=== PATIENT | female | born 1950 | race African-American/Black ===

== ENCOUNTER 2017-08-23 05:54 | Emergency (ER) | payer OTHER ==
[2017-08-23] MEDS ORDERED: cloNIDine HCl 0.1 MG TAB ONE (06:34)
--- NOTE | 2017-08-23 08:07 | EDPHYS ---
Physician Documentation [facility] Name: Amanda Bermudez Age: 67 yrs Sex: Female : 1950 Arrival Date: 08/23/2017 Time: 05:55 Bed 18 Private MD: ED Physician Trenton Snell HPI: 08/23 06:41 This 67 yrs old Black Female presents to ER via Ambulatory with complaints of Cough. snw 06:41 The patient or guardian reports cough, that is intermittent, with no sputum. Onset: The snw symptoms/episode began/occurred gradually, 3 week(s) ago, and became persistent. Severity of symptoms: At their worst the symptoms were moderate. Associated signs and symptoms: The patient has no apparent associated signs or symptoms. The patient has not experienced similar symptoms in the past. It is unknown whether or not the patient has recently seen a physician. pt states she had fluid on her lungs a few months ago. Historical: - Allergies: 06:29 No Known Allergies; wh - Home Meds: 06:29 hydrochlorothiazide 25 mg Oral tab 1 tab once daily [Active]; metoprolol succinate 100 wh mg oral Tb24 1 tab once daily [Active]; amlodipine-benazepril 10-40 mg oral cap 1 cap once daily [Active]; - PMHx: 06:29 Hypertension; wh - Immunization history:: Adult Immunizations unknown. - Social history:: Smoking status: Patient/guardian denies using tobacco. - Ebola Screening: : Patient negative for fever greater than or equal to 101.5 degrees Fahrenheit, and additional compatible Ebola Virus Disease symptoms Patient denies exposure to infectious person. ROS: 06:40 Constitutional: Negative for fever, chills, and weight loss, Eyes: Negative for injury, snw pain, redness, and discharge, ENT: Negative for injury, pain, and discharge, Neck: Negative for injury, pain, and swelling, Cardiovascular: Negative for chest pain, palpitations, and edema, Abdomen/GI: Negative for abdominal pain, nausea, vomiting, diarrhea, and constipation, Back: Negative for injury and pain, : Negative for injury, bleeding, discharge, and swelling, MS/Extremity: Negative for injury and deformity, Skin: Negative for injury, rash, and discoloration, Neuro: Negative for headache, weakness, numbness, tingling, and seizure. 06:40 Respiratory: Positive for cough, with no reported sputum, Negative for shortness of breath, wheezing. Exam: 06:40 Constitutional: This is a well developed, well nourished patient who is awake, alert, snw and in no acute distress. Head/Face: Normocephalic, atraumatic. Eyes: Pupils equal round and reactive to light, extra-ocular motions intact. Lids and lashes normal. Conjunctiva and sclera are non-icteric and not injected. Cornea within normal limits. Periorbital areas with no swelling, redness, or edema. ENT: Nares patent. No nasal discharge, no septal abnormalities noted. Tympanic membranes are normal and external auditory canals are clear. Oropharynx with no redness, swelling, or masses, exudates, or evidence of obstruction, uvula midline. Mucous membranes moist. Neck: Trachea midline, no thyromegaly or masses palpated, and no cervical lymphadenopathy. Supple, full range of motion without nuchal rigidity, or vertebral point tenderness. No Meningismus. Chest/axilla: Normal chest wall appearance and motion. Nontender with no deformity. No lesions are appreciated. Cardiovascular: Regular rate and rhythm with a normal S1 and S2. No gallops, murmurs, or rubs. Normal PMI, no JVD. No pulse deficits. Respiratory: Lungs have equal breath sounds bilaterally, clear to auscultation and percussion. No rales, rhonchi or wheezes noted. No increased work of breathing, no retractions or nasal flaring. Abdomen/GI: Soft, non-tender, with normal bowel sounds. No distension or tympany. No guarding or rebound. No evidence of tenderness throughout. Back: No spinal tenderness. No costovertebral tenderness. Full range of motion. Skin: Warm, dry with normal turgor. Normal color with no rashes, no lesions, and no evidence of cellulitis. MS/ Extremity: Pulses equal, no cyanosis. Neurovascular intact. Full, normal range of motion. Neuro: Awake and alert, GCS 15, oriented to person, place, time, and situation. Cranial nerves II-XII grossly intact. Motor strength 5/5 in all extremities. Sensory grossly intact. Cerebellar exam normal. Normal gait. Vital Signs: 06:11 BP 201 / 101; Pulse 65; Resp 18; Temp 98.2; Pulse Ox 100% on R/A; wh 06:33 BP 196 / 81; wh 07:02 BP 182 / 84; Pulse 59; Resp 18; Pulse Ox 94% on R/A; em 07:45 BP 153 / 78; Pulse 62; Resp 16; Pulse Ox 99% on R/A; Pain 0/10; em 08:34 BP 143 / 62; Pulse 57; Resp 16; Pulse Ox 96% on R/A; em MDM: 06:07 Patient medically screened. snw 08:09 Data reviewed: vital signs, nurses notes. Data interpreted: Pulse oximetry: on room air snw is 94 %. Interpretation: acceptable. Counseling: I had a detailed discussion with the patient and/or guardian regarding: the historical points, exam findings, and any diagnostic results supporting the discharge/admit diagnosis, the presence of at least one elevated blood pressure reading (>120/80) during this emergency department visit, radiology results, f/u with PCP regarding guero inhibitor as potential inciting factor for cough. Special discussion: I have referred the patient to see his PCP for further evaluation of high blood pressure. Based on the history and exam findings, there is no indication for further emergent testing or inpatient evaluation. I discussed with the patient/guardian the need to see the primary care provider for further evaluation of the symptoms. 08/23 06:26 Order name: Chest Pa And Lat (2 Views) XRAY snw Administered Medications: 06:33 Drug: cloNIDine 0.2 mg Route: PO; wh 08:20 Follow up: Response: No adverse reaction; Blood pressure is lowered em Disposition: 08/23/17 08:07 Discharged to Home. Impression: Cough. - Condition is Stable. - Discharge Instructions: Cough, Adult. - Medication Reconciliation Form, Thank You Letter, Antibiotic Education, Prescription Opioid Use form. - Follow up: Private Physician; When: 1 - 2 days; Reason: Recheck today's complaints, Continuance of care, Re-evaluation by your physician. Follow up: Emergency Department; When: As needed; Reason: Worsening of condition. Addendum: 08/24/2017 08:43 Co-signature as Attending Physician, Trenton Snell MD I agree with the assessment and c ballesteros plan of care. Signatures: Dispatcher [employer] Trenton Slaughter MD MD cha Therrien, Shelly, DESKTOP PUBLISHING ASSOCIATE-C DESKTOP PUBLISHING ASSOCIATE-Csnw Osman Quijano, TERRAZZO TILE MAKER TERRAZZO TILE MAKER em Molly Csineros Corrections: (The following items were deleted from the chart) 08/23 08:38 08:07 08/23/2017 08:07 Discharged to Home. Impression: Cough. Condition is Stable. em Forms are Medication Reconciliation Form, Thank You Letter, Antibiotic Education, Prescription Opioid Use. Follow up: Private Physician; When: 1 - 2 days; Reason: Recheck today's complaints, Continuance of care, Re-evaluation by your physician. Follow up: Emergency Department; When: As needed; Reason: Worsening of condition. snw
--- NOTE | 2017-08-23 08:07 | ER ---
Nurse's Notes [facility] Name: Amanda Bermudez Age: 67 yrs Sex: Female : 1950 Arrival Date: 08/23/2017 Time: 05:55 Bed 18 Private MD: Diagnosis: Cough Presentation: 08/23 06:09 Presenting complaint: Patient states: states she has cough and throat congestion since 5 days ago. Denies fever and N\T\V. Transition of care: patient was not received from another setting of care. Onset of symptoms was August 19, 2017. Risk Assessment: Do you want to hurt yourself or someone else? Patient reports no desire to harm self or others. Initial Sepsis Screen: Does the patient meet any 2 criteria? No. Patient's initial sepsis screen is negative. Does the patient have a suspected source of infection? No. Patient's initial sepsis screen is negative. Care prior to arrival: None. 06:09 Method Of Arrival: Ambulatory 06:09 Acuity: DASHA 4 Triage Assessment: 06:25 General: Appears in no apparent distress. Behavior is calm, cooperative, appropriate wh for age. Pain: Denies pain. Historical: - Allergies: 06:29 No Known Allergies; wh - Home Meds: 06:29 hydrochlorothiazide 25 mg Oral tab 1 tab once daily [Active]; metoprolol succinate 100 wh mg oral Tb24 1 tab once daily [Active]; amlodipine-benazepril 10-40 mg oral cap 1 cap once daily [Active]; - PMHx: 06:29 Hypertension; - Immunization history:: Adult Immunizations unknown. - Social history:: Smoking status: Patient/guardian denies using tobacco. - Ebola Screening: : Patient negative for fever greater than or equal to 101.5 degrees Fahrenheit, and additional compatible Ebola Virus Disease symptoms Patient denies exposure to infectious person. Screenin:25 Abuse screen: Denies threats or abuse. Denies injuries from another. Nutritional wh screening: No deficits noted. Tuberculosis screening: No symptoms or risk factors identified. Fall Risk None identified. Assessment: 06:34 General: Appears in no apparent distress. comfortable, Behavior is calm, cooperative, wh appropriate for age. Pain: Denies pain. Neuro: Level of Consciousness is awake, alert, obeys commands, Oriented to person, place, time, situation, Forging Roll Operator are equal bilaterally. Cardiovascular: Heart tones S1 S2 Capillary refill < 3 seconds. Respiratory: Airway is patent Respiratory effort is even, unlabored, Respiratory pattern is regular, symmetrical, Breath sounds are clear bilaterally. GI: Abdomen is round non-distended. : No signs and/or symptoms were reported regarding the genitourinary system. EENT: Throat is pink. Derm: Skin is intact, is healthy with good turgor, Skin is pink, warm \T\ dry. normal. Musculoskeletal: Range of motion: intact in all extremities. 07:18 Reassessment: Patient appears in no apparent distress at this time. Patient and/or em family updated on plan of care and expected duration. Pain level reassessed. Patient is alert, oriented x 3, equal unlabored respirations, skin warm/dry/pink. pending X-ray, will continue to monitor BP. 07:45 Reassessment: Patient appears in no apparent distress at this time. Patient and/or em family updated on plan of care and expected duration. Pain level reassessed. Vital Signs: 06:11 BP 201 / 101; Pulse 65; Resp 18; Temp 98.2; Pulse Ox 100% on R/A; wh 06:33 BP 196 / 81; wh 07:02 BP 182 / 84; Pulse 59; Resp 18; Pulse Ox 94% on R/A; em 07:45 BP 153 / 78; Pulse 62; Resp 16; Pulse Ox 99% on R/A; Pain 0/10; em 08:34 BP 143 / 62; Pulse 57; Resp 16; Pulse Ox 96% on R/A; em ED Course: 05:55 Patient arrived in ED. es 06:05 Bailey Dudley FNP-C is PHCP. snw 06:06 Trenton Snell MD is Attending Physician. snw 06:09 Molly Cisneros is Primary Nurse. wh 06:11 Triage completed. wh 06:25 Arm band placed on left wrist. wh 06:29 Patient has correct armband on for positive identification. Bed in low position. Call light in reach. Side rails up X 1. Pulse ox on. NIBP on. 07:19 No provider procedures requiring assistance completed. em 07:52 X-ray completed. Patient tolerated procedure well. la2 07:53 Chest Pa And Lat (2 Views) XRAY In Process Unspecified. EDMS 08:35 Patient did not have IV access during this emergency room visit. em Administered Medications: 06:33 Drug: cloNIDine 0.2 mg Route: PO; 08:20 Follow up: Response: No adverse reaction; Blood pressure is lowered em Outcome: 08:07 Discharge ordered by MD. saavedra 08:35 Discharged to home ambulatory. em 08:35 Condition: good 08:35 Discharge instructions given to patient. 08:35 Instructed on discharge instructions, follow up and referral plans. Demonstrated understanding of instructions, follow-up care. 08:38 Patient left the ED. em Signatures: Dispatcher [employer] EDMA Bailey Dudley, PERMACULTURE DESIGNER-C PERMACULTURE DESIGNER-Csnw Viviana Nice Edgar, CAR TOP BOLTER CAR TOP BOLTER em Molly Cisneros Pushpa Malik Corrections: (The following items were deleted from the chart) 06:26 06:11 Pulse 65bpm; Resp 18bpm; Pulse Ox 100% RA; Temp 98.2F; [facility]
[2017-08-23 08:42] VITALS: TEMP 98.2
[2017-08-23 08:46] VITALS: BP 143/62; O2SAT 96
--- NOTE | 2017-08-23 11:55 | RAD REPORT ---
EXAM DESCRIPTION: RAD - Chest Pa And Lat (2 Views) - 08/23/2017 7:54 am CLINICAL HISTORY: COUGH Chest pain. COMPARISON: Chest Pa And Lat (2 Views) dated 05/08/2017; Chest Single View dated 05/07/2017; Chest Sin gle View dated 05/06/2017 FINDINGS: The lungs are clear. The heart is mildly enlarged in size. No displaced fractures. IMPRESSION: Mild to moderate cardiomegaly.
== END 2017-08-23 08:38 | disposition home or self-care (01) ==
LOC: ER 05:54
DX: R05 Cough (principal); I10 Essential (primary) hypertension
CPT/HCPCS: 71046; 99284

== ENCOUNTER 2023-01-06 11:11 | Inpatient (IN) | payer BC, OTHER ==
[2023-01-06 11:54] LABS: Absolute Lymphocytes (CBC) 1.5 K/uL (0.7-4.9); Hematocrit 26.9 % (36.0-45.0); Lymphocytes % 7.4 % (15.3-44.8); MCV 82.3 fL (80-100); MPV 7.4 fL (7.6-11.3); Platelets 440 thou/uL (152-406); RBC Red Blood Cell Count 3.27 M/uL (3.86-4.86)
[2023-01-06] MEDS ORDERED: AZITHROMYCIN 500 MG INJ IVPB ONE (11:55)
[2023-01-06] MEDS ORDERED: LEVALBUTEROL 0.63 MG/3 ML NEB ONE (11:55)
[2023-01-06] MEDS ORDERED: NA CHLORIDE 0.9% 250 ML ONE (11:56)
[2023-01-06 12:13] LABS: Potassium 3.5 mEq/L (3.5-5.1)
[2023-01-06 12:16] LABS: Troponin High Sensitivity 104.5 pg/mL (<58.9)
--- NOTE | 2023-01-06 12:26 | RAD REPORT ---
EXAM DESCRIPTION: RAD - Chest Single View - 01/06/2023 12:15 pm CLINICAL HISTORY: COUGH COMPARISON: Chest Pa And Lat (2 Views) dated 08/23/2017; Chest Pa And Lat (2 Views) dated 05/08/2017; C hest Single View dated 05/07/2017; Chest Single View dated 05/06/2017 FINDINGS: Lines: None. Lungs: Consolidative airspace disease present in the right upper lobe and to lesser extent the right lower lobe. Possible retrocardiac airspace disease . Pleural: No significant pleural effusions or pneumothorax. Cardiac: The heart size is within normal limits. Mediastinum: Within normal limits. Bones: No acute fractures. Other: None IMPRESSION: Consolidative airspace disease in the right lung and possibly left lung base probably re presenting pneumonia. Short-term follow-up chest radiograph versus chest CT is recommended to either ensure resolution or further evaluate.
--- NOTE | 2023-01-06 12:42 | ER ---
Nurse's Notes [facility] Name: Amanda Bermudez Age: 72 yrs Sex: Female : 1950 Arrival Date: 01/06/2023 Time: 11:11 Bed 8 Private MD: Diagnosis: Sepsis, unspecified organism;Pneumonia, unspecified organism Presentation: 01/06 11:22 Chief complaint: Patient states: she has had shortness of breath since Thursday12/02/22, ap3 of which the patient reports has gotten worse. patient states she is on lasix and amlodipine, but has not been taking them. Coronavirus screen: Client presents with at least one sign or symptom that may indicate coronavirus-19. Ebola Screen: No symptoms or risks identified at this time. Initial Sepsis Screen: Does the patient meet any 2 criteria? HR > 90 bpm. Does the patient have a suspected source of infection? Yes: Productive cough/pneumonia. Risk Assessment: Do you want to hurt yourself or someone else? Patient reports no desire to harm self or others. Onset of symptoms was January 02, 2023. 11:22 Method Of Arrival: Wheelchair ap3 11:22 Acuity: DASHA 3 ap3 Triage Assessment: 11:25 General: Appears ill, Behavior is calm, cooperative, appropriate for age. Pain: Denies ap3 pain. Neuro: Level of Consciousness is awake, alert, obeys commands, Oriented to person, place, time. Cardiovascular: Patient's skin is warm and dry. Respiratory: Reports shortness of breath Airway is patent Respiratory effort is even, unlabored, Respiratory pattern is regular, symmetrical, Onset: The symptoms/episode began/occurred gradually, the patient has mild shortness of breath. Historical: - Allergies: 11:25 No Known Allergies; ap3 - PMHx: 11:25 Hypertension; ap3 - Immunization history:: Client reports receiving the 2nd dose of the Covid vaccine. - Social history:: Smoking status: Patient denies any tobacco usage or history of. Screenin:27 Abuse screen: Denies threats or abuse. Nutritional screening: No deficits noted. ap3 Tuberculosis screening: No symptoms or risk factors identified. 11:43 [facility] ED Fall Risk Assessment (Adult) History of falling in the last 3 months, mb9 including since admission No falls in past 3 months (0 pts) Confusion or Disorientation No (0 pts) Intoxicated or Sedated No (0 pts) Impaired Gait No (0 pts) Mobility Assist Device Used No (0 pt) Altered Elimination No (0 pt) Score/Fall Risk Level 0 - 2 = Low Risk Oriented to surroundings, Maintained a safe environment, Educated pt \T\ family on fall prevention, incl call for assistance when getting out of bed. Assessment: 12:07 General: Appears in no apparent distress. Behavior is calm, cooperative, appropriate mb9 for age. Pain: Denies pain. Neuro: Alvarado Agitation-Sedation Scale (RASS): 0 - Alert and Calm Level of Consciousness is awake, alert, obeys commands, Oriented to person, place, time, situation, Appropriate for age. Cardiovascular: Heart tones S1 S2 present Patient's skin is warm and dry. Cardiovascular: Rhythm is regular. Respiratory: Airway is patent Respiratory effort is even, unlabored, Respiratory pattern is regular, symmetrical, Breath sounds are clear bilaterally. GI: Abdomen is round non-distended, Bowel sounds present X 4 quads. Abd is soft and non tender X 4 quads. Patient currently denies diarrhea, nausea, vomiting. : No signs and/or symptoms were reported regarding the genitourinary system. EENT: No signs and/or symptoms were reported regarding the EENT system. Derm: Skin is pink, warm \T\ dry. Musculoskeletal: Range of motion: intact in all extremities. 13:14 Reassessment: No changes from previously documented assessment. Patient and/or family mb9 updated on plan of care and expected duration. Pain level reassessed. Patient is alert, oriented x 3, equal unlabored respirations, skin warm/dry/pink. Vital Signs: 11:22 BP 168 / 76; Pulse 93; Resp 18; Temp 97.7; Pulse Ox 88% on R/A; Weight 86.18 kg; ap3 11:26 Pulse Ox 98% on 2 lpm NC; ap3 12:09 BP 116 / 52; Pulse 85; Resp 18; Pulse Ox 96% on 2 lpm NC; mb9 13:14 BP 122 / 79; Pulse 89; Resp 20; Pulse Ox 98% on 2 lpm NC; Pain 0/10; mb9 13:14 Pain Scale: Adult mb9 ED Course: 11:14 Patient arrived in ED. rg4 11:15 Vladislav Landry MD is Attending Physician. ec2 11:25 Triage completed. ap3 11:27 Arm band placed on right wrist. ap3 11:27 Patient has correct armband on for positive identification. Placed in gown. Bed in low ap3 position. Call light in reach. Side rails up X2. Adult w/ patient. gambling monitor on. Pulse ox on. NIBP on. 11:40 Inserted saline lock: 20 gauge in right antecubital area, using aseptic technique. ko1 Blood collected. 11:43 Amanda Gonsalez, RN is Primary Nurse. mb9 11:43 No provider procedures requiring assistance completed. mb9 11:48 Basic Metabolic Panel Sent. ko1 11:48 CBC with Diff Sent. ko1 11:48 NT PRO-BNP Sent. ko1 11:48 Troponin HS Sent. ko1 11:48 Lactate w/ 2H reflex if indic. Sent. ko1 11:48 Blood Culture Adult (2) Sent. ko1 11:48 Influenza Screen (a \T\ B) Sent. ko1 11:48 COVID-19 SARS RT PCR Sent. ko1 12:08 Blood Culture Adult (2) Sent. mb9 12:16 XRAY Chest (1 view) In Process Unspecified. EDMS 12:41 Tylor Cancino MD is Hospitalizing Provider. ec2 14:11 Patient admitted, IV remains in place. mb9 Administered Medications: 11:40 Drug: DuoNeb Nebulize (3:1) (2.5 mg - 0.5 mg) 3 ml Nebulizer once Route: Nebulizer; mb9 12:27 Follow up: Response: No adverse reaction mb9 12:00 Drug: Rocephin IV 1 grams IV at calculated rate once; Given slow IV push per pharmacy mb9 instructions Route: IV; Rate: calculated rate; Site: right antecubital; 12:27 Follow up: Response: No adverse reaction; IV Status: Completed infusion mb9 12:09 Drug: AZITHromycin IVPB 500 mg IVPB once over 1 hrs; (mix in 250 mL NS) Route: IVPB; mb9 Infused Over: 1 hrs; Site: right antecubital; 13:11 Follow up: Response: No adverse reaction; IV Status: Completed infusion mb9 12:44 Drug: Aspirin PO Chewable Tablet 324 mg PO once; 81 mg tablets x 4 Route: PO; mb9 13:11 Follow up: Response: No adverse reaction veronica Medication: 14:11 VIS not applicable for this client. veronica Outcome: 12:41 Decision to Hospitalize by Provider. ec2 14:11 Admitted to Med/surg accompanied by tech, room 210, with chart, Report called to veronica Lemon RN 14:11 Condition: stable 14:11 Instructed on the need for admit, 14:34 Patient left the ED. veronica Signatures: Dispatcher [employer] Sumaya Turcios rg4 Rebecca Yousif RN RN ap3 Tania Sierra, RN RN ko1 Sunshine, Amanda Olson RN RN mb9 Vladislav Landry MD MD ec2
--- NOTE | 2023-01-06 12:42 | EDPHYS ---
Physician Documentation [facility] Name: Amanda Bermudez Age: 72 yrs Sex: Female : 1950 Arrival Date: 01/06/2023 Time: 11:11 Bed 8 Private MD: ED Physician Vladislav Landry HPI: 01/06 11:25 This 72 yrs old Black Female presents to ER via Wheelchair with complaints of Shortness ec2 Of Breath. 11:25 Patient arrives today for evaluation of progressive shortness of breath. Patient ec2 reports that for the past several days she is been having cough and cold symptoms is having a productive sputum, and feels subjectively short of breath. Patient reports no vomiting or diarrhea, denies any chest pain. States that she does not have a history of heart failure however does have Lasix prescribed to her. States that she ran out of this recently. 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 Historical: - Allergies: 11:25 No Known Allergies; ap3 - PMHx: 11:25 Hypertension; ap3 - Immunization history:: Client reports receiving the 2nd dose of the Covid vaccine. - Social history:: Smoking status: Patient denies any tobacco usage or history of. ROS: 11:25 Constitutional: as per hpi ec2 Exam: 11:25 Constitutional: GEN: NAD Head: atraumatic Eyes: EOMI Ears: External ears are ec2 normal. CV: regular rate LUNGS: Scattered wheezes noted, no focal lung deficits ABD: non-distended SKIN: no evidence of rashes MSK: no evidence of trauma NEURO: moves all extremities equally Vital Signs: 11:22 BP 168 / 76; Pulse 93; Resp 18; Temp 97.7; Pulse Ox 88% on R/A; Weight 86.18 kg; ap3 11:26 Pulse Ox 98% on 2 lpm NC; ap3 12:09 BP 116 / 52; Pulse 85; Resp 18; Pulse Ox 96% on 2 lpm NC; mb9 13:14 BP 122 / 79; Pulse 89; Resp 20; Pulse Ox 98% on 2 lpm NC; Pain 0/10; mb9 13:14 Pain Scale: Adult mb9 MDM: 11:23 Patient medically screened. ec2 11:25 Data reviewed: vital signs. ED course: Patient arrives today due to concern for cough ec2 and cold symptoms along with shortness of breath. Examination remarkable for individual with scattered wheezes noted throughout lung examination. Patient initially noted to be hypoxic with saturation at 88% and subsequently improved with 2 L of oxygen to 98%. Will obtain a septic work-up, currently considering processes such as volume overload, pneumonia, viral infection.. 11:35 ED course: EKG independently reviewed and interpreted by me, shows normal sinus rhythm, ec2 rate of 90, no acute ST segment elevations, nonconcerning intervals. Does have nonspecific T wave inversions noted.. 12:38 ED course: Metabolic profile with some renal dysfunction noted with a creatinine of ec2 2.29 and a GFR of 22. Chest x-ray with leukocytosis at 20 anemia with a hemoglobin of 9.2. BNP elevated at over 11,000, troponin elevated at 104. Chest x-ray shows possible pneumonia. Patient already given antibiotics. Flu negative, lactic within normal ranges. . 12:38 ED course: Presentation consistent with sepsis secondary to pneumonia. Discussed case ec2 with hospitalist, will admit for continued management.. 01/06 11:24 Order name: Basic Metabolic Panel; Complete Time: 12:37 ec2 01/06 11:24 Order name: CBC with Diff ec2 01/06 11:24 Order name: NT PRO-BNP; Complete Time: 12:37 ec2 01/06 11:24 Order name: Troponin HS; Complete Time: 12:37 ec2 01/06 11:24 Order name: COVID-19 SARS RT PCR; Complete Time: 13:06 ec2 01/06 11:24 Order name: Influenza Screen (a \T\ B); Complete Time: 12:37 ec2 01/06 11:25 Order name: Blood Culture Adult (2) ec2 01/06 11:25 Order name: Lactate w/ 2H reflex if indic.; Complete Time: 12:37 ec2 01/06 13:07 Order name: Manual Differential EDMS 01/06 11:24 Order name: XRAY Chest (1 view); Complete Time: 12:37 ec2 01/06 11:24 Order name: EKG; Complete Time: 11:25 ec2 01/06 11:24 Order name: Cardiac monitoring; Complete Time: 11:28 ec2 01/06 11:24 Order name: EKG - Nurse/Tech; Complete Time: 11:48 ec2 01/06 11:24 Order name: IV Saline Lock; Complete Time: 11:48 ec2 01/06 11:24 Order name: Labs collected and sent; Complete Time: 11:48 ec2 01/06 11:24 Order name: O2 Per Protocol; Complete Time: 11:28 ec2 01/06 11:24 Order name: O2 Sat Monitoring; Complete Time: 11:28 ec2 01/06 11:25 Order name: Accucheck; Complete Time: 11:48 ec2 01/06 11:25 Order name: IV Saline Lock - Large Bore; Complete Time: 11:48 ec2 01/06 11:25 Order name: Vital Signs; Complete Time: 11:28 ec2 Administered Medications: 11:40 Drug: DuoNeb Nebulize (3:1) (2.5 mg - 0.5 mg) 3 ml Nebulizer once Route: Nebulizer; mb9 12:27 Follow up: Response: No adverse reaction mb9 12:00 Drug: Rocephin IV 1 grams IV at calculated rate once; Given slow IV push per pharmacy mb9 instructions Route: IV; Rate: calculated rate; Site: right antecubital; 12:27 Follow up: Response: No adverse reaction; IV Status: Completed infusion mb9 12:09 Drug: AZITHromycin IVPB 500 mg IVPB once over 1 hrs; (mix in 250 mL NS) Route: IVPB; mb9 Infused Over: 1 hrs; Site: right antecubital; 13:11 Follow up: Response: No adverse reaction; IV Status: Completed infusion mb9 12:44 Drug: Aspirin PO Chewable Tablet 324 mg PO once; 81 mg tablets x 4 Route: PO; mb9 13:11 Follow up: Response: No adverse reaction mb9 Disposition: 12:38 Critical Care:. ec2 Disposition Summary: 01/06/23 12:41 Hospitalization Ordered Notes: Hospitalization Status: Inpatient Admission ec2 Provider: Tylor Cancino [facility] ec2 Condition: Stable ec2 Problem: an acute exacerbation ec2 Symptoms: have improved ec2 Bed/Room Type: Standard ec2 Room Assignment: 210(01/06/23 14:02) ap3 Diagnosis - Sepsis, unspecified organism ec2 - Pneumonia, unspecified organism ec2 Forms: - Medication Reconciliation Form ec2 - SBAR form ec2 - Leadership Thank You Letter ec2 Critical care time excluding procedures: 12:38 Critical care time: Bedside Care: 30 minutes, Consultation: 5 minutes. Total time: 35 ec2 minutes Signatures: Dispatcher [employer] Rebecca Strauss RN RN ap3 Amanda Gonsalez RN RN mb9 Vladislav Landry MD MD ec2 Corrections: (The following items were deleted from the chart) 14:02 12:41 ec2 ap3
[2023-01-06] MEDS ORDERED: ASPIRIN 81 MG CHEWABLE TABLET ONE (12:55)
[2023-01-06 13:06] LABS: Platelet Estimate INCR
[2023-01-06 13:07] LABS: Blood Morphology Comment NOT SEEN (NOT SEEN)
[2023-01-06] MEDS ORDERED: ACETAMINOPHEN 500 MG TAB PO PRN (13:40)
[2023-01-06] MEDS ORDERED: IPRATROPIUM BROM 0.5MG/2.5ML NEB PRN ×2 (13:40→15:00)
[2023-01-06] MEDS ORDERED: NA CHLORIDE 0.9% 500 ML IV ONE (13:40)
[2023-01-06] MEDS ORDERED: ALBUTEROL 2.5 MG/3 ML NEB SOL NEB PRN ×2 (13:40→15:00)
--- NOTE | 2023-01-06 13:59 | P.HP ---
Certification for Inpatient With expected LOS: <2 Midnights Patient will require the following post-hospital care: None Practitioner: I am a practitioner with admitting privileges, knowledge of patient current condition, hospital course, and medical plan of care. Services: Services provided to patient in accordance with Admission requirements found in Title 42 Section 412.3 of the Code of Federal Regulations Patient History Date of Service: 01/06/23 Reason for admission: Sepsis pneumonia, elevated troponin, renal impairment History of Present Illness: Ms. EDDA WEST a 72-year-old female with a past medical history of hypertension, presented to the ER via wheelchair with complaints of shortness of breath. Patient reports that she is short of breath for past several days, productive cough which is thick sputum patient denies chest pain, chest discomfort. Patient denies fever chills or weight loss. Patient denies abdominal pain, nausea or vomiting. Patient states she stopped taking blood pressure medication as she ran out. ED course BP 168/76, pulse 93, respiration 18, temperature 97.7, pulse ox 88% on room air. EKG shows normal sinus rhythm rate of 90, no acute ST segment elevations, not on concerning intervals, nonspecific T wave inversions noted. Labs significant for leukocytosis WBC of 22, anemia with a hemoglobin of 9.2, BMP showing renal dysfunction noted with a creatinine of 2.29 and a GFR of 22, chest x-ray positive for right lung consolidation. Admitting the patient with a diagnosis of sepsis secondary to pneumonia. Allergies No Known Allergies Allergy (Unverified 05/05/17 13:01) Home medications list reviewed: Yes Home Medications: Amlodipine [Norvasc*] 5 mg PO DAILY #30 tab 05/10/17 Furosemide [Lasix*] 40 mg PO DAILY #30 tab 05/10/17 Spironolactone [Aldactone*] 25 mg PO DAILY #30 tab 05/10/17 carvediloL [Coreg*] 12.5 mg PO BID 6AM 6PM #60 tab 05/10/17 - Past Medical/Surgical History Diabetic: No -: HTN -: asthma Psychosocial/ Personal History: Patient lives at home by herself - Family History Sister -: Cancer (Ovarian cancer) - Social History Smoking Status: Never smoker Smoking therapy provided: No Alcohol use: Yes CD- Drugs: No Caffeine use: No Place of Residence: Home Review of Systems 10-point ROS is otherwise unremarkable Physical Examination - Physical Exam General: Alert, Oriented x3 HEENT: Atraumatic, Normocephalic Neck: Supple, 2+ carotid pulse no bruit Respiratory: Clear to auscultation bilaterally, Normal air movement Cardiovascular: No edema, Normal pulses, Normal S1 S2 Capillary refill: <2 Seconds Gastrointestinal: Normal bowel sounds, Non-distended Musculoskeletal: No clubbing, No swelling Integumentary: Other (Small wound on the left lower extremity) - Studies Laboratory Data (last 24 hrs) 01/06/23 01/06/23 11:45 11:45 WBC 20.20 H Hgb 9.2 L Hct 26.9 L Plt Count 440 H Sodium 137 Potassium 3.5 BUN 45 H Creatinine 2.29 H Glucose 153 H Microbiology Data (last 24 hrs): 01/06/23 11:45 Nasopharnyx Influenza Type A Antigen Screen - Final 01/06/23 11:45 Nasopharnyx Influenza Type B Antigen Screen - Final Assessment and Plan - Problems (Diagnosis) (1) Sepsis Current Visit: Yes Status: Acute Plan: Sepsis Patient meets sepsis criteria based on temperature elevated WBCs and chest x- ray. Vital signs blood pressure 168/76, pulse 98, respiration 18, temperature 97.7, pulse ox 88% on room air WBC > 20 point r > 4 the suspected source is lungs. Plan: - Activated Code Sepsis at on 01/06/2023 - Sepsis order set was initiated - Initial Lactate was1.4, trend - Bantibiotics ceftriaxone and Zithromax STARTED - Broad spectrum antibiotics started: ceftriaxone and Zithromax STARTED- -iv SALINE LOCK, Will monitor BP, no IVF at this time as patient's BNP is elevated and with h/o CHF. Qualifiers: Sepsis type: sepsis due to unspecified organism Sepsis acute organ dysfunction status: with acute organ dysfunction Severe sepsis acute organ dysfunction type: unspecified (2) Pneumonia Current Visit: Yes Status: Acute Plan: Acute, denies shortness of breath, fever or chills -O2 2 L via nasal cannula to keep the SPO2 above 92% -Bronchodilators as needed -Leukocytosis WBC 20.2, bands 4, - Sepsis order set was initiated - Initial Lactate was1.4, trend - Bantibiotics ceftriaxone and Zithromax STARTED - Broad spectrum antibiotics started: ceftriaxone and Zithromax STARTED- -iv SALINE LOCK, Will monitor BP, no IVF at this time as patient's BNP is elevated and with h/o CHF Qualifiers: Pneumonia type: due to unspecified organism Laterality: right Lung location: middle lobe of lung Qualified Code(s): J18.9 - Pneumonia, unspecified organism (3) Wound of left lower extremity Current Visit: Yes Status: Chronic Plan: Chronic, wound on the left left lower extremity, nonhealing, developed after blister came up and No signs of infection, wound bed is bright red, no pus no edema noted Routine wound care Qualifiers: Encounter type: initial encounter Qualified Code(s): S81.802A - Unspecified open wound, left lower leg, initial encounter (4) Acute systolic CHF (congestive heart failure), NYHA class 4 Onset Date: 05/06/17 Current Visit: No Status: Acute Plan: Acute on chronic Patient was admitted with increased coughing Not taking her home medication including amlodipine Coreg Lasix and spironolactone Patient presents with symptoms of shortness of breath, cough. At this time, will admit for medical optimization. - Consult Cardiology - recommendations appreciated - Ordered transthoracic echocardiogram -Continue to watch blood pressure - Daily weights - Strict I/O - Cardiac diet, 2 g Na restriction (5) HTN (hypertension) Onset Date: 05/06/17 Current Visit: No Status: Chronic Plan: Chronic, uncontrolled Patient reports that she is not compliant with her medications, patient was on amlodipine 5 mg p.o. daily, not taking medicine for long time not seen PCP for long-term Restart amlodipine Monitor vital signs closely Qualifiers: Hypertension type: primary hypertension Qualified Code(s): I10 - Essential (primary) hypertension (6) CKD (chronic kidney disease) stage 4, GFR 15-29 ml/min Current Visit: Yes Status: Acute Plan: Patient admitted with sepsis pneumonia Labs shows impaired renal function BUN 45 creatinine 2.29 GFR 22 Patient reports that she was not taking her medications for a long time Nephrology consulted We will monitor renal function daily Renal diet (7) NSTEMI (non-ST elevated myocardial infarction) Current Visit: Yes Status: Acute Plan: Acute No chest pain, concern for Acute Coronary Syndrome due to elevated troponin 104 Based on history and physical examination, cannot exclude ischemia as a possible etiology of patient's chest pain. - EKG: No obvious ST segment changes, trend - Serial troponin - Ordered transthoracic echocardiogram - Ordered chest x-ray - Ordered d-dimer - Management plan: - Consult Cardiology -Dr. Mackey - S/P aspirin 324 mg PO x 1 in ED - Start daily baby aspirin - Symptom control with PRN acetaminophen, nitroglycerin, morphine - If CAD is confirmed, plan to start beta-adonay, MIRLANDE-inhibitor/ARB, statin with 24 hours Discharge Plan: Home Plan to discharge in: 48 Hours - Advance Directives Does patient have a Living Will: No Does patient have a Durable POA for Healthcare: No - Code Status/Comfort Care Code Status Assessed: Yes (Full code) Code Status: Full Code Physician Review: Patient Assessed, Agree with Above Assessment and Plan Critical Care: No Time Spent Managing Pts Care (In Minutes): 55 (Minutes)
[2023-01-06] MEDS ORDERED: MORPHINE 2 MG/ML SYR IV PRN (14:52)
[2023-01-06] MEDS ORDERED: NITROGLYCERIN 0.4 MG/TAB SL ONE (14:53)
[2023-01-06] MEDS ORDERED: PNEUMOCOCCAL VACCINE 0.5 ML IMVAC ONE (16:00)
[2023-01-06] MEDS ORDERED: INFLUENZA VACCINE (for 6+ mo) 0.5 ML DOSE IMVAC ONE (16:00)
--- NOTE | 2023-01-06 18:18 | RAD REPORT ---
EXAM DESCRIPTION: US - Renal Ultrasound-Complete - 01/06/2023 3:28 pm CLINICAL HISTORY: MICHAEL COMPARISON: No comparisons TECHNIQUE: Sonographic grayscale and color flow images of the kidneys and bladder were obtained. FINDINGS: Both kidneys are normal in size, shape, and echotexture. The right kidney measures 8.1 cm in length. No hydronephrosis, focal mass, or echogenic calculi. Well -circumscribed exophytic anechoic superior pole 2.6 x 2.3 x 2.2 cm cortical cyst. The left kidney measures 8.6 cm in length. No hydronephrosis, focal mass, or echogenic calculi. The urinary bladder is suboptimally distended limiting evaluation. Incidentally noted calcified uteri ne lesions resulting in contour abnormality suggestive of fibroids. IMPRESSION: Right superior pole 2.6 cm simple appearing renal cyst. Otherwise normal renal sonogram. Incidentally noted uterine fibroids.
--- NOTE | 2023-01-06 19:29 | CON ---
Date of Consultation: 01/06/2023 Reason For Consultation: Elevated BUN and creatinine. Fluid management. History Of Present Illness: This is a pleasant 72-year-old female with significant past medical history of hypertension, poorly controlled, poor compliant with medication, patient was in her regular state of health. Patient lost her medication, came to the hospital complaining from cough with sputum yellowish without any fever or chills and shortness of breath with orthopnea. Patient had admission before with uncontrolled hypertension at that time back in 2018, ejection fraction within normal limit. On this admission, has elevation in troponin and BNP. Patient denied taking any nonsteroidal. Patient found to have elevation in creatinine 2.2. Reviewing the record for the patient, creatinine back in 2018 at 1.2 with GFR of 50, currently creatinine 2.2 with GFR of 22. Allergies: NO KNOWN DRUGS ALLERGY. Home Medications: Including amlodipine, Lasix, spironolactone, carvedilol, but she is not taking any. Past Medical History: Includes hypertension and bronchial asthma. Family History: Positive for cancer. Social History: Denied smoking. Denied drinking. Denied drugs abuse. Review of Systems: Head and Neck: No red eye. GI: Has no nausea. No vomiting. : Has polyuria. Has nocturia. No dysuria. No hematuria. Respiratory: Has shortness of breath. Has cough. Cardiovascular: Has orthopnea. Has leg swelling. [employer] Supervisor: No vaginal discharge. Neuro: Has weakness. Musculoskeletal: Generalized fatigue. Physical Examination: Vital Signs: Blood pressure 143/62, pulse of 57, afebrile. Chest: Crackles, bilateral, more prominent on the right side. Heart: S1, S2. Systolic murmur. Abdomen: Soft, nontender, obese. Could not appreciate any organomegaly. Extremities: +2 edema. Ulcer on the left leg. Neurologic: Alert. No focality. Laboratory Data: Back in 2018, creatinine 1.2, GFR of 50, hemoglobin 13.9. Today's lab data; sodium 137, potassium is 3.5, bicarb 29, BUN 45, creatinine 2.2, GFR 22, calcium of 9. Troponin 104. BNP 11,000. Chest x-ray; cardiomegaly with congestion and multifocal infiltration. Hemoglobin 9.1, WBC 20.2, platelet 440. Urinalysis negative for infection. RBC of 100. Current Medications: The patient on, it includes ceftriaxone, azithromycin, Tylenol. Assessment And Plan: 1. Acute kidney injury secondary to cardiorenal, overvolume, superimposed with toxic ATN secondary to pneumonia. I am going to start the patient on aggressive diuresis and we will send for workup. I am going to send for PTH and ultrasound to evaluate the chronicity of the disease with the presence of anemia to rule out light chain disease. We will send for serum protein electrophoresis and we will follow up. 2. Hypertension. We will utilize the blood pressure for more diuresis. 3. Anemia of chronic kidney disease. To rule out light chain disease, we will send for serum protein electrophoresis. We will send for anemia workup. 4. Pneumonia. Patient was started on ceftriaxone dose appropriate. We will follow up. 5. Hematuria. Continue antibiotic. We will follow up ultrasound. 6. Hypokalemia. I am going to be reluctant for supplement right now. 7. Hyponatremia, dilutional. Will be corrected with the diuresis. 8. Congestive heart failure with exacerbation. We will optimize the fluid status with the diuresis. We will follow up with Cardiology. Thank you, Mrs. Lazcano, for allowing us to participate in the care of your patient. time spend exam the patient face to face , reviewing data lab and radiology , placing order discussing with the family , Nursing staff and hospitalist >75 min JOSÉ MIGUEL Voice ID: [id number] Report ID: [id number] MTDD
[2023-01-07 03:50] LABS: Absolute Lymphocytes (CBC) 0.9 K/uL (0.7-4.9); Hematocrit 23.5 % (36.0-45.0); Lymphocytes % 4.5 % (15.3-44.8); MCV 82.4 fL (80-100); MPV 7.6 fL (7.6-11.3); Platelets 410 thou/uL (152-406); RBC Red Blood Cell Count 2.86 M/uL (3.86-4.86)
[2023-01-07 04:15] LABS: Albumin 1.8 g/dL (3.4-5.0); Magnesium 2.5 mg/dL (1.6-2.4); Potassium 3.8 mEq/L (3.5-5.1); Thyroid Stimulating Hormone 0.897 uIU/mL (0.358-3.740)
[2023-01-07 04:58] LABS: Rheumatoid Factor NEG (NEG)
[2023-01-07] MEDS ORDERED: POTASSIUM CL SA 10 MEQ TAB PO ONE (06:00)
[2023-01-07] MEDS: CEFTRIAXONE 1,000 MG in NA CHLORIDE 0.9% 50 ML IVPB SCH (08:43)
[2023-01-07] MEDS: AZITHROMYCIN IV 250 MG in NA CHLORIDE 0.9% 250 ML IVPB SCH (09:00)
--- NOTE | 2023-01-07 14:49 | PN ---
Date of Progress Note: 01/07/2023 Subjective: Patient was admitted with acute kidney injury secondary to cardiorenal and urgent hypertension. The patient was placed on aggressive diuresis yesterday. Physical Examination: Vital Signs: Blood pressure of 170/66, pulse of 88. Chest: Crackles, bilateral. Heart: S1, S2. Systolic murmur. Abdomen: Soft, nontender. Extremities: +1 edema. Ulcer on the left leg. Neurologic: Alert. No focality. Laboratory Data: Hemoglobin of 8, sodium 139, potassium 3.8, bicarb 29, BUN 45, creatinine 2.1, GFR of 24, calcium is 8.4, uric acid of 12, phosphorus 4, magnesium of 2.5. BNP down to 8900. Albumin 1.8. Corrected calcium is 10. Serum protein electrophoresis still pending. Anemia workup is still pending. Current Medications: Include: 1. Azithromycin. 2. Ceftriaxone. 3. Nitroglycerin. 4. Lasix 40 b.i.d. Assessment And Plan: 1. Acute kidney injury secondary to cardiorenal. I am going to continue the patient on the diuresis. 2. Obstructive uropathy has been ruled out. Patient is still on the overvolume. 3. Chronic kidney disease, small size kidney 8.1/8.6 secondary to hypertension, nephrosclerosis, cardiorenal syndrome with acute kidney injury as above. I am going to continue to monitor. We will keep holding any MIRLANDE inhibitor and ARB for the time being given the acute kidney injury. We will try to establish better volume control. 4. Awaiting for the serum protein electrophoresis and serology workup. 5. Secondary hyperparathyroidism. Calcium, phosphorus, and PTH on the goal. 6. Right renal cyst, simple. No need for further workup. 7. Anemia of chronic kidney disease. Waiting for the rest of the workup. 8. Pneumonia. Continue current antibiotic. time spend exam the patient face to face , reviewing data lab and radiology , placing order discussing with the family , Nursing staff and hospitalist >35 min JOSÉ MIGUEL Voice ID: [id number] Report ID: [id number] [facility] CENTERNeymar
[2023-01-07] MEDS: FUROSEMIDE 40 MG/4 ML VIAL IV SCH (16:52)
--- NOTE | 2023-01-07 17:24 | EKG ---
Test Date: 2023-01-06 Test Time: 11:26:39 Synthetic Chemist: ARUNA MEASUREMENT RESULTS: Intervals: Rate: 90 VA: 168 QRSD: 94 QT: 384 QTc: 469 Calvin: P: 41 VA: 168 QRS: 30 T: 113 INTERPRETIVE STATEMENTS: Sinus rhythm Left ventricular hypertrophy with repolarization abnormality Abnormal ECG No previous ECG available for comparison Electronically Signed On 01-07-23 17:20:31 SENIOR CONSULTANT by Bogdan Mackey
[2023-01-07 17:30] LABS: Specific Gravity 1.017 (1.005-1.030); Urine Bacteria <20 /HPF (<20); Urine Bilirubin NEGATIVE (Negative); Urine Blood 3+ (OVER) (Negative); Urine Clarity Extremely Turbid (Clear); Urine Color Yellow (Yellow); Urine Glucose NEGATIVE (Negative); Urine Mucus Slight /HPF (None Seen); Urine Protein 1+ (Negative); Urine RBC >50 /HPF (None Seen); Urine Urobilinogen Normal (Normal)
[2023-01-07 18:12] VITALS: BMI 37.4
[2023-01-07 21:04] LABS: Urine Protein/Creatinine Ratio 0.37 ratio (<0.15)
[2023-01-08 03:17] LABS: Albumin 1.8 g/dL (3.4-5.0); Magnesium 2.4 mg/dL (1.6-2.4); Phosphorus 3.7 mg/dL (2.5-4.9); Potassium 4.1 mEq/L (3.5-5.1)
--- NOTE | 2023-01-08 07:41 | ECHO ---
HEIGHT: 4 ft 11 in WEIGHT: 188 lb 1.6 oz DATE OF STUDY: 01/07/[address]: Derik Hastings NP 2-DIMENSIONAL: YES M.MODE: YES DOPPLER: YES COLOR FLOW: YES TDS: PORTABLE: YES DEFINITY: BUBBLE STUDY: DIAGNOSIS: SESPIS, ELEVATED TROPONIN, BNP CARDIAC HISTORY: CATHERIZATION: SURGERY: PROSTHETIC VALVE: PACEMAKER: MEASUREMENTS (cm) DIASTOLIC (NORMALS) SYSTOLIC (NORMALS) IVSd 1.2 (0.6-1.2) LA Diam 3.8 (1.9-4.0) LVEF 56% LVIDd 5.1 (3.5-5.7) LVIDs 3.6 (2.0-3.5) %FS 29% LVPWd 1.4 (0.6-1.2) Ao Diam 2.4 (2.0-3.7) 2 DIMENSIONAL ASSESSMENT: RIGHT ATRIUM: NORMAL LEFT ATRIUM: NORMAL RIGHT VENTRICLE: NORMAL LEFT VENTRICLE: LEFT VENTRICULAR HYPERTROPHY TRICUSPID VALVE: MILD TRICUSPID REGURGITATION MITRAL VALVE: MILD MITRAL REGURGITATION PULMONIC VALVE: NORMAL AORTIC VALVE: MILD AORTIC INSUFFICIENCY PERICARDIAL EFFUSION: NONE AORTIC ROOT: NORMAL LEFT VENTRICULAR WALL MOTION: NORMAL DOPPLER/COLOR FLOW: SEE BELOW COMMENTS: 1. NORMAL LEFT VENTRICULAR EJECTION FRACTION 55-60% WITH NORMAL WALL MOTION 2. DIASTOLIC DYSFUNCTION (MODERATE) 3. MODERATE CONCENTRIC LEFT VENTRICULAR HYPERTROPHY 4. MILD MITRAL REGURGITATION, TRICUSPID REGURGITATION, AORTIC INSUFFICIENCY 5. MODERATE PULMONARY HYPERTENSION WITH RIGHT VENTRICULAR SYSTOLIC PRESSURE OF 50-55 mmHg TECHNOLOGIST: RAMON VIVAR
[2023-01-08] MEDS ORDERED: REGADENOSON 0.4 MG/5 ML SYR IV ONE (09:16)
[2023-01-08] MEDS: CEFTRIAXONE 1,000 MG in NA CHLORIDE 0.9% 50 ML IVPB SCH (10:05)
[2023-01-08] MEDS: FUROSEMIDE 40 MG/4 ML VIAL IV SCH (10:05)
[2023-01-08] MEDS: AZITHROMYCIN IV 250 MG in NA CHLORIDE 0.9% 250 ML IVPB SCH (10:05)
--- NOTE | 2023-01-08 11:29 | TREADPHA ---
DX: ELEVATED TROPONIN Date of Study: 01/08/2023 Ht: 4' 11 " Wt: 188 lb 1.6 oz Consulting Physician: TIGIST MEDICATIONS: TYLENOL, AXITHROMYCIN, CEFTRIAXONE, LASIX HISTORY: HISTORY OF HYPERTENSION, NON SMOKER, NO DRUGS, NO ALCOHOL ABUSE PHYSICIAL EXAMINATION: RESTING B.P.: 144/62 RESTING H.R.: 86 RESTING EKG: SINUS RHYTHM WITH OCCASIONAL PREMATURE VENTRICULAR COMPLEXES AND LEFT VENTRICULAR HYPERTROPHY PROTOCOL: PHARMACOLOGIC EXERCISE TIME: 3:30 B.P. AT PEAK STRESS: 144/66 IMPRESSION: LEXISCAN INJECTED. CARDIOLITE INJECTED - SEE NUCLEAR MEDICINE REPORT. NO CHEST PAIN, NO VENTRICULAR TACHYCARDIA, SUPRAVENTRICULAR TACHYCARDIA, OCCASIONAL PREMATURE PREMATURE VENTRICULAR COMPLEXES NOTED. NO ELECTROCARDIOGRAM CHANGES OF ISCHEMIA WITH LEXISCAN.
--- NOTE | 2023-01-08 12:39 | RAD REPORT ---
EXAM DESCRIPTION: NM - Rest Stress Cardiac Imaging - 01/08/2023 9:56 am CLINICAL HISTORY: elevated troponin Chest pain. COMPARISON: No comparisons TECHNIQUE: The patient was administered approximately 10 mCi of Tc 99m Sestamibi prior to resting SP ECT imaging of the heart. The patient was then administered approximately 30.5 mCi of Tc 99m Sestamib i following exercise or pharmacologic stress. Multiplanar SPECT images were reviewed. FINDINGS: Small stress-induced reversible defect at the apical segment of the inferior and septal wa ll, concerning for ischemia. Large fixed defect involving the mid to basal inferior wall and adjacent smaller regions of the lateral wall, favored to be artifactual related to splanchnic uptake, but may in part relate to an area of infarct. The end diastolic volume is 129 ml, the end systolic volume is 66 ml, and the ejection fraction is 49 %. Mild hypokinesia at the apex. IMPRESSION: Small reversible defect at the apex, inferior and septal dobbins, concerning for ischemia. Mid to basal inferior wall and adjacent lateral wall areas of fixed defect, favored to be artifactual but may in part relate to infarct. Left ventricular ejection fraction: 49%, borderline.
[2023-01-08] MEDS ORDERED: ACETYLCYST 20% 800 MG/4 ML VIAL PO ONE (15:04)
[2023-01-08] MEDS ORDERED: D5W 1,000 ML with NA BICARB 8.4% 50 MEQ IV SCH ×2 (16:00)
[2023-01-08] MEDS ORDERED: ALBUMIN HUMAN 25% 100 ML IV ONE (16:00)
[2023-01-08] MEDS: METRONIDAZOLE 500mg IVPB 500 MG/100 ML BAG IV SCH ×2 (16:51→18:00)
--- NOTE | 2023-01-08 17:02 | PN ---
Date of Progress Note: 01/08/2023 Subjective: The patient was admitted to the hospital with acute kidney injury secondary to cardiorenal. The patient was overvolume, had respiratory distress secondary to overvolume/multifocal pneumonia. The patient was started on diuresis, responding very well. Objective: Vital Signs: Blood pressure 137/67, pulse of 90, afebrile. Chest: Crackles, more prominent on the right side. Heart: S1, S2. Regular. Abdomen: Soft, nontender. Extremities: No edema. Neurologic: Alert. No focality. Laboratory Data: Hemoglobin 8, sodium 138, potassium 4.1, bicarb 27, BUN 52, creatinine 2.3, GFR 21, calcium 8.5, phosphorus 3.7, magnesium 2.4, albumin 1.8, corrected calcium is 10.1, PTH 132. Serum protein electrophoresis is still pending. Anemia workup is still pending. PC ratio 0.3, serology pending. Current Medications: The patient on, its includes: 1. Azithromycin. 2. Ceftriaxone. 3. Metronidazole. 4. Lasix 40 b.i.d. IV. 5. KCl. Assessment And Plan: 1. Acute kidney injury on chronic kidney disease, multifactorial, secondary to hypertension, nephrosclerosis/cardiorenal syndrome, currently normal volume. I am going to go ahead and switch Lasix to oral and we will follow up the patient. I am going to keep holding MIRLANDE inhibitor or ARB for the time being and we will follow up. 2. Chronic kidney disease, small sized kidney 8.1/8.6 secondary to hypertension, nephrosclerosis, cardiorenal syndrome with acute kidney injury as above. Follow up serology. 3. Secondary hyperparathyroidism. Calcium and phosphorus with PTH on the goal. 4. Right renal cyst, simple, stable. 5. Anemia of chronic kidney disease, to rule out iron-deficiency anemia/light chain disease. Waiting for serum protein electrophoresis and anemia workup. 6. Multifocal pneumonia. Continue current antibiotic dose appropriate. 7. Congestive heart failure with exacerbation. We will follow up with Cardiology. Plan for stress test today. Echocardiogram only showing diastolic dysfunction, preserved ejection fraction of 56%. Moderate pulmonary hypertension. time spend exam the patient face to face reviewing data lab and radiology placing order , discussing with the patient , discussing with the marine steam fitter helper including hospitalist and nursing staff >35 min BEBE/JACKIE Voice ID: [id number] Report ID: [id number] JOHNATHON
[2023-01-08] MEDS: ENSURE MAX PROTEIN 330 ML LIQUID PO SCH (21:00)
[2023-01-08] MEDS: ACETYLCYST 20% 800 MG/4 ML VIAL PO SCH (22:30)
[2023-01-08] MEDS: JUVEN PACKET PO SCH (22:31)
[2023-01-09] MEDS: METRONIDAZOLE 500mg IVPB 500 MG/100 ML BAG IV SCH ×3 (02:06→16:32)
[2023-01-09 03:45] LABS: Magnesium 2.4 mg/dL (1.6-2.4); Phosphorus 3.8 mg/dL (2.5-4.9)
[2023-01-09] MEDS: CEFTRIAXONE 1,000 MG in NA CHLORIDE 0.9% 50 ML IVPB SCH (08:20)
[2023-01-09] MEDS: ENSURE MAX PROTEIN 330 ML LIQUID PO SCH ×2 (08:21→20:28)
[2023-01-09] MEDS: JUVEN PACKET PO SCH ×2 (08:21→20:29)
[2023-01-09] MEDS: AZITHROMYCIN IV 250 MG in NA CHLORIDE 0.9% 250 ML IVPB SCH (09:37)
[2023-01-09] MEDS: FUROSEMIDE 40 MG TABLET PO SCH (09:43)
[2023-01-09] MEDS: ACETYLCYST 20% 800 MG/4 ML VIAL PO SCH ×2 (09:44→20:28)
--- NOTE | 2023-01-09 13:34 | P.PN ---
Subjective Date of Service: 01/09/23 Chief Complaint: Sepsis pneumonia, elevated troponin, renal impairment Subjective: No new changes Physical Examination - Vital Signs Temperature: 98.8 F Blood Pressure: 156/59 Pulse: 79 Respirations: 18 - Physical Exam General: Other (chronically ill-appearing) HEENT: Atraumatic, Normocephalic Neck: Supple Respiratory: Other (symmetric chest expansion) Cardiovascular: No rubs, No murmurs Gastrointestinal: Soft and benign, No guarding Musculoskeletal: No clubbing Integumentary: No warmth Neurological: Normal tone Urinary: Other (no bladder distention) External genitalia: Deferred Rectal: Deferred Assessment And Plan - Plan 1. Acute kidney injury on chronic kidney disease, multifactorial, secondary to hypertension, nephrosclerosis/cardiorenal syndrome. SCr plateaued. Cont PO lasix. [place] po fluid intake. 2. Chronic kidney disease, small sized kidney 8.1/8.6 secondary to hypertension, nephrosclerosis, cardiorenal syndrome with acute kidney injury as above. Monitor renal panel. 3. Secondary hyperparathyroidism. Monitor serum Ca & Phos. 4. Right renal cyst, simple, stable. 5. Anemia of chronic kidney disease, to rule out iron-deficiency anemia/light chain disease. Waiting for serum protein electrophoresis and anemia workup. 6. Multifocal pneumonia. Cont abx. 7. Congestive heart failure with exacerbation. We will follow up with Cardiology. Echocardiogram only showing diastolic dysfunction, preserved ejection fraction of 56%. Moderate pulmonary hypertension. Per Cardiology. 8. Hypertension. Start Carvedilol + Amlodipine. Physician Review: Patient Assessed, Agree with Above Assessment and Plan
[2023-01-09] MEDS: AMLODIPINE 5 MG TAB PO SCH (14:00)
[2023-01-09] MEDS ORDERED: FUROSEMIDE 20 MG/ 2ML VIAL IV ONE (16:15)
[2023-01-09] MEDS ORDERED: ALBUMIN HUMAN 25% 100 ML IV ONE (16:15)
[2023-01-09] MEDS: carvediloL 6.25 MG TAB PO SCH (16:30)
[2023-01-09 23:51] LABS: Ferritin 471.9 ng/mL (8-388)
[2023-01-10] MEDS: METRONIDAZOLE 500mg IVPB 500 MG/100 ML BAG IV SCH ×3 (01:35→16:38)
[2023-01-10 04:53] LABS: Magnesium 2.5 mg/dL (1.6-2.4); Phosphorus 4.1 mg/dL (2.5-4.9); Potassium 4.2 mEq/L (3.5-5.1)
[2023-01-10] MEDS: CEFTRIAXONE 1,000 MG in NA CHLORIDE 0.9% 50 ML IVPB SCH (08:26)
[2023-01-10] MEDS: FUROSEMIDE 40 MG TABLET PO SCH (08:34)
[2023-01-10] MEDS: AMLODIPINE 5 MG TAB PO SCH (08:35)
[2023-01-10] MEDS: carvediloL 6.25 MG TAB PO SCH ×2 (08:36→17:00)
[2023-01-10] MEDS: ACETYLCYST 20% 800 MG/4 ML VIAL PO SCH (08:37)
[2023-01-10] MEDS: ENSURE MAX PROTEIN 330 ML LIQUID PO SCH ×2 (08:39→21:00)
[2023-01-10] MEDS: JUVEN PACKET PO SCH ×2 (08:39→21:00)
[2023-01-10] MEDS: AZITHROMYCIN IV 250 MG in NA CHLORIDE 0.9% 250 ML IVPB SCH (09:38)
[2023-01-10 11:13] LABS: Albumin, (SPE) 2.2 g/dL (3.8-4.8); Alpha-1-Globulins 0.7 g/dL (0.2-0.3); Alpha-2-Globulins 1.3 g/dL (0.5-0.9); Gamma Globulins 1.9 g/dL (0.8-1.7); INTERPRETATION REPORT
[2023-01-10 12:06] LABS: Vitamin D 1,25-Dihydroxy Total 28 pg/mL (18-72); Vitamin D,1,25-OH2, D2 <8 pg/mL
--- NOTE | 2023-01-10 14:41 | RAD REPORT ---
EXAM DESCRIPTION: Jn Single View01/10/2023 2:02 pm CLINICAL HISTORY: Shortness of breath COMPARISON: January 06, 2023 FINDINGS: Slight worsening in moderate right lung consolidations There may be a mild left basilar opacity Heart is mildly enlarged IMPRESSION: Slight worsening in moderate right lung consolidations probably pneumonia. This should b e followed until it has cleared to help exclude a post obstructive process/underlying mass
--- NOTE | 2023-01-10 15:20 | P.PN ---
Subjective Date of Service: 01/10/23 Chief Complaint: Sepsis pneumonia, elevated troponin, renal impairment Subjective denied nausea, vomiting or diarrhea expiratory wheezes increased , laix adjusted , will give albumin Physical exam General: Awake, NAD HEENT: Atraumatic, Normocephalic Neck: Supple, no elevated JVD Respiratory: expiratory wheezes Cardiovascular: No rubs, No murmurs Gastrointestinal: Soft and benign, Non-distended Musculoskeletal: No clubbing Integumentary: No warmth A/P #. Acute kidney injury on chronic kidney disease, cr increased today US : no hydrpnephosisi UA: UPC 0.3, RBcs Serology W/u Complements wnl, RF negative , SPEP : negative F/U JUANA , ANCA, lasix reduce, will give albumin # Chronic kidney disease, small sized kidney 8.1/8.6 secondary to hypertension nephrosclerosis, # Right renal cyst, simple, stable. # Anemia of chronic kidney disease, SPEP negative monitor H/JH transfuse if Hb <7.0 #. Multifocal pneumonia. Cont abx. # Hypertension. Cont Carvedilol + Amlodipine. Physical Examination - Vital Signs Temperature: 98.3 F Blood Pressure: 120/60 Pulse: 69 Respirations: 16 Assessment And Plan Physician Review: Patient Assessed, Agree with Above Assessment and Plan
[2023-01-10] MEDS: ALBUMIN HUMAN 25% 100 ML IV SCH (16:26)
[2023-01-10 22:32] LABS: Absolute Lymphocytes (CBC) 1.6 K/uL (0.7-4.9); Hematocrit 21.1 % (36.0-45.0); MCV 82.5 fL (80-100); Platelets 333 thou/uL (152-406); RBC Red Blood Cell Count 2.55 M/uL (3.86-4.86)
[2023-01-11] MEDS: ALBUMIN HUMAN 25% 100 ML IV SCH ×3 (01:00→16:52)
[2023-01-11] MEDS: METRONIDAZOLE 500mg IVPB 500 MG/100 ML BAG IV SCH ×3 (01:18→16:53)
[2023-01-11] MEDS: carvediloL 6.25 MG TAB PO SCH ×2 (08:00→16:52)
[2023-01-11 08:20] LABS: Absolute Lymphocytes (CBC) 1.7 K/uL (0.7-4.9); Hematocrit 24.7 % (36.0-45.0); Lymphocytes % 7.6 % (15.3-44.8); MCV 83.3 fL (80-100); MPV 8.1 fL (7.6-11.3); Platelets 413 thou/uL (152-406); RBC Red Blood Cell Count 2.96 M/uL (3.86-4.86)
[2023-01-11] MEDS: CEFTRIAXONE 1,000 MG in NA CHLORIDE 0.9% 50 ML IVPB SCH (08:28)
[2023-01-11] MEDS: JUVEN PACKET PO SCH ×2 (08:29→21:44)
[2023-01-11] MEDS: ENSURE MAX PROTEIN 330 ML LIQUID PO SCH ×2 (08:29→21:00)
[2023-01-11] MEDS: FUROSEMIDE 40 MG TABLET PO SCH (08:30)
[2023-01-11] MEDS: AMLODIPINE 5 MG TAB PO SCH (08:30)
[2023-01-11 08:35] LABS: Albumin 2.2 g/dL (3.4-5.0); Magnesium 2.6 mg/dL (1.6-2.4); Phosphorus 4.8 mg/dL (2.5-4.9); Potassium 4.3 mEq/L (3.5-5.1)
[2023-01-11] MEDS: AZITHROMYCIN IV 250 MG in NA CHLORIDE 0.9% 250 ML IVPB SCH (09:38)
--- NOTE | 2023-01-11 10:55 | P.PN ---
Subjective Date of Service: 01/11/23 Chief Complaint: Sepsis pneumonia, elevated troponin, renal impairment Subjective denied nausea, vomiting or diarrhea expiratory wheezes Cr trending up , will start a trial of IVF if no improvement in renal function by tomorrow then pt will require renal replacement therapy , Tried to Contact sister [employer]ios [phone], no answer, will try again later Physical exam General: Awake, NAD HEENT: Atraumatic, Normocephalic Neck: Supple, no elevated JVD Respiratory: expiratory wheezes Cardiovascular: No rubs, No murmurs Gastrointestinal: Soft and benign, Non-distended Musculoskeletal: No clubbing Integumentary: No warmth A/P #. Acute kidney injury on chronic kidney disease, Cr was stable and start then start increasing with high Bun of 98, pt is not on setroids US : no hydrpnephosisi UA: UPC 0.3, RBcs Serology W/u Complements wnl, RF negative , SPEP : negative F/U JUANA , ANCA, lasix reduce, will give albumin Cr trending up , will start a trial of IVF if no improvement in renal function by tomorrow then pt will require renal replacement therapy , Tried to Contact sister [facility] [phone], no answer, will try again later # Chronic kidney disease, small sized kidney 8.1/8.6 secondary to hypertension nephrosclerosis, # Right renal cyst, simple, stable. # Anemia of chronic kidney disease, SPEP negative monitor H/JH transfuse if Hb <7.0 #. Multifocal pneumonia. Cont abx. # Hypertension. Cont Carvedilol + Amlodipine. Physical Examination - Vital Signs Temperature: 98.5 F Blood Pressure: 117/57 Pulse: 85 Respirations: 16 Pulse Ox (%): 92 Assessment And Plan Physician Review: Patient Assessed, Agree with Above Assessment and Plan
[2023-01-11] MEDS ORDERED: NA CHLORIDE 0.9% 1,000 ML IV SCH (11:00)
[2023-01-12] MEDS: METRONIDAZOLE 500mg IVPB 500 MG/100 ML BAG IV SCH ×3 (01:09→16:17)
--- NOTE | 2023-01-12 05:59 | P.PN ---
Date of Service: 01/07/23 Subjective Patient states she is feeling better. Patient denies any new complaints. Clinical symptoms are improved. Troponins are elevated. Cardiology consultation in place. Patient appears to have a pneumonia in the right lung field. Continue with antibiotic coverage. Physical Examination -Vitals Reviewed -Physical Exam General: Alert, Oriented x3 Respiratory: Clear to auscultation bilaterally, Normal air movement Cardiovascular: No edema, Normal pulses, Normal S1 S2 Gastrointestinal: Normal bowel sounds, Non-distended Musculoskeletal: No clubbing, No swelling Integumentary: Other (Small wound on the left lower extremity) Assessment and Plan - Problems (Diagnosis) (1) Sepsis Current Visit: Yes Status: Acute Plan: Patient remains with a leukocytosis. Unknown etiology. Blood cultures negative. Chest x-ray is with consolidative pneumonia changes on the right lung. Continue with antibiotic therapy. Sepsis type: sepsis due to unspecified organism Sepsis acute organ dysfunction status: with acute organ dysfunction Severe sepsis acute organ dysfunction type: unspecified (2) Pneumonia Current Visit: Yes Status: Acute Plan: Current treatment plan as mentioned above. Continue with antibiotic therapy. Continue with IV fluids. Continue monitoring renal function closely. Repeat chest x-rays. May need to check procalcitonin level. Pneumonia type: due to unspecified organism Laterality: right Lung location: middle lobe of lung Qualified Code(s): J18.9 - Pneumonia, unspecified organism (3) Wound of left lower extremity Current Visit: Yes Status: Chronic Plan: Wound healing consultation. Continue with wound care at this point. Currently on antibiotic for pneumonia so we will reassess. Encounter type: initial encounter Qualified Code(s): S81.802A - Unspecified open wound, left lower leg, initial encounter (4) Acute diastolic CHF (congestive heart failure)/HFpEF Onset Date: 05/06/17 Current Visit: No Status: Acute Plan: Monitor volume status closely. Strict blood pressure control. (5) HTN (hypertension) Onset Date: 05/06/17 Current Visit: No Status: Chronic Plan: Strict blood pressure control (6) CKD (chronic kidney disease) stage 4, GFR 15-29 ml/min Current Visit: Yes Status: Acute Plan: Continue monitoring renal function. Nephrology consultation. Renal ultrasound pending. (7) NSTEMI (non-ST elevated myocardial infarction) Current Visit: Yes Status: Acute Plan: Continue with cardiac meds with antiplatelet therapy and statin therapy. Cardi ology consultation. Cardiology wanting to do outpatient cardiac catheterization. Discharge Plan: Home Plan to discharge in: 48 Hours - Advance Directives Does patient have a Living Will: No Does patient have a Durable POA for Healthcare: No - Code Status/Comfort Care Code Status Assessed: Yes (Full code) Code Status: Full Code Physician Review: Patient Assessed, Agree with Above Assessment and Plan Critical Care: No Time Spent Managing Pts Care (In Minutes): 35 (Minutes)
--- NOTE | 2023-01-12 06:03 | P.PN ---
Date of Service: 01/08/23 Subjective Patient is feeling better and wanting to go home. However she remains slightly hypoxic so we will arrange for home oxygen. Continue monitoring renal function. Continue antibiotic therapy. Cardiology recommending outpatient follow-up for cardiac catheterization Physical Examination -Vitals Reviewed -Physical Exam General: Alert, Oriented x3 Respiratory: Clear to auscultation bilaterally, Normal air movement Cardiovascular: No edema, Normal pulses, Normal S1 S2 Gastrointestinal: Normal bowel sounds, Non-distended Musculoskeletal: No clubbing, No swelling Integumentary: Other (Small wound on the left lower extremity) Assessment and Plan - Problems (Diagnosis) (1) Sepsis Current Visit: Yes Status: Acute Plan: Patient remains with a leukocytosis. Unknown etiology. Blood cultures negative. Chest x-ray is with consolidative pneumonia changes on the right lung. Continue with antibiotic therapy. Sepsis type: sepsis due to unspecified organism Sepsis acute organ dysfunction status: with acute organ dysfunction Severe sepsis acute organ dysfunction type: unspecified (2) Pneumonia Current Visit: Yes Status: Acute Plan: Current treatment plan as mentioned above. Continue with antibiotic therapy. Continue with IV fluids. Continue monitoring renal function closely. Repeat chest x-rays. May need to check procalcitonin level. Pneumonia type: due to unspecified organism Laterality: right Lung location: middle lobe of lung Qualified Code(s): J18.9 - Pneumonia, unspecified organism (3) Wound of left lower extremity Current Visit: Yes Status: Chronic Plan: Wound healing consultation. Continue with wound care at this point. Currently on antibiotic for pneumonia so we will reassess. Encounter type: initial encounter Qualified Code(s): S81.802A - Unspecified open wound, left lower leg, initial encounter (4) Acute diastolic CHF (congestive heart failure)/HFpEF Onset Date: 05/06/17 Current Visit: No Status: Acute Plan: Monitor volume status closely. Strict blood pressure control. (5) HTN (hypertension) Onset Date: 05/06/17 Current Visit: No Status: Chronic Plan: Strict blood pressure control (6) CKD (chronic kidney disease) stage 4, GFR 15-29 ml/min Current Visit: Yes Status: Acute Plan: Continue monitoring renal function. Nephrology consultation. Renal ultrasound pending. (7) NSTEMI (non-ST elevated myocardial infarction) Current Visit: Yes Status: Acute Plan: Continue with cardiac meds with antiplatelet therapy and statin therapy. Cardi ology consultation. Cardiology wanting to do outpatient cardiac catheterization. Discharge Plan: Home Plan to discharge in: 48 Hours - Advance Directives Does patient have a Living Will: No Does patient have a Durable POA for Healthcare: No - Code Status/Comfort Care Code Status Assessed: Yes (Full code) Code Status: Full Code Physician Review: Patient Assessed, Agree with Above Assessment and Plan Critical Care: No Time Spent Managing Pts Care (In Minutes): 35 (Minutes)
--- NOTE | 2023-01-12 06:05 | P.PN ---
Date of Service: 01/09/23 Subjective Patient is doing well with no new complaints. Patient's clinical symptoms are stable. However patient remains hypoxic secondary to pneumonia. Patient remains with leukocytosis. Continue with broad-spectrum antibiotic coverage. Will discuss with nephrology regarding gentle hydration. Physical Examination -Vitals Reviewed -Physical Exam General: Alert, Oriented x3 Respiratory: Clear to auscultation bilaterally, Normal air movement Cardiovascular: No edema, Normal pulses, Normal S1 S2 Gastrointestinal: Normal bowel sounds, Non-distended Musculoskeletal: No clubbing, No swelling Integumentary: Other (Small wound on the left lower extremity) Assessment and Plan - Problems (Diagnosis) (1) Sepsis Current Visit: Yes Status: Acute Plan: Patient remains with a leukocytosis. Unknown etiology. Blood cultures negative. Chest x-ray is with consolidative pneumonia changes on the right lung. Continue with antibiotic therapy. Sepsis type: sepsis due to unspecified organism Sepsis acute organ dysfunction status: with acute organ dysfunction Severe sepsis acute organ dysfunction type: unspecified (2) Pneumonia Current Visit: Yes Status: Acute Plan: Current treatment plan as mentioned above. Continue with antibiotic therapy. Continue with IV fluids. Continue monitoring renal function closely. Repeat chest x-rays. May need to check procalcitonin level. Pneumonia type: due to unspecified organism Laterality: right Lung location: middle lobe of lung Qualified Code(s): J18.9 - Pneumonia, unspecified organism (3) Wound of left lower extremity Current Visit: Yes Status: Chronic Plan: Wound healing consultation. Continue with wound care at this point. Currently on antibiotic for pneumonia so we will reassess. Encounter type: initial encounter Qualified Code(s): S81.802A - Unspecified open wound, left lower leg, initial encounter (4) Acute diastolic CHF (congestive heart failure)/HFpEF Onset Date: 05/06/17 Current Visit: No Status: Acute Plan: Monitor volume status closely. Strict blood pressure control. (5) HTN (hypertension) Onset Date: 05/06/17 Current Visit: No Status: Chronic Plan: Strict blood pressure control (6) CKD (chronic kidney disease) stage 4, GFR 15-29 ml/min Current Visit: Yes Status: Acute Plan: Continue monitoring renal function. Nephrology consultation. Renal ultrasound pending. (7) NSTEMI (non-ST elevated myocardial infarction) Current Visit: Yes Status: Acute Plan: Continue with cardiac meds with antiplatelet therapy and statin therapy. Cardiology consultation. Cardiology wanting to do outpatient cardiac catheterization. Discharge Plan: Home Plan to discharge in: 48 Hours - Advance Directives Does patient have a Living Will: No Does patient have a Durable POA for Healthcare: No - Code Status/Comfort Care Code Status Assessed: Yes (Full code) Code Status: Full Code Physician Review: Patient Assessed, Agree with Above Assessment and Plan Critical Care: No Time Spent Managing Pts Care (In Minutes): 35 (Minutes)
--- NOTE | 2023-01-12 06:06 | P.PN ---
Date of Service: 01/10/23 Subjective Patient continues to improve with no new complaints. However she has more lethargic. Renal function has continued to worsen. Spoke with nephrology and work-up pending. Unsure as to why renal function is worsening. Hold off on Lasix. Physical Examination -Vitals Reviewed -Physical Exam General: Alert, Oriented x3 Respiratory: Clear to auscultation bilaterally, Normal air movement Cardiovascular: No edema, Normal pulses, Normal S1 S2 Gastrointestinal: Normal bowel sounds, Non-distended Musculoskeletal: No clubbing, No swelling Integumentary: Other (Small wound on the left lower extremity) Assessment and Plan - Problems (Diagnosis) (1) Sepsis Current Visit: Yes Status: Acute Plan: Patient remains with a leukocytosis. Unknown etiology. Blood cultures negative. Chest x-ray is with consolidative pneumonia changes on the right lung. Continue with antibiotic therapy. Continue antibiotic therapy and check procalcitonin level Sepsis type: sepsis due to unspecified organism Sepsis acute organ dysfunction status: with acute organ dysfunction Severe sepsis acute organ dysfunction type: unspecified (2) Pneumonia Current Visit: Yes Status: Acute Plan: Current treatment plan as mentioned above. Continue with antibiotic therapy. Continue with IV fluids. Continue monitoring renal function closely. Repeat chest x-rays. May need to check procalcitonin level. Repeat chest x-ray in a.m. Pneumonia type: due to unspecified organism Laterality: right Lung location: middle lobe of lung Qualified Code(s): J18.9 - Pneumonia, unspecified organism (3) Wound of left lower extremity Current Visit: Yes Status: Chronic Plan: Wound healing consultation. Continue with wound care at this point. Currently on antibiotic for pneumonia so we will reassess. Encounter type: initial encounter Qualified Code(s): S81.802A - Unspecified open wound, left lower leg, initial encounter (4) Acute diastolic CHF (congestive heart failure)/HFpEF Onset Date: 05/06/17 Current Visit: No Status: Acute Plan: Monitor volume status closely. Strict blood pressure control. (5) HTN (hypertension) Onset Date: 05/06/17 Current Visit: No Status: Chronic Plan: Strict blood pressure control; continue with antihypertensive (6) CKD (chronic kidney disease) stage 4, GFR 15-29 ml/min Current Visit: Yes Status: Acute Plan: Continue monitoring renal function. Nephrology consultation. Renal ultrasound has been reviewed. Patient with no signs of renal abnormality. (7) NSTEMI (non-ST elevated myocardial infarction) Current Visit: Yes Status: Acute Plan: Continue with cardiac meds with antiplatelet therapy and statin therapy. Cardiology consultation. Cardiology wanting to do outpatient cardiac catheterization. Discharge Plan: Home Plan to discharge in: 48 Hours - Advance Directives Does patient have a Living Will: No Does patient have a Durable POA for Healthcare: No - Code Status/Comfort Care Code Status Assessed: Yes (Full code) Code Status: Full Code Physician Review: Patient Assessed, Agree with Above Assessment and Plan Critical Care: No Time Spent Managing Pts Care (In Minutes): 35 (Minutes)
--- NOTE | 2023-01-12 06:08 | P.PN ---
Date of Service: 01/11/23 Subjective Patient is looking better but renal function is worsening. Spoke with nephrology and we will gently hydrate patient and repeat renal function. We will see if there is any improvement in renal function after hydration. We may have over diuresed the patient at this point. Patient chest x-ray also worsening. Continue broaden antibiotic coverage. Physical Examination -Vitals Reviewed -Physical Exam General: Alert, Oriented x3 Respiratory: Clear to auscultation bilaterally, Normal air movement Cardiovascular: No edema, Normal pulses, Normal S1 S2 Gastrointestinal: Normal bowel sounds, Non-distended Musculoskeletal: No clubbing, No swelling Integumentary: Other (Small wound on the left lower extremity) Assessment and Plan - Problems (Diagnosis) (1) Sepsis Current Visit: Yes Status: Acute Plan: Patient remains with a leukocytosis. Unknown etiology. Blood cultures negative. Chest x-ray is with consolidative pneumonia changes on the right lung. Continue with antibiotic therapy. Continue antibiotic therapy and procalcitonin level elevated. Broaden antibiotic coverage. Sepsis type: sepsis due to unspecified organism Sepsis acute organ dysfunction status: with acute organ dysfunction Severe sepsis acute organ dysfunction type: unspecified (2) Pneumonia Current Visit: Yes Status: Acute Plan: Current treatment plan as mentioned above. Continue with antibiotic therapy. Continue with IV fluids. Continue monitoring renal function closely. Repeat chest x-rays. Procalcitonin level elevated. Repeat chest x-ray with worsening infiltrate and will broaden antibiotic coverage Pneumonia type: due to unspecified organism Laterality: right Lung location: middle lobe of lung Qualified Code(s): J18.9 - Pneumonia, unspecified organism (3) Wound of left lower extremity Current Visit: Yes Status: Chronic Plan: Wound healing consultation. Continue with wound care at this point. Currently on antibiotic for pneumonia so we will reassess. Outpatient follow-up with home health for wound care. Encounter type: initial encounter Qualified Code(s): S81.802A - Unspecified open wound, left lower leg, initial encounter (4) Acute diastolic CHF (congestive heart failure)/HFpEF Onset Date: 05/06/17 Current Visit: No Status: Acute Plan: Monitor volume status closely. Strict blood pressure control. Patient been diuresed effectively. Hold off on diuresing at this point as we have possibly over diuresed patient. (5) HTN (hypertension) Onset Date: 05/06/17 Current Visit: No Status: Chronic Plan: Strict blood pressure control; continue with antihypertensive (6) CKD (chronic kidney disease) stage 4, GFR 15-29 ml/min Current Visit: Yes Status: Acute Plan: Continue monitoring renal function. Nephrology consultation. Renal ultrasound has been reviewed. Patient with no signs of renal abnormality. (7) NSTEMI (non-ST elevated myocardial infarction) Current Visit: Yes Status: Acute Plan: Continue with cardiac meds with antiplatelet therapy and statin therapy. Cardiology consultation. Cardiology wanting to do outpatient cardiac catheterization. Discharge Plan: Home Plan to discharge in: 48 Hours - Advance Directives Does patient have a Living Will: No Does patient have a Durable POA for Healthcare: No - Code Status/Comfort Care Code Status Assessed: Yes (Full code) Code Status: Full Code Physician Review: Patient Assessed, Agree with Above Assessment and Plan Critical Care: No Time Spent Managing Pts Care (In Minutes): 35 (Minutes)
[2023-01-12 06:50] LABS: Hepatitis B Surface Ab - Quant 3.47 mIU/mL (<8.0); Hepatitis B surface AG Interp. Nonreactive (Nonreactive)
[2023-01-12] MEDS: carvediloL 6.25 MG TAB PO SCH ×2 (08:01→16:16)
[2023-01-12] MEDS: AMLODIPINE 5 MG TAB PO SCH (08:02)
[2023-01-12] MEDS: FUROSEMIDE 40 MG TABLET PO SCH (08:02)
[2023-01-12] MEDS: CEFTRIAXONE 1,000 MG in NA CHLORIDE 0.9% 50 ML IVPB SCH (08:03)
[2023-01-12] MEDS: ENSURE MAX PROTEIN 330 ML LIQUID PO SCH ×2 (08:03→21:00)
[2023-01-12] MEDS: JUVEN PACKET PO SCH ×2 (08:03→21:00)
[2023-01-12 08:12] LABS: Absolute Lymphocytes (CBC) 1.9 K/uL (0.7-4.9); Hematocrit 21.6 % (36.0-45.0); Lymphocytes % 7.7 % (15.3-44.8); MCV 82.4 fL (80-100); MPV 7.6 fL (7.6-11.3); Platelets 392 thou/uL (152-406); RBC Red Blood Cell Count 2.62 M/uL (3.86-4.86)
[2023-01-12 08:30] LABS: AST/SGOT 11 U/L (15-37); Albumin 2.6 g/dL (3.4-5.0); Alkaline Phosphatase 48 U/L (45-117); BUN Blood Urea Nitrogen 121 mg/dL (7-18); Bicarbonate 28 mEq/L (21-32); Bilirubin Total 0.4 mg/dL (0.2-1.0); Glomerular Filtration Rate 7 ml/min (=/>90); Glucose Level 129 mg/dL (74-106); Potassium 4.7 mEq/L (3.5-5.1); Protein, Total 7.3 g/dL (6.4-8.2); Sodium Level 141 mEq/L (136-145)
[2023-01-12 08:32] LABS: ALT/SGPT < 10 U/L (13-56)
--- NOTE | 2023-01-12 09:30 | RAD REPORT ---
EXAM DESCRIPTION: CT - Head Brain Wo Cont - 01/12/2023 9:16 am CLINICAL HISTORY: Syncope COMPARISON: None TECHNIQUE: Computed axial tomography of the head was obtained. IV contrast was not requested. All CT scans are performed using dose optimization technique as appropriate and may include automated exposure control or mA/KV adjustment according to patient size. FINDINGS: An intracranial bleed is not seen The ventricles are normal in caliber No extra-axial fluid collection is noted. No significant hypodensity within the brain noted. Bilateral exophthalmos. Empty sella turcica present. Cerebellar tonsillar ectopia Fluid within the sinuses/ mastoids is not seen. IMPRESSION: No acute intracranial abnormality is seen If patient's symptoms persist MRI of the brain would be recommended
[2023-01-12] MEDS: AZITHROMYCIN IV 250 MG in NA CHLORIDE 0.9% 250 ML IVPB SCH (09:40)
[2023-01-12 10:01] LABS: Arterial Blood Carboxyhemoglob 1.6 % (0-1.5); Blood Gas Oxyhemoglobin 88.6 % (94-97); Blood O2 Saturation 91.5 % (92-98.5)
[2023-01-12] MEDS ORDERED: propofoL 200 MG/20 ML VIAL IV ONE (13:34)
[2023-01-12] MEDS ORDERED: LIDOCAINE 2% MPF 5 ML VIAL ONE (13:34)
[2023-01-12] MEDS ORDERED: NS 0.9% VIAL 0 ML ONE (13:34)
[2023-01-12] MEDS ORDERED: NA CHLORIDE 0.9% 500 ML ONE ×2 (13:47→13:49)
[2023-01-12] MEDS ORDERED: LIDOCAINE 1% MPF 30 ML VIAL ONE (13:50)
--- NOTE | 2023-01-12 14:20 | P.CNS ---
Date of Consult: 01/12/23 PC: I was asked to see this 72-year-old female is in regards to the placement of a temporary dialysis catheter for emergent dialysis. HPC: Patient initially presented to the emergency room with severe shortness of breath. She was also showing evidence of mild renal impairment at that time. It has progressed over the last few days. Nephrology is concerned about her ongoing renal impairment, and recommend emergent dialysis. She needs a IV access now. PMHx: Coronary artery disease, renal impairment Social Hx: No known allergies Sys R: No shortness of breath at the moment. Denies any history of clavicular fractures. Never had a pacemaker. O/E: Awake alert vital signs are stable HEENT: Not jaundiced, trachea midline Chest: Chest movement equal bilaterally, no evidence of clavicular fractures Abd: NAD Data: Increasing BUN and creatinine Impression: Patient is demonstrating mild renal impairment. She was going to require emergent dialysis. I will place a subclavian temporary catheter for the patient. Plan: I will place a central dialysis catheter, the risks of procedure have been discussed with the patient and her sister. The possibility of bleeding, infection, need for further surgeries and procedures was explained. She understands and wants us to proceed.
--- NOTE | 2023-01-12 15:29 | P.OP ---
Preoperative diagnosis: Renal failure Postoperative diagnosis: The same Primary procedure: Insertion of left subclavian dialysis catheter Anesthesia: General Estimated blood loss: Less than 20 cc Operative Technique: Patient brought the operating room placed supine on the table. After the induction of adequate anesthesia, the area of the left chest was prepped with a chlorhexidine solution, and was draped in usual aseptic manner. After placing the patient in marked Trendelenburg a area beneath the left clavicle was infiltrated with 1% lidocaine. A finder needle was used to cannulate the left subclavian vein. Having received good flashback on the third pass of the needle we passed the guidewire down through this. The subcutaneous tunnel was now dilated up with the dilators. The catheter was finally passed over the guidewire and its position was confirmed with the C arm. The catheter was now flushed. Good blood flow was achieved. I was unhappy with the amount of catheter was still remaining outside of the patient's chest. Particularly after released her breast and when she was placed back into the normal supine position. Hence a guidewire was passed down through the catheter the subcutaneous tissue was really dilated the catheter was now reinserted up to the hub. We had a much more satisfactory position of our catheter. The catheter was then flushed in the usual manner with normal saline. It was sutured in place. At the end the procedure she was in a stable condition was sent to the recovery room. Needle sponge instrument count were correct. Chest x-ray has been ordered for recovery. Complications: None Transferred to: Recovery Room Condition: Good
--- NOTE | 2023-01-12 15:53 | RAD REPORT ---
EXAM DESCRIPTION: RAD - Chest Single View - 01/12/2023 3:36 pm CLINICAL HISTORY: S/P QUINTION CATH Chest pain. COMPARISON: <Comparisons> FINDINGS: Portable technique limits examination quality. Left-sided venous catheter has been placed with its tip in the SVC. No postprocedure pneumothorax.
[2023-01-12] MEDS ORDERED: MANNITOL 25% 12.5 GM/50 ML VIAL IV PRN (15:58)
--- NOTE | 2023-01-12 16:14 | RAD REPORT ---
EXAM DESCRIPTION: RAD - Fluoroscopy <1 Hour - 01/12/2023 4:08 pm CLINICAL HISTORY: Venous catheter insertion. KAMRAN CATH PLCMNT COMPARISON: <Comparisons> FINDINGS: Fluoroscopic imaging is submitted from placement of a venous catheter. Details of the pro cedure not available. Fluoroscopy time: 0.3 minutes
--- NOTE | 2023-01-12 17:20 | P.PN ---
Subjective Date of Service: 01/12/23 Chief Complaint: Sepsis pneumonia, elevated troponin, renal impairment Subjective: Worsening Patient seen at bedside. Patient appears fatigued. Currently denies any signs and symptoms of distress. Continue supportive care. Review of Systems General: Weakness, Other (Fatigue) Eyes: Unremarkable Respiratory: SOB with Excertion Cardiovascular: Unremarkable Gastrointestinal: Unremarkable Genitourinary: Unremarkable Musculoskeletal: Unremarkable Integumentary: Unremarkable Neurological: Weakness Lymphatics: Unremarkable Physical Examination - Vital Signs Temperature: 97.8 F Blood Pressure: 138/66 Pulse: 85 Respirations: 16 Pulse Ox (%): 93 - Physical Exam General: Alert, In no apparent distress, Oriented x3, Cooperative HEENT: Atraumatic, PERRLA, EOMI Neck: Supple, JVD not distended Respiratory: Normal air movement, Diminished Cardiovascular: Regular rate/rhythm, Normal S1 S2 Capillary refill: <2 Seconds Gastrointestinal: Normal bowel sounds, Soft and benign, No tenderness Musculoskeletal: No clubbing, No tenderness Integumentary: No rashes Neurological: Normal speech, Normal tone, Normal affect, Abnormal strength Lymphatics: No axilla or inguinal lymphadenopathy - Studies Microbiology Data (last 24 hrs): 01/06/23 11:54 Blood - Blood Aerobic Blood Culture - Final No growth in 5 days. 01/06/23 11:54 Blood - Blood Anaerobic Blood Culture - Final No growth in 5 days. 01/06/23 11:45 Blood - Blood Aerobic Blood Culture - Final No growth in 5 days. 01/06/23 11:45 Blood - Blood Anaerobic Blood Culture - Final No growth in 5 days. Assessment And Plan - Plan - Assessment and Plan Interval history. 01/12/2023. Renal functions worsening. Lacquer Machine Feeder is recommending dialysis. Left-sided venous catheter has been placed. Further management per architectural drafter. Worsening leukocytosis. Infectious disease MD consulted. Continue antibiotics. We will further recommendations from infectious disease MD. --Labetalol as needed for SBP greater than 160. -- DVT prophylaxis with heparin subQ Problems (Diagnosis) (1) Sepsis Current Visit: Yes Status: Acute Plan: Patient remains with a leukocytosis. Unknown etiology. Blood cultures negative. Chest x-ray is with consolidative pneumonia changes on the right lung. Continue with antibiotic therapy. Continue antibiotic therapy and procalcitonin level elevated. Broaden antibiotic coverage. Sepsis type: sepsis due to unspecified organism Sepsis acute organ dysfunction status: with acute organ dysfunction Severe sepsis acute organ dysfunction type: unspecified (2) Pneumonia Current Visit: Yes Status: Acute Plan: Current treatment plan as mentioned above. Continue with antibiotic therapy. Continue with IV fluids. Continue monitoring renal function closely. Repeat chest x-rays. Procalcitonin level elevated. Repeat chest x-ray with worsening infiltrate and will broaden antibiotic coverage Pneumonia type: due to unspecified organism Laterality: right Lung location: middle lobe of lung Qualified Code(s): J18.9 - Pneumonia, unspecified organism (3) Wound of left lower extremity Current Visit: Yes Status: Chronic Plan: Wound healing consultation. Continue with wound care at this point. Currently on antibiotic for pneumonia so we will reassess. Outpatient follow-up with home health for wound care. Encounter type: initial encounter Qualified Code(s): S81.802A - Unspecified open wound, left lower leg, initial encounter (4) Acute diastolic CHF (congestive heart failure)/HFpEF Onset Date: 05/06/17 Current Visit: No Status: Acute Plan: Monitor volume status closely. Strict blood pressure control. Patient been diuresed effectively. Hold off on diuresing at this point as we have possibly over diuresed patient. (5) HTN (hypertension) Onset Date: 05/06/17 Current Visit: No Status: Chronic Plan: Strict blood pressure control; continue with antihypertensive (6) CKD (chronic kidney disease) stage 4, GFR 15-29 ml/min Current Visit: Yes Status: Acute Plan: Continue monitoring renal function. Nephrology consultation. Renal ultrasound has been reviewed. Patient with no signs of renal abnormality. (7) NSTEMI (non-ST elevated myocardial infarction) Current Visit: Yes Status: Acute Plan: Continue with cardiac meds with antiplatelet therapy and statin therapy. Cardiology consultation. Cardiology wanting to do outpatient cardiac catheterization. Discharge Plan: Home Discharge Plan: Home Plan to discharge in: Greater than 2 days Physician Review: Patient Assessed, Agree with Above Assessment and Plan Critical Care: No
[2023-01-12] MEDS ORDERED: LABETALOL 20 MG/4ML SYRINGE IV PRN (17:32)
[2023-01-12 23:01] LABS: Arterial Blood Carboxyhemoglob 1.4 % (0-1.5); Blood Gas Oxyhemoglobin 90.5 % (94-97); Blood O2 Saturation 93.6 % (92-98.5)
--- NOTE | 2023-01-12 23:27 | PN ---
Date of Progress Note: 01/12/2023 Chief Complaint: Acute kidney injury, borderline oliguric. Renal function has declined over last 48 hours. The patient received IV fluids for volume control. Despite IV fluids, renal function has de clined and patient is started on hemodialysis today. Review of Systems: Patient denies nausea or vomiting. Physical Examination: Lungs: Clear to auscultation bilaterally. Heart: S1-S2. Abdomen: Soft, benign. Extremities: Slight edema. Impression And Plan: 1.Acute kidney injury on chronic kidney disease. Renal function has declined. Ultrasound did not s how hydronephrosis. The patient had urinalysis done, which showed protein of 0.3 and serum protein e lectrophoresis is pending. Rheumatoid factor is negative. The patient will have a followup test and JUANA will be done as well as ANCA. Lasix was stopped and patient received IV fluids in view of decli sugey renal function. Despite IV fluids, renal function did not improve. 2.Chronic kidney disease. The patient has small sized kidney secondary to hypertension and nephrosc lerosis, likely patient has advanced chronic kidney disease. 3.Right renal cyst, simple and stable. 4.Anemia of chronic kidney disease. Monitor H and H and transfuse if hemoglobin is less than 7. 5.Hypertension. Monitor blood pressure closely. Patient is on carvedilol and amlodipine. 6.Multifocal pneumonia. Continue antibiotics. Adjust antibiotics to renal function. EB/MODL Voice ID: [id number] Report ID: [id number]
[2023-01-13] MEDS: METRONIDAZOLE 500mg IVPB 500 MG/100 ML BAG IV SCH ×2 (01:24→10:00)
--- NOTE | 2023-01-13 08:02 | RAD REPORT ---
EXAM DESCRIPTION: RAD - Chest Single View - 01/13/2023 4:40 am CLINICAL HISTORY: pneumonia Chest pain. COMPARISON: Chest Single View dated 01/12/2023; Chest Single View dated 01/10/2023; Chest Single Vie w dated 01/06/2023; Chest Pa And Lat (2 Views) dated 08/23/2017 FINDINGS: Portable technique limits examination quality. Bilateral pulmonary opacities are again seen, show little overall change to slight improvement since yesterday's study. In particular, right upper lobe and right lung base opacities appear slightly less prominent. The heart is moderately enlarged. Left-sided venous catheter its tip in the SVC.
[2023-01-13 08:23] LABS: Absolute Lymphocytes (CBC) 1.3 K/uL (0.7-4.9); Hematocrit 20.9 % (36.0-45.0); Lymphocytes % 5.3 % (15.3-44.8); MCV 82.5 fL (80-100); MPV 7.4 fL (7.6-11.3); Platelets 421 thou/uL (152-406); RBC Red Blood Cell Count 2.54 M/uL (3.86-4.86)
[2023-01-13 08:32] LABS: Protime INR 1.48
[2023-01-13 08:46] LABS: AST/SGOT 14 U/L (15-37); Albumin 2.3 g/dL (3.4-5.0); Alkaline Phosphatase 49 U/L (45-117); BUN Blood Urea Nitrogen 84 mg/dL (7-18); Bicarbonate 26 mEq/L (21-32); Bilirubin Total 0.4 mg/dL (0.2-1.0); Glomerular Filtration Rate 8 ml/min (=/>90); Glucose Level 116 mg/dL (74-106); Magnesium 2.3 mg/dL (1.6-2.4); NT PRO-BNP 16299 pg/mL (<125); Phosphorus 4.6 mg/dL (2.5-4.9); Potassium 4.3 mEq/L (3.5-5.1); Protein, Total 7.2 g/dL (6.4-8.2); Sodium Level 138 mEq/L (136-145)
--- NOTE | 2023-01-13 08:47 | P.CNS ---
Date of Consult: 01/13/23 Reason for Consult: Persistent leukocytosis Chief Complaint: Sepsis pneumonia, elevated troponin, renal impairment History of Present Illness: Patient is a 72-year-old female with a past medical history of hypertension who presented to the ED with complaints of shortness of breath and productive cough for several days. ED labs significant for leukocytosis WBC 22, hemoglobin 9.2, creatinine 2.29, GFR 22 chest x-ray showing right lung consolidation. Patient was admitted for sepsis secondary to pneumonia. Patient with persistent leukocytosis with WBC in the 20s. Infectious disease was consulted. Allergies No Known Allergies Allergy (Verified 01/06/23 14:49) Home Medications: NK [No Home Meds] 01/06/23 - Past Medical/Surgical History Diabetic: No -: HTN -: asthma -: none Psychosocial/ Personal History: Patient lives at home by herself - Family History Sister Medical History: Cancer - Social History Alcohol use: No CD- Drugs: No Caffeine use: Yes Place of Residence: Home Review of Systems 10-point ROS is otherwise unremarkable General: Weakness Respiratory: SOB with Excertion Physical Examination Temp Pulse Resp BP Pulse Ox 98.0 F 79 18 145/65 H 95 01/13/23 04:00 01/13/23 04:00 01/13/23 04:00 01/13/23 04:00 01/13/23 04:00 General: In no apparent distress, Oriented x2, Other (lethargic) HEENT: Atraumatic, Normocephalic Neck: Supple Respiratory: Diminished, Other (on 4L nasal cannula) Cardiovascular: Regular rate/rhythm, Other (left subclavian dialysis cath), Edema (BLE 1+) Gastrointestinal: Normal bowel sounds, Soft and benign Integumentary: Other (left lower leg wound, dressing is clean dry and intact) Laboratory data -Reviewed Microbiology data -Reviewed Imagings Data: -Reviewed Conclusions/Impression: Problem list Sepsis secondary to community-acquired pneumonia Acute diastolic congestive heart failure Hypertension Chronic kidney disease Anemia of chronic disease NSTEMI Sepsis secondary to community-acquired pneumonia Persistent leukocytosis -Blood cultures 01/06: No growth to date -Urine culture 01/07: No growth to date - negative influenza a and B -Negative COVID -Hepatitis panel negative -Completed 5 days of azithromycin (01/07-01/12) -Currently on ceftriaxone (01/07-) and metronidazole (01/08-) -WBC 23.9 -Afebrile XR Chest 01/13: "Bilateral pulmonary opacities are again seen, show little overall change to slight improvement since yesterday's study. In particular, right upper lobe and right lung base opacities appear slightly less prominent. The heart is moderately enlarged. Left-sided venous catheter its tip in the SVC." Acute on Chronic Kidney Disease - nephrology following - Dialysis catheter placement 01/12 - started on dialysis 01/12. Recommendations - On antibiotic day 7. WBC remains elevated, chest XR with minimal improvement. We will start on meropenem 500mg IV q24h for broader coverage. - Continue to monitor WBC and fever trends - Pressure offloading measures - LLE wound care per wound care team - Wean off supplemental O2 as tolerated - Renally dose medications Case discussed with David Luciano
[2023-01-13] MEDS: ENSURE MAX PROTEIN 330 ML LIQUID PO SCH ×2 (09:00→21:00)
[2023-01-13] MEDS: JUVEN PACKET PO SCH (09:00)
[2023-01-13 09:07] LABS: ALT/SGPT < 10 U/L (13-56)
[2023-01-13] MEDS: AMLODIPINE 5 MG TAB PO SCH (09:09)
[2023-01-13] MEDS: carvediloL 6.25 MG TAB PO SCH ×2 (09:10→18:51)
[2023-01-13] MEDS: FUROSEMIDE 40 MG TABLET PO SCH (09:10)
[2023-01-13] MEDS: CEFTRIAXONE 1,000 MG in NA CHLORIDE 0.9% 50 ML IVPB SCH (09:11)
[2023-01-13 12:22] LABS: Blood Morphology Comment NOTED (NOT SEEN); Hypochromasia 1+; Platelet Estimate INCR; Polychromasia 1+; Target Cells FEW
[2023-01-13] MEDS: MANNITOL 25% 12.5 GM/50 ML VIAL IV PRN (13:05)
[2023-01-13] MEDS ORDERED: ASPIRIN 81 MG CHEWABLE TABLET PO ONE (13:11)
[2023-01-13] MEDS ORDERED: MANNITOL 25% 12.5 GM/50 ML VIAL IV ONE (14:00)
--- NOTE | 2023-01-13 15:36 | P.PN ---
Subjective Date of Service: 01/13/23 Chief Complaint: Sepsis pneumonia, elevated troponin, renal impairment Subjective: No new changes Patient seen at bedside. Patient appears fatigued and lethargic. Patient does not responds appropriately to verbal commands following in and out of sleeping.. Continue supportive care. Review of Systems is unable to be obtained (Patient not responding to verbal commands. Patient lethargic.) Physical Examination - Vital Signs Temperature: 98.8 F Blood Pressure: 142/58 Pulse: 69 Respirations: 16 Pulse Ox (%): 93 - Physical Exam General: Alert, In no apparent distress, Oriented x1, Other (Lethargic.) HEENT: Atraumatic, PERRLA, EOMI Neck: Supple, JVD not distended Respiratory: Normal air movement, Diminished Cardiovascular: No edema, Regular rate/rhythm, Normal S1 S2 Capillary refill: <2 Seconds Gastrointestinal: Normal bowel sounds, Soft and benign, No tenderness Musculoskeletal: No clubbing, No swelling, No tenderness Integumentary: No rashes Neurological: Normal speech, Normal tone, Normal affect Lymphatics: No axilla or inguinal lymphadenopathy Assessment And Plan - Plan Assessment and Plan Interval history. 01/13/23 Patient seen at bedside. Appears very lethargic and very fatigued. Patient unable to hold a consultation. Patient started on dialysis. --Acute renal failure. Patient started on dialysis yesterday. Renal functions noted to be improving. Further management per printer slotter operator. -- Leukocytosis. Infectious disease MD on board. Antibiotics changed by infectious disease MD. Will await further recommendations. --UTI. Continue antibiotics. Urine cultures pending. --DVT prophylaxis with heparin subQ. 01/12/2023. Renal functions worsening. Guest Attendant is recommending dialysis. Left-sided venous catheter has been placed. Further management per printer slotter operator. Worsening leukocytosis. Infectious disease MD consulted. Continue antibiotics. We will further recommendations from infectious disease MD. --Labetalol as needed for SBP greater than 160. -- DVT prophylaxis with heparin subQ Problems (Diagnosis) (1) Sepsis Current Visit: Yes Status: Acute Plan: Patient remains with a leukocytosis. Unknown etiology. Blood cultures negative. Chest x-ray is with consolidative pneumonia changes on the right lung. Continue with antibiotic therapy. Continue antibiotic therapy and procalcitonin level elevated. Broaden antibiotic coverage. Sepsis type: sepsis due to unspecified organism Sepsis acute organ dysfunction status: with acute organ dysfunction Severe sepsis acute organ dysfunction type: unspecified (2) Pneumonia Current Visit: Yes Status: Acute Plan: Current treatment plan as mentioned above. Continue with antibiotic therapy. Continue with IV fluids. Continue monitoring renal function closely. Repeat chest x-rays. Procalcitonin level elevated. Repeat chest x-ray with worsening infiltrate and will broaden antibiotic coverage Pneumonia type: due to unspecified organism Laterality: right Lung location: middle lobe of lung Qualified Code(s): J18.9 - Pneumonia, unspecified organism (3) Wound of left lower extremity Current Visit: Yes Status: Chronic Plan: Wound healing consultation. Continue with wound care at this point. Currently on antibiotic for pneumonia so we will reassess. Outpatient follow-up with home health for wound care. Encounter type: initial encounter Qualified Code(s): S81.802A - Unspecified open wound, left lower leg, initial encounter (4) Acute diastolic CHF (congestive heart failure)/HFpEF Onset Date: 05/06/17 Current Visit: No Status: Acute Plan: Monitor volume status closely. Strict blood pressure control. Patient been diuresed effectively. Hold off on diuresing at this point as we have possibly over diuresed patient. (5) HTN (hypertension) Onset Date: 05/06/17 Current Visit: No Status: Chronic Plan: Strict blood pressure control; continue with antihypertensive (6) CKD (chronic kidney disease) stage 4, GFR 15-29 ml/min Current Visit: Yes Status: Acute Plan: Continue monitoring renal function. Nephrology consultation. Renal ultrasound has been reviewed. Patient with no signs of renal abnormality. (7) NSTEMI (non-ST elevated myocardial infarction) Current Visit: Yes Status: Acute Plan: Continue with cardiac meds with antiplatelet therapy and statin therapy. Cardiology consultation. Cardiology wanting to do outpatient cardiac catheterization. Discharge Plan: Home Discharge Plan: Home Plan to discharge in: Greater than 2 days Physician Review: Patient Assessed, Agree with Above Assessment and Plan Critical Care: No
[2023-01-13] MEDS: Meropenem 500 MG in NA CHLORIDE 0.9% 100 ML IV SCH (18:49)
[2023-01-13 20:37] LABS: Absolute Lymphocytes (CBC) 1.5 K/uL (0.7-4.9); Hematocrit 20.9 % (36.0-45.0); Lymphocytes % 6.5 % (15.3-44.8); MCV 82.6 fL (80-100); MPV 7.5 fL (7.6-11.3); Platelets 401 thou/uL (152-406); RBC Red Blood Cell Count 2.53 M/uL (3.86-4.86)
[2023-01-13] MEDS: ENSURE HIGH PROTEIN 237 ML CAN PO SCH (21:10)
[2023-01-13 21:13] LABS: Blood Morphology Comment NOT SEEN (NOT SEEN); Platelet Estimate ADEQ
[2023-01-13 21:15] LABS: AST/SGOT 14 U/L (15-37); Alkaline Phosphatase 47 U/L (45-117); BUN Blood Urea Nitrogen 91 mg/dL (7-18); Bicarbonate 27 mEq/L (21-32); Bilirubin Total 0.4 mg/dL (0.2-1.0); Glomerular Filtration Rate 7 ml/min (=/>90); Glucose Level 112 mg/dL (74-106); Magnesium 2.4 mg/dL (1.6-2.4); Phosphorus 5.1 mg/dL (2.5-4.9); Potassium 4.6 mEq/L (3.5-5.1); Protein, Total 6.7 g/dL (6.4-8.2); Sodium Level 136 mEq/L (136-145)
[2023-01-13 21:26] LABS: ALT/SGPT < 6 U/L (13-56)
--- NOTE | 2023-01-13 23:54 | PN ---
Date of Progress Note: 01/13/2023 Chief Complaint: Acute on chronic kidney injury, severe hyperazotemia. The patient was initiated on hemodialysis. She underwent non-tunneled dialysis catheter placement. Subjective: The patient is a 72-year-old woman who was admitted for sepsis, pneumonia, elevated troponin, and renal impairment. Renal function has declined during this admission. The patient was initiated on hemodialysis via non- tunneled dialysis catheter. Review of Systems: Denies chest pain, palpitation. Physical Examination: Lungs: Clear to auscultation bilaterally. Heart: S1, S2. Abdomen: Soft. Extremities: Slight edema. Assessment And Plan: Patient was initiated on hemodialysis for acute kidney injury o chronic kidney disease. She has temporary dialysis catheter. Patient may need renal biopsy to evaluate for acute kidney injury, accelerated chronic kidney disease etiology. Patient complains of abdominal pain. The patient may need GI consult and plan is to check hemoglobin level. Patient had left-sided IJ hemodialysis temporary catheter. The patient will continue dialysis. Catheter was malfunctioning today. Today, patient had episodes of hypotension and unresponsiveness. There was no witnessed seizure. The patient received mannitol and blood pressure improved afterwards. Patient is to have further workup to rule out acute coronary syndrome. Sepsis. The patient has elevated leukocytosis. The patient may need further workup with regional sales director for elevated WBC. Chest x-ray showed pneumonia changes and right lung is also involved in the pneumonia process. Continue antibiotics. Continue dialysis to control fluid overload. Lower extremity wound. Wound care per primary team. Continue antibiotics according to culture results. Acute diastolic congestive heart failure. Volume is in better control. Monitor fluid balance. Hypertension. Monitor blood pressure closely. Chronic kidney disease stage 4, acute kidney injury due to acute tubular necrosis in setting of sepsis, pending serology work up to evaluate for possible nephritis. EB/MODL Voice ID: [id number] Report ID: [id number] JOHNATHON
[2023-01-14 04:28] LABS: Absolute Lymphocytes (CBC) 2.4 K/uL (0.7-4.9); Hematocrit 22.5 % (36.0-45.0); Lymphocytes % 11.3 % (15.3-44.8); MCV 83.2 fL (80-100); MPV 7.9 fL (7.6-11.3); Platelets 412 thou/uL (152-406)
[2023-01-14 05:06] LABS: Magnesium 2.2 mg/dL (1.6-2.4); Phosphorus 5.2 mg/dL (2.5-4.9); Potassium 4.6 mEq/L (3.5-5.1)
--- NOTE | 2023-01-14 08:41 | P.PN ---
Date of Service: 01/14/23 Chief Complaint: Sepsis pneumonia, elevated troponin, renal impairment Subjective: Patient seen and examined at bedside. Remains confused. Denies any new or worsening complaints at this time. Physical Examination Temp Pulse Resp BP Pulse Ox 97.9 F 73 16 141/62 H 94 01/14/23 00:00 01/14/23 04:15 01/14/23 04:15 01/14/23 04:15 01/14/23 04:15 General: In no apparent distress, Oriented x1. Lethargic. Confused. HEENT: Atraumatic, Normocephalic Neck: Supple Respiratory: Diminished. On 4L nasal cannula. Cardiovascular: Regular rate/rhythm. Left subclavian dialysis cath. BLE edema 1+ Gastrointestinal: Normal bowel sounds, Soft and benign Integumentary: left lower leg wound, dressing is clean dry and intact. Laboratory data -Reviewed Microbiology data -Reviewed Imagings Data: -Reviewed Medications List: Reviewed Assessment and Plan Problem list Sepsis secondary to community-acquired pneumonia Acute diastolic congestive heart failure Hypertension Chronic kidney disease Anemia of chronic disease NSTEMI Sepsis secondary to community-acquired pneumonia Persistent leukocytosis -Blood cultures 01/06: No growth to date -Urine culture 01/07: No growth to date - negative influenza a and B -Negative COVID -Hepatitis panel negative -Completed 5 days of azithromycin (01/07-01/12) and 7 days of Ceftriaxone. - Currently on Meropenem (started 01/14) -WBC 23.9 -> 21.3 -Afebrile XR Chest 01/13: "Bilateral pulmonary opacities are again seen, show little overall change to slight improvement since yesterday's study. In particular, right upper lobe and right lung base opacities appear slightly less prominent. The heart is moderately enlarged. Left-sided venous catheter its tip in the SVC." Acute on Chronic Kidney Disease - nephrology following - Dialysis catheter placement 01/12 - started on dialysis 01/12. Recommendations - On antibiotic day 8 WBC remains elevated, chest XR with minimal improvement. Continue with Meropenem for now. - Continue to monitor WBC and fever trends - Pressure offloading measures - LLE wound care: rinse with NS, pat dry then apply medihoney with alginate and cover with foam dressing. On MWF and PRN if soiled or dislodged. - Wean off supplemental O2 as tolerated - Renally dose medications Case discussed with David Luciano
[2023-01-14] MEDS: ENSURE HIGH PROTEIN 237 ML CAN PO SCH ×2 (09:00→20:56)
[2023-01-14] MEDS: ENSURE MAX PROTEIN 330 ML LIQUID PO SCH ×2 (09:00→20:57)
[2023-01-14] MEDS: AMLODIPINE 5 MG TAB PO SCH (09:02)
[2023-01-14] MEDS: FUROSEMIDE 40 MG TABLET PO SCH (09:02)
[2023-01-14] MEDS: carvediloL 6.25 MG TAB PO SCH ×2 (09:02→17:36)
--- NOTE | 2023-01-14 16:57 | EKG ---
Test Date: 2023-01-12 Test Time: 09:57:43 Senior Animator: MANOLO MEASUREMENT RESULTS: Intervals: Rate: 70 OK: 180 QRSD: 106 QT: 396 QTc: 427 Irving: P: 23 OK: 180 QRS: 16 T: 75 INTERPRETIVE STATEMENTS: Normal sinus rhythm Incomplete left bundle branch block Left ventricular hypertrophy with repolarization abnormality ST elevation, consider early repolarization, pericarditis, or injury Abnormal ECG Compared to ECG 01/08/2023 02:40:58 Left bundle-branch block now present Early repolarization now present ST (T wave) deviation now present Atrial fibrillation no longer present T-wave abnormality no longer present Possible ischemia no longer present Electronically Signed On 01-14-23 16:52:20 [employer]PERVISOR [employer] by Bogdan Mackey
[2023-01-14] MEDS: Meropenem 500 MG in NA CHLORIDE 0.9% 100 ML IV SCH (17:36)
--- NOTE | 2023-01-14 18:49 | P.PN ---
Subjective Date of Service: 01/14/23 Chief Complaint: Sepsis pneumonia, elevated troponin, renal impairment Subjective: No new changes Physical Examination - Vital Signs Temperature: 97.9 F Blood Pressure: 134/56 Pulse: 63 Respirations: 23 Pulse Ox (%): 96 - Physical Exam General: Other (chronically ill-appearing) HEENT: Atraumatic, Normocephalic Neck: Supple Respiratory: Other (symmetric chest expansion) Cardiovascular: No rubs, No murmurs Gastrointestinal: Soft and benign, No guarding Musculoskeletal: No clubbing Integumentary: No warmth Neurological: Normal tone Urinary: Other (no bladder distention) External genitalia: Deferred Rectal: Deferred Assessment And Plan - Plan 1. Acute kidney injury on chronic kidney disease, multifactorial, secondary to hypertension, nephrosclerosis/cardiorenal syndrome. Initiated on HD. no significant renal recovery. Next HD tomorrow. Renal diet. 2. CKD4 2/2 hypertension nephrosclerosis, cardiorenal syndrome. KIdneys small on renal US. Baseline GFR 21-24 as of December 2022. Monitor renal panel. 3. Secondary hyperparathyroidism. Monitor serum Ca & Phos. 4. Right renal cyst, simple, stable. 5. Anemia of chronic kidney disease, to rule out iron-deficiency anemia/light chain disease. Waiting for serum protein electrophoresis and anemia workup. 6. Multifocal pneumonia. Received abx. 7. Congestive heart failure with exacerbation. We will follow up with Cardiology. Echocardiogram only showing diastolic dysfunction, preserved ejection fraction of 56%. Moderate pulmonary hypertension. Per Cardiology. 8. Hypertension. BP meds adjusted. Physician Review: Patient Assessed, Agree with Above Assessment and Plan
--- NOTE | 2023-01-14 23:19 | P.PN ---
Subjective Date of Service: 01/14/23 Chief Complaint: Sepsis pneumonia, elevated troponin, renal impairment Subjective: No new changes Patient seen at bedside. Patient less fatigued and lethargic. Patient more alert today. continue supportive care. Review of Systems is unable to be obtained (Patient not responding to verbal commands.) Physical Examination - Vital Signs Temperature: 98.7 F Blood Pressure: 124/50 Pulse: 63 Respirations: 17 Pulse Ox (%): 94 - Physical Exam General: Alert, Oriented x1, Cooperative, Confused HEENT: Atraumatic, PERRLA, EOMI Neck: Supple, JVD not distended Respiratory: Normal air movement, Diminished Cardiovascular: No edema, Regular rate/rhythm, Normal S1 S2 Capillary refill: <2 Seconds Gastrointestinal: Normal bowel sounds, No tenderness Musculoskeletal: No clubbing, No swelling, No tenderness Integumentary: No rashes Neurological: Normal speech, Normal tone, Normal affect Lymphatics: No axilla or inguinal lymphadenopathy Assessment And Plan - Plan Interval history. 01/14/23 Patient seen at bedside. Patient more alert than yesterday. Continue wound care to left lower extremity wound. Continue antibiotics. Patient on hemodialysis. Nephrology on board. Will await further recommendations. Continue supportive care. 01/13/23 Patient seen at bedside. Appears very lethargic and very fatigued. Patient u nable to hold a consultation. Patient started on dialysis. --Acute renal failure. Patient started on dialysis yesterday. Renal functions noted to be improving. Further management per [facility]. -- Leukocytosis. Infectious disease MD on board. Antibiotics changed by infectious disease MD. Will await further recommendations. --UTI. Continue antibiotics. Urine cultures pending. --DVT prophylaxis with heparin subQ. 01/12/2023. Renal functions worsening. Javascript Ui Developer is recommending dialysis. Left-sided venous catheter has been placed. Further management per [facility]. Worsen ing leukocytosis. Infectious disease MD consulted. Continue antibiotics. We will further recommendations from infectious disease MD. --Labetalol as needed for SBP greater than 160. -- DVT prophylaxis with heparin subQ Problems (Diagnosis) (1) Sepsis Current Visit: Yes Status: Acute Plan: Patient remains with a leukocytosis. Unknown etiology. Blood cultures negative. Chest x-ray is with consolidative pneumonia changes on the right lung. Continue with antibiotic therapy. Continue antibiotic therapy and procalcitonin level elevated. Broaden antibiotic coverage. Sepsis type: sepsis due to unspecified organism Sepsis acute organ dysfunction status: with acute organ dysfunction Severe sepsis acute organ dysfunction type: unspecified (2) Pneumonia Current Visit: Yes Status: Acute Plan: Current treatment plan as mentioned above. Continue with antibiotic therapy. Continue with IV fluids. Continue monitoring renal function closely. Repeat chest x-rays. Procalcitonin level elevated. Repeat chest x-ray with worsening infiltrate and will broaden antibiotic coverage Pneumonia type: due to unspecified organism Laterality: right Lung location: middle lobe of lung Qualified Code(s): J18.9 - Pneumonia, unspecified organism (3) Wound of left lower extremity Current Visit: Yes Status: Chronic Plan: Wound healing consultation. Continue with wound care at this point. Currently on antibiotic for pneumonia so we will reassess. Outpatient follow-up with home health for wound care. Encounter type: initial encounter Qualified Code(s): S81.802A - Unspecified open wound, left lower leg, initial encounter (4) Acute diastolic CHF (congestive heart failure)/HFpEF Onset Date: 05/06/17 Current Visit: No Status: Acute Plan: Monitor volume status closely. Strict blood pressure control. Patient been diuresed effectively. Hold off on diuresing at this point as we have possibly over diuresed patient. (5) HTN (hypertension) Onset Date: 05/06/17 Current Visit: No Status: Chronic Plan: Strict blood pressure control; continue with antihypertensive (6) CKD (chronic kidney disease) stage 4, GFR 15-29 ml/min Current Visit: Yes Status: Acute Plan: Continue monitoring renal function. Nephrology consultation. Renal ultrasound has been reviewed. Patient with no signs of renal abnormality. (7) NSTEMI (non-ST elevated myocardial infarction) Current Visit: Yes Status: Acute Plan: Continue with cardiac meds with antiplatelet therapy and statin therapy. Cardiology consultation. Cardiology wanting to do outpatient cardiac catheterization. Discharge Plan: Home Discharge Plan: Home Physician Review: Patient Assessed, Agree with Above Assessment and Plan Critical Care: No
--- NOTE | 2023-01-15 07:46 | P.PN ---
Date of Service: 01/15/23 Chief Complaint: Sepsis pneumonia, elevated troponin, renal impairment Subjective: Patient resting comfortably in bed. No acute events reported overnight. Denies any new or worsening complaints. Remains lethargic/confused. Physical Examination Temp Pulse Resp BP Pulse Ox 98.5 F 83 18 147/59 H 93 01/15/23 04:00 01/15/23 04:00 01/15/23 04:00 01/15/23 04:00 01/15/23 04:00 General: In no apparent distress, Oriented x1. Lethargic. Confused. HEENT: Atraumatic, Normocephalic Neck: Supple Respiratory: Diminished. On 4L nasal cannula. Cardiovascular: Regular rate/rhythm. Left subclavian dialysis cath. BLE edema 1+ Gastrointestinal: Normal bowel sounds, Soft and benign Integumentary: left lower leg wound, dressing is clean dry and intact. Laboratory data -Reviewed Microbiology data -Reviewed Imagings Data: -Reviewed Medications List: Reviewed Assessment and Plan Problem list Sepsis secondary to community-acquired pneumonia Acute diastolic congestive heart failure Hypertension Chronic kidney disease Anemia of chronic disease NSTEMI Sepsis secondary to community-acquired pneumonia Persistent leukocytosis -Blood cultures 01/06: No growth to date -Urine culture 01/07: No growth to date - negative influenza a and B -Negative COVID -Hepatitis panel negative -Completed 5 days of azithromycin (01/07-01/12) and 7 days of Ceftriaxone. - Currently on Meropenem (started 01/14) -WBC 23.9 -> 21.3 -> -Afebrile XR Chest 01/13: "Bilateral pulmonary opacities are again seen, show little overall change to slight improvement since yesterday's study. In particular, right upper lobe and right lung base opacities appear slightly less prominent. The heart is moderately enlarged. Left-sided venous catheter its tip in the SVC." Acute on Chronic Kidney Disease - nephrology following - Dialysis catheter placement 01/12 - started on dialysis 01/12. Recommendations - On antibiotic day 9 WBC remains elevated, chest XR with minimal improvement. Continue with Meropenem for now. - Continue to monitor WBC and fever trends - Pressure offloading measures - LLE wound care: rinse with NS, pat dry then apply medihoney with alginate and cover with foam dressing. On MWF and PRN if soiled or dislodged. - Wean off supplemental O2 as tolerated - Renally dose medications Case discussed with David Luciano
[2023-01-15] MEDS: carvediloL 6.25 MG TAB PO SCH ×2 (08:00→18:26)
[2023-01-15] MEDS: ENSURE MAX PROTEIN 330 ML LIQUID PO SCH ×2 (08:24→19:59)
[2023-01-15] MEDS: AMLODIPINE 5 MG TAB PO SCH (08:24)
[2023-01-15] MEDS: FUROSEMIDE 40 MG TABLET PO SCH (08:24)
[2023-01-15] MEDS: ENSURE HIGH PROTEIN 237 ML CAN PO SCH ×2 (08:25→19:59)
[2023-01-15 12:03] LABS: Absolute Lymphocytes (CBC) 1.7 K/uL (0.7-4.9); Hematocrit 23.1 % (36.0-45.0); MCV 82.8 fL (80-100); MPV 7.5 fL (7.6-11.3); Platelets 446 thou/uL (152-406); RBC Red Blood Cell Count 2.78 M/uL (3.86-4.86)
[2023-01-15 12:37] LABS: White Blood Cell Scan OK (OK)
[2023-01-15 12:38] LABS: Blood Morphology Comment NOT SEEN (NOT SEEN); Platelet Estimate ADEQ
--- NOTE | 2023-01-15 15:25 | P.PN ---
Subjective Date of Service: 01/15/23 Chief Complaint: Sepsis pneumonia, elevated troponin, renal impairment Subjective: No new changes Patient continues to be lethargic and unable to respond to verbal commands. No signs and symptoms of distress noted. Continue supportive care. Review of Systems is unable to be obtained (Patient unable to answer questions) Physical Examination - Vital Signs Temperature: 97.4 F Blood Pressure: 162/67 Pulse: 67 Respirations: 24 Pulse Ox (%): 94 - Physical Exam General: Alert, In no apparent distress, Oriented x1, Cooperative HEENT: Atraumatic, PERRLA, EOMI Neck: Supple, JVD not distended Respiratory: Clear to auscultation bilaterally, Normal air movement Cardiovascular: No edema, Regular rate/rhythm, Normal S1 S2 Capillary refill: <2 Seconds Gastrointestinal: Normal bowel sounds, Non-distended, No tenderness Musculoskeletal: No clubbing, No contractures, No tenderness Integumentary: No rashes, Other (LLE wound) Neurological: Normal tone, Normal affect Lymphatics: No axilla or inguinal lymphadenopathy Assessment And Plan - Plan Interval history. 01/15/23 Patient seen at bedside. Continues to be lethargic. No improvement in renal function. Dialysis scheduled by fruit distributor. Infectious disease MD on board. Continue antibiotics per infectious disease MD recommendation. Wound care to LLE extremity wound. Continue supportive care. 01/14/23 Patient seen at bedside. Patient more alert than yesterday. Continue wound care to left lower extremity wound. Continue antibiotics. Patient on hemodialysis. Nephrology on board. Will await further recommendations. Continue supportive care. 01/13/23 Patient seen at bedside. Appears very lethargic and very fatigued. Patient unable to hold a consultation. Patient started on dialysis. --Acute renal failure. Patient started on dialysis yesterday. Renal functions noted to be improving. Further management per fruit distributor. -- Leukocytosis. Infectious disease MD on board. Antibiotics changed by infectious disease MD. Will await further recommendations. --UTI. Continue antibiotics. Urine cultures pending. --DVT prophylaxis with heparin subQ. 01/12/2023. Renal functions worsening. Animal Handler is recommending dialysis. Left-sided venous catheter has been placed. Further management per fruit distributor. Worsening leukocytosis. Infectious disease MD consulted. Continue antibiotics. We will further recommendations from infectious disease MD. --Labetalol as needed for SBP greater than 160. -- DVT prophylaxis with heparin subQ Problems (Diagnosis) (1) Sepsis Current Visit: Yes Status: Acute Plan: Patient remains with a leukocytosis. Unknown etiology. Blood cultures negative. Chest x-ray is with consolidative pneumonia changes on the right lung. Continue with antibiotic therapy. Continue antibiotic therapy and procalcitonin level elevated. Broaden antibiotic coverage. Sepsis type: sepsis due to unspecified organism Sepsis acute organ dysfunction status: with acute organ dysfunction Severe sepsis acute organ dysfunction type: unspecified (2) Pneumonia Current Visit: Yes Status: Acute Plan: Current treatment plan as mentioned above. Continue with antibiotic therapy. Continue with IV fluids. Continue monitoring renal function closely. Repeat chest x-rays. Procalcitonin level elevated. Repeat chest x-ray with worsening infiltrate and will broaden antibiotic coverage Pneumonia type: due to unspecified organism Laterality: right Lung location: middle lobe of lung Qualified Code(s): J18.9 - Pneumonia, unspecifi ed organism (3) Wound of left lower extremity Current Visit: Yes Status: Chronic Plan: Wound healing consultation. Continue with wound care at this point. Currently on antibiotic for pneumonia so we will reassess. Outpatient follow-up with [facility] for wound care. Encounter type: initial encounter Qualified Code(s): S81.802A - Unspecified open wound, left lower leg, initial encounter (4) Acute diastolic CHF (congestive heart failure)/HFpEF Onset Date: 05/06/17 Current Visit: No Status: Acute Plan: Monitor volume status closely. Strict blood pressure control. Patient been diuresed effectively. Hold off on diuresing at this point as we have possibly over diuresed patient. (5) HTN (hypertension) Onset Date: 05/06/17 Current Visit: No Status: Chronic Plan: Strict blood pressure control; continue with antihypertensive (6) CKD (chronic kidney disease) stage 4, GFR 15-29 ml/min Current Visit: Yes Status: Acute Plan: Continue monitoring renal function. Nephrology consultation. Renal ultrasound has been reviewed. Patient with no signs of renal abnormality. (7) NSTEMI (non-ST elevated myocardial infarction) Current Visit: Yes Status: Acute Plan: Continue with cardiac meds with antiplatelet therapy and statin therapy. Cardiology consultation. Cardiology wanting to do outpatient cardiac catheterization. Discharge Plan: Home Discharge Plan: Home Plan to discharge in: Greater than 2 days Physician Review: Patient Assessed, Agree with Above Assessment and Plan Critical Care: No
[2023-01-15] MEDS: MANNITOL 25% 12.5 GM/50 ML VIAL IV PRN (15:45)
--- NOTE | 2023-01-15 16:49 | P.PN ---
Subjective Date of Service: 01/15/23 Chief Complaint: Sepsis pneumonia, elevated troponin, renal impairment Subjective: Other (Received HD today) Physical Examination - Vital Signs Temperature: 97.4 F Blood Pressure: 162/67 Pulse: 67 Respirations: 24 Pulse Ox (%): 94 - Physical Exam General: Other (chronically ill-appearing) HEENT: Atraumatic, Normocephalic Neck: Supple Respiratory: Other (symmetric chest expansion) Cardiovascular: No rubs, No murmurs Gastrointestinal: Soft and benign, No guarding Musculoskeletal: No clubbing Integumentary: No warmth Neurological: Normal tone Urinary: Other (no bladder distention) External genitalia: Deferred Rectal: Deferred Assessment And Plan - Plan 1. Acute kidney injury on chronic kidney disease, multifactorial, secondary to hypertension, nephrosclerosis/cardiorenal syndrome. Initiated on HD. No significant renal recovery. HD received today. +catheter dysfxn. Renal diet. 2. Dialysis catheter malfxn. Consult surgery for permacath placement, & remove chase cath. 3. CKD4 2/2 hypertension nephrosclerosis, cardiorenal syndrome. Kidneys small on renal US. Baseline GFR 21-24 as of December 2022. Monitor renal panel. 4. Secondary hyperparathyroidism. Monitor serum Ca & Phos. 5. Right renal cyst, simple, stable. 6. Anemia of chronic kidney disease, to rule out iron-deficiency anemia/light c [place] disease. Waiting for serum protein electrophoresis and anemia workup. 7. Multifocal pneumonia. Received abx. 8. Congestive heart failure with exacerbation. We will follow up with Cardiology. Echocardiogram only showing diastolic dysfunction, preserved ejection fraction of 56%. Moderate pulmonary hypertension. Per Cardiology. 9. Hypertension. BP meds adjusted. Physician Review: Patient Assessed, Agree with Above Assessment and Plan
[2023-01-15] MEDS: Meropenem 500 MG in NA CHLORIDE 0.9% 100 ML IV SCH (18:24)
[2023-01-16 03:05] LABS: Arterial Blood Carboxyhemoglob 1.8 % (0-1.5); Blood Gas Oxyhemoglobin 93.3 % (94-97); Blood O2 Saturation 96.5 % (92-98.5)
--- NOTE | 2023-01-16 07:57 | P.PN ---
Date of Service: 01/16/23 Chief Complaint: Sepsis pneumonia, elevated troponin, renal impairment Subjective: Patient remains lethargic/confused. No acute events reported overnight. Patient denies any complaints at this time. Physical Examination Temp Pulse Resp BP Pulse Ox 97.4 F 67 24 H 162/67 H 94 01/16/23 07:51 01/16/23 07:51 01/16/23 07:51 01/16/23 07:51 01/16/23 07:51 General: In no apparent distress, Oriented x1. Lethargic. Confused. HEENT: Atraumatic, Normocephalic Neck: Supple Respiratory: Diminished. On 4L nasal cannula. Cardiovascular: Regular rate/rhythm. Left subclavian dialysis cath. BLE edema 1+ Gastrointestinal: Normal bowel sounds, Soft and benign Integumentary: left lower leg wound, dressing is clean dry and intact. Laboratory data -Reviewed Microbiology data -Reviewed Imagings Data: -Reviewed Medications List: Reviewed Assessment and Plan Problem list Sepsis secondary to community-acquired pneumonia Acute diastolic congestive heart failure Hypertension Chronic kidney disease Anemia of chronic disease NSTEMI Sepsis secondary to community-acquired pneumonia Persistent leukocytosis -Blood cultures 01/06: No growth to date -Urine culture 01/07: No growth to date - negative influenza a and B -Negative COVID -Hepatitis panel negative -Completed 5 days of azithromycin (01/07-01/12) and 7 days of Ceftriaxone. - Currently on Meropenem (started 01/13) -WBC 23.9 -> 21.3 -> 24.7 -Afebrile XR Chest 01/13: "Bilateral pulmonary opacities are again seen, show little overall change to slight improvement since yesterday's study. In particular, right upper lobe and right lung base opacities appear slightly less prominent. The heart is moderately enlarged. Left-sided venous catheter its tip in the SVC." Acute on Chronic Kidney Disease - nephrology following - Dialysis catheter placement 01/12 - started on dialysis 01/12. Recommendations - Continue meropenem for 5 days (01/13 to 01/17) - Monitor CBC and BMP - Pressure offloading measures. Turn patient q2h, wedge pillow, low air-loss mattress - LLE wound care: rinse with NS, pat dry then apply medihoney with alginate and cover with foam dressing. On MWF and PRN if soiled or dislodged. - Wean off supplemental O2 as tolerated - Renally dose medications See nephrology and attending note for further recommendations. Case discussed with David Luciano
[2023-01-16 08:41] LABS: Absolute Lymphocytes (CBC) 1.4 K/uL (0.7-4.9); Hematocrit 21.9 % (36.0-45.0); Lymphocytes % 5.8 % (15.3-44.8); MCV 83.9 fL (80-100); MPV 7.6 fL (7.6-11.3); Platelets 417 thou/uL (152-406); RBC Red Blood Cell Count 2.61 M/uL (3.86-4.86)
[2023-01-16] MEDS: FUROSEMIDE 40 MG TABLET PO SCH (08:46)
[2023-01-16] MEDS: carvediloL 6.25 MG TAB PO SCH ×2 (08:47→17:33)
[2023-01-16] MEDS: ENSURE HIGH PROTEIN 237 ML CAN PO SCH ×2 (08:47→20:10)
[2023-01-16] MEDS: ENSURE MAX PROTEIN 330 ML LIQUID PO SCH ×2 (08:47→20:10)
[2023-01-16] MEDS: AMLODIPINE 5 MG TAB PO SCH (08:49)
[2023-01-16 08:52] LABS: Potassium 4.7 mEq/L (3.5-5.1)
[2023-01-16 09:54] LABS: Platelet Estimate INCR
[2023-01-16 09:55] LABS: Blood Morphology Comment NOT SEEN (NOT SEEN)
[2023-01-16 09:56] LABS: Toxic Granulation 1+
--- NOTE | 2023-01-16 10:24 | CON ---
This is a note because I am not sure exactly what the consult was for. I am trying to figure it out, but I want to make sure that we stated that we saw the patient. I am still trying to investigate th e purpose of this consult since I was called last night to put a hemodialysis catheter on this patien t. Today, the patient was put n.p.o. When I came this morning, patient do have a hemodialysis deena ter placed about [address] Mitchell. I remember this case. At that moment discussed with Dr. Mitchell about the hemodialysis catheter and we offered also our help, but he says he want to do this 1 and he got this. I am surprised right now, they are calling me 2 days later. I am trying to get from the chart, from the nurse, from the staff, from the primary doctor the reason for the call last night. Nobody seems to be the 1 who put that hemodialysis catheter placement. I am trying to get al so from a primary doctor hospitalist, but he is not the one who put the order either. I am trying to go to the renal note, but I do not see anything there about changing or removing the catheter. So I do not want to make a move especially at this time when the OR is closed at this moment and I have t o make sure I get my resources properly. So I am not going to call the OR team at this moment until I clarify all this. At the same time, I want to make sure they understanding that Dr. Mitchell is the one in charge of this patient and he personally told me, he is going to take care of this patient. So I would like not to do anything unless we get his advice. GUI/JACKIE Voice ID: [id number] Report ID: [id number]
--- NOTE | 2023-01-16 14:43 | P.PN ---
Subjective Date of Service: 01/16/23 Chief Complaint: Sepsis pneumonia, elevated troponin, renal impairment Subjective: No new changes Physical Examination - Vital Signs Temperature: 96.9 F Blood Pressure: 117/51 Pulse: 60 Respirations: 18 Pulse Ox (%): 95 - Physical Exam General: Other (chronically ill-appearing) HEENT: Atraumatic, Normocephalic Neck: Supple Respiratory: Other (symmetric chest expansion) Cardiovascular: No rubs, No murmurs Gastrointestinal: Soft and benign, No guarding Musculoskeletal: No clubbing Integumentary: No warmth Neurological: Normal tone Urinary: Other (no bladder distention) External genitalia: Deferred Rectal: Deferred Assessment And Plan - Plan 1. Acute kidney injury on chronic kidney disease, multifactorial, secondary to hypertension, nephrosclerosis/cardiorenal syndrome. Initiated on HD. No significant renal recovery. HD received yesterday. Next HD Sat, TTS sked. +catheter dysfxn. Renal diet. 2. Dialysis catheter malfxn. Consulted surgery for permacath placement, & remove chase cath. 3. CKD4 2/2 hypertension nephrosclerosis, cardiorenal syndrome. Kidneys small on renal US. Baseline GFR 21-24 as of December 2022. Monitor renal panel. 4. Secondary hyperparathyroidism. Monitor serum Ca & Phos. 5. Right renal cyst, simple, stable. 6. Anemia of chronic kidney disease, to rule out iron-deficiency anemia/light chain disease. Waiting for serum protein electrophoresis and anemia workup. 7. Multifocal pneumonia. Received abx. 8. Congestive heart failure with exacerbation. We will follow up with Cardiology. Echocardiogram only showing diastolic dysfunction, preserved ejection fraction of 56%. Moderate pulmonary hypertension. Per Cardiology. 9. Hypertension. BP meds adjusted. Physician Review: Patient Assessed, Agree with Above Assessment and Plan
--- NOTE | 2023-01-16 15:23 | P.PN ---
Subjective Date of Service: 01/16/23 Chief Complaint: Sepsis pneumonia, elevated troponin, renal impairment Subjective: No new changes Patient still lethargic and unable to respond to verbal commands. No signs and symptoms of distress noted. Continue supportive care. Review of Systems is unable to be obtained (Patient does not respond to commands) Physical Examination - Vital Signs Temperature: 96.9 F Blood Pressure: 117/51 Pulse: 60 Respirations: 18 Pulse Ox (%): 95 - Physical Exam General: Alert, In no apparent distress, Oriented x1, Confused HEENT: Atraumatic, PERRLA, EOMI Neck: Supple, JVD not distended Respiratory: Clear to auscultation bilaterally, Normal air movement Cardiovascular: No edema, Regular rate/rhythm, Normal S1 S2 Capillary refill: <2 Seconds Gastrointestinal: Normal bowel sounds, No tenderness Musculoskeletal: No clubbing, No tenderness Integumentary: No rashes Neurological: Normal speech, Normal tone, Normal affect Lymphatics: No axilla or inguinal lymphadenopathy Assessment And Plan - Plan Interval history. 01/16/23 Patient seen at bedside. Patient continues to be lethargic. Slight Improvement in renal functions noted. Continue wound care to left lower extremity wound. Nephrology and infectious disease MD on board. Continue supportive care. 01/15/23 Patient seen at bedside. Continues to be lethargic. No improvement in renal function. Dialysis scheduled by patient's librarian. Infectious disease MD on board. Continue antibiotics per infectious disease MD recommendation. Wound care to LLE extremity wound. Continue supportive care. 01/14/23 Patient seen at bedside. Patient more alert than yesterday. Continue wound care to left lower extremity wound. Continue antibiotics. Patient on hemodialysis. Nephrology on board. Will await further recommendations. Continue supportive care. 01/13/23 Patient seen at bedside. Appears very lethargic and very fatigued. Patient unable to hold a consultation. Patient started on dialysis. --Acute renal failure. Patient started on dialysis yesterday. Renal functions noted to be improving. Further management per patient's librarian. -- Leukocytosis. Infectious disease MD on board. Antibiotics changed by infectious disease MD. Will await further recommendations. --UTI. Continue antibiotics. Urine cultures pending. --DVT prophylaxis with heparin subQ. 01/12/2023. Renal functions worsening. Magazine Supervisor is recommending dialysis. Left-sided venous catheter has been placed. Further management per patient's librarian. Worsening leukocytosis. Infectious disease MD consulted. Continue antibiotics. We will further recommendations from infectious disease MD. --Labetalol as needed for SBP greater than 160. -- DVT prophylaxis with heparin subQ Problems (Diagnosis) (1) Sepsis Current Visit: Yes Status: Acute Plan: Patient remains with a leukocytosis. Unknown etiology. Blood cultures negative. Chest x-ray is with consolidative pneumonia changes on the right lung. Continue with antibiotic therapy. Continue antibiotic therapy and proc alcitonin level elevated. Broaden antibiotic coverage. Sepsis type: sepsis due to unspecified organism Sepsis acute organ dysfunction status: with acute organ dysfunction Severe sepsis acute organ dysfunction type: unspecified (2) Pneumonia Current Visit: Yes Status: Acute Plan: Current treatment plan as mentioned above. Continue with antibiotic therapy. Continue with IV fluids. Continue monitoring renal function closely. Repeat chest x-rays. Procalcitonin level elevated. Repeat chest x-ray with worsening infiltrate and will broaden antibiotic coverage Pneumonia type: due to unspecified organism Laterality: right Lung location: middle lobe of lung Qualified Code(s): J18.9 - Pneumonia, unspecified organism (3) Wound of left lower extremity Current Visit: Yes Status: Chronic Plan: Wound healing consultation. Continue with wound care at this point. Currently on antibiotic for pneumonia so we will reassess. Outpatient follow-up with home health for wound care. Encounter type: initial encounter Qualified Code(s): S81.802A - Unspecified open wound, left lower leg, initial encounter (4) Acute diastolic CHF (congestive heart failure)/HFpEF Onset Date: 05/06/17 Current Visit: No Status: Acute Plan: Monitor volume status closely. Strict blood pressure control. Patient been diuresed effectively. Hold off on diuresing at this point as we have possibly over diuresed patient. (5) HTN (hypertension) Onset Date: 05/06/17 Current Visit: No Status: Chronic Plan: Strict blood pressure control; continue with antihypertensive (6) CKD (chronic kidney disease) stage 4, GFR 15-29 ml/min Current Visit: Yes Status: Acute Plan: Continue monitoring renal function. Nephrology consultation. Renal ultrasound has been reviewed. Patient with no signs of renal abnormality. (7) NSTEMI (non-ST elevated myocardial infarction) Current Visit: Yes Status: Acute Plan: Continue with cardiac meds with antiplatelet therapy and statin therapy. Cardiology consultation. Cardiology wanting to do outpatient cardiac catheterization. Discharge Plan: Home Physician Review: Patient Assessed, Agree with Above Assessment and Plan
[2023-01-16] MEDS: Meropenem 500 MG in NA CHLORIDE 0.9% 100 ML IV SCH (17:34)
[2023-01-17 04:30] LABS: Potassium 4.8 mEq/L (3.5-5.1)
[2023-01-17 04:44] LABS: Absolute Lymphocytes (CBC) 2.5 K/uL (0.7-4.9); Lymphocytes % 9.9 % (15.3-44.8); MPV 7.5 fL (7.6-11.3); Platelets 435 thou/uL (152-406); RBC Red Blood Cell Count 2.26 M/uL (3.86-4.86)
[2023-01-17 05:24] LABS: Anisocytosis SLIGHT; Blood Morphology Comment NOTED (NOT SEEN); Platelet Estimate INCR
[2023-01-17 05:25] LABS: Polychromasia SLIGHT
[2023-01-17] MEDS: carvediloL 6.25 MG TAB PO SCH ×2 (08:00→20:20)
[2023-01-17] MEDS: ENSURE HIGH PROTEIN 237 ML CAN PO SCH ×2 (09:00→20:02)
[2023-01-17] MEDS: FUROSEMIDE 40 MG TABLET PO SCH (09:00)
[2023-01-17] MEDS: AMLODIPINE 5 MG TAB PO SCH (09:00)
[2023-01-17] MEDS: ENSURE MAX PROTEIN 330 ML LIQUID PO SCH ×2 (09:00→20:02)
--- NOTE | 2023-01-17 14:14 | P.PN ---
Subjective Date of Service: 01/17/23 Chief Complaint: Sepsis pneumonia, elevated troponin, renal impairment Subjective: Worsening Patient continues to be lethargic. No signs and symptoms of distress noted. Continue supportive care. Review of Systems is unable to be obtained (Patient not responding appropriately to verbal commands.) Physical Examination - Vital Signs Temperature: 97.2 F Blood Pressure: 155/54 Pulse: 54 Respirations: 18 Pulse Ox (%): 99 - Physical Exam General: Alert, In no apparent distress, Oriented x1, Confused HEENT: Atraumatic, PERRLA, EOMI Neck: Supple, JVD not distended Respiratory: Normal air movement, Diminished Cardiovascular: No edema, Regular rate/rhythm, Normal S1 S2 Capillary refill: <2 Seconds Gastrointestinal: Normal bowel sounds, No tenderness Musculoskeletal: No clubbing, No tenderness Integumentary: No rashes, Other (LLE wound) Neurological: Normal speech, Normal tone, Normal affect Lymphatics: No axilla or inguinal lymphadenopathy Assessment And Plan - Plan Interval history. 01/17/23 Patient continues to be lethargic. Patient was able to sit up with 2 person assist. Renal functions worsening compared to levels yesterday. Patient scheduled for dialysis today. Further management per aerial gunner. Continue wound care to left lower extremity wound. Continue supportive care. 01/16/23 Patient seen at bedside. Patient continues to be lethargic. Slight Improvement in renal functions noted. Continue wound care to left lower extremity wound. Nephrology and infectious disease MD on board. Continue supportive care. 01/15/23 Patient seen at bedside. Continues to be lethargic. No improvement in renal function. Dialysis scheduled by aerial gunner. Infectious disease on board. Continue antibiotics per infectious disease MD recommendation. Wound care to LLE extremity wound. Continue supportive care. 01/14/23 Patient seen at bedside. Patient more alert than yesterday. Continue wound ca re to left lower extremity wound. Continue antibiotics. Patient on hemodialysis. Nephrology on board. Will await further recommendations. Continue supportive care. 01/13/23 Patient seen at bedside. Appears very lethargic and very fatigued. Patient unable to hold a consultation. Patient started on dialysis. --Acute renal failure. Patient started on dialysis yesterday. Renal functions noted to be improving. Further management per aerial gunner. -- Leukocytosis. Infectious disease MD on board. Antibiotics changed by infectious disease MD. Will await further recommendations. --UTI. Continue antibiotics. Urine cultures pending. --DVT prophylaxis with heparin subQ. 01/12/2023. Renal functions worsening. Packing And Shipping Clerk is recommending dialysis. Left-sided venous catheter has been placed. Further management per aerial gunner. Worsening leukocytosis. Infectious disease MD consulted. Continue antibiotics. We will further recommendations from infectious disease MD. --Labetalol as needed for SBP greater than 160. -- DVT prophylaxis with heparin subQ Problems (Diagnosis) (1) Sepsis Current Visit: Yes Status: Acute Plan: Patient remains with a leukocytosis. Unknown etiology. Blood cultures negative. Chest x-ray is with consolidative pneumonia changes on the right lung. Continue with antibiotic therapy. Continue antibiotic therapy and procalcitonin level elevated. Broaden antibiotic coverage. Sepsis type: sepsis due to unspecified organism Sepsis acute organ dysfunction status: with acute organ dysfunction Severe sepsis acute organ dysfunction type: unspecified (2) Pneumonia Current Visit: Yes Status: Acute Plan: Current treatment plan as mentioned above. Continue with antibiotic therapy. Continue with IV fluids. Continue monitoring renal function closely. Repeat chest x-rays. Procalcitonin level elevated. Repeat chest x-ray with worsening infiltrate and will broaden antibiotic coverage Pneumonia type: due to unspecified organism Laterality: right Lung location: middle lobe of lung Qualified Code(s): J18.9 - Pneumonia, unspecified organism (3) Wound of left lower extremity Current Visit: Yes Status: Chronic Plan: Wound healing consultation. Continue with wound care at this point. Currently on antibiotic for pneumonia so we will reassess. Outpatient follow-up with home health for wound care. Encounter type: initial encounter Qualified Code(s): S81.802A - Unspecified open wound, left lower leg, initial encounter (4) Acute diastolic CHF (congestive heart failure)/HFpEF Onset Date: 05/06/17 Current Visit: No Status: Acute Plan: Monitor volume status closely. Strict blood pressure control. Patient been diuresed effectively. Hold off on diuresing at this point as we have possibly over diuresed patient. (5) HTN (hypertension) Onset Date: 05/06/17 Current Visit: No Status: Chronic Plan: Strict blood pressure control; continue with antihypertensive (6) CKD (chronic kidney disease) stage 4, GFR 15-29 ml/min Current Visit: Yes Status: Acute Plan: Continue monitoring renal function. Nephrology consultation. Renal ultrasound has been reviewed. Patient with no signs of renal abnormality. (7) NSTEMI (non-ST elevated myocardial infarction) Current Visit: Yes Status: Acute Plan: Continue with cardiac meds with antiplatelet therapy and statin therapy. Cardiology consultation. Cardiology wanting to do outpatient cardiac catheterization. Discharge Plan: Home Discharge Plan: Home Plan to discharge in: Greater than 2 days - Code Status/Comfort Care Code Status Assessed: Yes Physician Review: Patient Assessed, Agree with Above Assessment and Plan Critical Care: No
--- NOTE | 2023-01-17 15:39 | P.PN ---
Subjective Date of Service: 01/17/23 Chief Complaint: Sepsis pneumonia, elevated troponin, renal impairment Subjective: Other (received HD today.) Physical Examination - Vital Signs Temperature: 97.2 F Blood Pressure: 155/54 Pulse: 54 Respirations: 18 Pulse Ox (%): 99 - Physical Exam General: Other (chronically ill-appearing) HEENT: Atraumatic, Normocephalic Neck: Supple Respiratory: Other (Symmetric chest expansion) Cardiovascular: No rubs, No murmurs Gastrointestinal: Soft and benign, No guarding Musculoskeletal: No clubbing Integumentary: No warmth Neurological: Normal tone Urinary: Other (No bladder distention) External genitalia: Deferred Rectal: Deferred Assessment And Plan - Plan 1. Acute kidney injury on chronic kidney disease, multifactorial, secondary to hypertension, nephrosclerosis/cardiorenal syndrome. Initiated on HD. No significant renal recovery. HD received today. Cont HD TTS sked. +catheter dysfxn. Renal diet. 2. Dialysis catheter malfxn. Consulted surgery for permacath placement, & remove chase cath. 3. CKD4 2/2 hypertension nephrosclerosis, cardiorenal syndrome. Kidneys small on renal US. Baseline GFR 21-24 as of December 2022. Monitor renal panel. 4. Secondary hyperparathyroidism. Monitor serum Ca & Phos. 5. Right renal cyst, simple, stable. 6. Anemia of chronic kidney disease. pRBC received on 01/17. 7. Multifocal pneumonia. Received abx. 8. Congestive heart failure with exacerbation. We will follow up with Cardiology. Echocardiogram only showing diastolic dysfunction, preserved ejection fraction of 56%. Moderate pulmonary hypertension. Per Cardiology. 9. Hypertension. BP meds adjusted. Physician Review: Patient Assessed, Agree with Above Assessment and Plan
[2023-01-17] MEDS ORDERED: NA CHLORIDE 0.9% 250 ML ONE (15:58)
[2023-01-17] MEDS: Meropenem 500 MG in NA CHLORIDE 0.9% 100 ML IV SCH (20:19)
[2023-01-18 02:39] LABS: Absolute Lymphocytes (CBC) 0.9 K/uL (0.7-4.9); Hematocrit 27.5 % (36.0-45.0); Lymphocytes % 3.7 % (15.3-44.8); MCV 84.1 fL (80-100); MPV 7.2 fL (7.6-11.3); Platelets 441 thou/uL (152-406); RBC Red Blood Cell Count 3.28 M/uL (3.86-4.86)
[2023-01-18 03:07] LABS: Potassium 4.3 mEq/L (3.5-5.1)
[2023-01-18] MEDS: ENSURE HIGH PROTEIN 237 ML CAN PO SCH ×2 (09:00→20:04)
[2023-01-18] MEDS: ENSURE MAX PROTEIN 330 ML LIQUID PO SCH (09:00)
[2023-01-18] MEDS: carvediloL 6.25 MG TAB PO SCH ×2 (09:32→17:00)
[2023-01-18] MEDS: AMLODIPINE 5 MG TAB PO SCH (09:33)
[2023-01-18] MEDS: EPOETIN ALFA-EPBX 4,000 UNIT/ML VIAL SQ SCH (09:33)
[2023-01-18] MEDS: FUROSEMIDE 40 MG TABLET PO SCH (09:33)
--- NOTE | 2023-01-18 09:53 | P.PN ---
Subjective Date of Service: 01/18/23 Chief Complaint: Sepsis pneumonia, elevated troponin, renal impairment Physical Examination - Vital Signs Temperature: 97.2 F Blood Pressure: 155/54 Pulse: 54 Respirations: 18 Pulse Ox (%): 99 Assessment And Plan Physician Review: Patient Assessed, Agree with Above Assessment and Plan
--- NOTE | 2023-01-18 12:06 | P.PN ---
Subjective Date of Service: 01/18/23 Chief Complaint: Sepsis pneumonia, elevated troponin, renal impairment Subjective: No new changes, Improving Physical Examination - Vital Signs Temperature: 97.2 F Blood Pressure: 155/54 Pulse: 54 Respirations: 18 Pulse Ox (%): 99 - Physical Exam General: Alert HEENT: Atraumatic Neck: Supple Respiratory: Normal air movement Cardiovascular: Regular rate/rhythm, Normal S1 S2 Gastrointestinal: Soft and benign Musculoskeletal: No swelling Neurological: Normal speech Assessment And Plan - Plan - Plan Interval history. 01/18/23 Patient is much improved today. More alert and communicative. Able to participate in activities of daily living to a great degree. Had dialysis done yesterday. Had PermCath placed. Follow clinical symptomatology. Will continue plans for outpatient dialysis chair procurement and we will continue wound care pending further review. 01/17/23 Patient continues to be lethargic. Patient was able to sit up with 2 person assist. Renal functions worsening compared to levels yesterday. Patient scheduled for dialysis today. Further management per appointment clerk. Continue wound care to left lower extremity wound. Continue supportive care. 01/16/23 Patient seen at bedside. Patient continues to be lethargic. Slight Improvement in renal functions noted. Continue wound care to left lower extremity wound. Nephrology and infectious disease MD on board. Continue supportive care. 01/15/23 Patient seen at bedside. Continues to be lethargic. No improvement in renal function. Dialysis scheduled by appointment clerk. Infectious disease MD on board. Continue antibiotics per infectious disease MD recommendation. Wound care to LLE extremity wound. Continue supportive care. 01/14/23 Patient seen at bedside. Patient more alert than yesterday. Continue wound care to left lower extremity wound. Continue antibiotics. Patient on hemodialysis. Nephrology on board. Will await further recommendations. Continue supportive care. 01/13/23 Patient seen at bedside. Appears very lethargic and very fatigued. Patient unable to hold a consultation. Patient started on dialysis. --Acute renal failure. Patient started on dialysis yesterday. Renal functions noted to be improving. Further management per appointment clerk. -- Leukocytosis. Infectious disease MD on board. Antibiotics changed by infectious disease MD. Will await further recommendations. --UTI. Continue antibiotics. Urine cultures pending. --DVT prophylaxis with heparin subQ. 01/12/2023. Renal functions worsening. Coping Machine Operator is recommending dialysis. Left-sided venous catheter has been placed. Further management per appointment clerk. Worsening leukocytosis. Infectious disease MD consulted. Continue antibiotics. We will further recommendations from infectious disease MD. --Labetalol as needed for SBP greater than 160. -- DVT prophylaxis with heparin subQ Problems (Diagnosis) (1) Sepsis Current Visit: Yes Status: Acute Plan: Patient remains with a leukocytosis. Unknown etiology. Blood cultures negative. Chest x-ray is with consolidative pneumonia changes on the right lung. Continue with antibiotic therapy. Continue antibiotic therapy and procalcitonin level elevated. Broaden antibiotic coverage. Sepsis type: sepsis due to unspecified organism Sepsis acute organ dysfunction status: with acute organ dysfunction Severe sepsis acute organ dysfunction type: unspecified (2) Pneumonia Current Visit: Yes Status: Acute Plan: Current treatment plan as mentioned above. Continue with antibiotic therapy. Continue with IV fluids. Continue monitoring renal function closely. Repeat chest x-rays. Procalcitonin level elevated. Repeat chest x-ray with worsening infiltrate and will broaden antibiotic coverage Pneumonia type: due to unspecified organism Laterality: right Lung location: middle lobe of lung Qualified Code(s): J18.9 - Pneumonia, unspecified organism (3) Wound of left lower extremity Current Visit: Yes Status: Chronic Plan: Wound healing consultation. Continue with wound care at this point. Currently on antibiotic for pneumonia so we will reassess. Outpatient follow-up with [facility] for wound care. Encounter type: initial encounter Qualified Code(s): S81.802A - Unspecified open wound, left lower leg, initial encounter (4) Acute diastolic CHF (congestive heart failure)/HFpEF Onset Date: 05/06/17 Current Visit: No Status: Acute Plan: Monitor volume status closely. Strict blood pressure control. Patient been diuresed effectively. Hold off on diuresing at this point as we have possibly over diuresed patient. (5) HTN (hypertension) Onset Date: 05/06/17 Current Visit: No Status: Chronic Plan: Strict blood pressure control; continue with antihypertensive (6) CKD (chronic kidney disease) stage 4, GFR 15-29 ml/min Current Visit: Yes Status: Acute Plan: Continue monitoring renal function. Nephrology consultation. Renal ultrasound has been reviewed. Patient with no signs of renal abnormality. (7) NSTEMI (non-ST elevated myocardial infarction) Current Visit: Yes Status: Acute Plan: Continue with cardiac meds with antiplatelet therapy and statin therapy. Cardiology consultation. Cardiology wanting to do outpatient cardiac catheterization. Discharge Plan: Home Discharge Plan: Home Plan to discharge in: Greater than 2 days - Code Status/Comfort Care Code Status Assessed: Yes Physician Review: Patient Assessed, Agree with Above Assessment and Plan Critical Care: No Physician Review: Patient Assessed, Agree with Above Assessment and Plan
--- NOTE | 2023-01-18 15:37 | P.PN ---
Subjective Date of Service: 01/18/23 Chief Complaint: Sepsis pneumonia, elevated troponin, renal impairment Subjective: Other (received HD yesterday.) Physical Examination - Vital Signs Temperature: 97.2 F Blood Pressure: 155/54 Pulse: 54 Respirations: 18 Pulse Ox (%): 99 - Physical Exam General: Other (chronically ill-appearing) HEENT: Atraumatic, Normocephalic Neck: Supple Respiratory: Other (symmetric chest expansion) Cardiovascular: No rubs, No murmurs Gastrointestinal: Soft and benign, No guarding Musculoskeletal: No clubbing Integumentary: No erythema Neurological: Normal tone Urinary: Other (no bladder distention) External genitalia: Deferred Rectal: Deferred Assessment And Plan - Plan 1. Acute kidney injury on chronic kidney disease, multifactorial, secondary to hypertension, nephrosclerosis/cardiorenal syndrome. Initiated on HD. No significant renal recovery. HD received yesterday. Cont HD TTS sked. +catheter dysfxn. Renal diet. 2. Dialysis catheter malfxn. Consulted surgery for permacath placement, & remove chase cath. 3. CKD4 2/2 hypertension nephrosclerosis, cardiorenal syndrome. Kidneys small on renal US. Baseline GFR 21-24 as of December 2022. Monitor renal panel. 4. Secondary hyperparathyroidism. Monitor serum Ca & Phos. 5. Right renal cyst, simple, stable. 6. Anemia of chronic kidney disease. pRBC received on 01/17. Retacrit SQ qTTS. 7. Multifocal pneumonia. Received abx. 8. Congestive heart failure with exacerbation. We will follow up with Cardiology. Echocardiogram only showing diastolic dysfunction, preserved ejection fraction of 56%. Moderate pulmonary hypertension. Per Cardiology. 9. Hypertension. BP meds adjusted. Physician Review: Patient Assessed, Agree with Above Assessment and Plan
[2023-01-18] MEDS: Meropenem 500 MG in NA CHLORIDE 0.9% 100 ML IV SCH (17:09)
--- NOTE | 2023-01-19 05:59 | P.PN ---
Date of Service: 01/19/23 Subjective Physical Examination -Vitals Reviewed -Physical Exam General: Alert, Oriented x3 Respiratory: Clear to auscultation bilaterally, Normal air movement Cardiovascular: No edema, Normal pulses, Normal S1 S2 Gastrointestinal: Normal bowel sounds, Non-distended Musculoskeletal: No clubbing, No swelling Integumentary: Other (Small wound on the left lower extremity) Assessment and Plan - Problems (Diagnosis) (1) Sepsis Current Visit: Yes Status: Acute Plan: Patient remains with a leukocytosis. Unknown etiology. Blood cultures negative. Chest x-ray is with consolidative pneumonia changes on the right lung. Continue with antibiotic therapy. Continue antibiotic therapy and procalcitonin level elevated. Sepsis type: sepsis due to unspecified organism Sepsis acute organ dysfunction status: with acute organ dysfunction Severe sepsis acute organ dysfunction type: unspecified (2) Pneumonia Current Visit: Yes Status: Acute Plan: Current treatment plan as mentioned above. Continue with antibiotic therapy. Continue monitoring renal function closely. Repeat chest x-rays. Procalcitonin level elevated. Repeat chest x-ray with worsening infiltrate and will broaden antibiotic coverage Pneumonia type: due to unspecified organism Laterality: right Lung location: middle lobe of lung Qualified Code(s): J18.9 - Pneumonia, unspecified organism (3) Wound of left lower extremity Current Visit: Yes Status: Chronic Plan: Wound healing consultation. Continue with wound care at this point. Currently on antibiotic for pneumonia so we will reassess. Outpatient follow-up with home health for wound care. Encounter type: initial encounter Qualified Code(s): S81.802A - Unspecified open wound, left lower leg, initial encounter (4) Acute diastolic CHF (congestive heart failure)/HFpEF Onset Date: 05/06/17 Current Visit: No Status: Acute Plan: Monitor volume status closely. Strict blood pressure control. Patient been diuresed effectively. Continue Lasix daily (5) HTN (hypertension) Onset Date: 05/06/17 Current Visit: No Status: Chronic Plan: Strict blood pressure control; continue with antihypertensive (6) MICHAEL on CKD (chronic kidney disease) stage 4, GFR 15-29 ml/min Current Visit: Yes Status: Acute Plan: Continue monitoring renal function. Nephrology consultation. Renal ultrasound has been reviewed. Patient with no signs of renal abnormality. s/p permacath placement & removal of chase cath. continue plans for outpatient dialysis chair procurement (7) NSTEMI (non-ST elevated myocardial infarction) Current Visit: Yes Status: Acute Plan: Continue with cardiac meds with antiplatelet therapy and statin therapy. Cardiology consultation. Cardiology wanting to do outpatient cardiac catheterization. Discharge Plan: Home Plan to discharge in: 48 Hours - Advance Directives Does patient have a Living Will: No Does patient have a Durable POA for Healthcare: No - Code Status/Comfort Care Code Status Assessed: Yes (Full code) Code Status: Full Code Physician Review: Patient Assessed, Agree with Above Assessment and Plan Critical Care: No Time Spent Managing Pts Care (In Minutes): 35 (Minutes)
[2023-01-19] MEDS: EPOETIN ALFA-EPBX 4,000 UNIT/ML VIAL SQ SCH (09:00)
[2023-01-19] MEDS: AMLODIPINE 5 MG TAB PO SCH (09:00)
[2023-01-19] MEDS: FUROSEMIDE 40 MG TABLET PO SCH (09:05)
[2023-01-19] MEDS: carvediloL 6.25 MG TAB PO SCH ×2 (09:06→17:00)
[2023-01-19] MEDS: ENSURE HIGH PROTEIN 237 ML CAN PO SCH ×2 (09:06→21:00)
--- NOTE | 2023-01-19 13:47 | P.PN ---
Date of Service: 01/19/23 Chief Complaint: Sepsis pneumonia, elevated troponin, renal impairment Subjective: Patient more awake today. Remains confused. No acute events reported overnight. Patient denies any new or worsening complaints at this time. Physical Examination Temp Pulse Resp BP Pulse Ox 97.8 F 67 16 107/54 L 95 01/19/23 12:00 01/19/23 12:00 01/19/23 12:00 01/19/23 12:00 01/19/23 12:00 General: In no apparent distress, Oriented x1. Lethargic. Confused. HEENT: Atraumatic, Normocephalic. Sclera with redness. Neck: Supple. Respiratory: Diminished. Unlabored respirations on 2L nasal cannula. Cardiovascular: Regular rate/rhythm. Left subclavian dialysis cath. Trace BLE edema. Gastrointestinal: Normal bowel sounds, Soft and benign Integumentary: left lower leg wound, dressing is clean dry and intact. Laboratory data -Reviewed Microbiology data -Reviewed Imagings Data: -Reviewed Medications List: Reviewed Assessment and Plan Problem list Sepsis secondary to community-acquired pneumonia Acute diastolic congestive heart failure Hypertension Chronic kidney disease Anemia of chronic disease NSTEMI Sepsis secondary to community-acquired pneumonia Persistent leukocytosis -Blood cultures 01/06: No growth to date -Urine culture 01/07: No growth to date - negative influenza a and B -Negative COVID -Hepatitis panel negative -Completed 5 days of azithromycin (01/07-01/12) and 7 days of Ceftriaxone. - Currently on Meropenem (started 01/13) -WBC 23.9 -> 21.3 -> 24.7 -Afebrile XR Chest 01/13: "Bilateral pulmonary opacities are again seen, show little overall change to slight improvement since yesterday's study. In particular, right upper lobe and right lung base opacities appear slightly less prominent. The heart is moderately enlarged. Left-sided venous catheter its tip in the SVC." Acute on Chronic Kidney Disease - nephrology following - Dialysis catheter placement 01/12 - started on dialysis 01/12. Recommendations Discontinue Meropenem. Continue to monitor. - Pressure offloading measures. Turn patient q2h, wedge pillow, low air-loss mattress - LLE wound care: rinse with NS, pat dry then apply medihoney with alginate and cover with foam dressing. On MWF and PRN if soiled or dislodged. - Wean off supplemental O2 as tolerated - Renally dose medications See nephrology and attending note for further recommendations. Case discussed with David Luciano
[2023-01-19 18:05] LABS: Hematocrit 26.8 % (36.0-45.0)
--- NOTE | 2023-01-20 00:37 | PN ---
Date of Progress Note: 01/19/2023 Chief Complaint: Sepsis, pneumonia, elevated troponin, renal impairment. Patient remains dialysis d ependent. Patient received dialysis on Thursday. Review of Systems: The patient denies complaints. Physical Examination: Lungs: Few rhonchi. Heart: S1, S2. Abdomen: Soft. Extremities: Slight edema. Impression And Plan: 1.Acute on chronic kidney injury. Patient remains dialysis dependent. The patient developed acute kidney injury, multifactorial, due to cardiorenal syndrome, acute tubular necrosis. The patient has underlying chronic kidney disease secondary to nephrosclerosis and hypertensive kidney disease. The patient received dialysis and catheter was malfunctioning. Patient was consulted for PermaCath place ment and removal of Stefan catheter. 2.Chronic kidney disease 4 secondary to hypertension and nephrosclerosis, cardiorenal syndrome. Ult rasound showed small kidneys corresponding with advanced chronic kidney disease. Back in January 12 GFR was ranging from 21 to 24. Currently, patient remains dialysis dependent and serum creatinine level is up to 6. 3.Secondary hyperparathyroidism. Monitor calcium and phosphorus. 4.Right renal cyst, simple, stable. 5.Anemia due to chronic kidney disease. Patient received packed red blood cells on January 18. Co ntinue EDD. 6.Multifocal pneumonia, on antibiotics. 7.Congestive heart failure with exacerbation. Cardiology is following. Echocardiogram showed diast olic dysfunction and preserved ejection fraction of 56%, moderate pulmonary hypertension. Further recommendation from Bg harrell. MARILU/JACKIE Voice ID: [id number] Report ID: [id number]
[2023-01-20] MEDS: AMLODIPINE 5 MG TAB PO SCH (08:49)
[2023-01-20] MEDS: carvediloL 6.25 MG TAB PO SCH ×2 (08:49→17:00)
[2023-01-20] MEDS: FUROSEMIDE 40 MG TABLET PO SCH (08:49)
[2023-01-20] MEDS: ENSURE HIGH PROTEIN 237 ML CAN PO SCH ×2 (08:50→20:55)
--- NOTE | 2023-01-20 14:27 | P.PN ---
Date of Service: 01/20/23 Chief Complaint: Sepsis pneumonia, elevated troponin, renal impairment Subjective: Patient seen and examined at bedside. No acute events reported overnight. In no apparent distress. Denies any new or worsening complaints. Remains confused. Physical Examination Temp Pulse Resp BP Pulse Ox 97.8 F 67 16 107/54 L 95 01/19/23 12:00 01/19/23 12:00 01/19/23 12:00 01/19/23 12:00 01/19/23 12:00 General: In no apparent distress, Oriented x1-2. Remains lethargic/confused. HEENT: Atraumatic, Normocephalic. bilateral sclera with redness. Respiratory: Diminished. Unlabored respirations on 2L nasal cannula. Cardiovascular: Regular rate/rhythm. Left subclavian dialysis cath. BLE edema. Gastrointestinal: Normal bowel sounds, Soft and benign Integumentary: left lower leg wound dressing is clean dry and intact. Laboratory data -Reviewed Microbiology data -Reviewed Imagings Data: -Reviewed Medications List: Reviewed Assessment and Plan Problem list Sepsis secondary to community-acquired pneumonia Acute diastolic congestive heart failure Hypertension Chronic kidney disease Anemia of chronic disease NSTEMI Sepsis secondary to community-acquired pneumonia Persistent leukocytosis -Blood cultures 01/06: No growth to date -Urine culture 01/07: No growth to date - negative influenza a and B -Negative COVID -Hepatitis panel negative -Completed 5 days of azithromycin (01/07-01/12) and 7 days of Ceftriaxone. - Completed 7 days on Meropenem (started 01/13-01/19) -WBC 24.7 -> 25.6 -> 23.8 -Afebrile XR Chest 01/13: "Bilateral pulmonary opacities are again seen, show little overall change to slight improvement since yesterday's study. In particular, right upper lobe and right lung base opacities appear slightly less prominent. The heart is moderately enlarged. Left-sided venous catheter its tip in the SVC." Acute on Chronic Kidney Disease - nephrology following - Dialysis catheter placement 01/12 - started on dialysis 01/12. Recommendations WBC remains elevated in 20s despite completing 7 days rocephin + 5 days azithromycin, then 7 days meropenem. Antibiotics discontinued 01/19. Continue to monitor for worsening s/s of infection. - Pressure offloading measures. Turn patient q2h, wedge pillow, low air-loss mattress - LLE wound care: rinse with NS, pat dry then apply medihoney with alginate and cover with foam dressing. On MWF and PRN if soiled or dislodged. - Renally dose medications See nephrology and attending note for further recommendations. Case discussed with David Luciano
[2023-01-20] MEDS: MANNITOL 25% 12.5 GM/50 ML VIAL IV PRN (14:45)
--- NOTE | 2023-01-20 18:04 | PN ---
Date of Progress Note: 01/20/2023 Subjective: The patient was admitted to the hospital with cardiorenal syndrome. Patient required to be initiated on dialysis. Patient doing well. Objective: Vital Signs: When I saw the patient, blood pressure 124/66, pulse of 80, afebrile. Chest: Clear to auscultation. Heart: S1, S2. Regular. Abdomen: Soft, nontender. Extremity: No edema. Neurologic: Alert. No focality. Laboratory Data: Hemoglobin 8.8, sodium 137, potassium 4.3, bicarb 25, BUN 54, creatinine 4.6, GFR o f 10, calcium 7.7. Current Medications: The patient on, it includes amlodipine 5 mg, carvedilol 6.25, Ensure, Lasix 40 daily. Assessment And Plan: 1.Acute kidney injury secondary to cardiorenal, dialysis dependent. I am going to continue the pato ent on dialysis per schedule. Patient is scheduled for dialysis today. We will continue to monitor. 2.Hypertension, controlled, optimal. Continue to utilize the blood pressure for more ultrafiltratio n to establish better volume control. 3.Anemia of chronic kidney disease. Continue EDD. 4.Congestive heart failure with exacerbation. Continue Lasix. Continue ultrafiltration on the dialysis. 5.Deconditioning. Continue PT, OT. BEBE/JACKIE Voice ID: [id number] Report ID: [id number]
[2023-01-20] MEDS: TETRAHYDROZOLINE HCL 150 DROPS/15 ML BTL OPTH SCH ×2 (18:06→20:54)
[2023-01-20] MEDS: MOXIFLOXACIN HCL 0.5% 3ML OPTH OPTH SCH (20:55)
[2023-01-21 07:18] LABS: Absolute Lymphocytes (CBC) 1.5 K/uL (0.7-4.9); Hematocrit 26.2 % (36.0-45.0); Lymphocytes % 8.6 % (15.3-44.8); MCV 85.6 fL (80-100); MPV 7.2 fL (7.6-11.3); Platelets 402 thou/uL (152-406); RBC Red Blood Cell Count 3.07 M/uL (3.86-4.86)
[2023-01-21] MEDS: HEPARIN 5000 UNIT/ML 1 ML VIAL ONE ×4 (07:53→10:10)
[2023-01-21] MEDS ORDERED: NS 0.9% VIAL 10 ML ONE (07:53)
[2023-01-21] MEDS ORDERED: NA CHLORIDE 0.9% 100 ML ONE (07:54)
[2023-01-21] MEDS: BUPIVACAINE 0.5% PF 10 ML VIAL ONE ×2 (07:55→10:20)
[2023-01-21 07:56] LABS: AST/SGOT 14 U/L (15-37); Alkaline Phosphatase 43 U/L (45-117); BUN Blood Urea Nitrogen 57 mg/dL (7-18); Bicarbonate 27 mEq/L (21-32); Bilirubin Total 0.5 mg/dL (0.2-1.0); Glomerular Filtration Rate 8 ml/min (=/>90); Glucose Level 93 mg/dL (74-106); Potassium 4.3 mEq/L (3.5-5.1); Protein, Total 7.4 g/dL (6.4-8.2); Sodium Level 138 mEq/L (136-145)
[2023-01-21] MEDS ORDERED: NA CHLORIDE 0.9% 500 ML ONE (07:58)
[2023-01-21] MEDS: carvediloL 6.25 MG TAB PO SCH ×2 (08:00→16:22)
[2023-01-21 08:07] LABS: ALT/SGPT < 10 U/L (13-56)
[2023-01-21] MEDS: TETRAHYDROZOLINE HCL 150 DROPS/15 ML BTL OPTH SCH ×3 (09:00→20:41)
[2023-01-21] MEDS: MOXIFLOXACIN HCL 0.5% 3ML OPTH OPTH SCH ×2 (09:00→20:40)
[2023-01-21] MEDS: AMLODIPINE 5 MG TAB PO SCH (09:00)
[2023-01-21] MEDS: FUROSEMIDE 40 MG TABLET PO SCH (09:00)
[2023-01-21] MEDS: ENSURE HIGH PROTEIN 237 ML CAN PO SCH ×2 (09:00→20:41)
[2023-01-21] MEDS ORDERED: LIDOCAINE 2% MPF 5 ML VIAL ONE (09:19)
[2023-01-21] MEDS ORDERED: propofoL 200 MG/20 ML VIAL IV ONE (09:19)
[2023-01-21] MEDS ORDERED: FENTANYL CITR 100 MCG/2 ML ONE (09:19)
[2023-01-21] MEDS ORDERED: ONDANSETRON 4 MG/2 ML VIAL ONE (09:19)
[2023-01-21] MEDS ORDERED: CEFAZOLIN SODIUM 1 GM/VIAL ONE (09:25)
[2023-01-21] MEDS ORDERED: Phenylephrine HCl 10 MG/ML 1 ML VIAL ONE (09:45)
--- NOTE | 2023-01-21 10:16 | P.BOP ---
Preoperative diagnosis: ESRD Postoperative diagnosis: same Primary procedure: 1. Placement of Cuffed Hemodyalisis catheter right IJ vein Secondary procedure: 2. Interpretation of fluoroscopy Other procedure(s): 3. Right neck ultrasound 4. Removal of old left HD catheter Estimated blood loss: Less than 20 cc Specimen: old HD cath intact Findings: as above Anesthesia: General Complications: None Drain(s): Other Transferred to: Recovery Room Condition: Good
--- NOTE | 2023-01-21 10:45 | RAD REPORT ---
[facility]40 am CLINICAL HISTORY: Device placement/central venous catheter placement IMPRESSION: Central venous catheter has been placed into the superior vena cava. No pneumothorax
--- NOTE | 2023-01-21 10:49 | RAD REPORT ---
EXAM DESCRIPTION: RAD - Fluoroscopy <1 Hour - 01/21/2023 10:40 am CLINICAL HISTORY: Device placement central venous catheter placement FINDINGS: A central venous catheter was placed into the superior vena cava. Nine fluoroscopic spot i mages are submitted. Fluoroscopy time 0.4 minutes The examination was performed by Dr. Reyes
--- NOTE | 2023-01-21 11:55 | OP ---
Date of Procedure: 01/21/2023 Surgeon: Caden Reyes MD Preoperative Diagnosis: End-stage renal disease. Postoperative Diagnosis: End-stage renal disease. Procedures: 1.Placement of cuffed hemodialysis catheter in the right internal jugular vein. 2.Interpretation of fluoroscopy. 3.Right neck ultrasound. 4.Removal of old hemodialysis catheter from the left side. Specimen: Old hemodialysis catheter intact. Findings: As above. Anesthesia: General plus local. Complications: None. Catheter: HemoSplit hemodialysis catheter. Indication: This is a case of a 73-year-old patient who had an emergent hemodialysis catheter placed by the local surgeon several days ago. Now, they want more of a cuff catheter type. So they asked me to put this hemodialysis catheter with the permission of their surgeon. The patient was fully exp lained, and the family, benefits, alternatives and risks of placement of a hemodialysis catheter in t he right side with benefits, alternatives, and risks including, but not limited to, infection, bleedi ng, damage to adjacent structures, anesthesia complication, pneumothorax, hemothorax, pericardial bush ponade, PE, DVTs, NH, and even . She also understands this may not relieve any symptoms. She m ight need more than one surgical intervention. They also understands this is a temporary catheter an d if the hemodialysis continued, they would just consult to the Renal doctor to be sent to a place wh ere they will do peripheral access. They understood. Consent was signed. Description Of Procedure: Patient was brought to the operating room, placed in supine position. Ane sthesia was done without complication. Chest and neck area were prepped and draped in usual sterile fashion. Patient was placed in Trendelenburg position after a time-out. An ultrasound was done in t he right neck, making sure the right internal jugular vein is compressible and viable. After local a nesthetic using the ultrasound for localization of the vein, we placed an 18-gauge needle in the [facility] t internal jugular vein at the first attempt. Guidewire was passed through and guided into superior vena cava using fluoroscopy. After that, we tunneled the catheter from the right upper chest into th e working space on the right neck region. This was tunneled under direct visualization. After that, we put serial dilators through the guidewire under direct visualization with fluoroscopy until we ballesteros ve the introducer catheter. After that, we removed the guidewire. We placed the HemoSplit through t hat catheter and then the catheter was peeled off. That was done using fluoroscopy and it looked lik e in good position. Excellent backflow and inflow. At that moment, I proceeded then to brought the patient back to normal position from Trendelenburg, closed the subcutaneous tissue with 3-0 chromic a nd the catheter was secured in place with 3-0 nylon and flushed with heparinized solution. The patie nt tolerated the procedure well. At that moment, we proceeded under aseptic condition removed the st itches from the left hemodialysis catheter and then pulled that catheter and applied pressure for 15 minutes. The patient tolerated each procedure well. The patient on her way to Recovery in stable co ndition. Chest x-ray will be ordered stat. GUI/MODL Voice ID: [id number] Report ID: [id number]
--- NOTE | 2023-01-21 13:16 | PN ---
Date of Progress Note: 01/21/2023 Subjective: The patient was admitted to the hospital with acute kidney injury secondary to cardioren al, over volume. The patient was diuresed. The patient required to be initiated on dialysis, contin ued to be dialysis dependent. Objective: Vital Signs: Blood pressure 136/42, pulse of 63, afebrile. Chest: Crackles bilateral. Heart: S1, S2. Systolic murmur. Abdomen: Soft, nontender. Extremities: Trace edema. Neuro: The patient is seen in the recovery after PermCath placement, sleepy, moving 4 extremities. No focality. Laboratory Data: WBC 17.5, hemoglobin 8.8, sodium 138, potassium 4.3, bicarb 27, BUN 57, creatinine 5.4, GFR of 8, calcium of 8. Current Medications: 1.Lasix. 2.Amlodipine 5 mg. 3.Carvedilol 6.25 b.i.d. Assessment And Plan: 1.Acute kidney injury secondary to cardiorenal, dialysis dependent. We will continue on the dialysi s Thursday, , Thursday. 2.Hypertension. We will continue current treatment. Utilize blood pressure for more ultrafiltratio n. 3.Anemia of chronic kidney disease. Continue EDD. 4.Congestive heart failure with exacerbation. Continue to optimize the fluid status with dialysis. 5.Deconditioning. Continue PT/OT. BEBE/JACKIE Voice ID: [id number] Report ID: [id number]
--- NOTE | 2023-01-21 21:00 | P.PN ---
Date of Service: 01/21/23 Chief Complaint: Sepsis pneumonia, elevated troponin, renal impairment Subjective: No new or worsening complaints. No acute events reported overnight. In no apparent distress. Physical Examination Temp Pulse Resp BP Pulse Ox 97.9 F 65 17 108/49 L 96 01/21/23 16:00 01/21/23 16:22 01/21/23 16:00 01/21/23 16:22 01/21/23 16:00 General: In no apparent distress, Oriented x1. Confused. HEENT: Atraumatic, Normocephalic. Scleritis/Uveitis Respiratory: Diminished. Unlabored respirations on 2L nasal cannula. Cardiovascular: Regular rate/rhythm. Left subclavian dialysis cath. BLE edema. Gastrointestinal: Normal bowel sounds, Soft and benign Integumentary: left lower leg wound dressing is clean dry and intact. Laboratory data -Reviewed Microbiology data -Reviewed Imagings Data: -Reviewed Medications List: Reviewed Assessment and Plan Problem list Sepsis secondary to community-acquired pneumonia Acute diastolic congestive heart failure Hypertension Chronic kidney disease Anemia of chronic disease NSTEMI Sepsis secondary to community-acquired pneumonia Persistent leukocytosis -Blood cultures 01/06: No growth to date -Urine culture 01/07: No growth to date - negative influenza a and B -Negative COVID -Hepatitis panel negative -Completed 5 days of azithromycin (01/07-01/12) and 7 days of Ceftriaxone. - Completed 7 days on Meropenem (started 01/13-01/19) -WBC 23.8 -> 17.5 -Afebrile - XR Chest 01/13: "Bilateral pulmonary opacities are again seen, show little overall change to slight improvement since yesterday's study. In particular, right upper lobe and right lung base opacities appear slightly less prominent. The heart is moderately enlarged. Left-sided venous catheter its tip in the SVC." Scleritis/Uveitis - Idiopathic/autoimmune vs infectious - Started on Moxifloxacin eye drops 01/20 Recommendations - scleritis/uveitis: started on moxifloxacin eye drops 01/20. Continue to monitor. - Off IV/Oral antibiotics since 01/19 - Pressure offloading measures. Turn patient q2h, wedge pillow, low air-loss mattress - LLE wound care: rinse with NS, pat dry then apply medihoney with alginate and cover with foam dressing. On MWF and PRN if soiled or dislodged. - Renally dose medications Case discussed with David Luciano
--- NOTE | 2023-01-22 07:59 | P.PN ---
Date of Service: 01/22/23 Chief Complaint: Sepsis pneumonia, elevated troponin, renal impairment Subjective: Patient seen and examined at bedside. Remains confused, oriented only to self. Denies any pain. No nausea, vomiting, diarrhea or abdominal pain. No cough or shortness of breath. Physical Examination Temp Pulse Resp BP Pulse Ox 97.9 F 70 18 124/66 92 01/22/23 00:00 01/22/23 00:00 01/22/23 00:00 01/22/23 00:00 01/22/23 00:00 General: In no apparent distress, Oriented x1. Confused. HEENT: Atraumatic, Normocephalic. Scleritis/Uveitis Respiratory: Diminished. Unlabored respirations on 2L nasal cannula. Cardiovascular: Regular rate/rhythm. Left subclavian dialysis cath. BLE edema. Gastrointestinal: Normal bowel sounds, Soft and benign Integumentary: left lower leg wound dressing is clean dry and intact. Laboratory data -Reviewed Microbiology data -Reviewed Imagings Data: -Reviewed Medications List: Reviewed Assessment and Plan Problem list Sepsis secondary to community-acquired pneumonia Acute diastolic congestive heart failure Hypertension Chronic kidney disease Anemia of chronic disease NSTEMI Sepsis secondary to community-acquired pneumonia Persistent leukocytosis -Blood cultures 01/06: No growth to date - negative influenza a and B -Negative COVID -Hepatitis panel negative -Completed 5 days of azithromycin (01/07-01/12) and 7 days of Ceftriaxone. - Completed 7 days on Meropenem (started 01/13-01/19) -WBC 23.8 -> 17.5 -Afebrile - XR Chest 01/13: "Bilateral pulmonary opacities are again seen, show little overall change to slight improvement since yesterday's study. In particular, right upper lobe and right lung base opacities appear slightly less prominent. The heart is moderately enlarged. Left-sided venous catheter its tip in the SVC." Scleritis/Uveitis - Idiopathic/autoimmune vs infectious - Started on Moxifloxacin eye drops 01/20 01/21: dialysis catheter replacement Recommendations - scleritis/uveitis: started on moxifloxacin eye drops 01/20. Continue to monitor. - Off IV/Oral antibiotics since 01/19 - Pressure offloading measures. Turn patient q2h, wedge pillow, low air-loss mattress - LLE wound care: rinse with NS, pat dry then apply medihoney with alginate and cover with foam dressing. On MWF and PRN if soiled or dislodged. - Renally dose medications Case discussed with David Luciano
[2023-01-22] MEDS: FUROSEMIDE 40 MG TABLET PO SCH (09:11)
[2023-01-22] MEDS: carvediloL 6.25 MG TAB PO SCH ×2 (09:12→17:03)
[2023-01-22] MEDS: ENSURE HIGH PROTEIN 237 ML CAN PO SCH ×2 (09:13→20:03)
[2023-01-22] MEDS: TETRAHYDROZOLINE HCL 150 DROPS/15 ML BTL OPTH SCH ×3 (09:13→20:04)
[2023-01-22] MEDS: MOXIFLOXACIN HCL 0.5% 3ML OPTH OPTH SCH ×2 (09:13→20:03)
[2023-01-22] MEDS: AMLODIPINE 5 MG TAB PO SCH (09:15)
[2023-01-22] MEDS: MANNITOL 25% 12.5 GM/50 ML VIAL IV PRN (11:35)
--- NOTE | 2023-01-22 15:16 | EKG ---
Test Date: 2023-01-21 Test Time: 10:48:05 Sofa Cover Inspector: KARSTEN MEASUREMENT RESULTS: Intervals: Rate: 59 GA: QRSD: 102 QT: 424 QTc: 419 [place]: P: GA: QRS: -20 T: 154 INTERPRETIVE STATEMENTS: Atrial fibrillation with slow ventricular response Voltage criteria for left ventricular hypertrophy ST & T wave abnormality, consider inferolateral ischemia or digitalis effect Abnormal ECG Compared to ECG 01/16/2023 00:11:51 Left ventricular hypertrophy now present Atrial flutter no longer present ST (T wave) deviation still present Possible ischemia still present Electronically Signed On 01-22-23 15:12:15 MASH FILTER OPERATOR by Bogdan Mackey
--- NOTE | 2023-01-22 15:36 | EKG ---
Test Date: 2023-01-16 Test Time: 00:11:51 Airplane Rental Clerk: JONATHON MEASUREMENT RESULTS: Intervals: Rate: 77 WI: QRSD: 102 QT: 386 QTc: 436 [place]: P: 48 WI: QRS: 28 T: 116 INTERPRETIVE STATEMENTS: Atrial flutter with variable AV block ST & T wave abnormality, consider lateral ischemia Abnormal ECG Compared to ECG 01/13/2023 14:12:57 ST (T wave) deviation now present Atrial fibrillation no longer present Ventricular premature complex(es) no longer present Left ventricular hypertrophy no longer present T-wave abnormality no longer present Possible ischemia still present Electronically Signed On 01-22-23 15:19:36 OFFICE MACHINE TECHNICIAN by Bogdan Mackey
--- NOTE | 2023-01-22 16:43 | PN ---
Date of Progress Note: 01/22/2023 Subjective: Patient was admitted with congestive heart failure with exacerbation. Patient had acute kidney injury secondary to cardiorenal, required to start on dialysis. Patient is currently dialysis dependent. Physical Examination: Vital Signs: When I saw the patient, was seen on dialysis. Blood pressure 110/66, pulse of 70, afebrile. Chest: Faint rales bilateral. Heart: S1, S2. Systolic murmur. Abdomen: Soft, nontender. Extremities: Trace edema. Neurologic: Alert. No focality. Pleasantly confused. Laboratory Data: Hemoglobin 8.8. Sodium 138, potassium 4.3, bicarb 27, BUN 57, creatinine 5.4, calcium 8. Current Medications: The patient is on include: 1. Heparin. 2. Amlodipine 5 mg. 3. Carvedilol 6.25. 4. Lasix 40 daily. 5. Trazodone. Assessment And Plan: 1. Acute kidney injury secondary to cardiorenal, currently normal volume. I am going to continue to monitor. The patient to continue dialysis 3 times a week. 2. Secondary hyperparathyroid, stable. 3. Hypertension, currently occasional, low blood pressure, especially on dialysis. I will go ahead and change her dialysis regimen. We will start sodium module 143/136 to avoid low blood pressure during the dialysis and to establish better ultrafiltration and we will monitor response for the patient. 4. Anemia of chronic disease. Continue EDD. time spend exam the patient face to face reviewing data lab and radiology placing order , discussing with the patient , discussing with the team manager including hospitalist and nursing staff >35 min Dialysis Note: Patient is seen on dialysis. Patient has low blood pressure, blood pressure is 110/60. Patient tends to have low blood pressure during the dialysis with rapid response call. For that reason, blood flowed down to 200. Chest is clear to auscultation. Heart: S1, S2 regular. Abdomen: Soft, nontender. Extremities: No edema. Neuro: Alert. No focality. Laboratory Data: As above. Assessment And Plan: Acute kidney injury, dialysis dependent with low blood pressure during the dialysis. I am going to start sodium module, step 143 to 136 with staff and we will follow up. We will challenge the patient to establish better volume control and we will follow up. JOSÉ MIGUEL Voice ID: [id number] Report ID: [id number]
[2023-01-23 07:00] LABS: Hematocrit 24.3 % (36.0-45.0); MCV 85.6 fL (80-100); MPV 7.4 fL (7.6-11.3); Platelets 329 thou/uL (152-406); RBC Red Blood Cell Count 2.84 M/uL (3.86-4.86)
[2023-01-23 07:04] LABS: Protime INR 1.17
--- NOTE | 2023-01-23 07:51 | P.PN ---
Date of Service: 01/23/23 Chief Complaint: Sepsis pneumonia, elevated troponin, renal impairment Subjective: Patient seen and examined at bedside. In no apparent distress. Oriented to self, confused. No new or worsening complaints at this time. Pending SNF/NH arrangements. Physical Examination Temp Pulse Resp BP Pulse Ox 98.3 F 75 18 110/59 L 93 01/23/23 04:00 01/23/23 04:00 01/23/23 04:00 01/23/23 04:00 01/23/23 04:00 General: In no apparent distress, Oriented x1. Confused. HEENT: Atraumatic, Normocephalic. Scleritis/Uveitis Respiratory: Diminished. Unlabored respirations on 2L nasal cannula. Cardiovascular: Regular rate/rhythm. Left subclavian dialysis cath. BLE edema. Gastrointestinal: Normal bowel sounds, Soft and benign Integumentary: left lower leg wound dressing is clean dry and intact. Laboratory data -Reviewed Microbiology data -Reviewed Imagings Data: -Reviewed Medications List: Reviewed Assessment and Plan Problem list Sepsis secondary to community-acquired pneumonia Acute diastolic congestive heart failure Hypertension Chronic kidney disease Anemia of chronic disease NSTEMI Sepsis secondary to community-acquired pneumonia Persistent leukocytosis -Blood cultures 01/06: No growth to date - negative influenza a and B -Negative COVID -Hepatitis panel negative -Completed 5 days of azithromycin (01/07-01/12) and 7 days of Ceftriaxone. - Completed 7 days on Meropenem (started 01/13-01/19) -Leukocytosis slightly improving (WBC 23.8 -> 17.5 -> 16.8) -Afebrile - XR Chest 01/13: "Bilateral pulmonary opacities are again seen, show little overall change to slight improvement since yesterday's study. In particular, right upper lobe and right lung base opacities appear slightly less prominent. The heart is moderately enlarged. Left-sided venous catheter its tip in the SVC." Scleritis/Uveitis - Idiopathic/autoimmune vs infectious - Started on Moxifloxacin eye drops 01/20 01/21: dialysis catheter replacement Recommendations - scleritis/uveitis: started on moxifloxacin eye drops 01/20. Continue to monitor. - Off IV/Oral antibiotics since 01/19 - Pressure offloading measures. Turn patient q2h, wedge pillow, low air-loss mattress - LLE wound care: rinse with NS, pat dry then apply medihoney with alginate and cover with foam dressing. On MWF and PRN if soiled or dislodged. - Renally dose medications Case discussed with David Luciano
[2023-01-23 08:13] LABS: AST/SGOT 12 U/L (15-37); Albumin 1.9 g/dL (3.4-5.0); Alkaline Phosphatase 46 U/L (45-117); BUN Blood Urea Nitrogen 48 mg/dL (7-18); Bicarbonate 29 mEq/L (21-32); Bilirubin Total 0.4 mg/dL (0.2-1.0); Glomerular Filtration Rate 8 ml/min (=/>90); Glucose Level 111 mg/dL (74-106); Magnesium 2.5 mg/dL (1.6-2.4); NT PRO-BNP 40069 pg/mL (<125); Potassium 4.4 mEq/L (3.5-5.1); Protein, Total 7.1 g/dL (6.4-8.2); Sodium Level 136 mEq/L (136-145)
[2023-01-23 08:14] LABS: ALT/SGPT < 6 U/L (13-56)
[2023-01-23] MEDS: AMLODIPINE 5 MG TAB PO SCH (08:15)
[2023-01-23] MEDS: carvediloL 6.25 MG TAB PO SCH ×2 (08:15→18:23)
[2023-01-23] MEDS: FUROSEMIDE 40 MG TABLET PO SCH (08:15)
[2023-01-23] MEDS: ENSURE HIGH PROTEIN 237 ML CAN PO SCH ×2 (08:16→20:22)
[2023-01-23] MEDS: MOXIFLOXACIN HCL 0.5% 3ML OPTH OPTH SCH ×2 (08:16→20:21)
[2023-01-23] MEDS: TETRAHYDROZOLINE HCL 150 DROPS/15 ML BTL OPTH SCH ×2 (08:16→13:15)
[2023-01-23] MEDS ORDERED: FUROSEMIDE 40 MG/4 ML VIAL IV ONE (12:48)
[2023-01-23] MEDS ORDERED: ALBUMIN HUMAN 25% 100 ML IV ONE (13:00)
--- NOTE | 2023-01-23 17:18 | P.PN ---
Subjective Date of Service: 01/23/23 Chief Complaint: Sepsis pneumonia, elevated troponin, renal impairment Subjective: Other (she received HD yesterday.) Physical Examination - Vital Signs Temperature: 98.5 F Blood Pressure: 113/64 Pulse: 59 Respirations: 20 Pulse Ox (%): 93 - Physical Exam General: Other (chronically ill-appearing) HEENT: Atraumatic, Normocephalic Neck: Supple Respiratory: Other (symmetric chest expansion) Cardiovascular: No rubs, No murmurs Gastrointestinal: Soft and benign, No guarding Musculoskeletal: No clubbing Integumentary: No warmth Neurological: Normal tone Urinary: Other (No bladder distention) External genitalia: Deferred Rectal: Deferred Assessment And Plan - Plan 1. Acute kidney injury on chronic kidney disease, multifactorial, secondary to hypertension, nephrosclerosis/cardiorenal syndrome. Initiated on HD. No significant renal recovery. HD received yesterday. Next HD tomorrow, qHD TTS sked. Renal diet. 2. CKD4 2/2 hypertension nephrosclerosis, cardiorenal syndrome. Kidneys small on renal US. Baseline GFR 21-24 as of December 2022. Monitor renal panel. 3. Secondary hyperparathyroidism. Monitor serum Ca & Phos. 4. Right renal cyst, simple, stable. 5. Anemia of chronic kidney disease. pRBC received on 01/17. Retacrit SQ qTTS. 6. Multifocal pneumonia. Received abx. 7. Congestive heart failure with exacerbation. We will follow up with Cardiology. Echocardiogram only showing diastolic dysfunction, preserved ejection fraction of 56%. Moderate pulmonary hypertension. Per Cardiology. 8. Hypertension. Cont current med regimen. Physician Review: Patient Assessed, Agree with Above Assessment and Plan
--- NOTE | 2023-01-24 07:30 | P.PN ---
Subjective Date of Service: 01/24/23 Chief Complaint: Sepsis pneumonia, elevated troponin, renal impairment pending DC to snf, no reported pain, shortness of breath, -Physical Exam General: Alert, Oriented x3 Respiratory: Clear to auscultation bilaterally, Normal air movement Cardiovascular: BLE edema, Normal pulses, Normal S1 S2 Gastrointestinal: Normal bowel sounds, Non-distended Musculoskeletal: No clubbing, No swelling Integumentary: Other (Small wound on the left lower extremity) Review of Systems per HPI Physical Examination - Vital Signs Temperature: 97.8 F Blood Pressure: 119/59 Pulse: 78 Respirations: 18 Pulse Ox (%): 94 Assessment And Plan - Plan Sepsis Current Visit: Yes Status: Acute improved Plan: Patient remains with a leukocytosis. Unknown etiology. Blood cultures negative. Chest x-ray is with consolidative pneumonia changes on the right lung. Continue with antibiotic therapy. Continue antibiotic therapy and procalcitonin level elevated. Sepsis type: sepsis due to unspecified organism Sepsis acute organ dysfunction status: with acute organ dysfunction Severe sepsis acute organ dysfunction type: unspecified Pneumonia Current Visit: Yes Status: Acute improved Plan: Current treatment plan as mentioned above. Continue with antibiotic therapy. Continue monitoring renal function closely. Repeat chest x-rays. Procalcitonin level elevated. Repeat chest x-ray with worsening infiltrate and will broaden antibiotic coverage Pneumonia type: due to unspecified organism Laterality: right Lung location: middle lobe of lung Qualified Code(s): J18.9 - Pneumonia, unspecified organism Wound of left lower extremity Current Visit: Yes Status: Chronic Plan: Wound healing consultation. Continue with wound care at this point. Currently on antibiotic for pneumonia so we will reassess. Outpatient follow-up with home health for wound care. Encounter type: initial encounter Qualified Code(s): S81.802A - Unspecified open wound, left lower leg, initial encounter Acute diastolic CHF (congestive heart failure)/HFpEF Onset Date: 05/06/17 Current Visit: No Status: Acute Plan: Monitor volume status closely. Strict blood pressure control. Patient been diuresed effectively. Continue Lasix daily HTN (hypertension) Onset Date: 05/06/17 Current Visit: No Status: Chronic Plan: Strict blood pressure control; continue with antihypertensive End-stage renal disease on hemodialysis MICHAEL on CKD (chronic kidney disease) stage 4, GFR 15-29 ml/min Current Visit: Yes Status: Acute Plan: Continue monitoring renal function. Nephrology consultation. Renal ultrasound has been reviewed. Patient with no signs of renal abnormality. s/p permacath placement & removal of chase cath. continue plans for outpatient dialysis chair procurement 01/21 Dr. Reyes placement of a cuffed hemodialysis catheter right IJ, removal of old left hemodialysis catheter NSTEMI (non-ST elevated myocardial infarction) Current Visit: Yes Status: Acute Plan: Continue with cardiac meds with antiplatelet therapy and statin therapy. Cardiology consultation. Cardiology wanting to do outpatient cardiac catheterization. DC plan Transfer to [facility] facility pending placement versus send patient home with family Discharge Plan: Home - Code Status/Comfort Care Code Status: Full Code Physician Review: Patient Assessed, Agree with Above Assessment and Plan Critical Care: No Time Spent Managing PTS Care (In Minutes): 35
[2023-01-24] MEDS: carvediloL 6.25 MG TAB PO SCH (08:39)
[2023-01-24] MEDS: MOXIFLOXACIN HCL 0.5% 3ML OPTH OPTH SCH ×2 (08:39→21:00)
[2023-01-24] MEDS: ENSURE HIGH PROTEIN 237 ML CAN PO SCH ×2 (08:39→21:00)
[2023-01-24] MEDS: FUROSEMIDE 40 MG TABLET PO SCH (08:39)
[2023-01-24] MEDS: AMLODIPINE 5 MG TAB PO SCH (08:40)
[2023-01-24] MEDS: HYDROCORTISONE SUC 100 MG INJ IV SCH ×2 (08:40→08:41)
--- NOTE | 2023-01-24 14:13 | P.PN ---
Subjective Date of Service: 01/24/23 Chief Complaint: Sepsis pneumonia, elevated troponin, renal impairment Subjective denied nausea, vomiting or diarrhea Cont HD TTsat will dc Amlodipine will start on Epogen Physical exam General: Awake, NAD HEENT: Atraumatic, Normocephalic Neck: Supple, no elevated JVD Respiratory: expiratory wheezes Cardiovascular: No rubs, No murmurs Gastrointestinal: Soft and benign, Non-distended Musculoskeletal:trace edema No clubbing Integumentary: No warmth A/P #. Acute kidney injury on chronic kidney disease, Likely due to ATN and cardiorenal Syncrome Serology w/u negative no improvement in renal function Cont HD TTsa renal dose meds # Chronic kidney disease, small sized kidney 8.1/8.6 secondary to hypertension nephrosclerosis, # Right renal cyst, simple, stable. # Anemia of chronic kidney disease, SPEP negative monitor H/JH transfuse if Hb <7.0 will start on Epogen #. Multifocal pneumonia. Cont abx. # Hypertension. Cont Carvedilol will dc Amlodipine. Physical Examination - Vital Signs Temperature: 97.8 F Blood Pressure: 119/59 Pulse: 78 Respirations: 18 Pulse Ox (%): 94 Assessment And Plan Physician Review: Patient Assessed, Agree with Above Assessment and Plan
[2023-01-24] MEDS: EPOETIN ALFA 10,000 UNIT/ML VIAL IV SCH (18:10)
[2023-01-25] MEDS: HYDROCORTISONE SUC 100 MG INJ IV SCH ×3 (00:29→21:00)
[2023-01-25] MEDS: carvediloL 6.25 MG TAB PO SCH ×3 (00:35→16:21)
--- NOTE | 2023-01-25 07:33 | P.PN ---
Subjective Date of Service: 01/25/23 Chief Complaint: Sepsis pneumonia, elevated troponin, renal impairment Subjective: Improving Up in chair this a.m., pending DC to snf, no reported pain, shortness of breath, General: In no apparent distress, Oriented x1. Confused. HEENT: Atraumatic, Normocephalic. Scleritis/Uveitis Respiratory: Diminished. Unlabored respirations on 2L nasal cannula. Cardiovascular: Regular rate/rhythm. Left subclavian dialysis cath. Gastrointestinal: Normal bowel sounds, Soft and benign Integumentary: left lower leg wound dressing is clean dry and intact. Review of Systems per hpi Physical Examination - Vital Signs Temperature: 97.5 F Blood Pressure: 120/72 Pulse: 82 Respirations: 17 Pulse Ox (%): 95 Assessment And Plan - Plan Sepsis Current Visit: Yes Status: Acute improved Plan: leukocytosis trending down Patient remains with a leukocytosis. Unknown etiology. Blood cultures negative. Chest x-ray is with consolidative pneumonia changes on the right lung. Continue with antibiotic therapy. Continue antibiotic therapy and procalcitonin level elevated. Sepsis type: sepsis due to unspecified organism Sepsis acute organ dysfunction status: with acute organ dysfunction Severe sepsis acute organ dysfunction type: unspecified Pneumonia Current Visit: Yes Status: Acute improved Plan: Current treatment plan as mentioned above. Continue with antibiotic therapy. Continue monitoring renal function closely. Repeat chest x-rays. Procalcitonin level elevated. Repeat chest x-ray with worsening infiltrate and will broaden antibiotic coverage Pneumonia type: due to unspecified organism Laterality: right Lung location: middle lobe of lung Qualified Code(s): J18.9 - Pneumonia, unspecified organism Wound of left lower extremity Current Visit: Yes Status: Chronic Plan: Wound healing consultation. Continue with wound care at this point. Currently on antibiotic for pneumonia so we will reassess. Outpatient follow-up with home health for wound care. Encounter type: initial encounter Qualified Code(s): S81.802A - Unspecified open wound, left lower leg, initial encounter Acute diastolic CHF (congestive heart failure)/HFpEF Onset Date: 05/06/17 Current Visit: No Status: Acute Plan: Monitor volume status closely. Strict blood pressure control. Patient been diuresed effectively. Continue Lasix daily HTN (hypertension) Onset Date: 05/06/17 Current Visit: No Status: Chronic Plan: Strict blood pressure control; continue with antihypertensive End-stage renal disease on hemodialysis MICHAEL on CKD (chronic kidney disease) stage 4, GFR 15-29 ml/min Current Visit: Yes Status: Acute Plan: HD TTsat neph will dc Amlodipine, will start on Epogen Continue monitoring renal function. Nephrology consultation. Renal ultrasound has been reviewed. Patient with no signs of renal abnormality. s/p permacath placement & removal of chase cath. continue plans for outpatient dialysis chair procurement 01/21 Dr. Reyes placement of a cuffed hemodialysis catheter right IJ, removal of old left hemodialysis catheter NSTEMI (non-ST elevated myocardial infarction) Current Visit: Yes Status: Acute Plan: Continue with cardiac meds with antiplatelet therapy and statin therapy. Cardiology consultation. Cardiology wanting to do outpatient cardiac catheterization. DC plan Transfer to snf facility pending placement versus send p atient home with family Discharge Plan: Snf Physician Review: Patient Assessed, Agree with Above Assessment and Plan Critical Care: No Time Spent Managing PTS Care (In Minutes): 35
[2023-01-25] MEDS: FUROSEMIDE 40 MG TABLET PO SCH (08:55)
[2023-01-25] MEDS: ENSURE HIGH PROTEIN 237 ML CAN PO SCH ×2 (08:56→21:00)
[2023-01-25] MEDS: MOXIFLOXACIN HCL 0.5% 3ML OPTH OPTH SCH ×2 (08:57→21:00)
[2023-01-25] MEDS ORDERED: EPOETIN ALFA 10,000 UNIT/ML VIAL SQ SCH (10:00)
[2023-01-25] MEDS ORDERED: ONDANSETRON 4 MG/2 ML VIAL IV ONE (12:51)
--- NOTE | 2023-01-25 13:22 | P.PN ---
Subjective Date of Service: 01/25/23 Chief Complaint: Sepsis pneumonia, elevated troponin, renal impairment Subjective denied nausea, vomiting or diarrhea had HD yesterday pending placement Physical exam General: Awake, NAD HEENT: Atraumatic, Normocephalic Neck: Supple, no elevated JVD Respiratory: expiratory wheezes Cardiovascular: No rubs, No murmurs Gastrointestinal: Soft and benign, Non-distended Musculoskeletal:trace edema No clubbing Integumentary: No warmth A/P #. Acute kidney injury on chronic kidney disease, Likely due to ATN and cardiorenal Syncrome Serology w/u negative no improvement in renal function Cont HD TTsa renal dose meds # Chronic kidney disease, small sized kidney 8.1/8.6 secondary to hypertension nephrosclerosis, # Right renal cyst, simple, stable. # Anemia of chronic kidney disease, SPEP negative monitor H/JH transfuse if Hb <7.0 Cont Epogen #. Multifocal pneumonia. Cont abx. # Hypertension. Cont Carvedilol off Amlodipine. Physical Examination - Vital Signs Temperature: 98.2 F Blood Pressure: 122/52 Pulse: 83 Respirations: 16 Pulse Ox (%): 97 Assessment And Plan Physician Review: Patient Assessed, Agree with Above Assessment and Plan
[2023-01-25 20:51] LABS: Absolute Lymphocytes (CBC) 1.8 K/uL (0.7-4.9); Hematocrit 23.3 % (36.0-45.0); Lymphocytes % 14.1 % (15.3-44.8); MCV 86.4 fL (80-100); MPV 7.4 fL (7.6-11.3); Platelets 309 thou/uL (152-406); RBC Red Blood Cell Count 2.69 M/uL (3.86-4.86)
[2023-01-25 21:14] LABS: Magnesium 2.6 mg/dL (1.6-2.4); Potassium 4.7 mEq/L (3.5-5.1)
[2023-01-26] MEDS: ENSURE HIGH PROTEIN 237 ML CAN PO SCH ×2 (07:56→21:04)
[2023-01-26] MEDS: FUROSEMIDE 40 MG TABLET PO SCH (07:56)
[2023-01-26] MEDS: carvediloL 6.25 MG TAB PO SCH ×2 (07:56→17:23)
[2023-01-26] MEDS: HYDROCORTISONE SUC 100 MG INJ IV SCH ×2 (07:57→21:03)
[2023-01-26] MEDS: MOXIFLOXACIN HCL 0.5% 3ML OPTH OPTH SCH ×2 (08:00→21:00)
--- NOTE | 2023-01-26 08:56 | P.PN ---
Subjective Date of Service: 01/26/23 Chief Complaint: Sepsis pneumonia, elevated troponin, renal impairment Subjective: No new changes, Improving, Doing well Patient is alert and oriented x3 Sitting up in the bed Denies any pain or discomfort Still stable Permacath on the right chest wall is dry and intact <Derik Hastings - Last Filed: 01/26/23 08:51> Date of Service: 01/26/23 <Sylvia Velazquez Christopher - Last Filed: 01/26/23 17:56> Review of Systems 10-point ROS is otherwise unremarkable <Derik Hastings - Last Filed: 01/26/23 08:51> Physical Examination - Vital Signs Temperature: 97.6 F Blood Pressure: 107/75 Pulse: 72 Respirations: 16 Pulse Ox (%): 97 - Physical Exam General: Alert, Oriented x3 HEENT: Atraumatic, Normocephalic Neck: Supple, 2+ carotid pulse no bruit Cardiovascular: No edema, Normal pulses, Normal S1 S2 Capillary refill: <2 Seconds Gastrointestinal: Normal bowel sounds Musculoskeletal: No clubbing, No swelling Integumentary: No rashes, No breakdown Neurological: Normal speech, Normal tone, Normal affect Urinary: Dialysis catheter <Derik Hastings - Last Filed: 01/26/23 08:51> Assessment And Plan - Current Problems (Diagnosis) (1) Sepsis Current Visit: Yes Status: Acute Qualifiers: Sepsis type: sepsis due to unspecified organism Sepsis acute organ dysfunction status: with acute organ dysfunction Severe sepsis acute organ dysfunction type: unspecified (2) Pneumonia Current Visit: Yes Status: Acute Plan: Acute, denies shortness of breath, fever or chills -O2 2 L via nasal cannula to keep the SPO2 above 92% -Bronchodilators as needed -Leukocytosis WBC 20.2, bands 4, - Sepsis order set was initiated - Initial Lactate was1.4, trend - Bantibiotics ceftriaxone and Zithromax STARTED - Broad spectrum antibiotics started: ceftriaxone and Zithromax STARTED- -iv SALINE LOCK, Will monitor BP, no IVF at this time as patient's BNP is elevated and with h/o CHF Qualifiers: Pneumonia type: due to unspecified organism Laterality: right Lung location: middle lobe of lung Qualified Code(s): J18.9 - Pneumonia, unspecified organism (3) Wound of left lower extremity Current Visit: Yes Status: Chronic Plan: Chronic, wound on the left left lower extremity, nonhealing, developed after blister came up and No signs of infection, wound bed is bright red, no pus no edema noted Routine wound care Qualifiers: Encounter type: initial encounter Qualified Code(s): S81.802A - Unspecified open wound, left lower leg, initial encounter (4) Acute systolic CHF (congestive heart failure), NYHA class 4 Onset Date: 05/06/17 Current Visit: No Status: Acute Plan: Acute on chronic Patient was admitted with increased coughing Not taking her home medication including amlodipine Coreg Lasix and spironolactone Patient presents with symptoms of shortness of breath, cough. At this time, will admit for medical optimization. - Consult Cardiology - recommendations appreciated - Ordered transthoracic echocardiogram -Continue to watch blood pressure - Daily weights - Strict I/O - Cardiac diet, 2 g Na restriction (5) HTN (hypertension) Onset Date: 05/06/17 Current Visit: No Status: Chronic Plan: Chronic, uncontrolled Patient reports that she is not compliant with her medications, patient was on amlodipine 5 mg p.o. daily, not taking medicine for long time not seen PCP for long-term Restart amlodipine Monitor vital signs closely Qualifiers: Hypertension type: primary hypertension Qualified Code(s): I10 - Essential (primary) hypertension (6) CKD (chronic kidney disease) stage 4, GFR 15-29 ml/min Current Visit: Yes Status: Acute Plan: Patient admitted with sepsis pneumonia Labs shows impaired renal function BUN 45 creatinine 2.29 GFR 22 Patient reports that she was not taking her medications for a long time Nephrology consulted We will monitor renal function daily Renal diet (7) NSTEMI (non-ST elevated myocardial infarction) Current Visit: Yes Status: Acute Plan: Acute No chest pain, concern for Acute Coronary Syndrome due to elevated troponin 104 Based on history and physical examination, cannot exclude ischemia as a possible etiology of patient's chest pain. - EKG: No obvious ST segment changes, trend - Serial troponin - Ordered transthoracic echocardiogram - Ordered chest x-ray - Ordered d-dimer - Management plan: - Consult Cardiology -Dr. Mackey - S/P aspirin 324 mg PO x 1 in ED - Start daily baby aspirin - Symptom control with PRN acetaminophen, nitroglycerin, morphine - If CAD is confirmed, plan to start beta-adonay, MIRLANDE-inhibitor/ARB, statin with 24 hours - Plan Assessment And Plan - Plan Sepsis Current Visit: Yes Status: Acute improved Plan: leukocytosis trending down Patient remains with a leukocytosis. Unknown etiology. Blood cultures negative. Chest x-ray is with consolidative pneumonia changes on the right lung. Continue with antibiotic therapy. Continue antibiotic therapy and procalcitonin level elevated. WBCs 12.5 today, no fever, no signs of infection Vitals stable, continue the current management no IVF at this time [place] [id number] and with h/o CHF. Pneumonia Plan: Current treatment plan as mentioned above. Continue with antibiotic therapy. Continue monitoring renal function closely. Repeat chest x-rays. Procalcitonin level elevated. Repeat chest x-ray with worsening infiltrate and will broaden antibiotic coverage Wound of left lower extremity Plan: Wound healing consultation. Continue with wound care at this point. Currently on antibiotic for pneumonia so we will reassess. Outpatient follow-up with home health for wound care. Acute diastolic CHF (congestive heart failure)/HFpEF Monitor volume status closely. Strict blood pressure control. Patient been diuresed effectively. Continue Lasix daily HTN (hypertension) Plan: Strict blood pressure control; continue with antihypertensive End-stage renal disease on hemodialysis MICHAEL on CKD (chronic kidney disease) stage 4, GFR17 ml/min Plan: HD TTS neph will dc Amlodipine, will start on Epogen Continue monitoring renal function. Nephrology consultation. Renal ultrasound has been reviewed. Patient with no signs of renal abnormality. s/p permacath placement & removal of chase cath. continue plans for outpatient dialysis chair procurement 01/21 Dr. Reyes placement of a cuffed hemodialysis catheter right IJ, removal of old left hemodialysis catheter NSTEMI (non-ST elevated myocardial infarction) Plan: Continue with cardiac meds with antiplatelet therapy and statin therapy. Cardiology consultation. Cardiology wanting to do outpatient cardiac catheterization. DC plan Transfer to [facility] facility pending placement versus send patient home with family Discharge Plan: Home Plan to discharge in: 24 Hours - Code Status/Comfort Care Code Status Assessed: Yes (Full code) Code Status: Full Code Physician Review: Patient Assessed, Agree with Above Assessment and Plan Critical Care: No Time Spent Managing PTS Care (In Minutes): 35 (Minutes) <Derik Hastings - Last Filed: 01/26/23 08:51> Physician Review Additional Text: 01/26/23 17:55 Pt seen and examined. I agree with the note by the GUEST ROOM ATTENDANT. Pt is waiting for SNF placement. Continue to work with PT. <Sylvia Velazquez - Last Filed: 01/26/23 17:56>
--- NOTE | 2023-01-26 09:02 | P.PN ---
Date of Service: 01/26/23 Chief Complaint: Sepsis pneumonia, elevated troponin, renal impairment Subjective: Improving. Patient sitting in chair at side of bed, working with physical therapy. She denies any new or worsening complaints. Patient is more alert and conversational today. Physical Examination Temp Pulse Resp BP Pulse Ox 97.6 F 72 16 107/75 97 01/26/23 08:59 01/26/23 08:59 01/26/23 08:59 01/26/23 08:59 01/26/23 08:59 General: In no apparent distress, Oriented x2-3. HEENT: Atraumatic, Normocephalic. Scleritis/Uveitis Respiratory: Diminished. Unlabored respirations on 2L nasal cannula. Cardiovascular: Regular rate/rhythm. Right chest dialysis catheter Gastrointestinal: Normal bowel sounds, Soft and benign Integumentary: left lower leg wound dressing is clean dry and intact. Laboratory data -Reviewed Microbiology data -Reviewed Imagings Data: -Reviewed Medications List: Reviewed Assessment and Plan Problem list Sepsis secondary to community-acquired pneumonia Acute diastolic congestive heart failure Hypertension Chronic kidney disease Anemia of chronic disease NSTEMI Sepsis secondary to community-acquired pneumonia Persistent leukocytosis -Blood cultures 01/06: No growth to date - negative influenza a and B -Negative COVID -Hepatitis panel negative -Completed 5 days of azithromycin (01/07-01/12) and 7 days of Ceftriaxone. - Completed 7 days on Meropenem (started 01/13-01/19) -Leukocytosis slightly improving (WBC 23.8 -> 17.5 -> 16.8) -Afebrile - XR Chest 01/13: "Bilateral pulmonary opacities are again seen, show little overall change to slight improvement since yesterday's study. In particular, right upper lobe and right lung base opacities appear slightly less prominent. The heart is moderately enlarged. Left-sided venous catheter its tip in the SVC." Scleritis/Uveitis - Idiopathic/autoimmune vs infectious - Started on Moxifloxacin eye drops 01/20 01/21: dialysis catheter replacement Recommendations - scleritis/uveitis: started on moxifloxacin eye drops 01/20. Continue to monitor. - Off IV/Oral antibiotics since 01/19. Doing well. - Pressure offloading measures. Turn patient q2h, wedge pillow, low air-loss mattress - LLE wound care: rinse with NS, pat dry then apply medihoney with alginate and cover with foam dressing. On MWF and PRN if soiled or dislodged. - Renally dose medications Case discussed with David Luciano
--- NOTE | 2023-01-27 04:08 | PN ---
Date of Progress Note: 01/26/2023 Subjective: Acute on chronic kidney disease. Renal function has not improved. Patient developed oliguric acute kidney injury. Patient is dialysis dependent. Sepsis was treated with antibiotic and the patient had pneumonia. She was found to have elevated troponin level. Review of Systems: The patient denies chest pain, palpitation, headache, vision changes. Physical Examination: LUNGS: Few rhonchi. HEART: S1, S2. ABDOMEN: Soft, benign, nontender. EXTREMITIES: No edema. Impression And Plan: 1. Acute kidney injury on chronic kidney disease, multifactorial secondary to ATN with underlying cardiorenal syndrome. Patient has chronic kidney disease due to nephrosclerosis. The patient developed acute on chronic kidney injury with oliguria. There is no significant renal function recovery. Patient will continue dialysis on Thursday, , and Thursday. 2. Chronic kidney disease 4 advanced to stage 5. Kidney ultrasound showed small sized kidneys, which reflect advancement of chronic kidney disease and likely end-stage renal disease at this point. 3. Secondary hyperparathyroidism. Monitor calcium and phosphorus level. 4. Right renal cyst, simple cyst, stable. 5. Anemia due to chronic kidney disease, status post packed red blood cells on January 17. Continue EDD. 6. Multifocal pneumonia. Continue antibiotics. 7. Congestive heart failure with exacerbation. The patient is followed by Cardiology. Echocardiogram showed diastolic dysfunction, preserved ejection fraction and moderate pulmonary hypertension. Further recommendation for pulmonary hypertension per Cardiology. Continue dialysis with ultrafiltration to prevent fluid overload. MARILU/JACKIE Voice ID: [id number] Report ID: [id number] JOHNATHON
--- NOTE | 2023-01-27 08:24 | P.PN ---
Date of Service: 01/27/23 Chief Complaint: Sepsis pneumonia, elevated troponin, renal impairment Subjective: Patient sitting in chair at side of bed, eating breakfast. She denies any new or worsening complaints. No acute events reported overnight. Physical Examination Temp Pulse Resp BP Pulse Ox 97.2 F 58 18 136/63 95 01/27/23 04:00 01/27/23 04:00 01/27/23 04:00 01/27/23 04:00 01/27/23 04:00 General: In no apparent distress, Oriented x2-3. Intermittent confusion HEENT: Atraumatic, Normocephalic. Scleritis/Uveitis Respiratory: Diminished. Unlabored respirations on 2L nasal cannula. Cardiovascular: Regular rate/rhythm. Right chest dialysis catheter Gastrointestinal: Normal bowel sounds, Soft and benign Integumentary: left lower leg wound dressing is clean dry and intact. Laboratory data -Reviewed Microbiology data -Reviewed Imagings Data: -Reviewed Medications List: Reviewed Assessment and Plan Problem list Sepsis secondary to community-acquired pneumonia Acute diastolic congestive heart failure Hypertension Chronic kidney disease Anemia of chronic disease NSTEMI Sepsis secondary to community-acquired pneumonia Persistent leukocytosis -Blood cultures 01/06: No growth to date - negative influenza a and B -Negative COVID -Hepatitis panel negative -Completed 5 days of azithromycin (01/07-01/12) and 7 days of Ceftriaxone. - Completed 7 days on Meropenem (started 01/13-01/19) -Leukocytosis slightly improving (WBC 23.8 -> 17.5 -> 16.8) -Afebrile - XR Chest 01/13: "Bilateral pulmonary opacities are again seen, show little overall change to slight improvement since yesterday's study. In particular, right upper lobe and right lung base opacities appear slightly less prominent. The heart is moderately enlarged. Left-sided venous catheter its tip in the SVC." Scleritis/Uveitis - Idiopathic/autoimmune vs infectious - Started on Moxifloxacin eye drops 01/20 01/21: dialysis catheter replacement Recommendations - scleritis/uveitis: On day 77 of moxifloxacin eye drops - Off IV/Oral antibiotics since 01/19. Doing well. - Pressure offloading measures. Turn patient q2h, wedge pillow, low air-loss mattress - LLE wound care: rinse with NS, pat dry then apply medihoney with alginate and cover with foam dressing. On MWF and PRN if soiled or dislodged. - Renally dose medications Pending discharge to SNF vs home with home health. CM/SS following. Case discussed with David Luciano
[2023-01-27] MEDS: FUROSEMIDE 40 MG TABLET PO SCH (09:00)
[2023-01-27] MEDS: ENSURE HIGH PROTEIN 237 ML CAN PO SCH ×2 (09:00→20:52)
[2023-01-27] MEDS: MOXIFLOXACIN HCL 0.5% 3ML OPTH OPTH SCH ×2 (09:00→20:51)
--- NOTE | 2023-01-27 09:10 | P.PN ---
Subjective Date of Service: 01/27/23 Chief Complaint: Sepsis pneumonia, elevated troponin, renal impairment Subjective: No new changes, Improving, Doing well Patient is alert and oriented x3 Sitting up in the bed Denies any pain or discomfort Still stable Permacath on the right chest wall is dry and intact <Derik Hastings - Last Filed: 01/27/23 17:48> Date of Service: 01/27/23 <Sylvia Velazquez Christopher - Last Filed: 01/27/23 18:00> Review of Systems 10-point ROS is otherwise unremarkable <Derik Hastings - Last Filed: 01/27/23 17:48> Physical Examination - Vital Signs Temperature: 97.2 F Blood Pressure: 136/63 Pulse: 58 Respirations: 18 Pulse Ox (%): 95 - Physical Exam General: Alert, Oriented x3 HEENT: Atraumatic, Normocephalic Neck: Supple, 2+ carotid pulse no bruit Respiratory: Clear to auscultation bilaterally, Normal air movement Cardiovascular: No edema, Normal pulses, Normal S1 S2, Other (Right subclavian tunneled hemodialysis catheter dry and intact) Capillary refill: <2 Seconds Gastrointestinal: Normal bowel sounds, Non-distended Musculoskeletal: No clubbing, No swelling, No contractures Integumentary: No rashes, No breakdown Neurological: Normal speech, Normal tone, Normal affect <Derik Hastings - Last Filed: 01/27/23 17:48> Assessment And Plan - Current Problems (Diagnosis) (1) Sepsis Current Visit: Yes Status: Acute Qualifiers: Sepsis type: sepsis due to unspecified organism Sepsis acute organ dysfunction status: with acute organ dysfunction Severe sepsis acute organ dysfunction type: unspecified (2) Pneumonia Current Visit: Yes Status: Acute Qualifiers: Pneumonia type: due to unspecified organism Laterality: right Lung location: middle lobe of lung Qualified Code(s): J18.9 - Pneumonia, unspecified organism (3) Wound of left lower extremity Current Visit: Yes Status: Chronic Plan: Chronic, wound on the left left lower extremity, nonhealing, developed after blister came up and No signs of infection, wound bed is bright red, no pus no edema noted Routine wound care Qualifiers: Encounter type: initial encounter Qualified Code(s): S81.802A - Unspecified open wound, left lower leg, initial encounter (4) Acute systolic CHF (congestive heart failure), NYHA class 4 Onset Date: 05/06/17 Current Visit: No Status: Acute (5) HTN (hypertension) Onset Date: 05/06/17 Current Visit: No Status: Chronic Qualifiers: Hypertension type: primary hypertension Qualified Code(s): I10 - Essential (primary) hypertension (6) CKD (chronic kidney disease) stage 4, GFR 15-29 ml/min Current Visit: Yes Status: Acute (7) NSTEMI (non-ST elevated myocardial infarction) Current Visit: Yes Status: Acute Plan: Acute No chest pain, concern for Acute Coronary Syndrome due to elevated troponin 104 Based on history and physical examination, cannot exclude ischemia as a possible etiology of patient's chest pain. - EKG: No obvious ST segment changes, trend - Serial troponin - Ordered transthoracic echocardiogram - Ordered chest x-ray - Ordered d-dimer - Management plan: - Consult Cardiology -Dr. Mackey - S/P aspirin 324 mg PO x 1 in ED - Start daily baby aspirin - Symptom control with PRN acetaminophen, nitroglycerin, morphine - If CAD is confirmed, plan to start beta-adonay, MIRLANDE-inhibitor/ARB, statin with 24 hours - Plan Assessment And Plan - Plan Sepsis Current Visit: Yes Status: Acute improved Plan: leukocytosis trending down -Improving clinically, Patient remains with a leukocytosis. Unknown etiology. Blood cultures negative. Chest x-ray is with consolidative pneumonia changes on the right lung. Continue with antibiotic therapy. Continue antibiotic therapy and procalcitonin level elevated. WBCs 12.5 today, no fever, no signs of infection Vitals stable, continue the current management no IVF at this time [place] [id number] and with h/o CHF. -Ordered CBC Pneumonia Plan: Current treatment plan as mentioned above. Continue with antibiotic therapy. Continue monitoring renal function closely. Repeat chest x-rays. Procalcitonin level elevated. Repeat chest x-ray with worsening infiltrate and will broaden antibiotic coverage Wound of left lower extremity Plan: Wound healing consultation. Continue with wound care at this point. Currently on antibiotic for pneumonia so we will reassess. Outpatient follow-up with home health for wound care. Acute diastolic CHF (congestive heart failure)/HFpEF -Improving, Monitor volume status closely. Strict blood pressure control. Patient been diuresed effectively. Continue Lasix daily HTN (hypertension) Plan: Strict blood pressure control; continue with antihypertensive End-stage renal disease on hemodialysis IMCHAEL on CKD (chronic kidney disease) stage 4, GFR17 ml/min Plan: HD TTS neph - dc Amlodipine, will start on Epogen Continue monitoring renal function. Nephrology consultation. Renal ultrasound has been reviewed, with no signs of renal abnormality. s/p permacath placement & removal of chase cath. continue plans for outpatient dialysis chair procurement 01/21 Dr. Reyes placement of a cuffed hemodialysis catheter right IJ, removal of old left hemodialysis catheter NSTEMI (non-ST elevated myocardial infarction) Plan: Continue with cardiac meds with antiplatelet therapy and statin therapy. Cardiology consultation. Cardiology wanting to do outpatient cardiac catheterization. DC plan [facility] versus send patient home with family Discharge Plan: Home Plan to discharge in: 24 Hours - Code Status/Comfort Care Code Status Assessed: Yes Code Status: Full Code Physician Review: Patient Assessed, Agree with Above Assessment and Plan Critical Care: No Time Spent Managing PTS Care (In Minutes): 35 (minutes) <Derik Hastings - Last Filed: 01/27/23 17:48> Physician Review Additional Text: 01/27/23 18:00 Pt seen and examined. i agree withe note by the [facility]. Pt is a waiting for daily chair set up on outpt. <Sylvia Velazquez - Last Filed: 01/27/23 18:00>
[2023-01-27] MEDS: HYDROCORTISONE SUC 100 MG INJ IV SCH ×2 (09:20→20:51)
[2023-01-27] MEDS: carvediloL 6.25 MG TAB PO SCH ×2 (09:21→16:29)
[2023-01-27] MEDS: ALBUMIN HUMAN 25% 100 ML IV ONE ×2 (12:05→12:30)
--- NOTE | 2023-01-27 13:17 | PN ---
Date of Progress Note: 01/22/2023 Subjective: The patient was admitted to the hospital with altered mental status, overvolume. The patient has been dialyzed, tolerating the dialysis. The patient feeling better. The patient waiting for placement. Objective: Vital Signs: Blood pressure 121/60, pulse of 72, afebrile. Chest: Faint rales, bilateral. Heart: S1, S2. Systolic murmur. Abdomen: Soft, nontender. Extremities: Trace edema. Neurologic: Alert. No focality. Laboratory Data: The patient's hemoglobin 9.4, sodium 138, potassium 4.1, bicarb 26, BUN 63, creatinine 8, calcium 7.9. Albumin 2.4. Assessment And Plan: 1. End-stage renal disease, overvolume. I am going to continue the patient on dialysis Thursday, Thursday, Thursday. We will arrange for dialysis tomorrow. 2. Secondary hyperparathyroid, stable. 3. Anemia of chronic kidney disease. Continue EDD. 4. Overvolume, status post daily dialysis. Currently, patient back to baseline. We will resume dialysis 3 times a week. 5. Deconditioning. Continue PT, OT. Waiting for placement. 6. Altered mental status secondary to metabolic. We will follow up with the Primary. Waiting for placement. time spend exam the patient face to face reviewing data lab and radiology placing order , discussing with the patient , discussing with the assembler steam and gas turbine including hospitalist and nursing staff >35 min JOSÉ MIGUEL Voice ID: [id number] Report ID: [id number] JOHNATHON
[2023-01-27] MEDS: EPOETIN ALFA 10,000 UNIT/ML VIAL IV SCH (14:15)
[2023-01-28 06:42] LABS: Magnesium 2.4 mg/dL (1.6-2.4); Potassium 4.8 mEq/L (3.5-5.1)
[2023-01-28] MEDS: HYDROCORTISONE SUC 100 MG INJ IV SCH ×2 (08:55→21:06)
[2023-01-28] MEDS: MOXIFLOXACIN HCL 0.5% 3ML OPTH OPTH SCH (08:56)
[2023-01-28] MEDS: ENSURE HIGH PROTEIN 237 ML CAN PO SCH ×2 (08:56→21:06)
[2023-01-28] MEDS: FUROSEMIDE 40 MG TABLET PO SCH (08:57)
[2023-01-28] MEDS: carvediloL 6.25 MG TAB PO SCH (08:58)
--- NOTE | 2023-01-28 09:00 | P.PN ---
Date of Service: 01/28/23 Chief Complaint: Sepsis pneumonia, elevated troponin, renal impairment Subjective: Improving. No acute events overnight. In no apparent distress. Denies cough, shortness of breath, wheezing or chest pain. No nausea, vomiting, diarrhea or abdominal pain. Physical Examination Temp Pulse Resp BP Pulse Ox 97.7 F 94 H 16 154/80 H 99 01/28/23 04:00 01/28/23 05:32 01/28/23 05:32 01/28/23 05:32 01/28/23 05:32 General: In no apparent distress, Oriented x2-3. Intermittent confusion HEENT: Atraumatic, Normocephalic. Neck supple. Respiratory: Diminished. Unlabored respirations on 2L nasal cannula. Cardiovascular: Regular rate/rhythm. Right chest dialysis catheter Gastrointestinal: Normal bowel sounds, Soft and benign Integumentary: Pressure ulcer buttocks stage II. Left lower leg wound dressing is clean dry and intact. Laboratory data -Reviewed Microbiology data -Reviewed Imagings Data: -Reviewed Medications List: Reviewed Assessment and Plan Problem list Sepsis secondary to community-acquired pneumonia Acute diastolic congestive heart failure Hypertension Chronic kidney disease Anemia of chronic disease NSTEMI Sepsis secondary to community-acquired pneumonia Persistent leukocytosis -Blood cultures 01/06: No growth to date - negative influenza a and B -Negative COVID -Hepatitis panel negative -Completed 5 days of azithromycin (01/07-01/12) and 7 days of Ceftriaxone. - Completed 7 days on Meropenem (started 01/13-01/19) -Leukocytosis slightly improving (WBC 23.8 -> 17.5 -> 16.8) -Afebrile - XR Chest 01/13: "Bilateral pulmonary opacities are again seen, show little overall change to slight improvement since yesterday's study. In particular, right upper lobe and right lung base opacities appear slightly less prominent. The heart is moderately enlarged. Left-sided venous catheter its tip in the SVC." Scleritis/Uveitis - Idiopathic/autoimmune vs infectious - Completed 7 days Moxifloxacin eye drops 01/20-01/27 Recommendations - scleritis/uveitis: completed 7 days of moxifloxacin eye drops. - Off IV/Oral antibiotics since 01/19. Doing well. - Buttocks pressure ulcer stage II: Apply zinc barrier cream BID. - Pressure offloading measure; Turn patient q2h, wedge pillow, low air-loss mattress - LLE wound care: rinse with NS, pat dry then apply medihoney with alginate and cover with foam dressing. On MWF and PRN if soiled or dislodged. - Renally dose medications Pending discharge to SNF vs home with home health. CM/SS following. Case discussed with Archie Luciano.
--- NOTE | 2023-01-28 12:41 | PN ---
Date of Progress Note: 01/28/2023 Subjective: The patient was admitted to the hospital with over volume and anasarca. The patient required dialysis. Acute kidney injury secondary to cardiorenal. The patient is doing well. Physical Examination: Vital Signs: Blood pressure 151/74, pulse of 75. Chest: Clear to auscultation. Heart: S1, S2. Systolic murmur. Abdomen: Soft, nontender. Extremities: +1 edema. Neurologic: Alert, oriented x3. No focality. Laboratory Data: Hemoglobin 7.6. Sodium 132, potassium 4.8, bicarb 28, BUN 58, creatinine 4.9, calcium 8.5, magnesium 2.4. Current Medications: The patient on include carvedilol 6.25, labetalol, Epogen, Tylenol, Lasix 40, mannitol, hydrocortisone. Assessment And Plan: 1. Acute kidney injury secondary to cardiorenal. Continue to be dialysis dependent. I am going to continue dialysis TTS. The patient was scheduled for dialysis tomorrow. The patient is experiencing low blood pressure on the dialysis. I am going to go ahead and decrease her carvedilol to 3.125 and we will continue to challenge the patient. I am going to drop her temperature to 35.5 to avoid low blood pressure. We will hold blood pressure medication on the day of dialysis. 2. Hyperkalemia, will be corrected with dialysis. 3. Hypertension. As above, decrease carvedilol. Hold it on the dialysis days. 4. Anemia of chronic kidney disease. Continue EDD. 5. Congestive heart failure with exacerbation, still over volume. We will continue to challenge the patient. 6. Deconditioning. Continue PT, OT. time spend exam the patient face to face reviweing data lab and radiology , placing order , disccussing the case with the cleaning team member including hopsitalist and nursing staff >35 min BEBE/JACKIE Voice ID: [id number] Report ID: [id number] JOHNATHON
[2023-01-28] MEDS: carvediloL 3.125 MG TAB PO SCH (16:39)
[2023-01-29] MEDS ORDERED: MEDIHONEY 44 ML TOPICAL TUBE TOP SCH (04:00)
--- NOTE | 2023-01-29 08:59 | P.PN ---
Date of Service: 01/29/23 Chief Complaint: Sepsis pneumonia, elevated troponin, renal impairment Subjective: In no apparent distress. Denies any new or worsening complaints at this time. Physical Examination Temp Pulse Resp BP Pulse Ox 97.0 F 58 17 160/62 H 98 01/29/23 04:00 01/29/23 04:00 01/29/23 04:00 01/29/23 04:00 01/29/23 04:00 General: In no apparent distress, Oriented x2-3. Intermittent confusion HEENT: Atraumatic, Normocephalic. Neck supple. Respiratory: Diminished. Unlabored respirations on 2L nasal cannula. Cardiovascular: Regular rate/rhythm. Right chest dialysis catheter Gastrointestinal: Normal bowel sounds, Soft and benign Integumentary: Pressure ulcer buttocks stage II. Left lower leg wound dressing is clean dry and intact. Laboratory data -Reviewed Microbiology data -Reviewed Imagings Data: -Reviewed Medications List: Reviewed Assessment and Plan Problem list Sepsis secondary to community-acquired pneumonia Acute diastolic congestive heart failure Hypertension Chronic kidney disease now ESRD on hemodialysis Anemia of chronic disease NSTEMI Sepsis secondary to community-acquired pneumonia -Blood cultures 01/06: No growth to date - negative influenza a and B -Negative COVID -Hepatitis panel negative -Completed 5 days of azithromycin (01/07-01/12) and 7 days of Ceftriaxone. - Completed 7 days on Meropenem (started 01/13-01/19) -Leukocytosis improving (16.8 -> 12.5) -Afebrile - XR Chest 01/13: "Bilateral pulmonary opacities are again seen, show little o verall change to slight improvement since yesterday's study. In particular, right upper lobe and right lung base opacities appear slightly less prominent. The heart is moderately enlarged. Left-sided venous catheter its tip in the SVC." Scleritis/Uveitis - Idiopathic/autoimmune vs infectious - Completed 7 days Moxifloxacin eye drops 01/20-01/27 Recommendations - scleritis/uveitis: completed 7 days of moxifloxacin eye drops. - Buttocks pressure ulcer stage II: Rinse with mild soap+water or NS, pat dry. Apply zinc barrier cream BID. - Pressure offloading measure; Turn patient q2h, wedge pillow, low air-loss mattress - buttocks wound growing gram negative rods. Follow up with final results. - LLE wound care: rinse with NS, pat dry then apply medihoney with alginate and cover with foam dressing. On MWF and PRN if soiled or dislodged. - Renally dose medications Pending discharge to SNF vs home with home health. CM/SS following. Case discussed with David Luciano
[2023-01-29] MEDS: FUROSEMIDE 40 MG TABLET PO SCH (09:42)
[2023-01-29] MEDS: ENSURE HIGH PROTEIN 237 ML CAN PO SCH ×2 (09:42→22:07)
[2023-01-29] MEDS: HYDROCORTISONE SUC 100 MG INJ IV SCH ×2 (09:43→22:04)
[2023-01-29] MEDS: carvediloL 3.125 MG TAB PO SCH ×3 (09:43→17:21)
[2023-01-29 11:31] LABS: Absolute Lymphocytes (CBC) 3.6 K/uL (0.7-4.9); Hematocrit 27.8 % (36.0-45.0); Lymphocytes % 22.3 % (15.3-44.8); MCV 87.4 fL (80-100); MPV 7.1 fL (7.6-11.3); Platelets 305 thou/uL (152-406); RBC Red Blood Cell Count 3.19 M/uL (3.86-4.86)
--- NOTE | 2023-01-29 13:07 | P.PN ---
Date of Service: 01/28/23 Subjective Date of Service: 01/28/23 Chief Complaint: Sepsis pneumonia, elevated troponin, renal impairment Subjective: No new changes, Improving, Doing well Patient is alert and oriented x3 Sitting up in the bed Denies any pain or discomfort Still stable Permacath on the right chest wall is dry and intact Review of Systems 10-point ROS is otherwise unremarkable Physical Examination - Vital Signs Temperature: 97.2 F Blood Pressure: 136/63 Pulse: 58 Respirations: 18 Pulse Ox (%): 95 - Physical Exam General: Alert, Oriented x3 HEENT: Atraumatic, Normocephalic Neck: Supple, 2+ carotid pulse no bruit Respiratory: Clear to auscultation bilaterally, Normal air movement Cardiovascular: No edema, Normal pulses, Normal S1 S2, Other (Right subclavian tunneled hemodialysis catheter dry and intact) Capillary refill: <2 Seconds Gastrointestinal: Normal bowel sounds, Non-distended Musculoskeletal: No clubbing, No swelling, No contractures Integumentary: No rashes, No breakdown Neurological: Normal speech, Normal tone, Normal affect Assessment And Plan - Current Problems (Diagnosis) (1) Sepsis Current Visit: Yes Status: Acute Qualifiers: Sepsis type: sepsis due to unspecified organism Sepsis acute organ dysfunction status: with acute organ dysfunction Severe sepsis acute organ dysfunction type: unspecified (2) Pneumonia Current Visit: Yes Status: Acute Qualifiers: Pneumonia type: due to unspecified organism Laterality: right Lung location: middle lobe of lung Qualified Code(s): J18.9 - Pneumonia, unspecified organism (3) Wound of left lower extremity Current Visit: Yes Status: Chronic Plan: Chronic, wound on the left left lower extremity, nonhealing, developed after blister came up and No signs of infection, wound bed is bright red, no pus no edema noted Routine wound care Qualifiers: Encounter type: initial encounter Qualified Code(s): S81.802A - Unspecified open wound, left lower leg, initial encounter (4) Acute systolic CHF (congestive heart failure), NYHA class 4 Onset Date: 05/06/17 Current Visit: No Status: Acute (5) HTN (hypertension) Onset Date: 05/06/17 Current Visit: No Status: Chronic Qualifiers: Hypertension type: primary hypertension Qualified Code(s): I10 - Essential (primary) hypertension (6) CKD (chronic kidney disease) stage 4, GFR 15-29 ml/min Current Visit: Yes Status: Acute (7) NSTEMI (non-ST elevated myocardial infarction) Current Visit: Yes Status: Acute Plan: Acute No chest pain, concern for Acute Coronary Syndrome due to elevated troponin 104 Based on history and physical examination, cannot exclude ischemia as a possible etiology of patient's chest pain. - EKG: No obvious ST segment changes, trend - Serial troponin - Ordered transthoracic echocardiogram - Ordered chest x-ray - Ordered d-dimer - Management plan: - Consult Cardiology -Dr. Mackey - S/P aspirin 324 mg PO x 1 in ED - Start daily baby aspirin - Symptom control with PRN acetaminophen, nitroglycerin, morphine - If CAD is confirmed, plan to start beta-adonay, MIRLANDE-inhibitor/ARB, statin with 24 hours - Plan Sepsis Current Visit: Yes Status: Acute improved Plan: leukocytosis trending down -Improving clinically, Patient remains with a leukocytosis. Unknown etiology. Blood cultures negative. Chest x-ray is with consolidative pneumonia changes on the right lung. Continue with antibiotic therapy. Continue antibiotic therapy and procalcitonin level elevated. WBCs 12.5 today, no fever, no signs of infection Vitals stable, continue the current management no IVF at this time as [place] 22757 and with h/o CHF. -Ordered CBC Pneumonia Plan: Current treatment plan as mentioned above. Continue with antibiotic therapy. Continue monitoring renal function closely. Repeat chest x-rays. Procalcitonin level elevated. Repeat chest x-ray with worsening infiltrate and will broaden antibiotic coverage Wound of left lower extremity Plan: Wound healing consultation. Continue with wound care at this point. Currently on antibiotic for pneumonia so we will reassess. Outpatient follow-up with home health for wound care. Acute diastolic CHF (congestive heart failure)/HFpEF -Improving, Monitor volume status closely. Strict blood pressure control. Patient been diuresed effectively. Continue Lasix daily HTN (hypertension) Plan: Strict blood pressure control; continue with antihypertensive End-stage renal disease on hemodialysis MICHAEL on CKD (chronic kidney disease) stage 4, GFR17 ml/min Plan: HD TTS neph - dc Amlodipine, will start on Epogen Continue monitoring renal function. Nephrology consultation. Renal ultrasound has been reviewed, with no signs of renal abnormality. s/p permacath placement & removal of chase cath. continue plans for outpatient dialysis chair procurement 01/21 Dr. Reyes placement of a cuffed hemodialysis catheter right IJ, removal of old left hemodialysis catheter NSTEMI (non-ST elevated myocardial infarction) Plan: Continue with cardiac meds with antiplatelet therapy and statin therapy. Cardiology consultation. Cardiology wanting to do outpatient cardiac catheterization. DC plan Transfer to shelter facility pending placement versus send patient home with family <Derik Hastings - Last Filed: 01/29/23 13:05> Pt seen and examined. I agree with the note by the NUT SHELLER MACHINE OPERATOR. Pt could not do dialysis due to malfunction of the dialysis catheter. Consulted Gen surgery for replaced of dialysis catheter. <Sylvia Velazquez - Last Filed: 01/29/23 17:37>
[2023-01-29] MEDS ORDERED: LABETALOL 20 MG/4ML SYRINGE IV PRN (13:18)
--- NOTE | 2023-01-29 13:43 | PN ---
Date of Progress Note: 01/29/2023 Subjective: The patient was admitted with CHF exacerbation, acute kidney injury secondary to cardiorenal. The patient was dialyzed, requiring dialysis. The patient being dialysis dependent. Physical Examination: Vital Signs: Blood pressure 152/83, pulse of 73, afebrile. Chest: Faint rales on the base. Heart: S1, S2. Systolic murmur. Abdomen: Soft, nontender. Extremities: +1 edema. Neurologic: Alert, oriented x3. No focality. Laboratory Data: Sodium 132, potassium 4.8, bicarb 28, BUN 58, creatinine 4.9, calcium 8.5. Current Medications: The patient is on include: 1. Epogen. 2. Carvedilol 3.125. 3. Ensure. 4. Hydrocortisone. Assessment And Plan: 1. Acute kidney injury secondary to cardiorenal, dialysis dependent. The patient is scheduled for dialysis today. We will follow up. 2. Hypertension. Currently, blood pressure on the upper side. We will utilize blood pressure for more ultrafiltration. We adjusted carvedilol yesterday lowering to 3.15 to avoid low blood pressure on the dialysis. 3. Over volume. We will challenge the patient. 4. Hyponatremia, will be corrected with dialysis. 5. Congestive heart failure with exacerbation. We will continue to challenge the patient on the dialysis. 6. Deconditioning. Continue PT/OT. time spend exam the patient face to face reviweing data lab and radiology , placing order , disccussing the case with the inspector outside steam distribution including hopsitalist and nursing staff >35 min BEBE/JACKIE Voice ID: [id number] Report ID: [id number] JOHNATHON
[2023-01-29] MEDS: EPOETIN ALFA 10,000 UNIT/ML VIAL IV SCH (14:10)
[2023-01-29] MEDS: MANNITOL 25% 12.5 GM/50 ML VIAL IV PRN (15:23)
[2023-01-29] MEDS ORDERED: carvediloL 3.125 MG TAB PO SCH (17:00)
--- NOTE | 2023-01-30 08:42 | P.PN ---
Date of Service: 01/30/23 Chief Complaint: Sepsis pneumonia, elevated troponin, renal impairment Subjective: In bed watching TV. In no apparent distress. Denies any new or worsening complaints. Physical Examination Temp Pulse Resp BP Pulse Ox 97.7 F 53 17 154/73 H 95 01/30/23 04:00 01/30/23 04:00 01/30/23 04:00 01/30/23 04:00 01/30/23 04:00 General: In no apparent distress, Oriented x2-3. Intermittent confusion HEENT: Atraumatic, Normocephalic. Neck supple. Respiratory: Diminished. Unlabored respirations on 2L nasal cannula. Cardiovascular: Regular rate/rhythm. Right chest dialysis catheter Gastrointestinal: Normal bowel sounds, Soft and benign Integumentary: Pressure ulcer buttocks stage II. Left lower leg wound dressing is clean dry and intact. Laboratory data -Reviewed Microbiology data -Reviewed Imagings Data: - XR Chest 01/13: "Bilateral pulmonary opacities are again seen, show little overall change to slight improvement since yesterday's study. In particular, right upper lobe and right lung base opacities appear slightly less prominent. The heart is moderately enlarged. Left-sided venous catheter its tip in the SVC." Medications List: Reviewed Assessment and Plan Problem list Sepsis secondary to community-acquired pneumonia Acute diastolic congestive heart failure Hypertension Chronic kidney disease now ESRD on hemodialysis Anemia of chronic disease NSTEMI Sepsis secondary to community-acquired pneumonia -Blood cultures 01/06: No growth to date - negative influenza a and B -Negative COVID -Hepatitis panel negative -Completed 5 days of azithromycin (01/07-01/12) and 7 days of Ceftriaxone. 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 - Buttocks pressure ulcer stage II: Rinse with mild soap+water or NS, pat dry. Apply zinc barrier cream BID. - Pressure offloading measure; Turn patient q2h, wedge pillow, low air-loss mattress - LLE wound care: rinse with NS, pat dry then apply medihoney with alginate and cover with foam dressing. On MWF and PRN if soiled or dislodged. - Renally dose medications Pending discharge to SNF vs home with home health. CM/SS following. Case discussed with Archie Luciano.
[2023-01-30] MEDS: FUROSEMIDE 40 MG TABLET PO SCH (08:49)
[2023-01-30] MEDS: HYDROCORTISONE SUC 100 MG INJ IV SCH ×2 (08:50→22:18)
[2023-01-30] MEDS: ENSURE HIGH PROTEIN 237 ML CAN PO SCH ×2 (08:50→21:00)
[2023-01-30] MEDS: carvediloL 3.125 MG TAB PO SCH ×2 (08:50→17:00)
[2023-01-30 09:00] LABS: Magnesium 2.3 mg/dL (1.6-2.4); Phosphorus 4.4 mg/dL (2.5-4.9); Potassium 5.5 mEq/L (3.5-5.1)
--- NOTE | 2023-01-30 09:48 | P.PN ---
Subjective Date of Service: 01/30/23 Chief Complaint: Sepsis pneumonia, elevated troponin, renal impairment Subjective: Improving, Doing well Patient is alert and oriented x3 Sitting up in the bed on O2 2 L via nasal cannula Denies any pain or discomfort a Vital stable Permacath on the right chest wall is dry and intact-did not work for dialysis yesterday Patient is for possible changing of PermaCath today by Dr. Reyes <HastingsDerik marie - Last Filed: 01/30/23 09:43> Date of Service: 01/31/23 <Sylvia Velazquez - Last Filed: 01/31/23 11:33> Review of Systems 10-point ROS is otherwise unremarkable <Derik Hastings - Last Filed: 01/30/23 09:43> Physical Examination - Vital Signs Temperature: 97.6 F Blood Pressure: 186/86 Pulse: 68 Respirations: 16 Pulse Ox (%): 99 - Physical Exam General: Alert, In no apparent distress HEENT: Atraumatic, Normocephalic Neck: Supple Respiratory: Clear to auscultation bilaterally, Normal air movement Capillary refill: <2 Seconds Gastrointestinal: Normal bowel sounds, Soft and benign Musculoskeletal: No clubbing, No swelling Integumentary: Pressure ulcer (Stage II sacral pressure ulcer healing, small wound on the left calf) Neurological: Normal gait, Normal speech <Satish Hastingsbia - Last Filed: 01/30/23 09:43> Assessment And Plan - Current Problems (Diagnosis) (1) Sepsis Current Visit: Yes Status: Acute Plan: Sepsis * Pending down WBCs 12.5 today, no fever, no signs of infection * Vitals stable, continue the current management * , no IVF at this time as [place] 52697 and with h/o CHF. Qualifiers: Sepsis type: sepsis due to unspecified organism Sepsis acute organ dysfunction status: with acute organ dysfunction Severe sepsis acute organ dysfunction type: unspecified (2) Pneumonia Current Visit: Yes Status: Acute Plan: Acute, denies shortness of breath, fever or chills -O2 2 L via nasal cannula to keep the SPO2 above 92% -Bronchodilators as needed -Leukocytosis WBC 20.2, bands 4, - Sepsis order set was initiated - Initial Lactate was1.4, trend - Bantibiotics ceftriaxone and Zithromax STARTED - Broad spectrum antibiotics started: ceftriaxone and Zithromax STARTED- -iv SALINE LOCK, Will monitor BP, no IVF at this time as patient's BNP is elev ated and with h/o CHF Qualifiers: Pneumonia type: due to unspecified organism Laterality: right Lung location: middle lobe of lung Qualified Code(s): J18.9 - Pneumonia, unspecified organism (3) Wound of left lower extremity Current Visit: Yes Status: Chronic Plan: Chronic, wound on the left left lower extremity, nonhealing, developed after blister came up and No signs of infection, wound bed is bright red, no pus no edema noted Routine wound care Qualifiers: Encounter type: initial encounter Qualified Code(s): S81.802A - Unspecified open wound, left lower leg, initial encounter (4) Acute systolic CHF (congestive heart failure), NYHA class 4 Onset Date: 05/06/17 Current Visit: No Status: Acute Plan: Acute on chronic Patient was admitted with increased coughing Not taking her home medication including amlodipine Coreg Lasix and spironolactone Patient presents with symptoms of shortness of breath, cough. At this time, will admit for medical optimization. - Consult Cardiology - recommendations appreciated - Ordered transthoracic echocardiogram -Continue to watch blood pressure - Daily weights - Strict I/O - Cardiac diet, 2 g Na restriction (5) HTN (hypertension) Onset Date: 05/06/17 Current Visit: No Status: Chronic Plan: Chronic, uncontrolled Patient reports that she is not compliant with her medications, patient was on amlodipine 5 mg p.o. daily, not taking medicine for long time not seen PCP for long-term Restart amlodipine Monitor vital signs closely Qualifiers: Hypertension type: primary hypertension Qualified Code(s): I10 - Essential (primary) hypertension (6) CKD (chronic kidney disease) stage 4, GFR 15-29 ml/min Current Visit: Yes Status: Acute Plan: Patient admitted with sepsis pneumonia Labs shows impaired renal function BUN 45 creatinine 2.29 GFR 22 Patient reports that she was not taking her medications for a long time Nephrology consulted We will monitor renal function daily Renal diet (7) NSTEMI (non-ST elevated myocardial infarction) Current Visit: Yes Status: Acute Plan: Acute No chest pain, concern for Acute Coronary Syndrome due to elevated troponin 104 Based on history and physical examination, cannot exclude ischemia as a possible etiology of patient's chest pain. - EKG: No obvious ST segment changes, trend - Serial troponin - Ordered transthoracic echocardiogram - Ordered chest x-ray - Ordered d-dimer - Management plan: - Consult Cardiology -Dr. Mackey - S/P aspirin 324 mg PO x 1 in ED - Start daily baby aspirin - Symptom control with PRN acetaminophen, nitroglycerin, morphine - If CAD is confirmed, plan to start beta-adonay, MIRLANDE-inhibitor/ARB, statin with 24 hours (8) Hemodialysis catheter malfunction Current Visit: Yes Status: Acute Plan: Patient was not able to get dialysis yesterday due to catheter malfunction Dr. Reyes informed, patient is for possible change of catheter today (9) Pressure ulcer of sacral region, stage 2 Current Visit: Yes Status: Chronic Plan: Chronic improving On wound care Continue to turn the patient every 2 hours wound care as per performance specialist that recommended Out of bed for meals On nutritional supplements Will continue to monitor - Plan Assessment And Plan - Plan Sepsis Current Visit: Yes Status: Acute improved Plan: leukocytosis trending down -Improving clinically, Patient remains with a leukocytosis. Unknown etiology. Blood cultures negative. Chest x-ray is with consolidative pneumonia changes on the right lung. Continue with antibiotic therapy. Continue antibiotic therapy and procalcitonin level elevated. WBCs 12.5 today, no fever, no signs of infection Vitals stable, continue the current management no IVF at this time as [place] 77855 and with h/o CHF. -Ordered CBC Pneumonia Plan: Current treatment plan as mentioned above. Continue with antibiotic therapy. Continue monitoring renal function closely. Repeat chest x-rays. Procalcitonin level elevated. Repeat chest x-ray with worsening infiltrate and will broaden antibiotic coverage Wound of left lower extremity Plan: Wound healing consultation. Continue with wound care at this point. Currently on antibiotic for pneumonia so we will reassess. Outpatient follow-up with home health for wound care. Acute diastolic CHF (congestive heart failure)/HFpEF -Improving, Monitor volume status closely. Strict blood pressure control. Patient been diuresed effectively. Continue Lasix daily HTN (hypertension) Plan: Strict blood pressure control; continue with antihypertensive End-stage renal disease on hemodialysis MICHAEL on CKD (chronic kidney disease) stage 4, GFR17 ml/min Plan: HD TTS neph - dc Amlodipine, will start on Epogen Continue monitoring renal function. Nephrology consultation. Renal ultrasound has been reviewed, with no signs of renal abnormality. s/p permacath placement & removal of chase cath. continue plans for outpatient dialysis chair procurement 01/21 Dr. Reyes placement of a cuffed hemodialysis catheter right IJ, removal of old left hemodialysis catheter NSTEMI (non-ST elevated myocardial infarction) Plan: Continue with cardiac meds with antiplatelet therapy and statin therapy. Cardiology consultation. Cardiology wanting to do outpatient cardiac catheterization. DC plan Transfer to senior living facility pending placement versus send patient home with family Discharge Plan: Home Plan to discharge in: 48 Hours - Code Status/Comfort Care Code Status Assessed: Yes (Full code) Code Status: Full Code Physician Review: Patient Assessed, Agree with Above Assessment and Plan Critical Care: No Time Spent Managing PTS Care (In Minutes): 35 (minutes) <Derik Hastings - Last Filed: 01/30/23 09:43> Physician Review Additional Text: 01/31/23 11:32 Pt seen and examined. I agree with the not collin the PARCEL POST WEIGHER. Gen surgery replaced hemodialysis catheter. Will do HD before discharge. <Sylvia Velazquez - Last Filed: 01/31/23 11:33>
[2023-01-30 11:36] LABS: Absolute Lymphocytes (CBC) 0.7 K/uL (0.7-4.9); MCV 86.5 fL (80-100); MPV 7.1 fL (7.6-11.3); Platelets 303 thou/uL (152-406); RBC Red Blood Cell Count 2.89 M/uL (3.86-4.86)
[2023-01-30 11:57] LABS: Magnesium 2.3 mg/dL (1.6-2.4); Potassium 5.4 mEq/L (3.5-5.1)
[2023-01-30 12:23] LABS: White Blood Cell Scan OK (OK)
[2023-01-30 12:24] LABS: Blood Morphology Comment NOT SEEN (NOT SEEN); Platelet Estimate ADEQ
[2023-01-30] MEDS ORDERED: Ringers Lactate 0 ML IV ONE (14:05)
[2023-01-30] MEDS ORDERED: NA CHLORIDE 0.9% 500 ML ONE (14:10)
[2023-01-30] MEDS ORDERED: NS 0.9% VIAL 10 ML ONE (15:00)
[2023-01-30] MEDS ORDERED: BUPIVACAINE 0.5% PF 10 ML VIAL ONE (15:01)
[2023-01-30] MEDS ORDERED: NA CHLORIDE 0.9% 100 ML ONE (15:01)
[2023-01-30] MEDS ORDERED: propofoL 200 MG/20 ML VIAL IV ONE (15:08)
[2023-01-30] MEDS ORDERED: LIDOCAINE 2% MPF 5 ML VIAL ONE (15:09)
[2023-01-30] MEDS ORDERED: ONDANSETRON 4 MG/2 ML VIAL ONE (15:10)
[2023-01-30] MEDS: CEFAZOLIN SODIUM 1 GM/VIAL ONE ×2 (15:21→15:59)
[2023-01-30] MEDS: HEPARIN 5000 UNIT/ML 1 ML VIAL ONE ×2 (16:00→16:01)
--- NOTE | 2023-01-30 16:22 | P.PN ---
Subjective Date of Service: 01/30/23 Chief Complaint: Sepsis pneumonia, elevated troponin, renal impairment Subjective: No new changes Physical Examination - Vital Signs Temperature: 97.9 F Blood Pressure: 156/80 Pulse: 75 Respirations: 16 Pulse Ox (%): 98 - Physical Exam General: Other (chronically ill-appearing) HEENT: Atraumatic, Normocephalic Neck: Supple Respiratory: Other (symmetric chest expansion) Cardiovascular: No rubs, No murmurs Gastrointestinal: Soft and benign, No guarding Musculoskeletal: No clubbing Integumentary: No warmth Neurological: Normal tone Urinary: Other (no bladder distention) External genitalia: Deferred Rectal: Deferred Assessment And Plan - Plan 1. Acute kidney injury on chronic kidney disease, multifactorial, secondary to hypertension, nephrosclerosis/cardiorenal syndrome. Initiated on HD. No significant renal recovery. HD today. HD again tomorrow, q TTS sked. Renal diet. 2. CKD4 2/2 hypertension nephrosclerosis, cardiorenal syndrome. Kidneys small on renal US. Baseline GFR 21-24 as of December 2022. Monitor renal panel. 3. Secondary hyperparathyroidism. Monitor serum Ca & Phos. 4. Right renal cyst, simple, stable. 5. Anemia of chronic kidney disease. pRBC received on 01/17. Retacrit SQ qTTS. 6. Multifocal pneumonia. Received abx. 7. Congestive heart failure with exacerbation. We will follow up with Cardiology. Echocardiogram only showing diastolic dysfunction, preserved ejection fraction of 56%. Moderate pulmonary hypertension. Per Cardiology. 8. Hypertension. Cont current med regimen. 9. HyperK. Correction via HD. 10. HypoNa. Correction via HD. Physician Review: Patient Assessed, Agree with Above Assessment and Plan
--- NOTE | 2023-01-30 16:22 | P.BOP ---
Preoperative diagnosis: ESRD Postoperative diagnosis: same Primary procedure: 1. Placement of new Cuffed Hemodyalisis catheter right IJ vein Secondary procedure: 2. Removal of old left HD catheter Other procedure(s): 3. Interpretation of fluoroscopy, 4. Right neck ultrasound Estimated blood loss: Less than 20 cc Specimen: HD cath intact Findings: as above Anesthesia: MAC Complications: None Drain(s): Other Transferred to: Recovery Room Condition: Good
--- NOTE | 2023-01-30 16:44 | RAD REPORT ---
EXAM DESCRIPTION: RAD - Fluoroscopy <1 Hour - 01/30/2023 4:35 pm CLINICAL HISTORY: Venous catheter insertion. HD CATH PLACEMENT COMPARISON: Fluoroscopy <1 Hour dated 01/21/2023 FINDINGS: Fluoroscopic imaging is submitted from placement of a venous catheter. Details of the pro cedure not available. Fluoroscopy time: 0.8 minutes
--- NOTE | 2023-01-30 16:50 | RAD REPORT ---
EXAM DESCRIPTION: RAD - Chest Single View - 01/30/2023 4:44 pm CLINICAL HISTORY: s/p HD cath placement Chest pain. COMPARISON: <Comparisons> FINDINGS: Portable technique limits examination quality. Right-sided venous catheter is in place with tip SVC. No pneumothorax.
--- NOTE | 2023-01-30 19:11 | CON ---
Date of Consultation: 01/30/2023 Reason For Service: Malfunction hemodialysis catheter. History Of Present Illness: This is the case of a 73-year-old patient, on hemodialysis. She has had dialysis being given for the last few weeks, but the gear cutting machine operator of the dialysis machine noticed that t he catheter, the outer side, the transparent part, where the clamp is every day is malfunctioning to the point that it is collapsing when the machine gets in. They have been diligent in trying to make sure when they clamp this every day at different area, but still the catheter is nonfunctional and th ey want me to remove it. There are no questions about any fevers or any bleeding in that area. The rest of the catheter was looking good. I notified the administration of this hospital to make sure t hat the vendors are notified about this tissue and see if this is a unique problem in this batch or i s something else that we have to address in the future. In the meantime, the patient was playing. S he need a new dialysis catheter. The benefits, alternatives, and risks of placement of hemodialysis catheter fully explained, which include, but not limited to infection, bleeding, damage to adjacent s tructures, anesthesia complication, hemothorax, pneumothorax, cardiac tamponade, ME, and even . They also understand this may not relieve symptoms. She may need more than one surgical interventio n. She understood and signed a consent. The patient was booked in OR. GUI/MODL Voice ID: [id number] Report ID: [id number]
[2023-01-30] MEDS: EPOETIN ALFA 10,000 UNIT/ML VIAL IV SCH (20:30)
--- NOTE | 2023-01-30 23:34 | OP ---
Date of Procedure: 01/30/2023 Surgeon: Caden Reyes MD Preoperative Diagnosis: End-stage renal disease, malfunction hemodialysis catheter. Postoperative Diagnosis: End-stage renal disease, malfunction hemodialysis catheter. Procedure: 1.Placement of a new cuffed hemodialysis catheter in the right internal jugular vein. 2.Removal of a nonfunctional hemodialysis catheter. 3.Interpretation of fluoroscopy. 4.Right neck ultrasound. Estimated Blood Loss: Less than 20 cc. Specimen: Intact hemodialysis catheter. Finding: As above. Anesthesia: MAC plus local. Complications: None. Implant: HemoSplit hemodialysis catheter. Indication: This is the case of a 73-year-old patient with history of renal failure. They called us since the catheter has been working fine, but yesterday it did not work. They saw some kink on the outside of the hemodialysis catheter where the clamps are, not allowing the machine to properly funct ion. They are trying to use different approach, trying to save the catheter. They could not. She i s in need of hemodialysis, so they asked me to see if I can remove the nonfunctional and put a new he modialysis catheter. The benefits, alternatives, and risks of placement of a hemodialysis catheter w ere fully explained to the patient which include, but not limited to, infection, bleeding, damage to adjacent structures, anesthesia complication, ND, pneumothorax, hemothorax, PE, pericardial tamponade , pericarditis, and even . They also understood this may not relieve any symptoms. She might n eed more than one surgical intervention. She understood, signed a consent. Description Of Procedure: The patient was brought to the operating room, placed in supine position. Anesthesia was done without complication. The right chest and neck were prepped and draped in steri le fashion. Previous Port-A-Cath was released from the sutures. At that moment, she had a right nec k ultrasound. We noticed still the subclavian and jugular vein still viable. The jugular vein was s till compressible. So, at this moment, I made an incision in the right neck region, found the previo us catheter. While holding the catheter in place, we proceeded to cut the catheter and the distal on e was held by my hand. The proximal one was removed. Guidewire was passed through. Distal catheter was removed. Fluoroscopy confirmed a position of a wire in the proper place. We tunneled a new cat heter through a new incision and a new tunnel on the right chest region all the way to the neck. We proceeded to place an introducer catheter over the guidewire under fluoroscopy guidance, removed the wire and placed the new hemodialysis catheter through the introducer sheath and then introducer sheat h was peeled off. We confirmed placement with the help of fluoroscopy. Sponge count and instrument counts were correct. There was excellent backflow and inflow. The line was flushed with heparinized solution, secured in place with 3-0 nylon. Sponge count and instrument counts were correct. The li ne was flushed with heparinized solution. Patient sent to Recovery in stable condition. The area wa s secured in place with 3-0 nylon and covered with sterile dressings. The previous hemodialysis cath eter was sent for identification. GUI/JACKIE Voice ID: [id number] Report ID: [id number]
[2023-01-31 07:14] LABS: Absolute Lymphocytes (CBC) 0.5 K/uL (0.7-4.9); Hematocrit 25.6 % (36.0-45.0); Lymphocytes % 3.4 % (15.3-44.8); MCV 87.4 fL (80-100); MPV 6.9 fL (7.6-11.3); Platelets 312 thou/uL (152-406); RBC Red Blood Cell Count 2.93 M/uL (3.86-4.86)
[2023-01-31] MEDS: carvediloL 3.125 MG TAB PO SCH (08:00)
[2023-01-31 08:32] VITALS: O2SAT 97
[2023-01-31] MEDS: FUROSEMIDE 40 MG TABLET PO SCH (09:00)
[2023-01-31] MEDS: ENSURE HIGH PROTEIN 237 ML CAN PO SCH (09:19)
[2023-01-31] MEDS: HYDROCORTISONE SUC 100 MG INJ IV SCH (09:19)
[2023-01-31 10:43] LABS: Potassium 4.8 mEq/L (3.5-5.1)
--- NOTE | 2023-01-31 12:01 | PN ---
Date of Progress Note: 01/31/2023 Subjective: The patient was admitted with cardiorenal syndrome. The patient had acute kidney injury secondary to cardiorenal, requiring initiating dialysis. Patient is dialysis dependent. Physical Examination: Vital Signs: Blood pressure 141/86, pulse of 80, afebrile. Chest: Clear to auscultation. Heart: S1, S2 regular. Abdomen: Soft, nontender. Extremities: Plus edema. Neurologic: Alert. No focality. Vascular: New right IJ PermCath placed. Laboratory Data: Hemoglobin 8.2. Sodium 127, potassium 5.4, bicarb 27, BUN 109, creatinine of 7.4, calcium 8.4, magnesium 2.3. Current Medications: The patient on include, Epogen, heparin, carvedilol 3.25, Lasix 40 daily, hydrocortisone. Assessment And Plan: 1. Acute kidney injury secondary to cardiorenal, dialysis dependent, malfunction of PermCath exchanged yesterday. We will plan to dialyze her today if PermCath works well. Patient will be cleared from the Renal standpoint for discharge planning. We will watch recovery as outpatient. 2. Hypertension, controlled, optimal, continue current treatment. 3. Disproportion BUN, creatinine, secondary to cortisol renal failure. Will be corrected with the dialysis. 4. Congestive heart failure with exacerbation. We will continue to challenge the patient. 5. Anemia of chronic kidney disease. Continue EDD. 6. Hyperkalemia, will be corrected with dialysis. 7. Hyponatremia, will be corrected with dialysis. time spend exam the patient face to face reviweing data lab and radiology , placing order , disccussing the case with the steam clothes press operator including hopsitalist and nursing staff >35 min JOSÉ MIGUEL Voice ID: [id number] Report ID: [id number] JOHNATHON
[2023-01-31] MEDS: EPOETIN ALFA 10,000 UNIT/ML VIAL IV SCH (12:45)
--- NOTE | 2023-01-31 15:35 | P.DS ---
Admission Date: 01/06/23 Discharge Date: 01/31/23 Reason for Admission: Sepsis pneumonia, elevated troponin, renal impairment - Problems (1) Sepsis Status: Acute Qualifiers: Sepsis type: sepsis due to unspecified organism Sepsis acute organ dysfunction status: with acute organ dysfunction Severe sepsis acute organ dysfunction type: unspecified (2) Pneumonia Status: Acute Qualifiers: Pneumonia type: due to unspecified organism Laterality: right Lung location: middle lobe of lung Qualified Code(s): J18.9 - Pneumonia, unspecified organism (3) Wound of left lower extremity Status: Chronic Qualifiers: Encounter type: initial encounter Qualified Code(s): S81.802A - Unspecified open wound, left lower leg, initial encounter (4) Acute systolic CHF (congestive heart failure), NYHA class 4 Onset Date: 05/06/17 Status: Acute (5) HTN (hypertension) Onset Date: 05/06/17 Status: Chronic Qualifiers: Hypertension type: primary hypertension Qualified Code(s): I10 - Essential (primary) hypertension (6) CKD (chronic kidney disease) stage 4, GFR 15-29 ml/min Status: Acute (7) NSTEMI (non-ST elevated myocardial infarction) Status: Acute (8) Hemodialysis catheter malfunction Status: Acute (9) Pressure ulcer of sacral region, stage 2 Status: Chronic Brief History of Present Illness: Ms. EDDA WEST a 72-year-old female with a past medical history of hypertension, presented to the ER via wheelchair with complaints of shortness of breath. Patient reports that she is short of breath for past several days, productive cough which is thick sputum patient denies chest pain, chest discomfort. Patient denies fever chills or weight loss. Patient denies abdominal pain, nausea or vomiting. Patient states she stopped taking blood pressure medication as she ran out. ED course BP 168/76, pulse 93, respiration 18, temperature 97.7, pulse ox 88% on room air. EKG shows normal sinus rhythm rate of 90, no acute ST segment elevations, not on concerning intervals, nonspecific T wave inversions noted. Labs significant for leukocytosis WBC of 22, anemia with a hemoglobin of 9.2, BMP showing renal dysfunction noted with a creatinine of 2.29 and a GFR of 22, chest x-ray positive for right lung consolidation. Admitting the patient with a diagnosis of sepsis secondary to pneumonia. Hospital Course: Ms. EDDA WEST a 72-year-old female with a past medical history of hypertension who was admitted to the [facility] on 01/06/23 for Sepsis pneumonia, elevated troponin, renal impairment. Patient was treated with antibiotic, IV hydration and renal dosing of all medications. Patient's kidney did not recover and had start on hemodialysis due acute kidney injury on chronic kidney disease, now on HD, Cont HD TTS , renal dose meds . , malfunction of PermCath, it was exchanged 01/30/2023. And had dialysis today and PermCath works well. Buttocks pressure ulcer stage II: Rinse with mild soap+water or NS, pat dry. Apply zinc barrier cream BID. - Pressure offloading measure; Turn patient q2h, wedge pillow, low air-loss mattress. LLE wound care: rinse with NS, pat dry then apply medihoney with alginate and cover with foam dressing. On MWF and PRN if soiled or dislodged. On 01/31/2023, patient was seen on morning rounds and deemed medically stable for discharge. Patient was discharged with instructions to schedule follow-up appointments with PCP, b2b sales executive The patient was given the opportunity to ask questions and reported no further questions. Furthermore, all questions were answered to the best of my ability. 1. Please call and schedule a follow-up appointment with your PCP in 3-5 days 2. Please call and schedule a follow-up appointment with b2b sales executive Dr. Roberts in 2 weeks - Please follow-up with your PCP for medication refills/adjustments <Derik Hastings - Last Filed: 01/31/23 15:32> Admission Date: 01/06/23 Discharge Date: 02/01/23 Hospital Course: Pt seen and examined. I agree with the note by the MEDICAL SPECIALIST. <Sylvia Velazquez - Last Filed: 02/01/23 16:27> Disposition: TRANSFER TO SNF - MEDICAL Discharge Condition: GOOD Vital Signs/Physical Exam: Temp Pulse Resp BP Pulse Ox 97.3 F 66 18 127/62 97 01/31/23 12:00 01/31/23 12:00 01/31/23 12:00 01/31/23 12:00 01/31/23 12:00 General: Alert, Oriented x3 HEENT: Atraumatic, Normocephalic Neck: Supple, 2+ carotid pulse no bruit Respiratory: Clear to auscultation bilaterally, Normal air movement Cardiovascular: No edema, Normal pulses Capillary refill: <2 Seconds Gastrointestinal: Normal bowel sounds, Soft and benign Musculoskeletal: No clubbing, No swelling Integumentary: Other (Buttocks pressure ulcer stage II,LLE wound ) Neurological: Normal speech, Normal tone, Normal affect Laboratory Data at Discharge: WBC 13.80 thou/uL (4.3-10.9) H 01/31/23 06:50 Hgb 8.5 g/dL (12.0-15.0) L 01/31/23 06:50 Hct 25.6 % (36.0-45.0) L 01/31/23 06:50 Plt Count 312 thou/uL (152-406) 01/31/23 06:50 PT 12.9 SECONDS (9.5-12.5) H 01/23/23 06:31 INR 1.17 01/23/23 06:31 APTT 24.3 SECONDS (24.3-36.9) 01/23/23 06:31 Sodium 133 mEq/L (136-145) L D 01/31/23 10:03 Potassium 4.8 mEq/L (3.5-5.1) 01/31/23 10:03 BUN 65 mg/dL (7-18) H 01/31/23 10:03 Creatinine 5.43 mg/dL (0.55-1.02) H 01/31/23 10:03 Glucose 150 mg/dL (74-106) H 01/31/23 10:03 Uric Acid 12.0 mg/dL (2.6-6.0) H 01/07/23 03:14 Phosphorus 4.4 mg/dL (2.5-4.9) 01/30/23 08:38 Magnesium 2.3 mg/dL (1.6-2.4) 01/30/23 11:19 Total Bilirubin 0.4 mg/dL (0.2-1.0) 01/23/23 06:27 AST 12 U/L (15-37) L 01/23/23 06:27 ALT < 6 U/L (13-56) L 01/23/23 06:27 Alkaline Phosphatase 46 U/L (45-117) 01/23/23 06:27 <Derik Hastings - Last Filed: 01/31/23 15:32> Vital Signs/Physical Exam: Temp Pulse Resp BP Pulse Ox 97.4 F 63 18 122/66 97 01/31/23 16:00 01/31/23 16:00 01/31/23 16:00 01/31/23 16:00 01/31/23 16:00 Laboratory Data at Discharge: WBC 13.80 thou/uL (4.3-10.9) H 01/31/23 06:50 Hgb 8.5 g/dL (12.0-15.0) L 01/31/23 06:50 Hct 25.6 % (36.0-45.0) L 01/31/23 06:50 Plt Count 312 thou/uL (152-406) 01/31/23 06:50 PT 12.9 SECONDS (9.5-12.5) H 01/23/23 06:31 INR 1.17 01/23/23 06:31 APTT 24.3 SECONDS (24.3-36.9) 01/23/23 06:31 Sodium 133 mEq/L (136-145) L D 01/31/23 10:03 Potassium 4.8 mEq/L (3.5-5.1) 01/31/23 10:03 BUN 65 mg/dL (7-18) H 01/31/23 10:03 Creatinine 5.43 mg/dL (0.55-1.02) H 01/31/23 10:03 Glucose 150 mg/dL (74-106) H 01/31/23 10:03 Uric Acid 12.0 mg/dL (2.6-6.0) H 01/07/23 03:14 Phosphorus 4.4 mg/dL (2.5-4.9) 01/30/23 08:38 Magnesium 2.3 mg/dL (1.6-2.4) 01/30/23 11:19 Total Bilirubin 0.4 mg/dL (0.2-1.0) 01/23/23 06:27 AST 12 U/L (15-37) L 01/23/23 06:27 ALT < 6 U/L (13-56) L 01/23/23 06:27 Alkaline Phosphatase 46 U/L (45-117) 01/23/23 06:27 <Sylvia Velazquez - Last Filed: 02/01/23 16:27> Diet: Renal Activity: Ad anthony Time spent managing pt's care (in minutes): 55 (minutes) <Derik Hastings - Last Filed: 01/31/23 15:32> <Sylvia Velazquez - Last Filed: 02/01/23 16:27> Home Medications: Ensure High Protein 237 ml PO BID can 01/31/23 Epoetin [Procrit*] 6,000 unit IV EVERY HD vial 01/31/23 Furosemide [Lasix*] 40 mg PO DAILY tab 01/31/23 Medihoney [Medihoney Woundcare Gel*] 1 appl TOP SEECOM #0 tube 01/31/23 carvediloL [Coreg*] 3.125 mg PO BIDWM tab 01/31/23 Physician Discharge Instructions: Ms. Almonte a 72-year-old female with a past medical history of hypertension who was admitted to the [facility] on 01/06/23 for Sepsis pneumonia, elevated troponin, renal impairment. Patient was treated with antibiotic, IV hydration and renal dosing of all medications. Patient's kidney did not recover and had start on hemodialysis due acute kidney injury on chronic kidney disease, now on HD, Cont HD TTS , renal dose meds . , malfunction of PermCath, it was exchanged 01/30/2023. And had dialysis today and PermCath works well. Buttocks pressure ulcer stage II: Rinse with mild soap+water or NS, pat dry. Apply zinc barrier cream BID. - Pressure offloading measure; Turn patient q2h, wedge pillow, low air-loss mattress. LLE wound care: rinse with NS, pat dry then apply medihoney with alginate and cover with foam dressing. On MWF and PRN if soiled or dislodged. On 01/31/2023, patient was seen on morning rounds and deemed medically stable for discharge. Patient was discharged with instructions to schedule follow-up appointments with PCP, b2b sales executive The patient was given the opportunity to ask questions and reported no further questions. Furthermore, all questions were answered to the best of my ability. 1. Please call and schedule a follow-up appointment with your PCP in 3-5 days 2. Please call and schedule a follow-up appointment with b2b sales executive Dr. Roberts in 2 weeks - Please follow-up with your PCP for medication refills/adjustments [address] [address] P:[phone]/F:[phone] Followup: Rosa Roberts MD [ACTIVE - CAN ADMIT] - (2 weeks) NONE,NONE [Primary Care Provider] - (follow up with your primary care DR in 3-5 days. )
[2023-01-31 17:34] VITALS: BP 122/66; TEMP 97.4
== END 2023-01-31 19:02 | DRG 871 ==
LOC: ER 11:11 → ERHOLD 13:27 → 2ND 14:15
PROVIDERS: ADMIT Hospitalist; ATTEND Hospitalist
PROC: 02HV33Z Insertion of Infusion Device into Superior Vena Cava, Percutaneous Approach (ICD-10-PCS; 2023-01-12)
PROC: 5A1D70Z Performance of Urinary Filtration, Intermittent, Less than 6 Hours Per Day (ICD-10-PCS; principal; 2023-01-12 13:00)
PROC: 02PY33Z Removal of Infusion Device from Great Vessel, Percutaneous Approach (ICD-10-PCS; 2023-01-21)
PROC: 02HV33Z Insertion of Infusion Device into Superior Vena Cava, Percutaneous Approach (ICD-10-PCS; 2023-01-21)
PROC: B5181ZA Fluoroscopy of Superior Vena Cava using Low Osmolar Contrast, Guidance (ICD-10-PCS; 2023-01-21)
PROC: 02PY33Z Removal of Infusion Device from Great Vessel, Percutaneous Approach (ICD-10-PCS; 2023-01-30)
PROC: 02HV33Z Insertion of Infusion Device into Superior Vena Cava, Percutaneous Approach (ICD-10-PCS; 2023-01-30)
PROC: B5181ZA Fluoroscopy of Superior Vena Cava using Low Osmolar Contrast, Guidance (ICD-10-PCS; 2023-01-30)
DX: A41.9 Sepsis, unspecified organism (principal); G93.41 Metabolic encephalopathy; J18.9 Pneumonia, unspecified organism; I21.4 Non-ST elevation (NSTEMI) myocardial infarction; N17.0 Acute kidney failure with tubular necrosis; N18.6 End stage renal disease; I50.23 Acute on chronic systolic (congestive) heart failure; I13.2 Hypertensive heart and chronic kidney disease with heart failure and with stage 5 chronic kidney disease, or end stage renal disease; N39.0 Urinary tract infection, site not specified; E87.1 Hypo-osmolality and hyponatremia; H20.9 Unspecified iridocyclitis; T82.41XA Breakdown (mechanical) of vascular dialysis catheter, initial encounter; D63.1 Anemia in chronic kidney disease; E87.6 Hypokalemia; E21.3 Hyperparathyroidism, unspecified; I27.20 Pulmonary hypertension, unspecified; E87.5 Hyperkalemia; L89.152 Pressure ulcer of sacral region, stage 2; N28.1 Cyst of kidney, acquired; H15.009 Unspecified scleritis, unspecified eye; J45.909 Unspecified asthma, uncomplicated; S81.802A Unspecified open wound, left lower leg, initial encounter; R31.9 Hematuria, unspecified; R65.20 Severe sepsis without septic shock; Z99.2 Dependence on renal dialysis; Z60.2 Problems related to living alone; Z79.02 Long term (current) use of antithrombotics/antiplatelets; Z11.52 Encounter for screening for COVID-19; Z79.899 Other long term (current) drug therapy; Z91.148 Patient's other noncompliance with medication regimen for other reason; Y84.8 Other medical procedures as the cause of abnormal reaction of the patient, or of later complication, without mention of misadventure at the time of the procedure
CPT/HCPCS: 36415; 36600; 70450; 71045; 76000; 76770; 78452; 80048; 80053; 80069; 81001; 82550; 82570; 82607; 82652; 82728; 82805; 82947; 83520; 83540; 83605; 83735; 83880; 83970; 84100; 84145; 84156; 84165; 84443; 84466; 84484; 84550; 85014; 85018; 85025; 85044; 85379; 85610; 85730; 86021; 86038; 86160; 86225; 86430; 86704; 86706; 86803; 86850; 86900; 86901; 86920; 87040; 87070; 87077; 87086; 87088; 87186; 87205; 87340; 87635; 87804; 88300; 90935; 93005; 93017; 93306; 94640; 94760; 96365; 97110; 97116; 97161; 97530; 99285; A4216; A9500; C1752; J0690; J0696; J1644; J1720; J1940; J2001; J2150; J2371; J2405; J2704; J2785; J3010; J7030; J7040; J7050; J7120; J7614; P9016; P9047; Q4081; Q5106

== ENCOUNTER → 2023-03-10 | Emergency (ER) | payer BC ==
--- NOTE | 2023-03-10 18:21 | RAD REPORT ---
[facility]47 [facility] CLINICAL HISTORY: vomiting COMPARISON: Chest Single View dated 01/30/2023; Chest Single View dated 01/21/2023; Chest Single View dated 01/13/2023; Chest Single View dated 01/12/2023 TECHNIQUE: Portable AP view of the chest. FINDINGS: Near complete improvement of patchy right upper lung opacities. Retrocardiac opacification with possible small effusion, stable. Stable positioning of right IJ dialysis catheter. No pneumoth orax or right-sided effusion. The cardiomediastinal contours are unremarkable. IMPRESSION: Improving patchy right upper lung opacities. Other stable findings as above.
[2023-03-10 18:24] LABS: MPV 6.9 fL (7.6-11.3)
--- NOTE | 2023-03-10 18:30 | RAD REPORT ---
EXAM DESCRIPTION: CT - Head Brain Wo Cont - 03/10/2023 6:00 pm CLINICAL HISTORY: headache, vomiting COMPARISON: Head Brain Wo Cont dated 01/12/2023 TECHNIQUE: Noncontrast head CT images were obtained without IV contrast. Multiplanar reformats were generated and reviewed. All CT scans are performed using dose optimization technique as appropriate and may include automated exposure control or mA/KV adjustment according to patient size. FINDINGS: No intracranial hemorrhage, mass, or edema. Partially empty sella again noted. Midline str uctures are otherwise unremarkable. Normal ventricular caliber for age. Youngblood-white matter differentiation is preserved, without evidence of acute infarct. No abnormal extra- axial fluid collections. Mastoid air cells are well aerated. Near complete opacification of the right maxillary sinus. No acute bony findings. IMPRESSION: No evidence of an acute intracranial process. Partially empty sella again noted. Although the finding is nonspecific, it may correlate to presence of intracranial hypertension in the appropriate clinical setting.
[2023-03-10 18:37] LABS: AST/SGOT 10 U/L (15-37); Albumin 2.9 g/dL (3.4-5.0); Alkaline Phosphatase 63 U/L (45-117); BUN Blood Urea Nitrogen 5 mg/dL (7-18); Bicarbonate 28 mEq/L (21-32); Bilirubin Direct 0.1 mg/dL (0-0.2); Bilirubin Indirect, Calculated 0.3 mg/dL (0.2-0.8); Bilirubin Total 0.4 mg/dL (0.2-1.0); Glomerular Filtration Rate 17 ml/min (=/>90); Glucose Level 97 mg/dL (74-106); Lipase 57 U/L (13-75); Potassium 3.2 mEq/L (3.5-5.1); Protein, Total 7.7 g/dL (6.4-8.2); Sodium Level 137 mEq/L (136-145)
[2023-03-10 18:55] LABS: Lymphocytes % 23.6 % (15.3-44.8)
[2023-03-10 18:57] LABS: ALT/SGPT < 10 U/L (13-56)
[2023-03-10 18:59] LABS: Absolute Lymphocytes (CBC) 1.8 K/uL (0.7-4.9); Hematocrit 30.1 % (36.0-45.0); MCV 85.8 fL (80-100); Platelets 278 thou/uL (152-406)
--- NOTE | 2023-03-10 19:36 | EDPHYS ---
Physician Documentation [facility] Name: Amanda Bermudez Age: 73 yrs Sex: Female : 1950 Arrival Date: 03/10/2023 Time: 17:04 Bed 4 Private MD: ED Physician José Miguel De Leon HPI: 03/10 17:53 This 73 yrs old Black Female presents to ER via EMS with complaints of Nausea/Vomiting. rt 17:53 Patient presents to the ED with headache, nausea and vomiting following dialysis rt session today. Patient states that she started feel better after the vomiting session and has no symptoms currently. Symptoms are moderate in severity, no other aggravating or elevating factors.. Historical: - Allergies: 17:20 No Known Allergies; iw - PMHx: 17:20 Hypertension; dialysis; iw - Immunization history:: Adult Immunizations up to date. - Family history:: not pertinent. - Social history:: Smoking status: Patient denies any tobacco usage or history of. ROS: 17:53 Constitutional: Negative for fever, chills, and weight loss, Cardiovascular: Negative rt for chest pain, palpitations, and edema, Respiratory: Negative for shortness of breath, cough, wheezing, and pleuritic chest pain, MS/Extremity: Negative for injury and deformity, Skin: Negative for injury, rash, and discoloration, Psych: Negative for depression, anxiety, suicide ideation, homicidal ideation, and hallucinations, 17:53 Abdomen/GI: Positive for nausea and vomiting, Negative for abdominal pain, 17:53 Neuro: Positive for headache, Negative for altered mental status, Exam: 17:53 Constitutional: This is a well developed, well nourished patient who is awake, alert, rt and in no acute distress. Head/Face: Normocephalic, atraumatic. Chest/axilla: Normal chest wall appearance and motion. Nontender with no deformity. No lesions are appreciated. Cardiovascular: Regular rate and rhythm with a normal S1 and S2. No gallops, murmurs, or rubs. Normal PMI, no JVD. No pulse deficits. Respiratory: Lungs have equal breath sounds bilaterally, clear to auscultation and percussion. No rales, rhonchi or wheezes noted. No increased work of breathing, no retractions or nasal flaring. Abdomen/GI: Soft, non-tender, with normal bowel sounds. No distension or tympany. No guarding or rebound. No evidence of tenderness throughout. Skin: Warm, dry with normal turgor. Normal color with no rashes, no lesions, and no evidence of cellulitis. MS/ Extremity: Pulses equal, no cyanosis. Neurovascular intact. Full, normal range of motion. Neuro: Awake and alert, GCS 15, oriented to person, place, time, and situation. Cranial nerves II-XII grossly intact. Motor strength 5/5 in all extremities. Sensory grossly intact. Cerebellar exam normal. Normal gait. Psych: Awake, alert, with orientation to person, place and time. Behavior, mood, and affect are within normal limits. 17:53 Chest/axilla: Dialysis port to right upper chest. 17:53 ECG was reviewed by the Attending Physician. Vital Signs: 17:19 BP 155 / 84; Pulse 59; Resp 16; Pulse Ox 96% on R/A; iw 18:13 BP 158 / 111; Pulse 60; Resp 16; Pulse Ox 98% ; ko1 19:00 BP 133 / 79; Pulse 67; Resp 16; Pulse Ox 98% on R/A; km8 19:30 BP 142 / 75; Pulse 68; Resp 12; Pulse Ox 97% on R/A; me1 MDM: 17:08 Patient medically screened. rt 19:35 Differential diagnosis: Intracranial hemorrhage, vertigo, nausea, vomiting, ESRD. Data rt reviewed: vital signs, nurses notes. Consideration of Admission/Observation Escalation of care including admission/observation considered. Patient with elevated troponin, lower than baseline, patient does have ESRD, suspect impaired clearance. She has no symptoms suggestive of acute coronary syndrome and is asymptomatic in the ED. Patient was informed of this, instructed to follow-up as an outpatient. Patient with red eyes, reported history of glaucoma that had improved. She has no eye pain, blurred vision currently. Offered to check patient's pressures, she states that she was to follow-up with an eye doctor tomorrow instead. Strict return precautions were discussed.. Independent interpretation of the following test(s) in the Emergency Department CT Scan: My interpretation is No intracranial hemorrhage, to potation of CT scan images. Test considered but Not performed: CT: No abdominal pain, tenderness, CT scan of the abdomen pelvis is not indicated. Care significantly affected by the following chronic conditions: Chronic Kidney Disease. Counseling: I had a detailed discussion with the patient and/or guardian regarding the historical points, exam findings, and any diagnostic results supporting the discharge/admit diagnosis, lab results, radiology results, the need for outpatient follow up, to return to the emergency department if symptoms worsen or persist or if there are any questions or concerns that arise at home. 03/10 17:18 Order name: Basic Metabolic Panel; Complete Time: 19:07 rt 03/10 17:18 Order name: CBC with Diff; Complete Time: 19:07 rt 03/10 17:18 Order name: LFT's; Complete Time: 19:07 rt 03/10 17:18 Order name: Magnesium; Complete Time: 19:07 rt 03/10 17:18 Order name: Troponin HS; Complete Time: 19:07 rt 03/10 17:18 Order name: Lipase; Complete Time: 19:07 rt 03/10 17:18 Order name: XRAY Chest (1 view); Complete Time: 18:35 rt 03/10 17:18 Order name: CT Head Brain wo Cont; Complete Time: 18:35 rt 03/10 17:18 Order name: EKG; Complete Time: 17:18 rt 03/10 17:18 Order name: Cardiac monitoring; Complete Time: 17:27 rt 03/10 17:18 Order name: EKG - Nurse/Tech; Complete Time: 17:36 rt 03/10 17:18 Order name: IV Saline Lock; Complete Time: 19:39 rt 03/10 17:18 Order name: Labs collected and sent; Complete Time: 18:11 rt 03/10 17:18 Order name: O2 Per Protocol; Complete Time: 17:27 rt 03/10 17:18 Order name: O2 Sat Monitoring; Complete Time: 17:27 rt EC:53 Rate is 71 beats/min. Rhythm is irregularly irregular, A fib with Occasional PVCs. QRS rt [place] is Normal. QRS interval is normal. QT interval is normal. No Q waves. Administered Medications: No medications were administered Disposition Summary: 03/10/23 19:35 Discharge Ordered Notes: Location: Home rt Problem: new rt Symptoms: are resolved rt Condition: Stable rt Diagnosis - Nausea with vomiting, unspecified rt - End stage renal disease rt Followup: rt - With: Private Physician - When: 2 - 3 days - Reason: Discharge Instructions: - Discharge Summary Sheet rt - Nausea and Vomiting, Adult rt - Dialysis rt Forms: - Medication Reconciliation Form rt - Thank You Letter rt - Antibiotic Education rt - Prescription Opioid Use rt - Patient Portal Instructions rt - Leadership Thank You Letter rt Signatures: Dispatcher [employer] Shanika Vidal, RN Tania Luz RN RN ko1 José Miguel De Leon MD MD rt
--- NOTE | 2023-03-10 19:36 | ER ---
Nurse's Notes [facility] Name: Amanda Bermudez Age: 73 yrs Sex: Female : 1950 Arrival Date: 03/10/2023 Time: 17:04 Bed 4 Private MD: Diagnosis: Nausea with vomiting, unspecified;End stage renal disease Presentation: 03/10 17:18 Chief complaint: EMS states: was on her way home from dialysis and she stopped iw responding to her family, she got nauseous and vomited once, she states she did not eat anything before going to dialysis, pt started dialysis about 3 weeks ago. Coronavirus screen: At this time, the client does not indicate any symptoms associated with coronavirus-19. Ebola Screen: Patient negative for fever greater than or equal to 101.5 degrees Fahrenheit, and additional compatible Ebola Virus Disease symptoms Patient denies exposure to infectious person. Patient denies travel to an Ebola-affected area in the 21 days before illness onset. No symptoms or risks identified at this time. Initial Sepsis Screen: Does the patient meet any 2 criteria? No. Patient's initial sepsis screen is negative. Does the patient have a suspected source of infection? No. Patient's initial sepsis screen is negative. Risk Assessment: Do you want to hurt yourself or someone else? Patient reports no desire to harm self or others. Onset of symptoms was March 10, 2023. 17:18 Method Of Arrival: EMS: [facility] iw 17:18 Acuity: DASHA 3 iw Historical: - Allergies: 17:20 No Known Allergies; iw - PMHx: 17:20 Hypertension; dialysis; iw - Immunization history:: Adult Immunizations up to date. - Family history:: not pertinent. - Social history:: Smoking status: Patient denies any tobacco usage or history of. Screenin:13 [facility] ED Fall Risk Assessment (Adult) History of falling in the last 3 months, ko1 including since admission No falls in past 3 months (0 pts) Confusion or Disorientation No (0 pts) Intoxicated or Sedated No (0 pts) Impaired Gait No (0 pts) Mobility Assist Device Used No (0 pt) Altered Elimination No (0 pt) Score/Fall Risk Level 0 - 2 = Low Risk Oriented to surroundings, Maintained a safe environment, Educated pt \T\ family on fall prevention, incl call for assistance when getting out of bed, Assessed \T\ reinforced patient's understanding of fall precautions, Provided non-skid footwear, Hourly rounding (assess needs \T\ fall precautionary measures) done, Used ambulatory aids as needed (educated on \T\ assisted with), Used gait belt as appropriate. Abuse screen: Denies threats or abuse. Denies injuries from another. Nutritional screening: No deficits noted. Tuberculosis screening: No symptoms or risk factors identified. Assessment: 18:15 Pain: Complains of pain in abdomen. GI: Abdomen is round non-distended, Reports nausea, ko1 vomiting. 19:12 Reassessment: Patient appears in no apparent distress at this time. No changes from km8 previously documented assessment. Patient and/or family updated on plan of care and expected duration. Pain level reassessed. Patient is alert, oriented x 3, equal unlabored respirations, skin warm/dry/pink. General: Appears in no apparent distress. comfortable, Behavior is calm, cooperative, appropriate for age. Neuro: Level of Consciousness is awake, alert, obeys commands, Oriented to person, place, time, situation. Cardiovascular: Capillary refill. Respiratory: Airway is patent Respiratory effort is even, unlabored, Respiratory pattern is regular, symmetrical. 20:00 Reassessment: Patient appears in no apparent distress at this time. Patient and/or jb4 family updated on plan of care and expected duration. Pain level reassessed. Patient is alert, oriented x 3, equal unlabored respirations, skin warm/dry/pink. Vital Signs: 17:19 BP 155 / 84; Pulse 59; Resp 16; Pulse Ox 96% on R/A; iw 18:13 BP 158 / 111; Pulse 60; Resp 16; Pulse Ox 98% ; ko1 19:00 BP 133 / 79; Pulse 67; Resp 16; Pulse Ox 98% on R/A; km8 19:30 BP 142 / 75; Pulse 68; Resp 12; Pulse Ox 97% on R/A; me1 ED Course: 17:07 Patient arrived in ED. iw 17:08 José Miguel De Leon MD is Attending Physician. rt 17:11 Tania Sierra, ERYN is Primary Nurse. ko1 17:19 Triage completed. iw 17:21 Arm band placed on. iw 17:49 XRAY Chest (1 view) In Process Unspecified. EDMS 18:00 Missed attempt(s): 22 gauge in right antecubital area. Bleeding controlled, band aid ko1 applied, catheter tip intact. 18:02 CT Head Brain wo Cont In Process Unspecified. EDMS 18:11 Lipase Sent. bc6 18:11 Basic Metabolic Panel Sent. bc6 18:11 CBC with Diff Sent. bc6 18:11 LFT's Sent. bc6 18:11 Magnesium Sent. bc6 18:11 Troponin HS Sent. bc6 18:11 Missed attempt(s): 24 gauge in left antecubital area. bc6 18:13 Patient has correct armband on for positive identification. Placed in gown. Bed in low ko1 position. Call light in reach. Side rails up X2. Client placed on continuous cardiac and pulse oximetry monitoring. NIBP monitoring applied. deckhand on. Door closed. Noise minimized. Lights dimmed. Warm blanket given. 20:00 No provider procedures requiring assistance completed. Patient did not have IV access jb4 during this emergency room visit. Administered Medications: No medications were administered Outcome: 19:35 Discharge ordered by . rt 20:00 Discharged to home via wheelchair, with family, j luis 20:00 Condition: stable 20:00 Discharge instructions given to patient, Instructed on discharge instructions, follow up and referral plans. Demonstrated understanding of instructions, follow-up care, 20:01 Patient left the ED. jb4 Signatures: Dispatcher [employer] Shanika Vidal, RN Henry Bruce RN RN jb4 Tania Sierra, RN RN ko1 José Miguel De Leon MD MD rt Elana Merritt 6 Selma Goetz, ERYN RN me1 Kadi Lenz, ERYN RN km8
[2023-03-10 21:04] VITALS: BP 142/75; O2SAT 97
== END ==
LOC: ER 17:04
DX: R11.2 Nausea with vomiting, unspecified (principal); I12.0 Hypertensive chronic kidney disease with stage 5 chronic kidney disease or end stage renal disease; N18.6 End stage renal disease; Z99.2 Dependence on renal dialysis
CPT/HCPCS: 36415; 70450; 71045; 80048; 80076; 83690; 83735; 84484; 85025; 93005; 99284

== ENCOUNTER → 2023-03-18 | Emergency (ER) | payer BC ==
[~2023-03-18] MED LIST: FAMOTIDINE 20 MG/2 ML VIAL IV ONE; ONDANSETRON 4 MG/2 ML VIAL ONE
--- NOTE | 2023-03-18 15:17 | RAD REPORT ---
EXAM DESCRIPTION: CT - Abdomen Pelvis Wo Contrast - 03/18/2023 3:04 pm CLINICAL HISTORY: Abdominal pain. recently started dialysis;Nausea / vomiting COMPARISON: No comparisons TECHNIQUE: CT imaging of the abdomen and pelvis was performed without contrast. Solid organ, bowel a nd vascular assessment is limited due to lack of IV and oral contrast. All CT scans are performed using dose optimization technique as appropriate and may include automated exposure control or mA/KV adjustment according to patient size. FINDINGS: The lower lung marin are clear.Small left pleural effusion. The liver, spleen, pancreas, adrenal glands and kidneys are within normal limits for a limited non-co ntrast examination.23 mm benign cyst right kidney. No bowel obstruction, free air, free fluid or abscess. Mild diverticulosis of the sigmoid colon. The appendix is normal. The osseous structures are within normal limits.Significant fibroid uterus. IMPRESSION: No acute intra-abdominal or pelvic findings. Leiomyomatous uterus. A limited non-contrast examination was performed as detailed.
[2023-03-18 16:07] LABS: Hematocrit 31.2 % (36.0-45.0); MCV 85.4 fL (80-100); Platelets 324 thou/uL (152-406); RBC Red Blood Cell Count 3.66 M/uL (3.86-4.86)
[2023-03-18 16:17] LABS: Potassium 3.7 mEq/L (3.5-5.1)
[2023-03-18 16:39] LABS: Blood Morphology Comment NOT SEEN (NOT SEEN)
[2023-03-18 16:40] LABS: Platelet Estimate ADEQ
--- NOTE | 2023-03-18 17:02 | EDPHYS ---
Physician Documentation [facility] Name: Amanda Bermudez Age: 73 yrs Sex: Female : 1950 Arrival Date: 03/18/2023 Time: 14:34 Bed 13 Private MD: ED Physician Maynor Lucas HPI: 03/18 15:10 This 73 yrs old Black Female presents to ER via EMS with complaints of Nausea, rn Decreased Appetite. 15:10 The patient presents to the emergency department with nausea, that is mild. Onset: The rn symptoms/episode began/occurred at an unknown time. The symptoms are aggravated by nothing. The symptoms are alleviated by food . Associated signs and symptoms: Pertinent negatives: abdominal pain, fever, GI bleeding. Severity of symptoms: At their worst the symptoms were mild in the emergency department the symptoms are unchanged. The patient has experienced similar episodes in the past. The patient has been recently seen by a physician:. Patient and family report started dialysis 4 weeks ago, Thursday. For several weeks has not felt well, generalized weakness and malaise, decreased appetite and when she does not eat she gets nauseated. No vomiting. No blood in stool. No fever or chills. No chest pain or shortness of breath. No abdominal pain. Patient not drinking much water either, not even getting close to her limit of water intake given to her.. Historical: - Allergies: 14:44 No Known Allergies; ap3 - PMHx: 14:44 Dialysis; Hypertension; ap3 - Immunization history:: Client reports receiving the 2nd dose of the Covid vaccine, Flu vaccine is not up to date. - Family history:: not pertinent. - Social history:: Smoking status: Patient denies any tobacco usage or history of. - Hospitalizations: : No recent hospitalization is reported. ROS: 15:10 Constitutional: Negative for fever, chills, and weight loss, Cardiovascular: Negative rn for chest pain, palpitations, and edema, Respiratory: Negative for shortness of breath, cough, wheezing, and pleuritic chest pain, Abdomen/GI: Positive for nausea, negative for abdominal pain Back: Negative for injury and pain, MS/Extremity: Negative for injury and deformity, Skin: Negative for injury, rash, and discoloration, Neuro: Positive for generalized weakness and malaise Exam: 15:10 Constitutional: This is a well developed, well nourished patient who is awake, alert, rn and in no acute distress. Head/Face: Normocephalic, atraumatic. ENT: Dry mucous membranes Cardiovascular: Regular rate and rhythm. No pulse deficits. Respiratory: Speaking full sentences, unlabored. No increased work of breathing, no retractions or nasal flaring. Abdomen/GI: Soft, nontender, nondistended MS/ Extremity: Pulses equal, no cyanosis. Neuro: Awake and alert, GCS 15 Vital Signs: 14:41 Pulse 88; Resp 18; Temp 97.7; Weight 70.31 kg; Height 5 ft. 1 in. ; ap3 14:44 BP 156 / 93; Pulse Ox 100% ; ap3 16:24 BP 160 / 78; Pulse 82; Resp 18; Pulse Ox 100% on R/A; mb9 14:41 Body Mass Index 29.29 (70.31 kg, 154.94 cm) ap3 MDM: 14:42 Patient medically screened. rn 16:58 Differential diagnosis: viral gastroenteritis, gastroenteritis, post dialysis syndrome, rn dehydration, electrolyte disorder. Data reviewed: vital signs, nurses notes, lab test result(s), radiologic studies, CT scan, and as a result, I will discharge patient. Counseling: I had a detailed discussion with the patient and/or guardian regarding the historical points, exam findings, and any diagnostic results supporting the discharge/admit diagnosis, lab results, the need for outpatient follow up, to return to the emergency department if symptoms worsen or persist or if there are any questions or concerns that arise at home. Response to treatment: the patient's symptoms have mildly improved after treatment, and as a result, I will discharge patient. Special discussion: I discussed with the patient/guardian in detail that at this point there is no indication for admission to the hospital. It is understood, however, that if the symptoms persist or worsen the patient needs to return immediately for re-evaluation. Based on the history and exam findings, there is no indication for further emergent testing or inpatient evaluation. I discussed with the patient/guardian the need to see the primary care provider for further evaluation of the symptoms. ED course: No acute findings on imaging or labs. Appears to be doing well with dialysis labs. Stable vital signs. Likely her body becoming accustomed to dialysis, dehydration, poor caloric intake. Will DC home with return precautions and PCP follow-up. ECG showed atrial fibrillation most likely, family cannot recall if she carries this diagnosis but states recently started on Eliquis so I am presuming she is known to have irregular heart beat. Rate controlled and no complications at this time so we will go home with Eliquis as already prescribed and return precautions.. 03/18 14:52 Order name: CBC with Diff; Complete Time: 17:03 rn 03/18 14:52 Order name: Basic Metabolic Panel; Complete Time: 16:21 rn 03/18 16:12 Order name: Manual Differential; Complete Time: 17:03 EDMS 03/18 14:52 Order name: CT Abd/Pelvis - Without Contrast; Complete Time: 15:18 rn 03/18 14:52 Order name: EKG; Complete Time: 14:53 rn 03/18 14:52 Order name: IV Start; Complete Time: 16:01 rn 03/18 14:52 Order name: EKG - Nurse/Tech; Complete Time: 16:14 rn Administered Medications: 16:08 Drug: Ondansetron IVP 4 mg IVP once; over 2 minutes Route: IVP; Site: left antecubital; mb9 16:13 Drug: Famotidine IVP 20 mg IVP once; dilute with 10 mL 0.9% NaCl; give over 2 minutes mb9 Route: IVP; Site: left antecubital; Disposition Summary: 03/18/23 17:02 Discharge Ordered Notes: Location: Home rn Problem: new rn Symptoms: have improved rn Condition: Stable rn Diagnosis - End stage renal disease rn - Nausea rn - Dehydration rn Followup: rn - With: Private Physician - When: As needed - Reason: Recheck today's complaints, Re-evaluation by your physician Discharge Instructions: - Discharge Summary Sheet rn - Dehydration, Adult rn - Nausea, Adult rn - manager internet - End-Stage Kidney Disease rn Forms: - Medication Reconciliation Form rn - Thank You Letter rn - Antibiotic rn orthopaedics - Prescription Opioid Use rn - Patient Portal Instructions rn - Leadership Thank You Letter rn Signatures: Dispatcher [employer] Maynor Ojeda MD MD rn Prokisch, Amanda, RN RN [email or web address] Amanda Gonsalez RN RN mb9
--- NOTE | 2023-03-18 17:02 | ER ---
Nurse's Notes [facility] Name: Amanda Bermudez Age: 73 yrs Sex: Female : 1950 Arrival Date: 03/18/2023 Time: 14:34 Bed 13 Private MD: Diagnosis: End stage renal disease;Nausea;Dehydration Presentation: 03/18 14:41 Chief complaint: Patient's son or daughter states: the patient is a new dialysis ap3 patient(T,TH,S), has only been on dialysis for approx 4 weeks. the patient had dialysis yesterday, and has been getting weak and nauseated after dialysis. family also reports the patient hasn't had any appetite. Patient states patient will get "so weak she is verbally nonresponsive, but is awake and breathing". Coronavirus screen: At this time, the client does not indicate any symptoms associated with coronavirus-19. Ebola Screen: No symptoms or risks identified at this time. Initial Sepsis Screen: Does the patient meet any 2 criteria?. Initial Sepsis Screen: Does the patient have a suspected source of infection? No. Patient's initial sepsis screen is negative. Risk Assessment: Do you want to hurt yourself or someone else? Patient reports no desire to harm self or others. Onset of symptoms is unknown. 14:41 Method Of Arrival: [facility] ap3 14:45 Acuity: DASHA 3 ap3 Triage Assessment: 14:45 General: Appears in no apparent distress. Behavior is calm, cooperative, appropriate ap3 for age. Pain: Denies pain. Neuro: Level of Consciousness is awake, alert, obeys commands, Oriented to person, place, time, situation, Appropriate for age Reports dizziness, weakness. Cardiovascular: Patient's skin is warm and dry. Dialysis shunt: in the anterior aspect of right upper chest. Respiratory: Airway is patent Respiratory effort is even, unlabored, Respiratory pattern is regular, symmetrical. Historical: - Allergies: 14:44 No Known Allergies; ap3 - PMHx: 14:44 Dialysis; Hypertension; ap3 - Immunization history:: Client reports receiving the 2nd dose of the Covid vaccine, Flu vaccine is not up to date. - Family history:: not pertinent. - Social history:: Smoking status: Patient denies any tobacco usage or history of. - Hospitalizations: : No recent hospitalization is reported. Screenin:46 Abuse screen: Denies threats or abuse. Nutritional screening: No deficits noted. ap3 Tuberculosis screening: No symptoms or risk factors identified. 16:25 [facility] ED Fall Risk Assessment (Adult) History of falling in the last 3 months, mb9 including since admission No falls in past 3 months (0 pts) Confusion or Disorientation No (0 pts) Intoxicated or Sedated No (0 pts) Impaired Gait No (0 pts) Mobility Assist Device Used No (0 pt) Altered Elimination No (0 pt) Score/Fall Risk Level 0 - 2 = Low Risk Oriented to surroundings, Maintained a safe environment, Educated pt \\T\\ family on fall prevention, incl call for assistance when getting out of bed. Assessment: 16:22 General: Appears in no apparent distress. Behavior is calm, cooperative. Pain: Denies mb9 pain. Neuro: Level of Consciousness is awake, alert, obeys commands, Oriented to person, place, time, situation, Appropriate for age. Cardiovascular: Denies chest pain, shortness of breath, Patient's skin is warm and dry. Respiratory: Airway is patent Respiratory effort is even, unlabored, Respiratory pattern is regular, symmetrical, Breath sounds are clear bilaterally. GI: Abdomen is round non-distended, Bowel sounds present X 4 quads. Reports nausea. : No signs and/or symptoms were reported regarding the genitourinary system. EENT: No signs and/or symptoms were reported regarding the EENT system. Derm: Skin is pink, warm \\T\\ dry. Musculoskeletal: Range of motion: intact in all extremities. 17:10 Reassessment: No changes from previously documented assessment. Patient and/or family mb9 updated on plan of care and expected duration. Pain level reassessed. Patient is alert, oriented x 3, equal unlabored respirations, skin warm/dry/pink. Vital Signs: 14:41 Pulse 88; Resp 18; Temp 97.7; Weight 70.31 kg; Height 5 ft. 1 in. ; ap3 14:44 BP 156 / 93; Pulse Ox 100% ; ap3 16:24 BP 160 / 78; Pulse 82; Resp 18; Pulse Ox 100% on R/A; mb9 14:41 Body Mass Index 29.29 (70.31 kg, 154.94 cm) ap3 ED Course: 14:41 Patient arrived in ED. ap3 14:42 Maynor Lucas MD is Attending Physician. rn 14:45 Triage completed. ap3 14:46 Arm band placed on right wrist. ap3 15:06 CT Abd/Pelvis - Without Contrast In Process Unspecified. EDMS 15:45 Inserted saline lock: 22 gauge in left antecubital area, using aseptic technique. Blood as6 collected. 15:51 Patient placed in an exam room, on a stretcher. ll1 16:01 CBC with Diff Sent. as6 16:01 Basic Metabolic Panel Sent. as6 16:12 Amanda Gonsalez, RN is Primary Nurse. mb9 16:24 Placed in gown. Bed in low position. Call light in reach. Side rails up X 1. Client mb9 placed on continuous cardiac and pulse oximetry monitoring. NIBP monitoring applied. nurse monitoring on. 16:25 No provider procedures requiring assistance completed. EKG done, by ED staff, reviewed mb9 by Maynor Lucas MD. 17:10 IV discontinued, intact, bleeding controlled, No redness/swelling at site. Pressure mb9 dressing applied. Administered Medications: 16:08 Drug: Ondansetron IVP 4 mg IVP once; over 2 minutes Route: IVP; Site: left antecubital; mb9 16:13 Drug: Famotidine IVP 20 mg IVP once; dilute with 10 mL 0.9% NaCl; give over 2 minutes mb9 Route: IVP; Site: left antecubital; Medication: 16:25 VIS not applicable for this client. mb9 Outcome: 17:02 Discharge ordered by MD. rn 17:10 Discharged to home via wheelchair, with family, mb9 17:10 Condition: stable 17:10 Discharge instructions given to patient, Instructed on discharge instructions, follow up and referral plans. Demonstrated understanding of instructions, follow-up care, 17:10 Patient left the ED. mb9 Signatures: Dispatcher [employer] EDMS Maynor Lucas MD MD rn Prokisch, Amanda RN ERYN ap3 Opal Wallis RN RN ll1 Champ Butt RN RN as6 Amanda Gonsalez, RN RN mb9 Corrections: (The following items were deleted from the chart) 14:48 14:41 Chief complaint: Patient's son or daughter states: the patient is a new dialysis ap3 patient, has only been on dialysis for approx 4 weeks. the patient had dialysis today, and has been getting weak and nauseated after dialysis. family also reports the patient hasn't had any appetite. Patient states patient will get "so weak she is verbally nonresponsive, but is awake and breathing". ap3
[2023-03-18 20:22] VITALS: BP 160/78; TEMP 97.7; O2SAT 100
--- NOTE | 2023-03-19 16:28 | EKG ---
Test Date: 2023-03-18 Test Time: 16:27:15 Senior Product Consultant: ALP MEASUREMENT RESULTS: Intervals: Rate: 86 AR: QRSD: 92 QT: 404 QTc: 483 [place]: P: AR: QRS: 60 T: 223 INTERPRETIVE STATEMENTS: Atrial flutter with variable AV block ST & T wave abnormality, consider inferolateral ischemia Prolonged QT Abnormal ECG Compared to ECG 03/18/2023 16:26:07 No significant changes Electronically Signed On 03-19-23 16:25:47 PANTOGRAPH II ENGRAVER by Bogdan Mackey
--- NOTE | 2023-03-19 16:28 | EKG ---
Test Date: 2023-03-18 Test Time: 16:26:07 Metrologist: ALP MEASUREMENT RESULTS: Intervals: Rate: 79 [place]: QRSD: 92 QT: 418 QTc: 479 [place]: P: MI: QRS: 68 T: 233 INTERPRETIVE STATEMENTS: Atrial flutter with variable AV block ST & T wave abnormality, consider inferolateral ischemia Prolonged QT Abnormal ECG Compared to ECG 03/10/2023 17:38:29 Prolonged QT interval now present Atrial fibrillation no longer present Ventricular premature complex(es) no longer present ST (T wave) deviation still present Possible ischemia still present Electronically Signed On 03-19-23 16:25:49 HARNESS BUILDER by Bogdan Mackey
--- NOTE | 2023-03-19 16:28 | EKG ---
Test Date: 2023-03-18 Test Time: 16:17:55 Websphere Commerce Architect: MB MEASUREMENT RESULTS: Intervals: Rate: 74 [place]: QRSD: 90 QT: 392 QTc: 435 [place]: P: [place]: QRS: 63 T: 225 INTERPRETIVE STATEMENTS: Atrial fibrillation ST & T wave abnormality, consider inferolateral ischemia or digitalis effect Abnormal ECG Compared to ECG 03/10/2023 17:38:29 Ventricular premature complex(es) no longer present ST (T wave) deviation still present Possible ischemia still present Electronically Signed On 03-19-23 16:25:52 WALLPAPER HANGER HELPER by Bogdan Mackey
== END ==
LOC: ER 14:34
DX: R11.0 Nausea (principal); E86.0 Dehydration; N18.6 End stage renal disease; Z99.2 Dependence on renal dialysis; I10 Essential (primary) hypertension
CPT/HCPCS: 93005 ×3; 85025; 80048; 36415; 74176; J2405

== ENCOUNTER 2023-06-27 14:17 | Emergency (ER) | payer BC ==
--- NOTE | 2023-06-27 15:51 | RAD REPORT ---
EXAM DESCRIPTION: CT - Head Brain Wo Cont - 06/27/2023 3:38 pm CLINICAL HISTORY: HEADACHE COMPARISON: Head Brain Wo Cont dated 03/10/2023; Head Brain Wo Cont dated 01/12/2023 TECHNIQUE: All CT scans are performed using dose optimization technique as appropriate and may inclu de automated exposure control or mA/KV adjustment according to patient size. FINDINGS: No intracranial hemorrhage, hydrocephalus or extra-axial fluid collection.No areas of brai n edema or evidence of midline shift. Mild to moderate chronic small vessel ischemic changes. The paranasal sinuses and mastoids are clear. The calvarium is intact. IMPRESSION: No acute intracranial abnormality.
--- NOTE | 2023-06-27 16:05 | ER ---
Nurse's Notes [facility] Name: Amanda Bermudez Age: 73 yrs Sex: Female : 1950 Arrival Date: 06/27/2023 Time: 14:17 Bed 20 Private MD: Diagnosis: Headache Presentation: 06/26 14:47 Chief complaint: Right eye redness, blurred vision, and right sided headache since this morning. Coronavirus screen: At this time, the client does not indicate any symptoms associated with coronavirus-19. Ebola Screen: No symptoms or risks identified at this time. Initial Sepsis Screen: Does the patient meet any 2 criteria? No. Patient's initial sepsis screen is negative. Does the patient have a suspected source of infection? No. Patient's initial sepsis screen is negative. Risk Assessment: Do you want to hurt yourself or someone else? Patient reports no desire to harm self or others. Onset of symptoms was June 27, 2023. 14:47 Method Of Arrival: Ambulatory 14:47 Acuity: DASHA 3 hb Triage Assessment: 14:49 Headache History: Denies prior headaches. General: Appears in no apparent distress. hb Behavior is calm, cooperative. Pain: Pain currently is 5 out of 10 on a pain scale. Pain began 3 hours ago. Also complains of no other associated symptoms. EENT: Reports blurred vision. Neuro: Level of Consciousness is awake, alert, obeys commands, Oriented to person, place, time, situation. Cardiovascular: Patient's skin is warm and dry. Respiratory: Respiratory effort is even, unlabored, Respiratory pattern is regular, symmetrical. Historical: - Allergies: 14:49 No Known Allergies; hb - Home Meds: 14:49 amlodipine-benazepril 10-40 mg Oral cap 1 cap once daily [Active]; hydrochlorothiazide hb 25 mg Oral tab 1 tab once daily [Active]; metoprolol succinate 100 mg Oral Tb24 1 tab once daily [Active]; - PMHx: 14:49 Dialysis; Hypertension; hb - Immunization history:: Adult Immunizations up to date. - Infectious Disease History:: Denies. - Social history:: Smoking status: Patient denies any tobacco usage or history of. - Family history:: not pertinent. - Hospitalizations: : No recent hospitalization is reported. Screenin:[facility] Fall Risk Assessment (Adult) History of falling in the last 3 months, ld1 including since admission No falls in past 3 months (0 pts). Abuse screen: Denies threats or abuse. Denies injuries from another. Nutritional screening: No deficits noted. Tuberculosis screening: No symptoms or risk factors identified. Assessment: 14:53 General: Appears in no apparent distress. comfortable, Behavior is calm, cooperative, ld1 appropriate for age. Pain: Complains of pain in right eye Pain does not radiate. Pain currently is 6 out of 10 on a pain scale. Quality of pain is described as burning, Pain began suddenly, Is continuous. Neuro: Level of Consciousness is awake, alert, obeys commands, Oriented to person, place, time, situation, Appropriate for age. Cardiovascular: Capillary refill < 3 seconds Patient's skin is warm and dry. Respiratory: Airway is patent Respiratory effort is even, unlabored. GI: Abdomen is round non-distended. : No signs and/or symptoms were reported regarding the genitourinary system. EENT: Reports pain in right eye. Derm: No signs and/or symptoms reported regarding the dermatologic system. Musculoskeletal: No signs and/or symptoms reported regarding the musculoskeletal system. Vital Signs: 14:47 BP 150 / 75; Pulse 64; Resp 16; Temp 97.9(O); Pulse Ox 100% on R/A; Weight 68 kg; hb Height 4 ft. 11 in. ; Pain 5/10; 14:53 BP 138 / 63; Pulse 54; Resp 18; Pulse Ox 99% on R/A; ld1 14:47 Body Mass Index 30.28 (68.00 kg, 149.86 cm) hb 14:47 Pain Scale: Adult hb Raheem Coma Score: 16:00 Eye Response: spontaneous(4). Motor Response: obeys commands(6). Verbal Response: rn oriented(5). Total: 15. ED Course: 14:19 Patient arrived in ED. rg4 14:20 Maynor Lucas MD is Attending Physician. rn 14:44 Zahra Silva, ERYN is Primary Nurse. ld1 14:48 Triage completed. hb 14:50 Arm band placed on. hb 14:53 Patient has correct armband on for positive identification. Placed in gown. Bed in low ld1 position. Call light in reach. Side rails up X2. Pulse ox on. NIBP on. Door closed. Noise minimized. Warm blanket given. 14:53 No provider procedures requiring assistance completed. ld1 15:39 CT Head Brain wo Cont In Process Unspecified. EDMS 16:24 Patient did not have IV access during this emergency room visit. ld1 Administered Medications: No medications were administered Medication: 14:53 VIS not applicable for this client. ld1 Outcome: 16:05 Discharge ordered by . rn 16:24 Discharged to home ambulatory, with family, ld1 16:24 Condition: stable 16:24 Discharge instructions given to patient, Instructed on discharge instructions, follow up and referral plans. Demonstrated understanding of instructions, follow-up care, 16:24 Patient left the ED. ld1 Signatures: Dispatcher [employer] EDFL Maynor Lucas MD MD rn Baxter, Heather, RN Sumaya Negro rg4 Zahra Silva RN RN ld1
--- NOTE | 2023-06-27 16:05 | EDPHYS ---
Physician Documentation [facility] Name: Amanda Bermudez Age: 73 yrs Sex: Female : 1950 Arrival Date: 06/27/2023 Time: 14:17 Bed 20 Private MD: ED Physician Maynor Lucas HPI: 06/26 16:00 This 73 yrs old Black Female presents to ER via Ambulatory with complaints of Headache. rn 16:00 The patient complains of pain to the forehead and right eye. The patient describes the rn headache as aching. Onset: The symptoms/episode began/occurred 6 month(s) ago. Associated signs and symptoms: Pertinent negatives: fever, neck stiffness, vision changes, vision loss. Severity of symptoms: At its worst the pain was moderate, in the emergency department the pain is unchanged. The symptoms are alleviated by nothing. the symptoms are aggravated by nothing. The patient has experienced similar episodes in the past. Patient reports headache and right eye pain and redness for approximately 6 months. No trauma. Began shortly after starting dialysis. No vision changes. No fever. No drainage. No injury. Seen by ophthalmology recently and 2 days ago started on ketorolac drops as well as timolol drops for possible glaucoma. No acute changes, patient states feels slightly better after eyedrops.. Historical: - Allergies: 14:49 No Known Allergies; hb - Home Meds: 14:49 amlodipine-benazepril 10-40 mg Oral cap 1 cap once daily [Active]; hydrochlorothiazide hb 25 mg Oral tab 1 tab once daily [Active]; metoprolol succinate 100 mg Oral Tb24 1 tab once daily [Active]; - PMHx: 14:49 Dialysis; Hypertension; hb - Immunization history:: Adult Immunizations up to date. - Infectious Disease History:: Denies. - Social history:: Smoking status: Patient denies any tobacco usage or history of. - Family history:: not pertinent. - Hospitalizations: : No recent hospitalization is reported. ROS: 16:00 Constitutional: Negative for fever, chills, and weight loss, Eyes: Positive for pain to rn right eye with mild redness Cardiovascular: Negative for chest pain, palpitations, and edema, Respiratory: Negative for shortness of breath, cough, wheezing, and pleuritic chest pain, Abdomen/GI: Negative for abdominal pain, nausea, vomiting, diarrhea, and constipation, MS/Extremity: Negative for injury and deformity, Skin: Negative for injury, rash, and discoloration, Neuro: Positive for headache, negative for focal weakness or numbness Exam: 16:00 Constitutional: This is a well developed, well nourished patient who is awake, alert, rn and in no acute distress. Eyes: Bilateral conjunctival injection. No hyphema or hypopyon. Extraocular movements intact. Pupils equal and reactive. Neck: Trachea midline, no masses palpated, and no cervical lymphadenopathy. Supple, full range of motion without nuchal rigidity, or vertebral point tenderness. No Meningismus. Neuro: Awake and alert, GCS 15, oriented to person, place, time, and situation. Cranial nerves II-XII grossly intact. Motor strength 5/5 in all extremities. Sensory grossly intact. Cerebellar exam normal. Normal gait. Vital Signs: 14:47 BP 150 / 75; Pulse 64; Resp 16; Temp 97.9(O); Pulse Ox 100% on R/A; Weight 68 kg; hb Height 4 ft. 11 in. ; Pain 5/10; 14:53 BP 138 / 63; Pulse 54; Resp 18; Pulse Ox 99% on R/A; ld1 14:47 Body Mass Index 30.28 (68.00 kg, 149.86 cm) hb 14:47 Pain Scale: Adult hb Anahola Coma Score: 16:00 Eye Response: spontaneous(4). Motor Response: obeys commands(6). Verbal Response: rn oriented(5). Total: 15. MDM: 14:20 Patient medically screened. rn 16:00 Differential diagnosis: glaucoma, hypertensive headache, migraine, neoplasm, sinusitis, rn tension headache, vasomotor headache. Data reviewed: vital signs, nurses notes, radiologic studies, CT scan, and as a result, I will discharge patient. Counseling: I had a detailed discussion with the patient and/or guardian regarding the historical points, exam findings, and any diagnostic results supporting the discharge/admit diagnosis, radiology results, the need for outpatient follow up, to return to the emergency department if symptoms worsen or persist or if there are any questions or concerns that arise at home. Special discussion: I discussed with the patient/guardian in detail that at this point there is no indication for admission to the hospital. It is understood, however, that if the symptoms persist or worsen the patient needs to return immediately for re-evaluation. Based on the history and exam findings, there is no indication for further emergent testing or inpatient evaluation. I discussed with the patient/guardian the need to see the opthamologist for further evaluation of the symptoms, I discussed with the patient/guardian the need to see the primary care provider for further evaluation of the symptoms. ED course: CT head without acute findings. Does not reveal intracranial reason for her headache or eye pain. Already seen by feeder driver and started treatment for glaucoma. No acute changes over the last 6 months. Does not seem like acute angle-closure glaucoma at this time. No vision changes. Will discharge home with ophthalmology follow-up. 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
[2023-06-27 16:39] VITALS: BP 138/63; TEMP 97.9; O2SAT 99
== END 2023-06-27 16:24 | disposition home or self-care (01) ==
LOC: ER 14:17
DX: R51.9 Headache, unspecified (principal); I10 Essential (primary) hypertension; Z99.2 Dependence on renal dialysis
CPT/HCPCS: 70450; 99283

== ENCOUNTER 2023-08-11 14:46 | Emergency (ER) | payer BC ==
--- NOTE | 2023-08-11 15:18 | RAD REPORT ---
EXAM DESCRIPTION: CT - Head Brain Wo Cont - 08/11/2023 3:00 pm CLINICAL HISTORY: syncope, head injury Headache, drowsiness COMPARISON: Head Brain Wo Cont dated 06/27/2023; Head Brain Wo Cont dated 03/10/2023 TECHNIQUE: All CT scans are performed using dose optimization technique as appropriate and may inclu de automated exposure control or mA/KV adjustment according to patient size. FINDINGS: No intracranial hemorrhage, hydrocephalus or extra-axial fluid collection.No areas of brai n edema or evidence of midline shift. Partially visualized chronic right maxillary sinusitis with high density material present. The parana duke sinuses and mastoids otherwise clear. The calvarium is intact. IMPRESSION: No acute intracranial abnormality. Chronic right maxillary sinusitis as detailed.
--- NOTE | 2023-08-11 15:19 | RAD REPORT ---
EXAM DESCRIPTION: RAD - Chest Single View - 08/11/2023 3:09 pm CLINICAL HISTORY: syncope Chest pain. COMPARISON: Chest Single View dated 03/10/2023; Chest Single View dated 01/30/2023; Chest Single View dated 01/21/2023; Chest Single View dated 01/13/2023 FINDINGS: Portable technique limits examination quality. The lungs are grossly clear. The heart is mildly prominent in size. No displaced fractures.Right-side d venous catheter tip in the SVC. IMPRESSION: No acute intrathoracic process suspected.
[2023-08-11 18:35] LABS: AST/SGOT < 10 U/L (15-37); Albumin 2.8 g/dL (3.4-5.0); Albumin/Globulin Ratio 0.6 (1.1-1.8); Alkaline Phosphatase 53 U/L (45-117); Anion Gap 11.1 mEq/L (5.0-15.0); BUN Blood Urea Nitrogen 9 mg/dL (7-18); Bicarbonate 27 mEq/L (21-32); Bilirubin Total 0.4 mg/dL (0.2-1.0); Globulin 4.7 g/dL (2.3-3.5); Glomerular Filtration Rate 12 ml/min (=/>90); Glucose Level 82 mg/dL (74-106); Magnesium 2.1 mg/dL (1.6-2.4); Potassium 4.1 mEq/L (3.5-5.1); Protein, Total 7.5 g/dL (6.4-8.2); Sodium Level 133 mEq/L (136-145)
[2023-08-11 18:36] LABS: ALT/SGPT < 14 U/L (13-56); Bilirubin Direct < 0.2 mg/dL (0-0.2); Bilirubin Indirect, Calculated 0.2 mg/dL (0.2-0.8)
[2023-08-11 18:37] LABS: Absolute Basophils 0.1 K/uL (0-0.5); Absolute Eosinophils 0.2 K/uL (0-0.5); Absolute Lymphocytes (CBC) 1.7 K/uL (0.7-4.9); Absolute Monocytes 0.7 K/uL (0.1-1.3); Absolute Neutrophil 2.7 K/uL (1.8-8.0); Basophils % 1.2 % (0-1.3); Eosinophils % 3.3 % (0-4.4); Hematocrit 31.3 % (36.0-45.0); Hemoglobin 10.9 g/dL (12.0-15.0); Lymphocytes % 32.6 % (15.3-44.8); MCH 32.2 pg (27.0-35.0); MCHC 34.9 g/dL (32.0-36.0); MCV 92.1 fL (80-100); Monocytes % 12.5 % (3.3-12.3); Neutrophils % 50.4 % (41.7-73.7); Nucleated Red Blood Cells % 0.7 % (0-0); Platelets 317 thou/uL (152-406); Red Cell Distribution Width 15.9 % (12.1-15.2)
--- NOTE | 2023-08-11 19:09 | EDPHYS ---
Physician Documentation [facility] Name: Amanda Bermudez Age: 73 yrs Sex: Female : 1950 Arrival Date: 08/11/2023 Time: 14:46 Bed 3 Private MD: ED Physician Vladislav Landry HPI: 08/10 14:55 This 73 yrs old Black Female presents to ER via Unassigned with complaints of syncope. rn 14:55 The patient has experienced syncope. Onset: The symptoms/episode began/occurred just rn prior to arrival. Duration: This was a single episode. Associated injury: The patient did not suffer any apparent associated injury. Current symptoms: Currently, the patient is not experiencing any symptoms. The patient has experienced similar episodes in the past. Patient reports finished dialysis and on the way home passed out. Single episode of syncope. Reports had headache on the right side right before it happened. Currently denies any headache. Feels back to normal. Reports head injury and fall 2 weeks ago and hit the right side of her face where she is having pain now.. Historical: - Allergies: 15:14 No Known Allergies; ph - Home Meds: 15:14 amlodipine-benazepril 10-40 mg Oral cap 1 cap once daily [Active]; hydrochlorothiazide ph 25 mg Oral tab 1 tab once daily [Active]; metoprolol succinate 100 mg Oral Tb24 1 tab once daily [Active]; - PMHx: 15:14 Dialysis; Hypertension; ph - Immunization history:: Adult Immunizations unknown. - Infectious Disease History:: Denies. - Family history:: not pertinent. - Social history:: Smoking status: Patient denies any tobacco usage or history of. - Hospitalizations: : No recent hospitalization is reported. ROS: 14:55 Constitutional: Negative for fever, chills, and weight loss, Eyes: Negative for injury, rn pain, redness, and discharge, Neck: Negative for injury, pain, and swelling, Cardiovascular: Negative for chest pain, palpitations, and edema, Respiratory: Negative for shortness of breath, cough, wheezing, and pleuritic chest pain, Abdomen/GI: Negative for abdominal pain, nausea, vomiting, diarrhea, and constipation, Back: Negative for injury and pain, MS/Extremity: Negative for injury and deformity, Skin: Negative for injury, rash, and discoloration, Neuro: Positive for headache and syncope Exam: 14:55 Constitutional: This is a well developed, well nourished patient who is awake, alert, rn and in no acute distress. Head/Face: Swelling and ecchymosis to the right periorbital region. Eyes: Pupils equal round and reactive to light, extra-ocular motions intact. Neck: No midline cervical tenderness Cardiovascular: Regular rate and rhythm. No pulse deficits. Respiratory: No increased work of breathing, no retractions or nasal flaring. Abdomen/GI: Soft, non-tender MS/ Extremity: Pulses equal, no cyanosis. Neuro: Awake and alert, GCS 15, oriented to person, place, time, and situation. Cranial nerves II-XII grossly intact. Motor strength 5/5 in all extremities. Sensory grossly intact. 16:25 ECG was reviewed by the Attending Physician. rn Vital Signs: 14:53 BP 146 / 73; Pulse 62; Resp 18; Temp 97.4; Pulse Ox 98% on R/A; Weight 79.38 kg; Height ph 4 ft. 11 in. ; Pain 0/10; 16:00 BP 129 / 79; Pulse 62; Resp 15; Pulse Ox 99% on R/A; hb 17:00 BP 136 / 76; Pulse 61; Resp 17; Pulse Ox 99% ; hb 18:00 BP 132 / 80; Pulse 63; Resp 16; Pulse Ox 100% on R/A; hb 19:00 BP 149 / 77; Pulse 67; Resp 16; Pulse Ox 99% ; lc8 14:53 Body Mass Index 35.35 (79.38 kg, 149.86 cm) ph 14:53 Pain Scale: Adult ph MDM: 14:47 Patient medically screened. rn 18:02 Data reviewed: vital signs. ED course: Patient signed out clear. Admission, improved ec2 patient arrives today with concern for syncope after dialysis along with a headache, symptoms have since resolved. Plan is to follow-up lab work and reassess the patient.. 18:46 ED course: Metabolic profile reassuring, no significant electrolyte disturbances, LFTs ec2 are unremarkable, CT scan of the head shows no acute intracranial normality, chest x-ray shows no evidence of volume overload. . 19:08 ED course: On reassessment patient is well-appearing, in no acute distress, reports no ec2 recurrence of symptoms. Will discharge home. Return precautions given.. 08/10 14:48 Order name: Basic Metabolic Panel; Complete Time: 18:46 rn 08/10 14:48 Order name: CBC with Diff; Complete Time: 19:05 rn 08/10 14:48 Order name: Hepatic Function; Complete Time: 18:46 rn 08/10 14:48 Order name: Magnesium; Complete Time: 18:46 rn 08/10 14:48 Order name: CT Head Brain wo Cont; Complete Time: 16:14 rn 08/10 14:48 Order name: Chest Single View XRAY; Complete Time: 16:14 rn 08/10 14:48 Order name: Cardiac monitoring; Complete Time: 15:16 rn 08/10 14:48 Order name: EKG - Nurse/Tech; Complete Time: 15:15 rn 08/10 14:48 Order name: Labs collected and sent; Complete Time: 18:08 rn 08/10 14:48 Order name: O2 Per Protocol; Complete Time: 15:16 rn 08/10 14:48 Order name: O2 Sat Monitoring; Complete Time: 15:16 rn EC:25 Rate is 64 beats/min. Rhythm is regular. QRS Schaller is Normal. VA interval is normal. QRS rn interval is normal. QT interval is normal. No Q waves. T waves are Normal. No ST changes noted. Clinical impression: NSR w/ Non-specific ST/T Changes. Interpreted by me. Reviewed by me. Administered Medications: No medications were administered Disposition Summary: 08/11/23 19:08 Discharge Ordered Notes: Location: Home ec2 Condition: Stable ec2 Diagnosis - Headache ec2 - Dependence on renal dialysis ec2 - Syncope Near ec2 Followup: ec2 - With: Private Physician - When: - Reason: Re-evaluation by your physician Discharge Instructions: - Discharge Summary Sheet ec2 - General Headache Without Cause ec2 Forms: - Medication Reconciliation Form ec2 - Antibiotic Education ec2 - Prescription Opioid Use ec2 - Patient Portal Instructions ec2 - Leadership Thank You Letter ec2 Signatures: Dispatcher [employer] Maynor Ojeda MD MD rn Hall, Patricia, RN RN ph Corral, Edwin, MD MD ec2
--- NOTE | 2023-08-11 19:09 | ER ---
Nurse's Notes [facility] Name: Amanda Bermudez Age: 73 yrs Sex: Female : 1950 Arrival Date: 08/11/2023 Time: 14:46 Bed 3 Private MD: Diagnosis: Headache;Dependence on renal dialysis;Syncope Near Presentation: 08/10 14:53 Chief complaint: EMS states: Pt had dialysis this morning, was running errands with ph family,was feeling well when leaving the grocery store, had 1 episode of vomiting and a syncopal episode, when EMS arrived pt was A\T\O x 4 w/ stable VS, BGL WNL. Coronavirus screen: Vaccine status: Patient reports receiving the 2nd dose of the covid vaccine. Ebola Screen: No symptoms or risks identified at this time. Initial Sepsis Screen: Does the patient meet any 2 criteria? No. Patient's initial sepsis screen is negative. Does the patient have a suspected source of infection? No. Patient's initial sepsis screen is negative. Risk Assessment: Do you want to hurt yourself or someone else? Patient reports no desire to harm self or others. Onset of symptoms was August 11, 2023. 14:53 Method Of Arrival: EMS: [facility] 14:53 Acuity: DASHA 3 ph Triage Assessment: 15:15 General: Appears in no apparent distress. Behavior is calm, cooperative. Pain: Denies ph pain. Neuro: Level of Consciousness is awake, alert, obeys commands, Oriented to person, place, time, situation, Reports a syncopal episode. Cardiovascular: Capillary refill < 3 seconds in bilateral fingers Patient's skin is warm and dry. Cardiovascular: Dialysis shunt: in the left arm. Cardiovascular: Dialysis shunt: in the anterior aspect of right upper chest. Derm: Skin is pink, warm \T\ dry. Historical: - Allergies: 15:14 No Known Allergies; ph - Home Meds: 15:14 amlodipine-benazepril 10-40 mg Oral cap 1 cap once daily [Active]; hydrochlorothiazide ph 25 mg Oral tab 1 tab once daily [Active]; metoprolol succinate 100 mg Oral Tb24 1 tab once daily [Active]; - PMHx: 15:14 Dialysis; Hypertension; ph - Immunization history:: Adult Immunizations unknown. - Infectious Disease History:: Denies. - Family history:: not pertinent. - Social history:: Smoking status: Patient denies any tobacco usage or history of. - Hospitalizations: : No recent hospitalization is reported. Screenin:16 [facility] ED Fall Risk Assessment (Adult) History of falling in the last 3 months, ph including since admission No falls in past 3 months (0 pts) Confusion or Disorientation No (0 pts) Intoxicated or Sedated No (0 pts) Impaired Gait No (0 pts) Mobility Assist Device Used No (0 pt) Altered Elimination No (0 pt) Score/Fall Risk Level 0 - 2 = Low Risk Oriented to surroundings, Maintained a safe environment, Hourly rounding (assess needs \T\ fall precautionary measures) done. Abuse screen: Denies threats or abuse. Denies injuries from another. Nutritional screening: No deficits noted. Tuberculosis screening: No symptoms or risk factors identified. Assessment: 15:30 General: Appears in no apparent distress. Behavior is calm, cooperative. Pain: Denies hb pain. Neuro: Level of Consciousness is awake, alert, obeys commands, Oriented to person, place, time, situation. Cardiovascular: Patient's skin is warm and dry. Respiratory: Respiratory effort is even, unlabored, Respiratory pattern is regular, symmetrical. GI: No signs and/or symptoms were reported involving the gastrointestinal system. : No signs and/or symptoms were reported regarding the genitourinary system. EENT: No signs and/or symptoms were reported regarding the EENT system. Derm: Skin is pink, warm \T\ dry. Musculoskeletal: No signs and/or symptoms reported regarding the musculoskeletal system. 16:30 Reassessment: Patient appears in no apparent distress at this time. Patient and/or hb family updated on plan of care and expected duration. Pain level reassessed. Patient is alert, oriented x 3, equal unlabored respirations, skin warm/dry/pink. 17:15 Reassessment: Unble to establich PIV access. Dr Lucas aware. hb 17:30 Reassessment: Patient appears in no apparent distress at this time. Patient and/or hb family updated on plan of care and expected duration. Pain level reassessed. Patient is alert, oriented x 3, equal unlabored respirations, skin warm/dry/pink. 17:36 Reassessment: Inside lab contacted for blood draw. hb 17:51 Reassessment: Inside lab at bedside for blood draw. hb 18:48 Reassessment: Patient appears in no apparent distress at this time. Patient and/or hb family updated on plan of care and expected duration. Pain level reassessed. Patient is alert, oriented x 3, equal unlabored respirations, skin warm/dry/pink. Vital Signs: 14:53 BP 146 / 73; Pulse 62; Resp 18; Temp 97.4; Pulse Ox 98% on R/A; Weight 79.38 kg; Height ph 4 ft. 11 in. ; Pain 0/10; 16:00 BP 129 / 79; Pulse 62; Resp 15; Pulse Ox 99% on R/A; hb 17:00 BP 136 / 76; Pulse 61; Resp 17; Pulse Ox 99% ; hb 18:00 BP 132 / 80; Pulse 63; Resp 16; Pulse Ox 100% on R/A; hb 19:00 BP 149 / 77; Pulse 67; Resp 16; Pulse Ox 99% ; lc8 14:53 Body Mass Index 35.35 (79.38 kg, 149.86 cm) ph 14:53 Pain Scale: Adult ph ED Course: 14:47 Patient arrived in ED. rn 14:47 Maynor Lucas MD is Attending Physician. rn 14:53 Yanira Dorsey, ERYN is Primary Nurse. ph 15:01 CT Head Brain wo Cont In Process Unspecified. EDMS 15:11 Chest Single View XRAY In Process Unspecified. EDMS 15:14 Triage completed. ph 15:15 Arm band placed on Patient placed in an exam room, on a stretcher, on monitor tech, ph on pulse oximetry. 15:16 Patient has correct armband on for positive identification. Placed in gown. Bed in low ph position. Call light in reach. Side rails up X2. Client placed on continuous cardiac and pulse oximetry monitoring. NIBP monitoring applied. equipment monitor phototypesetting on. Door closed. Noise minimized. Warm blanket given. Pillow given. 15:16 EKG done, by ED staff, reviewed by Maynor Lucas MD. em1 15:54 Client placed on continuous cardiac and pulse oximetry monitoring. NIBP monitoring hb applied. equipment monitor phototypesetting on. Pulse ox on. NIBP on. 16:30 Missed attempt(s): 22 gauge in left forearm. Bleeding controlled, band aid applied, hb catheter tip intact. 17:35 Provided Education on: use of call light. 18:00 Attending Physician role handed off by Maynor Lucas MD ec2 18:00 Vladislav Landry MD is Attending Physician. ec2 19:22 No provider procedures requiring assistance completed. Patient did not have IV access lc8 during this emergency room visit. Administered Medications: No medications were administered Medication: 17:35 VIS not applicable for this client. Outcome: 19:08 Discharge ordered by . ec2 19:22 Discharged to home via wheelchair, with family, lc8 19:22 Condition: stable 19:22 Discharge instructions given to patient, family, Instructed on discharge instructions, follow up and referral plans. 19:24 Patient left the ED. lc8 Signatures: Dispatcher [employer] EDMS Maynor Lucas MD MD rn Merrick Reyes Yanira Arauz, RN RN Roslyn Bronson, ERYN RN Vladislav Landry MD MD 2 Ayden Pagan RN RN 8
[2023-08-11 19:49] VITALS: TEMP 97.4; O2SAT 99
[2023-08-11 20:09] VITALS: BP 149/77
== END 2023-08-11 19:24 | disposition home or self-care (01) ==
LOC: ER 14:46
DX: R51.9 Headache, unspecified (principal); R55 Syncope and collapse; Z99.2 Dependence on renal dialysis
CPT/HCPCS: 70450; 71045; 80048; 80076; 83735; 85025; 93005

== ENCOUNTER 2023-08-22 15:36 | Emergency (ER) | payer BC ==
--- NOTE | 2023-08-22 17:02 | ER ---
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 Usually has vomiting after hb HD, feels better now. Coronavirus screen: At this time, the client does not indicate any symptoms associated with coronavirus-19. Ebola Screen: No symptoms or risks identified at this time. Initial Sepsis Screen: Does the patient meet any 2 criteria? No. Patient's initial sepsis screen is negative. Does the patient have a suspected source of infection? No. Patient's initial sepsis screen is negative. Risk Assessment: Do you want to hurt yourself or someone else? Patient reports no desire to harm self or others. Onset of symptoms was August 22, 2023. 15:46 Method Of Arrival: EMS: [facility] hb 15:46 Acuity: DASHA 3 hb Historical: - Allergies: 15:47 No Known Allergies; hb - Home Meds: 15:47 amlodipine-benazepril 10-40 mg Oral cap 1 cap once daily [Active]; hydrochlorothiazide hb 25 mg Oral tab 1 tab once daily [Active]; metoprolol succinate 100 mg Oral Tb24 1 tab once daily [Active]; - PMHx: 15:47 Dialysis; Hypertension; hb - Immunization history:: Adult Immunizations up to date. - Infectious Disease History:: Denies. - Social history:: Smoking status: Patient denies any tobacco usage or history of. - Family history:: not pertinent. - Hospitalizations: : No recent hospitalization is reported. Screenin:00 [facility] ED Fall Risk Assessment (Adult) History of falling in the last 3 months, hb including since admission No falls in past 3 months (0 pts) Confusion or Disorientation No (0 pts) Intoxicated or Sedated No (0 pts) Impaired Gait No (0 pts) Mobility Assist Device Used No (0 pt) Altered Elimination No (0 pt) Score/Fall Risk Level 0 - 2 = Low Risk Oriented to surroundings, Maintained a safe environment, Educated pt \T\ family on fall prevention, incl call for assistance when getting out of bed. Abuse screen: Denies threats or abuse. Denies injuries from another. Nutritional screening: No deficits noted. Tuberculosis screening: No symptoms or risk factors identified. Assessment: 15:46 General: Appears in no apparent distress. Behavior is calm, cooperative. Pain: Denies hb pain. Neuro: Level of Consciousness is awake, alert, obeys commands, Oriented to person, place, time, situation. Cardiovascular: Patient's skin is warm and dry. Respiratory: Respiratory effort is even, unlabored, Respiratory pattern is regular, symmetrical. GI: Reports nausea, vomiting, resolved TRACK WELDER. 16:45 Reassessment: Patient appears in no apparent distress at this time. Patient and/or hb family updated on plan of care and expected duration. Pain level reassessed. Patient is alert, oriented x 3, equal unlabored respirations, skin warm/dry/pink. Vital Signs: 15:46 BP 152 / 65; Pulse 69; Resp 16; Temp 98.3(TE); Pulse Ox 100% on R/A; Weight 79.38 kg; hb Height 4 ft. 11 in. ; Pain 0/10; 16:45 BP 146 / 86; Pulse 68; Resp 16; Pulse Ox 99% on R/A; Pain 0/10; hb 15:46 Body Mass Index 35.35 (79.38 kg, 149.86 cm) hb 15:46 Pain Scale: Adult hb 16:45 Pain Scale: Adult hb ED Course: 15:46 Patient arrived in ED. hb 15:46 Maynor Lucas MD is Attending Physician. rn 15:47 Triage completed. hb 15:48 Arm band placed on. hb 16:00 Patient has correct armband on for positive identification. hb 17:15 Provided Education on: followup. hb 17:15 No provider procedures requiring assistance completed. Patient did not have IV access hb during this emergency room visit. Administered Medications: No medications were administered Medication: 16:45 VIS not applicable for this client. hb Outcome: 17:01 Discharge ordered by . rn 17:30 Discharged to home via wheelchair, with family, to lobby, waiting for transportation hb 17:30 Condition: stable 17:30 Discharge instructions given to patient, family, Instructed on discharge instructions, follow up and referral plans. medication usage, Demonstrated understanding of instructions, follow-up care, medications, 17:31 Patient left the ED. hb Signatures: Maynor Lucas MD MD rn Roslyn Godfrey RN RN hb Corrections: (The following items were deleted from the chart) 15:48 15:46 BP 152 / 65; Pulse 69bpm; Resp 16bpm; Pulse Ox 100% RA; Temp 98.3F Temporal; Pain hb 0/10, Adult; hb
--- NOTE | 2023-08-22 17:02 | EDPHYS ---
Physician Documentation [facility] Name: Amanda Bermudez Age: 73 yrs Sex: Female : 1950 Arrival Date: 08/22/2023 Time: 15:36 Bed 14 Private MD: ED Physician Maynor Lucas HPI: 08/21 17:13 This 73 yrs old Black Female presents to ER via EMS with complaints of Vomiting. rn 17:13 The patient presents to the emergency department with nausea, vomiting. Onset: The rn symptoms/episode began/occurred just prior to arrival. Possible causes: Dialysis. The symptoms are aggravated by nothing. The symptoms are alleviated by nothing. Severity of symptoms: At their worst the symptoms were mild in the emergency department the symptoms have resolved. The patient has experienced a previous episode. Patient reports after dialysis thinks she ate too early and threw up 1 time. After throwing up felt fine. Currently asymptomatic. Has happened before when tries to eat shortly after dialysis. Prior to dialysis session she felt fine without any complaints. No recent illness or fever. No abdominal pain. Currently feels at baseline.. Historical: - Allergies: 15:47 No Known Allergies; hb - Home Meds: 15:47 amlodipine-benazepril 10-40 mg Oral cap 1 cap once daily [Active]; hydrochlorothiazide hb 25 mg Oral tab 1 tab once daily [Active]; metoprolol succinate 100 mg Oral Tb24 1 tab once daily [Active]; - PMHx: 15:47 Dialysis; Hypertension; hb - Immunization history:: Adult Immunizations up to date. - Infectious Disease History:: Denies. - Social history:: Smoking status: Patient denies any tobacco usage or history of. - Family history:: not pertinent. - Hospitalizations: : No recent hospitalization is reported. ROS: 17:13 Constitutional: Negative for fever, chills, and weight loss, Cardiovascular: Negative rn for chest pain, palpitations, and edema, Respiratory: Negative for shortness of breath, cough, wheezing, and pleuritic chest pain, Abdomen/GI: Negative for abdominal pain, diarrhea, and constipation, MS/Extremity: Negative for injury and deformity, Skin: Negative for injury, rash, and discoloration, Neuro: Negative for headache, weakness, numbness, tingling, and seizure, Exam: 17:13 Constitutional: This is a well developed, well nourished patient who is awake, alert, rn and in no acute distress. Cardiovascular: Regular rate and rhythm. No pulse deficits. Respiratory: No increased work of breathing, no retractions or nasal flaring. Abdomen/GI: Soft, non-tender Neuro: Awake and alert, GCS 15, oriented to person, place, time, and situation. Cranial nerves II-XII grossly intact. Motor strength 5/5 in all extremities. Sensory grossly intact. Vital Signs: 15:46 BP 152 / 65; Pulse 69; Resp 16; Temp 98.3(TE); Pulse Ox 100% on R/A; Weight 79.38 kg; hb Height 4 ft. 11 in. ; Pain 0/10; 16:45 BP 146 / 86; Pulse 68; Resp 16; Pulse Ox 99% on R/A; Pain 0/10; hb 15:46 Body Mass Index 35.35 (79.38 kg, 149.86 cm) hb 15:46 Pain Scale: Adult hb 16:45 Pain Scale: Adult hb MDM: 15:46 Patient medically screened. rn 17:13 Differential diagnosis: Postdialysis reaction. Data reviewed: vital signs, nurses rn notes, and as a result, I will discharge patient. Counseling: I had a detailed discussion with the patient and/or guardian regarding the historical points, exam findings, and any diagnostic results supporting the discharge/admit diagnosis, the need for outpatient follow up, to return to the emergency department if symptoms worsen or persist or if there are any questions or concerns that arise at home. Response to treatment: the patient's symptoms have resolved after treatment, the patient's condition has returned to base line, the patient is now symptom free. ED course: Patient back to baseline. No further symptoms here. States feels fine. After joint discussion with patient and family member we opted for observation. Here and discharged without workup if symptoms resolved, which they did. Given strict return precautions and patient will return if anything worsens or symptoms return outside of dialysis.. Administered Medications: No medications were administered Disposition Summary: 08/22/23 17:01 Discharge Ordered Notes: Location: Home rn Problem: new rn Symptoms: are resolved rn Condition: Stable rn Diagnosis - End stage renal disease rn - Nausea with vomiting, unspecified rn Followup: rn - With: Private Physician - When: As needed - Reason: Recheck today's complaints, Re-evaluation by your physician Discharge Instructions: - Discharge Summary Sheet rn - Nausea and Vomiting, Adult rn - pattern attendant Forms: - Medication Reconciliation Form rn - Antibiotic claim attorney - Prescription Opioid Use rn - Patient Portal Instructions rn - Leadership Thank You Letter rn Signatures: Maynor Lucas MD MD rn Roslyn Godfrey RN RN
[2023-08-22 18:29] VITALS: BP 152/65; TEMP 98.3; O2SAT 100
== END 2023-08-22 17:31 | disposition home or self-care (01) ==
LOC: ER 15:36
DX: R11.2 Nausea with vomiting, unspecified (principal); I12.0 Hypertensive chronic kidney disease with stage 5 chronic kidney disease or end stage renal disease; N18.6 End stage renal disease; Z99.2 Dependence on renal dialysis
CPT/HCPCS: 99283

== ENCOUNTER 2023-12-29 14:31 | Emergency (ER) | payer OTHER ==
[2023-12-29 15:42] LABS: Absolute Basophils 0.1 K/uL (0-0.5); Absolute Eosinophils 0.3 K/uL (0-0.5); Absolute Lymphocytes (CBC) 1.6 K/uL (0.7-4.9); Absolute Monocytes 0.5 K/uL (0.1-1.3); Absolute Neutrophil 3.1 K/uL (1.8-8.0); Basophils % 1.5 % (0-1.3); Hematocrit 30.8 % (36.0-45.0); Hemoglobin 10.7 g/dL (12.0-15.0); Lymphocytes % 28.7 % (15.3-44.8); MCH 33.8 pg (27.0-35.0); MCHC 34.7 g/dL (32.0-36.0); MCV 97.2 fL (80-100); Monocytes % 8.7 % (3.3-12.3); Neutrophils % 55.1 % (41.7-73.7); Nucleated Red Blood Cells % 0.1 % (0-0); Platelets 325 thou/uL (152-406); RBC Red Blood Cell Count 3.16 M/uL (3.86-4.86); Red Cell Distribution Width 16.4 % (12.1-15.2)
--- NOTE | 2023-12-29 15:55 | RAD REPORT ---
EXAMINATION: ONE VIEW CHEST XR CLINICAL INDICATION: PALPITATIONS TECHNIQUE: Frontal chest projection is submitted. Examination is limited by patient positioning and t echnique. COMPARISON: 08/11/2023 FINDINGS: Mild interstitial pulmonary edema. The heart is moderately enlarged in size. No displaced fractures i dentified. Right venous catheters tip in SVC. IMPRESSION: Mild CHF versus volume overload.
[2023-12-29 15:57] LABS: Albumin 3.5 g/dL (3.4-5.0); Albumin/Globulin Ratio 0.7 (1.1-1.8); Alkaline Phosphatase 64 U/L (45-117); Anion Gap 9.5 mEq/L (5.0-15.0); BUN Blood Urea Nitrogen 12 mg/dL (7-18); Bicarbonate 27 mEq/L (21-32); Bilirubin Total 0.4 mg/dL (0.2-1.0); Globulin 5.3 g/dL (2.3-3.5); Glomerular Filtration Rate 11 ml/min (=/>90); Glucose Level 87 mg/dL (74-106); Protein, Total 8.8 g/dL (6.4-8.2); Sodium Level 133 mEq/L (136-145)
[2023-12-29 16:13] LABS: ALT/SGPT < 14 U/L (13-56); AST/SGOT 17 U/L (15-37); Potassium 4.5 mEq/L (3.5-5.1)
--- NOTE | 2023-12-29 16:47 | EDPHYS ---
Physician Documentation [facility] Name: Amanda Bermudez Age: 73 yrs Sex: Female : 1950 Arrival Date: 12/29/2023 Time: 14:31 Bed 25 Private MD: ED Physician Jeff Garcia HPI: 12/28 14:48 This 73 yrs old Black Female presents to ER via Ambulatory with complaints of High kb Blood Pressure, wants heart checked. 14:48 Pt is a 73 year old female who presents to have her heart checked. States she got cold kb during dialysis today (adamant that is was not chills) which is abnormal for her and her blood pressure has been high. States her BP is sometimes high during and after dialysis but today she thought she should come get checked out. denies chest pain, other pain, shortness of breath. Historical: - Allergies: 14:44 No Known Allergies; tm6 - PMHx: 14:44 Dialysis; T; Hypertension; tm6 - PSHx: 14:44 Dialysis fistula- left arm; tm6 - Infectious Disease History:: Denies. - Social history:: Smoking status: Patient denies any tobacco usage or history of. Patient/guardian denies using alcohol. ROS: 14:51 Constitutional: As per HPI kb Exam: 14:51 Constitutional: This is a well developed, well nourished patient who is awake, alert, kb and in no acute distress. Head/Face: Normocephalic, atraumatic. ENT: Moist Mucous membranes Respiratory: Respirations even and unlabored. No increased work of breathing. Talking in full sentences Skin: Warm, dry with normal turgor. Normal color. MS/ Extremity: Pulses equal, no cyanosis. Neurovascular intact. Full, normal range of motion. Neuro: Awake and alert, GCS 15, oriented to person, place, time, and situation. 14:51 Cardiovascular: Rate: normal, Heart sounds: murmur, 16:23 ECG was reviewed by the Attending Physician. kb Vital Signs: 14:41 BP 196 / 96; Pulse 81; Resp 19; Temp 98.2(O); Pulse Ox 100% on R/A; MAP 126 mmHg; Pain tm6 0/10; 16:19 BP 174 / 75; Pulse 64; Resp 16; Pulse Ox 98% on R/A; jb4 17:08 BP 165 / 80; Pulse 64; Resp 16; Pulse Ox 98% on R/A; jb4 14:41 Pain Scale: Adult tm6 MDM: 14:37 Medical Screening Exam initiated kb 16:46 Differential diagnosis: hypertensive crisis, Malignant HTN, primary hypertension, kb arrhythmia. Data reviewed: vital signs, nurses notes. Counseling: I had a detailed discussion with the patient and/or guardian regarding the historical points, exam findings, and any diagnostic results supporting the discharge/admit diagnosis, lab results, radiology results, the need for outpatient follow up, a family practitioner, to return to the emergency department if symptoms worsen or persist or if there are any questions or concerns that arise at home. 12/28 14:47 Order name: CBC with Diff; Complete Time: 15:47 kb 12/28 14:47 Order name: CMP; Complete Time: 16:17 kb 12/28 14:47 Order name: XRAY Chest (1 view); Complete Time: 15:56 kb 12/28 14:47 Order name: EKG - Nurse/Tech; Complete Time: 16:18 kb 12/28 14:47 Order name: IV Saline Lock; Complete Time: 15:28 kb 12/28 14:47 Order name: Labs collected and sent; Complete Time: 15:28 kb 12/28 16:17 Order name: Vital Signs; Complete Time: 16:18 kb 12/28 16:18 Order name: Misc. Order: please obtain EKG; Complete Time: 16:18 kb EC:23 Rate is 64 beats/min. Rhythm is regular. QRS [place] is Normal. DC interval is normal at kb 196 msec. QRS interval is normal at 100 msec. QT interval is normal at 451 msec. Administered Medications: No medications were administered Disposition Summary: 12/29/23 16:46 Discharge Ordered Notes: Location: Home kb Condition: Stable kb Diagnosis - Essential (primary) hypertension kb Followup: kb - With: Emergency Department - When: As needed - Reason: Worsening of condition Followup: kb - With: Private Physician - When: 2 - 3 days - Reason: Recheck today's complaints, Continuance of care, Re-evaluation by your physician Discharge Instructions: - Discharge Summary Sheet kb - Hypertension, Adult, [id number] kb Forms: - Medication Reconciliation Form kb - Antibiotic Education kb - Prescription Opioid Use kb - Patient Portal Instructions kb - Leadership Thank You Letter kb Signatures: Dispatcher [employer] EDMS Linda Diaz, FOOD AIDE-C DANISH-Dipak Sagastume RN RN tm6 Corrections: (The following items were deleted from the chart) 14:47 14:47 CBC+H.LAB.BRZ ordered. EDMS EDMS 14:47 14:47 COMPREHENSIVE METABOLIC PANEL+C.LAB.BRZ ordered. EDMS EDMS 14:47 14:47 Chest Single View+RAD.RAD.BRZ ordered. EDMS EDMS
--- NOTE | 2023-12-29 16:47 | ER ---
Nurse's Notes [facility] Name: Amanda Bermudez Age: 73 yrs Sex: Female : 1950 Arrival Date: 12/29/2023 Time: 14:31 Bed 25 Private MD: Diagnosis: Essential (primary) hypertension Presentation: 12/28 14:42 Chief complaint: Patient states: I had dialysis this morning and I felt cold afterward, tm6 and I usually don't feel that way. I also think my blood pressure is high and I want my heart checked. No pain, no n/v/d. Coronavirus screen: Client denies travel out of the [place] in the last 14 days. Ebola Screen: Patient negative for fever greater than or equal to 101.5 degrees Fahrenheit, and additional compatible Ebola Virus Disease symptoms Patient denies exposure to infectious person. Patient denies travel to an Ebola-affected area in the 21 days before illness onset. No symptoms or risks identified at this time. Initial Sepsis Screen: Does the patient meet any 2 criteria? No. Patient's initial sepsis screen is negative. Does the patient have a suspected source of infection? No. Patient's initial sepsis screen is negative. Risk Assessment: Do you want to hurt yourself or someone else? Patient reports no desire to harm self or others. Onset of symptoms was December 29, 2023. 14:42 Method Of Arrival: Ambulatory tm6 14:42 Acuity: DASHA 3 tm6 Triage Assessment: 14:42 General: Appears in no apparent distress. Behavior is calm, cooperative. Pain: Denies tm6 pain. EENT: No signs and/or symptoms were reported regarding the EENT system. Neuro: Level of Consciousness is awake, alert, obeys commands, Oriented to person, place, time, situation. Cardiovascular: Patient's skin is warm and dry. Respiratory: Airway is patent Respiratory effort is even, unlabored, Respiratory pattern is regular, symmetrical. GI: Abdomen is flat, non-distended. GI: No signs and/or symptoms were reported involving the gastrointestinal system. : No signs and/or symptoms were reported regarding the genitourinary system. Derm: No signs and/or symptoms reported regarding the dermatologic system. Musculoskeletal: No signs and/or symptoms reported regarding the musculoskeletal system. Historical: - Allergies: 14:44 No Known Allergies; tm6 - PMHx: 14:44 Dialysis; T; Hypertension; tm6 - PSHx: 14:44 Dialysis fistula- left arm; tm6 - Infectious Disease History:: Denies. - Social history:: Smoking status: Patient denies any tobacco usage or history of. Patient/guardian denies using alcohol. Screenin:08 [facility] ED Fall Risk Assessment (Adult) History of falling in the last 3 months, jb4 including since admission No falls in past 3 months (0 pts) Confusion or Disorientation No (0 pts) Intoxicated or Sedated No (0 pts) Impaired Gait No (0 pts) Mobility Assist Device Used No (0 pt) Altered Elimination No (0 pt) Score/Fall Risk Level 0 - 2 = Low Risk Oriented to surroundings, Maintained a safe environment. Abuse screen: Denies threats or abuse. Nutritional screening: No deficits noted. Tuberculosis screening: No symptoms or risk factors identified. Assessment: 15:00 General: Appears in no apparent distress. comfortable, Behavior is calm, cooperative, jb4 appropriate for age. Pain: Denies pain. Neuro: Level of Consciousness is awake, alert, obeys commands, Oriented to person, place, time, situation. Cardiovascular: Patient's skin is warm and dry. Respiratory: Airway is patent Respiratory effort is even, unlabored, Respiratory pattern is regular, symmetrical. Derm: Skin is intact, Skin is dry, Skin is normal, Skin temperature is warm. 16:00 Reassessment: Patient appears in no apparent distress at this time. Patient and/or jb4 family updated on plan of care and expected duration. Pain level reassessed. Patient is alert, oriented x 3, equal unlabored respirations, skin warm/dry/pink. 17:08 Reassessment: Patient appears in no apparent distress at this time. Patient and/or jb4 family updated on plan of care and expected duration. Pain level reassessed. Patient is alert, oriented x 3, equal unlabored respirations, skin warm/dry/pink. Vital Signs: 14:41 BP 196 / 96; Pulse 81; Resp 19; Temp 98.2(O); Pulse Ox 100% on R/A; MAP 126 mmHg; Pain tm6 0/10; 16:19 BP 174 / 75; Pulse 64; Resp 16; Pulse Ox 98% on R/A; jb4 17:08 BP 165 / 80; Pulse 64; Resp 16; Pulse Ox 98% on R/A; jb4 14:41 Pain Scale: Adult tm6 ED Course: 14:34 Patient arrived in ED. im 14:37 Linda Diaz [facility]-C [facility] kb 14:37 Jeff Garcia MD is Attending Physician. kb 14:42 Arm band placed on right wrist. tm6 14:43 Triage completed. tm6 15:27 Inserted saline lock: 22 gauge in right antecubital area, using aseptic technique. jb4 Blood collected. 15:28 Henry Davis, RN is Primary Nurse. jb4 15:28 CBC with Diff Sent. jb4 15:28 CMP Sent. jb4 15:43 XRAY Chest (1 view) In Process Unspecified. EDMS 17:08 Patient has correct armband on for positive identification. Bed in low position. Call jb4 light in reach. Side rails up X 1. Provided Education on: discharge instructions.. 17:08 No provider procedures requiring assistance completed. IV discontinued, intact, jb4 bleeding controlled, No redness/swelling at site. Pressure dressing applied. Administered Medications: No medications were administered Medication: 17:08 VIS not applicable for this client. jb4 Outcome: 16:46 Discharge ordered by MD. kb 17:11 Discharged to home ambulatory, with family, jb4 17:11 Condition: stable 17:11 Discharge instructions given to patient, Instructed on discharge instructions, follow up and referral plans. Demonstrated understanding of instructions, follow-up care, 17:11 Patient left the ED. jb4 Signatures: Dispatcher [employer] EDGA Linda Diaz FNP-C FNP-Ck Henry Davis, RN RN jb4 Marei Padilla Dipak Vick RN RN tm6 Corrections: (The following items were deleted from the chart) 17:11 15:27 Discharged to home ambulatory, with family, jb4 jb4 17:11 15:27 Condition: stable jb4 jb4 17:11 15:27 Discharge instructions given to patient, Instructed on discharge instructions, jb4 follow up and referral plans. Demonstrated understanding of instructions, follow-up care, jb4
[2023-12-29 17:28] VITALS: TEMP 98.2
[2023-12-29 17:34] VITALS: O2SAT 98
[2023-12-29 17:35] VITALS: BP 165/80
== END 2023-12-29 17:11 | disposition home or self-care (01) ==
LOC: ER 14:31
DX: I10 Essential (primary) hypertension (principal); Z99.2 Dependence on renal dialysis
CPT/HCPCS: 36415; 71045; 80053; 85025

== ENCOUNTER 2024-03-02 12:55 | Inpatient (IN) | payer BC, OTHER ==
[2024-03-02] MEDS ORDERED: LEVALBUTEROL 1.25 MG/3 ML NEB ONE (13:23)
[2024-03-02] MEDS ORDERED: IPRATROPIUM BROM 0.5MG/2.5ML ONE (13:23)
--- NOTE | 2024-03-02 13:50 | RAD REPORT ---
EXAMINATION: ONE VIEW CHEST XR CLINICAL INDICATION: COUGH TECHNIQUE: Frontal chest projection is submitted. Examination is limited by patient positioning and t echnique. COMPARISON: 12/29/2023 FINDINGS: Extensive bilateral pulmonary opacities may represent pneumonia or pulmonary edema. The heart is mode rately enlarged. Right-sided venous catheter tip in the SVC.
[2024-03-02 14:09] LABS: ALT/SGPT < 14 U/L (13-56); AST/SGOT 14 U/L (15-37); Albumin 2.8 g/dL (3.4-5.0); Albumin/Globulin Ratio 0.6 (1.1-1.8); Alkaline Phosphatase 52 U/L (45-117); Anion Gap 12.5 mEq/L (5.0-15.0); BUN Blood Urea Nitrogen 22 mg/dL (7-18); Bicarbonate 24 mEq/L (21-32); Bilirubin Direct 0.6 mg/dL (0-0.2); Bilirubin Indirect, Calculated 0.7 mg/dL (0.2-0.8); Bilirubin Total 1.3 mg/dL (0.2-1.0); Globulin 4.6 g/dL (2.3-3.5); Glomerular Filtration Rate 8 ml/min (=/>90); Glucose Level 104 mg/dL (74-106); Magnesium 2.2 mg/dL (1.6-2.4); Potassium 3.5 mEq/L (3.5-5.1); Protein, Total 7.4 g/dL (6.4-8.2); Sodium Level 135 mEq/L (136-145)
[2024-03-02 14:16] LABS: PT Prothrombin Time 13.5 SECONDS (9.4-12.5); Protime INR 1.21; SARS-CoV-2 Antigen CONTROL BLUE LINE VIS/BG OK; SARS-CoV-2 Antigen Rapid Res Negative (Negative)
--- NOTE | 2024-03-02 15:19 | ER ---
Nurse's Notes [facility] Name: Amanda Bermudez Age: 74 yrs Sex: Female : 1950 Arrival Date: 03/02/2024 Time: 12:55 Bed 7 Private MD: Diagnosis: Hypoxia;Weakness Presentation: 03/02 13:16 Coronavirus screen: Client denies travel out of the [place] in the last 14 days. Ebola tm6 Screen: Patient negative for fever greater than or equal to 101.5 degrees Fahrenheit, and additional compatible Ebola Virus Disease symptoms Patient denies exposure to infectious person. Patient denies travel to an Ebola-affected area in the 21 days before illness onset. No symptoms or risks identified at this time. Initial Sepsis Screen: Does the patient meet any 2 criteria? No. Patient's initial sepsis screen is negative. Does the patient have a suspected source of infection? No. Patient's initial sepsis screen is negative. Risk Assessment: Do you want to hurt yourself or someone else? Patient reports no desire to harm self or others. Onset of symptoms was February 29, 2024. 13:16 Method Of Arrival: Wheelchair tm6 13:16 Acuity: DASHA 3 tm6 13:17 Chief complaint: Patient's son or daughter states: x2 weeks of feeling weak, no energy, tm6 poor appetite, cough. Been taking a new medication, we suspect the medicine is making her tired. Triage Assessment: 13:17 General: Appears in no apparent distress. Behavior is calm, cooperative. Pain: Denies tm6 pain. EENT: No signs and/or symptoms were reported regarding the EENT system. Neuro: Level of Consciousness is awake, alert, obeys commands, Oriented to person, place, Reports general weakness x2 weeks. Cardiovascular: Patient's skin is warm and dry. Respiratory: Airway is patent Respiratory effort is even, unlabored, Respiratory pattern is regular, symmetrical. Respiratory: Reports cough that is. GI: Abdomen is flat, non-distended. : No signs and/or symptoms were reported regarding the genitourinary system. Derm: No signs and/or symptoms reported regarding the dermatologic system. Musculoskeletal: Reports general weakness x2 weeks. Historical: - Allergies: 13:16 No Known Allergies; tm6 - PMHx: 13:16 Dialysis; T; Hypertension; tm6 - PSHx: 13:16 Dialysis fistula- left arm; tm6 - Immunization history:: Flu vaccine is not up to date. - Infectious Disease History:: Denies. - Social history:: Smoking status: Patient denies any tobacco usage or history of. Screenin:01 [facility] ED Fall Risk Assessment (Adult) History of falling in the last 3 months, rs5 including since admission No falls in past 3 months (0 pts) Confusion or Disorientation No (0 pts) Intoxicated or Sedated No (0 pts) Impaired Gait Yes (1 pt) Mobility Assist Device Used Yes (1 pt) Altered Elimination No (0 pt) Score/Fall Risk Level 0 - 2 = Low Risk Oriented to surroundings, Maintained a safe environment. Abuse screen: Denies threats or abuse. Nutritional screening: No deficits noted. Tuberculosis screening: No symptoms or risk factors identified. Assessment: 13:05 General: Appears in no apparent distress. uncomfortable, Behavior is calm, cooperative. rs5 Pain: Denies pain. Neuro: Level of Consciousness is awake, alert, obeys commands, Oriented to person, place, time, situation, Reports generalized weakness. 13:05 Cardiovascular: Patient's skin is warm and dry. Respiratory: Airway is patent rs5 Respiratory effort is even, unlabored, Respiratory pattern is regular, symmetrical. GI: Abdomen is round non-distended, Abd is soft and non tender X 4 quads. : No signs and/or symptoms were reported regarding the genitourinary system. EENT: No signs and/or symptoms were reported regarding the EENT system. Derm: Skin is intact, Skin is pink, warm \T\ dry. Musculoskeletal: Range of motion: intact in all extremities. 14:15 Reassessment: Patient and/or family updated on plan of care and expected duration. Pain rs5 level reassessed. Patient is alert, oriented x 3, equal unlabored respirations, skin warm/dry/pink. 16:17 Reassessment: PREVIOUS PIV FAILED. U/S GUIDED ATTEMPTED x2 UNSUCCESSFULLY. PROVIDER bp NOTIFIED, HOUSE SUP PENDING FOR FURTHER ATTEMPTS. 17:00 Reassessment: Dr. Ross notified of unsuccessful attempts to obtain IV access. Dr. mercedes Ross states he will notify nephrology for approval of possible midline/ PICC insertion VIA dynamic access team. 17:24 Reassessment: Dr. Ross states that Dr. Griffin said ok to MIDLINE. NO PICC LINE. ss 18:54 Reassessment: Patient and/or family updated on plan of care and expected duration. Pain rs5 level reassessed. Patient is alert, oriented x 3, equal unlabored respirations, skin warm/dry/pink. 20:29 Reassessment: NOTIFIED 2ND FLOOR THAT 20G US GUIDED IV INFILTRATE AND WAS D/C. IM dd2 ROCEPHIN ADMINISTERED ORDERED AND PICC TEAM IN ROUTE. Vital Signs: 13:15 BP 151 / 76; Pulse 86; Resp 19; Temp 98.4(O); Pulse Ox 82% on R/A; MAP 97 mmHg; Weight tm6 68.49 kg; Height 5 ft. 2 in. ; Pain 0/10; 13:16 Pulse Ox 93% on 5 lpm NC; tm6 14:42 BP 139 / 71; Pulse 82; Resp 15; Pulse Ox 95% on 2 lpm NC; ko1 16:30 BP 142 / 74; Pulse 78; Resp 16; Pulse Ox 97% on 2 lpm NC; ko1 13:15 Body Mass Index 27.62 (68.49 kg, 157.48 cm) tm6 13:15 Pain Scale: Adult tm6 ED Course: 12:58 Patient arrived in ED. ra3 12:58 Linda Diaz FNP-C [facility]. kb 12:58 Maynor Lucas MD is Attending Physician. kb 13:01 Patient has correct armband on for positive identification. Bed in low position. Call rs5 light in reach. Side rails up X2. 13:01 No provider procedures requiring assistance completed. rs5 13:02 Tania Sierra, RN is Primary Nurse. ko1 13:15 Missed attempt(s): 22 gauge Bleeding controlled, band aid applied, catheter tip intact. rs5 13:15 EKG done, by ED staff, reviewed by Linda HUANG. Initial Neb Treatment Given ko1 as ordered Patient was instructed and evaluated on procedure Patient tolerated procedure well without adverse effect. 13:16 Triage completed. tm6 13:17 Arm band placed on right wrist. tm6 13:41 Chest Single View XRAY In Process Unspecified. EDMS 14:49 Provided Education on: meds, labs. Client placed on continuous cardiac and pulse ko1 oximetry monitoring. NIBP monitoring applied. pvc monitor on. Door closed. Noise minimized. Lights dimmed. Warm blanket given. Pillow given. 15:02 Accessed peripheral vein via ultrasound, utilizing dynamic ultrasound technique using ss 20G Nexia IV catheter ,sterile technique, per hospital protocol. Clean \T\ dry. Dressing intact. Good blood return. Flushes easily. 15:17 Trent Ross is Hospitalizing Provider. kb 15:51 Patient admitted, IV remains in place. ko1 16:45 Missed attempt(s): 22 gauge in right forearm. attempt VIA US. Bleeding controlled, band ss aid applied, catheter tip intact. 19:56 Accessed peripheral vein via ultrasound, utilizing dynamic ultrasound technique using vc1 20G Nexia IV catheter ,sterile technique, per hospital protocol. Clean \T\ dry. Dressing intact. No blood return. Flushes easily. Administered Medications: 13:28 Drug: Levalbuterol Inhalation 1.25 mg Inhalation once Route: Inhalation; ko1 14:01 Follow up: Response: No adverse reaction rs5 13:28 Drug: Ipratropium Inhalation Aerosol 0.5 mg Inhalation once Route: Inhalation; ko1 14:05 Follow up: Response: No adverse reaction rs5 19:53 Not Given (Other Intervention Used): rocephin1 grams IV at calculated rate once; Given vc1 slow IV push per pharmacy instructions 20:27 Drug: Rocephin (cefTRIAXone) IM 1 grams IM once Route: IM; Site: left ventrogluteal; dd2 Medication: 13:47 VIS not applicable for this client. rs5 Outcome: 15:18 Decision to Hospitalize by Provider. kb 15:51 Condition: stable ko1 15:51 Instructed on the need for admit, 20:30 Admitted to Med/surg accompanied by [facility], room 203, with chart, dd2 20:43 Patient left the ED. dd2 Signatures: Dispatcher [employer] EDMS Linda Diaz, SAL PENG-Renee Dumont RN RN ss Milton Murcia RN RN bp Leonora Parikh RN RN vc1 Tania Sierra RN RN ko1 Romulo Leong RN RN rs5 Dipak Vick RN RN 6 Valentine Zurita ra3 MOOKIE SKELTON RN RN dd2 Corrections: (The following items were deleted from the chart) 20:28 19:53 Zithromax IVPB 500 mg IVPB in right upper arm over 1 hrs dd2 dd2
--- NOTE | 2024-03-02 15:19 | EDPHYS ---
Physician Documentation [facility] Name: Amanda Bermudez Age: 74 yrs Sex: Female : 1950 Arrival Date: 03/02/2024 Time: 12:55 Bed 7 Private MD: ED Physician Maynor Lucas HPI: 03/02 13:13 This 74 yrs old Black Female presents to ER via Unassigned with complaints of Weakness. kb 13:13 Pt is a 74 year old female who presents for weakness that started 2 weeks ago and cough kb for one week. Denies fever. States she has been taking a new medication, acetazolamide, for glaucoma and has an upcoming surgery at the end of the month. Pt and family state they thought the weakness was due to the medication. States she was supposed to go to the power cleaner operator today for clearance for surgery, but the weakness was worse so they decided to come here instead to get evaluated. Denies chest pain, shortness of breath. Pt is on HD on and has not missed any sessions. . Historical: - Allergies: 13:16 No Known Allergies; tm6 - PMHx: 13:16 Dialysis; T; Hypertension; tm6 - PSHx: 13:16 Dialysis fistula- left arm; tm6 - Immunization history:: Flu vaccine is not up to date. - Infectious Disease History:: Denies. - Social history:: Smoking status: Patient denies any tobacco usage or history of. ROS: 13:11 Constitutional: As per HPI kb Exam: 13:11 Constitutional: This is a well developed, well nourished patient who is awake, alert, kb and in no acute distress. Head/Face: Normocephalic, atraumatic. ENT: Moist Mucous membranes Cardiovascular: Regular rate Respiratory: Respirations even and unlabored. No increased work of breathing. Talking in full sentences Abdomen/GI: Soft, non-tender. No distention Skin: Warm, dry with normal turgor. Normal color. MS/ Extremity: Pulses equal, no cyanosis. Neurovascular intact. Full, normal range of motion. Neuro: Awake and alert, GCS 15, oriented to person, place, time, and situation. 13:45 ECG was reviewed by the Attending Physician. kb Vital Signs: 13:15 BP 151 / 76; Pulse 86; Resp 19; Temp 98.4(O); Pulse Ox 82% on R/A; MAP 97 mmHg; Weight tm6 68.49 kg; Height 5 ft. 2 in. ; Pain 0/10; 13:16 Pulse Ox 93% on 5 lpm NC; tm6 14:42 BP 139 / 71; Pulse 82; Resp 15; Pulse Ox 95% on 2 lpm NC; ko1 16:30 BP 142 / 74; Pulse 78; Resp 16; Pulse Ox 97% on 2 lpm NC; ko1 13:15 Body Mass Index 27.62 (68.49 kg, 157.48 cm) tm6 13:15 Pain Scale: Adult tm6 MDM: 12:58 Medical Screening Exam initiated kb 13:11 Data reviewed: vital signs, nurses notes. Historians other than the Patient: Family kb Member: family members. 13:16 Care significantly affected by the following chronic conditions: Chronic Kidney Disease.kb 15:19 Consideration of Admission/Observation Patient was admitted/placed on observation. kb Escalation of care including admission/observation considered. Management of patient was discussed with the following: Hospitalist: Hospitalist team, pt accepted for admission under Dr Ross. Test considered but Not performed: CT: CT chest considered but unavailable. Counseling: I had a detailed discussion with the patient and/or guardian regarding the historical points, exam findings, and any diagnostic results supporting the discharge/admit diagnosis, lab results, radiology results, the need for further work-up and treatment in the hospital. 03/02 13:10 Order name: Basic Metabolic Panel; Complete Time: 14:11 kb 03/02 13:10 Order name: CBC with Diff; Complete Time: 16:38 kb 03/02 13:10 Order name: Hepatic Function; Complete Time: 14:11 kb 03/02 13:10 Order name: Magnesium; Complete Time: 14:11 kb 03/02 13:10 Order name: Protime (+inr); Complete Time: 15:20 kb 03/02 13:10 Order name: Urinalysis w/ reflexes kb 03/02 13:10 Order name: Flu; Complete Time: 14:18 kb 03/02 13:10 Order name: SARS-COV-2 Antigen Rapid; Complete Time: 14:18 kb 03/02 14:18 Order name: Blood Culture Adult (2) kb 03/02 14:18 Order name: Lactate w/ 2H reflex if indic.; Complete Time: 15:58 kb 03/02 15:19 Order name: PTT, Activated Partial Thromb; Complete Time: 15:30 EDMS 03/02 13:10 Order name: Chest Single View XRAY; Complete Time: 14:07 kb 03/02 13:10 Order name: Cardiac monitoring; Complete Time: 13:12 kb 03/02 13:10 Order name: EKG - Nurse/Tech; Complete Time: 13:35 kb 03/02 13:10 Order name: IV Saline Lock; Complete Time: 14:48 kb 03/02 13:10 Order name: Labs collected and sent; Complete Time: 13:35 kb 03/02 13:10 Order name: NPO; Complete Time: 13:12 kb 03/02 13:10 Order name: O2 Per Protocol; Complete Time: 13:12 kb 03/02 13:10 Order name: O2 Sat Monitoring; Complete Time: 13:12 kb EC:45 Rate is 75 beats/min. Rhythm is irregularly irregular. QRS [place] is Normal. QRS interval kb is normal at 92 msec. QT interval is normal at 446 msec. Administered Medications: 13:28 Drug: Levalbuterol Inhalation 1.25 mg Inhalation once Route: Inhalation; ko1 14:01 Follow up: Response: No adverse reaction rs5 13:28 Drug: Ipratropium Inhalation Aerosol 0.5 mg Inhalation once Route: Inhalation; ko1 14:05 Follow up: Response: No adverse reaction rs5 19:53 Not Given (Other Intervention Used): rocephin1 grams IV at calculated rate once; Given vc1 slow IV push per pharmacy instructions 20:27 Drug: Rocephin (cefTRIAXone) IM 1 grams IM once Route: IM; Site: left ventrogluteal; dd2 Disposition: 03/03 06:59 Co-signature as Attending Physician, Maynor Lucas MD I reviewed the patient's care rn provided by the Advanced Practice Provider and agree with the diagnosis and treatment plan. Disposition Summary: 03/02/24 15:18 Hospitalization Ordered Notes: Hospitalization Status: Observation kb Provider: Trent Ross Location: Telemetry/MedSurg (observation) kb Condition: Stable kb Problem: new kb Symptoms: are unchanged kb Bed/Room Type: Standard Room Assignment: 203(03/02/24 18:36) em1 Diagnosis - Hypoxia kb - Weakness kb Forms: - Medication Reconciliation Form kb - SBAR form kb - Leadership Thank You Letter kb Signatures: Dispatcher [employer] EDMS Linda Diaz, CRUSHER LOADER OPERATOR-C CRUSHER LOADER OPERATOR-Maynor Germain MD MD rn Martinez, Eric em1 Leonora Parikh, RN RN vc1 Tania Sierra RN RN ko1 Dipak Vick RN RN tm6 MOOKIE SKELTON RN RN dd2 Romulo Leong RN rs5 Corrections: (The following items were deleted from the chart) 03/02 13:10 13:10 BASIC METABOLIC PANEL+C.LAB.BRZ ordered. EDMS EDMS 13:10 13:10 CBC+H.LAB.BRZ ordered. EDMS EDMS 13:10 13:10 HEPATIC FUNCTION+C.LAB.BRZ ordered. EDMS EDMS 13:10 13:10 MAGNESIUM+C.LAB.BRZ ordered. EDMS EDMS 13:10 13:10 PROTIME (+INR)+COAG.LAB.BRZ ordered. EDMS EDMS 13:10 13:10 Urinalysis+U.LAB.BRZ ordered. EDMS EDMS 13:10 13:10 Influenza Screen (A \T\ B)+BA.LAB.BRZ ordered. EDMS EDMS 13:10 13:10 SARS-COV-2 Antigen Rapid+I.LAB.BRZ ordered. EDMS EDMS 13:11 13:11 Chest Single View+RAD.RAD.BRZ ordered. EDMS EDMS 13:16 13:13 Pt is a 74 year old female who presents for weakness that started 2 weeks ago and kb cough for one week. Denies fever. States she has been taking a new medication, acetazolamide, for glaucoma and has an upcoming surgery at the end of the month. Pt and family state they thought the weakness was due to the medication. States she was supposed to go to the power cleaner operator today for clearance for surgery, but the weakness was worse so they decided to come here instead to get evaluated. Denies chest pain, shortness of breath. . kb 15:18 13:10 PTT, ACTIVATED+COAG.LAB.BRZ ordered. EDMS EDMS 15:18 15:18 Pneumonia, unspecified organism kb kb 18:36 15:18 kb em1
[2024-03-02] MEDS ORDERED: AZITHROMYCIN 500 MG INJ IVPB ONE ×2 (15:26→19:59)
[2024-03-02] MEDS ORDERED: NA CHLORIDE 0.9% 0 ML ONE ×2 (15:26)
[2024-03-02] MEDS ORDERED: CEFTRIAXONE 1000 MG/VIAL ONE ×2 (15:32→19:59)
[2024-03-02 16:33] LABS: Absolute Eosinophils 0.1 K/uL (0-0.5); Absolute Lymphocytes (CBC) 0.4 K/uL (0.7-4.9); Absolute Monocytes 1.1 K/uL (0.1-1.3); Absolute Neutrophil 8.1 K/uL (1.8-8.0); Basophils % 0.4 % (0-1.3); Eosinophils % 1.1 % (0-4.4); Hematocrit 24.3 % (36.0-45.0); Hemoglobin 8.3 g/dL (12.0-15.0); Lymphocytes % 4.5 % (15.3-44.8); MCH 33.2 pg (27.0-35.0); MCHC 34.3 g/dL (32.0-36.0); MCV 96.7 fL (80-100); MPV 8.1 fL (7.6-11.3); Monocytes % 11.2 % (3.3-12.3); Neutrophils % 82.8 % (41.7-73.7); Platelets 269 thou/uL (152-406); RBC Red Blood Cell Count 2.52 M/uL (3.86-4.86); Red Cell Distribution Width 14.6 % (12.1-15.2)
[2024-03-02] MEDS ORDERED: ALBUTEROL 2.5 MG/3 ML NEB SOL NEB PRN (17:56)
--- NOTE | 2024-03-02 18:22 | P.HP ---
Certification for Inpatient Patient admitted to: Inpatient With expected LOS: >2 Midnights Practitioner: I am a practitioner with admitting privileges, knowledge of patient current condition, hospital course, and medical plan of care. Services: Services provided to patient in accordance with Admission requirements found in Title 42 Section 412.3 of the Code of Federal Regulations Patient History Date of Service: 03/02/24 History of Present Illness: 74-year-old woman with a history of end-stage renal disease on hemodialysis- Tuesdays, and Saturdays, hypertension and asthma was brought to the emergency department due to 2-week history of generalized weakness. Patient reports shortness of breath of 1 day duration. Her last dialysis was yesterday, patient reports compliance with dialysis. She was concerned her generalized weakness is caused by her new medication-acetazolamide prescribed for glaucoma. Patient was evaluated in the ED, chest x-ray demonstrated pulmonary edema versus pneumonia. Patient oxygen saturation was 82% on room air, up to 95% on 2 L of oxygen by nasal cannula. EKG demonstrated atrial fibrillation. Patient is hard stick, multiple attempts to insert a peripheral IV line has been unsuccessful. Patient given bronchodilator treatment and admitted for further management. Allergies No Known Allergies Allergy (Verified 01/06/23 14:49) Home Medications: Ensure High Protein 237 ml PO BID can 01/31/23 Epoetin [Procrit*] 6,000 unit IV EVERY HD vial 01/31/23 Furosemide [Lasix*] 40 mg PO DAILY tab 01/31/23 Medihoney [Medihoney Woundcare Gel*] 1 appl TOP SEECOM #0 tube 01/31/23 carvediloL [Coreg*] 3.125 mg PO BIDWM tab 01/31/23 - Past Medical/Surgical History Diabetic: No -: HTN -: asthma -: ESRD -: none -: Left antecubital AV fistula. Psychosocial/ Personal History: Patient lives at home by herself - Family History Sister -: Cancer - Social History Alcohol use: No CD- Drugs: No Caffeine use: Yes Review of Systems Other: Patient denied any chest pain or palpitation. She denied any nausea vomiting. She denied any diarrhea or abdominal pain. She reported intermittent cough. She reports loss of appetite. She denied any fever. Except as documented, all other systems reviewed and negative. Physical Examination - Physical Exam General: Alert, In no apparent distress, Oriented x3, Obese HEENT: Atraumatic, PERRLA, Mucous membr. moist/pink, Sclerae nonicteric Neck: Supple, JVD not distended Respiratory: Normal air movement, Other (Bibasilar crackles) Cardiovascular: No edema, Normal S1 S2, Irregular heart rate/rhythm Capillary refill: <2 Seconds Gastrointestinal: Normal bowel sounds, Soft and benign, Non-distended, No tenderness Musculoskeletal: Other (Left antecubital AV fistula) Integumentary: No rashes, No cyanosis Neurological: Normal speech, Normal strength at 5/5 x4 extr Lymphatics: No axilla or inguinal lymphadenopathy - Studies Laboratory Data (last 24 hrs) 03/02/24 03/02/24 03/02/24 15:02 15:02 13:30 WBC 9.80 Hgb 8.3 L Hct 24.3 L Plt Count 269 PT 13.5 H INR 1.21 APTT 28.1 Cancelled Sodium Potassium BUN Creatinine Glucose Magnesium Total Bilirubin AST ALT Alkaline Phosphatase 03/02/24 13:30 WBC Hgb Hct Plt Count PT INR APTT Sodium 135 L Potassium 3.5 BUN 22 H Creatinine 5.34 H Glucose 104 Magnesium 2.2 Total Bilirubin 1.3 H AST 14 L ALT < 14 Alkaline Phosphatase 52 Microbiology Data (last 24 hrs): 03/02/24 13:30 Nasopharnyx Influenza Type A Antigen Screen - Final 03/02/24 13:30 Nasopharnyx Influenza Type B Antigen Screen - Final Assessment and Plan - Plan Acute respiratory failure with hypoxia Pneumonia Admit patient to the medical floor. Consult PICC line team for midline placement. Start IV cefepime and vancomycin. Follow blood cultures obtained in the ED. Titrate oxygen. End-stage renal disease on hemodialysis Pulmonary edema Nephrology consult for hemodialysis. History of asthma Bronchodilators as needed. Essential hypertension Continue home medications. Atrial fibrillation Continue home medications. Glaucoma Patient attributes her generalized weakness to acetazolamide. Will hold acetazolamide and monitor her response. Generalized weakness PT consult. DVT prophylaxis: Heparin SQ Advanced directive: Full code. - Advance Directives Does patient have a Living Will: No Does patient have a Durable POA for Healthcare: No
[2024-03-02] MEDS ORDERED: NA CHLORIDE 0.9% 250 ML ONE (19:59)
[2024-03-02] MEDS ORDERED: WATER FOR INJ,STERILE 10 ML ONE (19:59)
[2024-03-02] MEDS: VANCOMYCIN 1.5 GM in NA CHLORIDE 0.9% 500 ML IVPB ONE (22:32)
[2024-03-03] MEDS: HEPARIN 5000 UNIT/ML 1 ML VIAL SQ SCH (00:07)
--- NOTE | 2024-03-03 04:59 | P.PN ---
noted to have elevated troponin, repeat ordered EKG and echo ordered patient denies chest pain history of esrd, on HD will order lovenox x 1 consider cardiology consultation in AM
[2024-03-03] MEDS ORDERED: ENOXAPARIN 100 MG/ML SYR SQ SCH (05:00)
[2024-03-03] MEDS: HEPARIN/D5W 25,000 UNIT/500 ML BAG IV SCH (06:54)
[2024-03-03 08:17] LABS: Anion Gap 11.4 mEq/L (5.0-15.0); Magnesium 2.1 mg/dL (1.6-2.4); Phosphorus 4.1 mg/dL (2.5-4.9); Potassium 3.4 mEq/L (3.5-5.1); Thyroid Stimulating Hormone 3.44 uIU/mL (0.358-3.740)
[2024-03-03 08:41] LABS: Absolute Basophils 0.1 K/uL (0-0.5); Absolute Eosinophils 0.2 K/uL (0-0.5); Absolute Lymphocytes (CBC) 0.3 K/uL (0.7-4.9); Absolute Monocytes 1.1 K/uL (0.1-1.3); Absolute Neutrophil 7.6 K/uL (1.8-8.0); Basophils % 1.1 % (0-1.3); Eosinophils % 1.6 % (0-4.4); Hemoglobin 6.4 g/dL (12.0-15.0); Lymphocytes % 3.6 % (15.3-44.8); MCH 31.4 pg (27.0-35.0); MCHC 33.9 g/dL (32.0-36.0); MCV 92.6 fL (80-100); MPV 7.6 fL (7.6-11.3); Monocytes % 11.5 % (3.3-12.3); Neutrophils % 82.2 % (41.7-73.7); Platelets 268 thou/uL (152-406); RBC Red Blood Cell Count 2.05 M/uL (3.86-4.86); Red Cell Distribution Width 14.8 % (12.1-15.2)
[2024-03-03] MEDS: CEFEPIME 1 GM in NA CHLORIDE 0.9% 100 ML IV SCH (09:00)
[2024-03-03] MEDS: ONDANSETRON 4 MG/2 ML VIAL IV PRN (09:30)
[2024-03-03] MEDS: FLU (Fluarix Triv) TS24-25(6MOS UP)/PF 45 MCG/0.5 ML Syringe IM ONE (12:00)
--- NOTE | 2024-03-03 13:14 | P.PN ---
Subjective Date of Service: 03/03/24 Patient denies any new complaint. She reports good sleep. She stated her shortness of breath is better. No recorded fever. Physical Examination - Vital Signs Temperature: 98.3 F Blood Pressure: 113/55 Pulse: 73 Respirations: 24 Pulse Ox (%): 95 - Studies Laboratory Data (last 24 hrs) 03/02/24 03/02/24 03/02/24 15:02 15:02 13:30 WBC 9.80 Hgb 8.3 L Hct 24.3 L Plt Count 269 PT 13.5 H INR 1.21 APTT 28.1 Cancelled Sodium Potassium BUN Creatinine Glucose Magnesium Total Bilirubin AST ALT Alkaline Phosphatase 03/02/24 13:30 WBC Hgb Hct Plt Count PT INR APTT Sodium 135 L Potassium 3.5 BUN 22 H Creatinine 5.34 H Glucose 104 Magnesium 2.2 Total Bilirubin 1.3 H AST 14 L ALT < 14 Alkaline Phosphatase 52 Microbiology Data (last 24 hrs): 03/02/24 13:30 Nasopharnyx Influenza Type A Antigen Screen - Final 03/02/24 13:30 Nasopharnyx Influenza Type B Antigen Screen - Final Assessment And Plan - Plan Physical examination General: Alert and oriented x3, NAD, HEENT: Conjunctiva not pale, anicteric sclera, oxygen by nasal cannula Neck: No elevated JVD Heart: Heart sounds 1 and 2 normal, irregular rhythm, normal rate, no pedal edema Lungs: Clear to auscultation bilaterally, adequate breath sounds bilaterally, no rhonchi or crackles. Abdomen: Soft, nondistended, nontender, normal bowel sounds. Extremities: No tenderness, no deformity Skin: Normal skin turgor, no rash, no nodules or ulcers. Neuro: No focal motor deficit. Normal speech. Psychiatry: Normal mood, no agitation. Plan: Acute respiratory failure with hypoxia Pneumonia Continue IV cefepime and vancomycin. Follow blood cultures. Wean oxygen. End-stage renal disease on hemodialysis Pulmonary edema Nephrology consult for hemodialysis is pending. History of asthma Bronchodilators as needed. Essential hypertension Continue home medications. Atrial fibrillation Continue home medications. Glaucoma Patient attributes her generalized weakness to acetazolamide. Will hold acetazolamide and monitor her response. Generalized weakness Patient ambulated without assistance but short distances. She may benefit from home health with PT and a walker. DVT prophylaxis: Heparin SQ Advanced directive: Full code.
[2024-03-03 14:38] LABS: Hematocrit 20.7 % (36.0-45.0); Hemoglobin 6.9 g/dL (12.0-15.0)
--- NOTE | 2024-03-03 16:01 | CON ---
Date of Consultation: 03/03/2024 Reason For Consultation: Elevated BUN and creatinine, fluid management, end-stage renal disease. History Of Present Illness: This is a pleasant 74-year-old female, well known to me from office and dialysis with significant past medical history of end-stage renal disease, on hemodialysis, hypertens ion, bronchial asthma, hyperlipidemia. The patient came to the hospital complaining from chest pain, cough and yellowish sputum, found to have atypical pneumonia, elevation in troponin. The patient's last dialysis was Thursday. The patient denied any fever, any chills. Past Medical History: Includes: 1.End-stage renal disease. 2.Hypertension. 3.Hyperlipidemia. 4.Bronchial asthma. Past Surgical History: Includes TDC placement. Family History: Positive for cancer. Allergies: NO KNOWN DRUG ALLERGY. Social History: Lives with family. Denied smoking. Denied drinking. Denied drug abuse. Current Medications: The patient on include Tylenol, albuterol, Epogen, lansoprazole, Zofran, vancom ycin, heparin drip. Review of Systems: Head and Neck: No red eye. No ear pain. GI: No nausea, no vomiting. : No polyuria, no dysuria, no hematuria. Reconciling Clerk: No vaginal discharge. Respiratory: Has shortness of breath, has cough. Cardiovascular: No chest pain. Endocrine: No polydipsia. Skin: No rash. Neuro: Has neuropathy. Musculoskeletal: Generalized fatigue. Physical Examination: Vital Signs: When I saw the patient, blood pressure 113/55, pulse of 73, afebrile. Chest: Crackles bilateral. Heart: S1, S2. Systolic murmur. Abdomen: Soft, nontender. Extremities: No edema. Neurologic: Alert. No focality. Lab: Hemoglobin 6.9. Sodium 139, potassium 3.4, bicarb 25, BUN 29, creatinine 6.2. Calcium 8, phos phorus 4.1, magnesium 2.2. Assessment And Plan: 1.End-stage renal disease. We will arrange for dialysis today. We will arrange for 2 units of bloo d transfusion with dialysis. 2.Secondary hyperpara. Calcium and phosphorus on the goal. 3.Hypertension, controlled, optimal. 4.Anemia of chronic kidney disease, as above. 5.Chest pain, as by primary. Follow up with Cardiology. 6.Atypical pneumonia. Continue current antibiotic. Follow up with primary. BEBE/JACKIE Voice ID: [id number] Report ID: [id number]
[2024-03-03] MEDS ORDERED: VANCOMYCIN 500 MG in NA CHLORIDE 0.9% 100 ML IVPB SCH (17:00)
[2024-03-03] MEDS ORDERED: NA CHLORIDE 0.9% 250 ML IV SCH (18:00)
[2024-03-03] MEDS: EPOETIN ALFA 10,000 UNIT/ML VIAL IV SCH (18:00)
[2024-03-03 19:38] VITALS: BMI 28.7
[2024-03-03] MEDS: DORZOLAMIDE OPTH SCH (20:47)
[2024-03-03] MEDS: BIMATOPROST OPTH SCH (20:47)
[2024-03-03] MEDS: TIMOLOL OPTH SCH (20:47)
[2024-03-03] MEDS: ENSURE HIGH PROTEIN 237 ML CAN PO SCH (20:48)
[2024-03-03] MEDS: NA CHLORIDE 0.9% 100 ML ONE (22:59)
[2024-03-04 02:06] LABS: Hepatitis B surface AG Interp. Nonreactive (Nonreactive)
[2024-03-04 02:08] LABS: Hepatitis B Surface Ab - Quant < 3.10 mIU/mL (<8.0)
[2024-03-04 02:09] LABS: HBsAG Nonreactive Report Report
[2024-03-04 05:46] LABS: Absolute Basophils 0.1 K/uL (0-0.5); Absolute Eosinophils 0.3 K/uL (0-0.5); Absolute Lymphocytes (CBC) 0.4 K/uL (0.7-4.9); Absolute Monocytes 1.6 K/uL (0.1-1.3); Absolute Neutrophil 7.1 K/uL (1.8-8.0); Basophils % 0.9 % (0-1.3); Eosinophils % 2.8 % (0-4.4); Hematocrit 21.6 % (36.0-45.0); Hemoglobin 7.4 g/dL (12.0-15.0); MCH 31.7 pg (27.0-35.0); MCHC 34.3 g/dL (32.0-36.0); MCV 92.4 fL (80-100); MPV 7.8 fL (7.6-11.3); Monocytes % 17.3 % (3.3-12.3); Platelets 253 thou/uL (152-406); RBC Red Blood Cell Count 2.34 M/uL (3.86-4.86); Red Cell Distribution Width 14.9 % (12.1-15.2)
[2024-03-04 06:02] LABS: Anion Gap 7.3 mEq/L (5.0-15.0); Potassium 3.3 mEq/L (3.5-5.1)
--- NOTE | 2024-03-04 08:48 | RAD REPORT ---
EXAMINATION: CT CHEST WITHOUT CONTRAST CLINICAL INDICATION: Pneumonia TECHNIQUE: Routine CT scan of the chest without intravenous contrast. One or more of the following do se reduction techniques were used: Automated exposure control, adjustment of the mA and/or kV according to patient size, and/or iterative reconstruction. Unless otherwise specified, incidental fi ndings do not require dedicated imaging follow-up. COMPARISON: 03/02/2024 FINDINGS: LOWER NECK: Visualized thyroid gland and soft tissues are normal. LUNGS: Extensive airspace opacity is present bilaterally, greater on the right, likely representing p neumonia or pulmonary edema. PLEURA: Trace left pleural fluid. MEDIASTINUM AND LYMPH NODES: Mildly enlarged lymph nodes are seen in the mediastinum. OSSEOUS STRUCTURES AND CHEST WALL: Intact. UPPER ABDOMEN: No significant abnormalities. IMPRESSION: Extensive bilateral airspace opacities are present, greater on the right. The findings may indicate p neumonia or pulmonary edema. Examination limited by lack of IV contrast.
[2024-03-04] MEDS: LATANOPROST 0.005% 2.5ML OPTH OPTH SCH (09:34)
--- NOTE | 2024-03-04 14:58 | ECHO ---
HEIGHT: 5 ft 2 in WEIGHT: 157 lb 0 oz DATE OF STUDY: 03/04/[address]: Carri Barnett MD 2-DIMENSIONAL: YES M.MODE: YES DOPPLER: YES COLOR FLOW: YES TDS: NO PORTABLE: YES DEFINITY: NO BUBBLE STUDY: NO DIAGNOSIS: ELEVATED TROPONIN CARDIAC HISTORY: CATHERIZATION: NO SURGERY: NO PROSTHETIC VALVE: NO PACEMAKER: NO MEASUREMENTS (cm) DIASTOLIC (NORMALS) SYSTOLIC (NORMALS) IVSd 1.4 (0.6-1.2) LA Diam 3.4 (1.9-4.0) LVEF 60-65% LVIDd 3.9 (3.5-5.7) LVIDs 2.8 (2.0-3.5) %FS 29% LVPWd 1.6 (0.6-1.2) Ao Diam 2.5 (2.0-3.7) 2 DIMENSIONAL ASSESSMENT: RIGHT ATRIUM: NORMAL LEFT ATRIUM: NORMAL RIGHT VENTRICLE: NORMAL LEFT VENTRICLE: NORMAL TRICUSPID VALVE: TRACE TRICUSPID REGURGITATION MITRAL VALVE: NORMAL PULMONIC VALVE: NORMAL AORTIC VALVE: NORMAL PERICARDIAL EFFUSION: NONE AORTIC ROOT: NORMAL LEFT VENTRICULAR WALL MOTION: NORMAL. DOPPLER/COLOR FLOW: NORMAL. COMMENTS: 1. NORMAL LEFT VENTRICULAR SYSTOLIC FUNCTION. LEFT VENTRICULAR EJECTION FRACTION 60-65%. NORMAL WALL MOTION. 2. NORMAL DIASTOLIC FUNCTION. 3. MODERATE PULMONARY HYPERTENSION. RIGHT VENTRICULAR SYSTOLIC PRESSURE 50-55 mmHg. 4. NORMAL FILLING PRESSURES. TECHNOLOGIST: MICHELLE FRANCO
--- NOTE | 2024-03-04 16:44 | P.PN ---
Subjective Date of Service: 03/04/24 Patient has no new complaint. She desaturated with ambulation on 3 L of oxygen by nasal cannula. Physical Examination - Vital Signs Temperature: 98.2 F Blood Pressure: 118/60 Pulse: 86 Respirations: 18 Pulse Ox (%): 90 Assessment And Plan - Plan Physical examination General: Alert and oriented x3, NAD, HEENT: Conjunctiva not pale, anicteric sclera, oxygen by nasal cannula Neck: No elevated JVD Heart: Heart sounds 1 and 2 normal, irregular rhythm, normal rate, no pedal e alexandra Lungs: Clear to auscultation bilaterally, adequate breath sounds bilaterally, no rhonchi or crackles. Abdomen: Soft, nondistended, nontender, normal bowel sounds. Extremities: No tenderness, no deformity Skin: Normal skin turgor, no rash, no nodules or ulcers. Neuro: No focal motor deficit. Normal speech. Psychiatry: Normal mood, no agitation. Plan: Acute respiratory failure with hypoxia Pneumonia Cultures have yielded no growth to date. Continue IV cefepime and vancomycin. Wean oxygen. Pulmonary consult End-stage renal disease on hemodialysis Pulmonary edema Nephrology is following for routine hemodialysis. History of asthma Bronchodilators as needed. Essential hypertension Continue home medications. Atrial fibrillation Continue home medications. Glaucoma Patient attributes her generalized weakness to acetazolamide. Will hold acetazolamide and monitor her response. Generalized weakness Patient ambulated without assistance but short distances. She may benefit from home health with PT and a walker. Continue PT. DVT prophylaxis: Heparin SQ Advanced directive: Full code.
[2024-03-04] MEDS ORDERED: VANCOMYCIN 500 MG in NA CHLORIDE 0.9% 100 ML IVPB SCH (18:00)
--- NOTE | 2024-03-04 22:26 | PN ---
Date of Progress Note: 03/04/2024 Chief Complaint: End-stage renal disease, elevated BUN and creatinine. Subjective: The patient is a 74-year-old woman with history of end-stage renal disease, on hemodialy sis 3 times per week; hypertension; bronchial asthma; hyperlipidemia. The patient came to the hospit al complaining of chest pain, cough with yellowish sputum. She was found to have atypical pneumonia, elevated troponin level. She was admitted to ICU today. She denies chest pain, palpitation. Denie s syncope. Physical Examination: Lungs: Diminished breath sounds at bases. Few rhonchi. Heart: S1, S2. Abdomen: Soft. Extremities: No edema. Impression And Plan: 1.End-stage renal disease. The patient had dialysis done yesterday for ultrafiltration and metaboli c clearance. Continue to monitor renal panel. Next dialysis tomorrow. 2.Secondary hyperparathyroidism. Monitor calcium and phosphorus. 3.Hypertension, controlled. Continue current medication. 4.Anemia of chronic disease. Continue to monitor hemoglobin level and adjust EDD. 5.Atypical pneumonia, on antibiotics. MARILU/MODL Voice ID: [id number] Report ID: [id number]
--- NOTE | 2024-03-04 22:41 | P.CNS ---
Date of Consult: 03/04/24 Reason for Consult: Extensive bilateral pneumonia Chief Complaint: weakness hypoxemia pneumonia History of Present Illness: Patient is 74 years of age end-stage renal disease on dialysis admitted with weakness was found to have diffuse pulmonary infiltrates patient is doing better she denies any complaints denies dyspnea fever chills cough or phlegm production Allergies No Known Allergies Allergy (Verified 01/06/23 14:49) Home Medications: Ensure High Protein 237 ml PO BID can 01/31/23 Epoetin [Procrit*] 6,000 unit IV EVERY HD vial 01/31/23 Furosemide [Lasix*] 40 mg PO DAILY tab 01/31/23 Medihoney [Medihoney Woundcare Gel*] 1 appl TOP SEECOM #0 tube 01/31/23 carvediloL [Coreg*] 3.125 mg PO BIDWM tab 01/31/23 Amlodipine [Norvasc] 10 mg PO DAILY 03/02/24 Apixaban [Eliquis] 03/02/24 Latanoprost Ophth [Xalatan 0.005%*] 1 drop LEFT EYE DAILY 03/02/24 Timolol/Dorzolam/Bimatopros/Pf [Timol 0.5%-Dorz 2%-Bimat 0.01%] 1 drop EACH EYE BID 03/02/24 Valacyclovir HCl [Valacyclovir] 1,000 mg PO BID 03/02/24 acetaZOLAMIDE [Acetazolamide] 250 mg PO DAILY 03/02/24 - Past Medical/Surgical History Diabetic: No -: HTN -: asthma -: ESRD -: none -: Left antecubital AV fistula. Psychosocial/ Personal History: Patient lives at home by herself - Family History Sister History Unknown: Yes Medical History: Cancer Notes: two sisters have cancer - Social History Alcohol use: No CD- Drugs: No Caffeine use: Yes Place of Residence: Home Review of Systems 10-point ROS is otherwise unremarkable Physical Examination Temp Pulse Resp BP Pulse Ox 98.1 F 64 17 122/63 96 03/04/24 20:00 03/04/24 20:00 03/04/24 20:00 03/04/24 20:00 03/04/24 20:00 General: Alert, Oriented x3 Respiratory: Crackles/rales Cardiovascular: No edema, Regular rate/rhythm, Normal S1 S2 Gastrointestinal: Normal bowel sounds, Soft and benign - Problems (1) Acute lung injury Current Visit: Yes Status: Acute Plan: Patient is 74 years of age end-stage renal disease admitted with weakness after dialysis denies any shortness of breath fever chills cough signs or symptoms of pneumonia has any acute lung injury probably induced by a virus I recommended trial of steroids echocardiogram only shows normal left ventricular function mild pulmonary hypertension labs reviewed she has been in bed on dialysis CT scan today reviewed extensive bilateral pulmonary infiltrates patient is requiring about 2 and half liters of oxygen recommended trial of steroids
[2024-03-04 22:45] VITALS: O2SAT 96
[2024-03-04] MEDS: METHYLPREDNISOLONE 125 MG INJ IV SCH (23:40)
[2024-03-05 05:53] LABS: Absolute Basophils 0.1 K/uL (0-0.5); Absolute Lymphocytes (CBC) 0.2 K/uL (0.7-4.9); Absolute Monocytes 0.4 K/uL (0.1-1.3); Absolute Neutrophil 8.5 K/uL (1.8-8.0); Eosinophils % 0.2 % (0-4.4); Hematocrit 24.6 % (36.0-45.0); Hemoglobin 8.3 g/dL (12.0-15.0); Lymphocytes % 2.6 % (15.3-44.8); MCH 31.3 pg (27.0-35.0); MCHC 33.8 g/dL (32.0-36.0); MCV 92.6 fL (80-100); MPV 8.2 fL (7.6-11.3); Monocytes % 4.4 % (3.3-12.3); Neutrophils % 91.8 % (41.7-73.7); Nucleated Red Blood Cells % 0.1 % (0-0); Platelets 325 thou/uL (152-406); RBC Red Blood Cell Count 2.66 M/uL (3.86-4.86); Red Cell Distribution Width 15.6 % (12.1-15.2)
[2024-03-05 06:39] LABS: Anion Gap 7.8 mEq/L (5.0-15.0); Potassium 3.8 mEq/L (3.5-5.1)
[2024-03-05 08:34] LABS: Platelet Estimate ADEQ; White Blood Cell Scan OK (OK)
[2024-03-05 08:35] LABS: Anisocytosis 1+; Blood Morphology Comment NOTED (NOT SEEN)
--- NOTE | 2024-03-05 08:59 | RAD REPORT ---
EXAMINATION: ONE VIEW CHEST XR CLINICAL INDICATION: Female, 74 years old.,pneumonia TECHNIQUE: Frontal chest projection is submitted. Examination is limited by patient positioning and t echnique. COMPARISON: 03/02/2024 FINDINGS: Stable patchy bilateral airspace opacities. Blunting of the left costophrenic angle again seen, which could reflect atelectasis or a small effusion. No pneumothorax or other sizable effusion. The heart is again enlarged. Mediastinal contours are unchanged. Right IJ dialysis catheter in place.. IMPRESSION: Stable findings as above, which may reflect multifocal pneumonia or pulmonary edema.
--- NOTE | 2024-03-05 14:46 | P.PN ---
Subjective Date of Service: 03/05/24 Chief Complaint: weakness hypoxemia pneumonia Patient has no new complaint. Oxygen weaned down to 2 L by nasal cannula. No issues overnight. Patient states she feels better and desires to go home. Physical Examination - Vital Signs Temperature: 98.5 F Blood Pressure: 129/61 Pulse: 73 Respirations: 14 Pulse Ox (%): 93 Assessment And Plan - Plan Physical examination General: Alert and oriented x3, NAD, HEENT: Anicteric sclera, oxygen by nasal cannula Neck: No elevated JVD Heart: Heart sounds 1 and 2 normal, irregular rhythm, normal rate, no pedal edema Lungs: Bilateral crackles, adequate breath sounds bilaterally, no rhonchi. Abdomen: Soft, nondistended, nontender, normal bowel sounds. Extremities: No tenderness, no deformity Skin: Normal skin turgor, no rash, no nodules or ulcers. Neuro: No focal motor deficit. Normal speech. Psychiatry: Normal mood, no agitation. Plan: Acute respiratory failure with hypoxia Bilateral pneumonia Cultures have yielded no growth to date. Continue IV cefepime and vancomycin. Pulmonary input appreciated Patient started on a trial of steroids given extensive infiltrate Wean oxygen. End-stage renal disease on hemodialysis Pulmonary edema Nephrology is following for routine hemodialysis. History of asthma Bronchodilators as needed. Essential hypertension Continue home medications. Atrial fibrillation Continue home medications. Glaucoma Patient's generalized weakness likely secondary to the pneumonia Resume acetazolamide and monitor her response. Generalized weakness Patient ambulated without assistance but short distances. She may benefit from home health with PT and a walker. Continue PT. DVT prophylaxis: Heparin SQ Advanced directive: Full code.
[2024-03-05 21:46] LABS: Specific Gravity 1.021 (1.005-1.030); Sqamous Epithelial >50 /HPF (None Seen); Urine Bacteria 20-50 /HPF (<20); Urine Bilirubin NEGATIVE (Negative); Urine Blood 3+ (Negative); Urine Clarity Extremely Turbid (Clear); Urine Color Orange (Yellow); Urine Crystals Unidentified Moderate /HPF (None Seen); Urine Culture Reflex Order NOT NEEDED; Urine Glucose NEGATIVE (Negative); Urine Ketones NEGATIVE (Negative); Urine Microscopic Reflex YN ORDER UMIC; Urine Mucus 3+ /HPF (None Seen); Urine Nitrite NEGATIVE (Negative); Urine Protein 2+ (Negative); Urine RBC >50 /HPF (None Seen); Urine Urobilinogen Normal (Normal); Urine WBC 20-50 /HPF (<5); Urine pH 5.5 (5.0-7.0)
--- NOTE | 2024-03-06 01:38 | PN ---
Date of Progress Note: 03/05/2024 Chief Complaint: End-stage renal disease, on hemodialysis. History Of Present Illness: The patient is a 74-year-old woman with end-stage renal disease, on hemo dialysis 3 times per week and history of hypertension, bronchial asthma, hyperlipidemia, anemia, CKD. She came to the hospital complaining of chest pain, cough with productive sputum, yellowish sputum. She was found to have atypical pneumonia, elevated troponin. She was admitted to ICU and today she is undergoing dialysis for volume control. She denies PND or orthopnea. Physical Examination: Lungs: Diminished breath sounds at bases. Few rhonchi. Heart: S1, S2. Abdomen: Soft. Extremities: No edema. Impression And Plan: 1.End-stage renal disease. The patient had dialysis done today with ultrafiltration and metabolic c learance. Continue to monitor renal panel. Continue p.o. fluid restriction, low-sodium diet. 2.Secondary hyperparathyroidism. Monitor calcium and phosphorus. 3.Hypertension, controlled. Continue current medication. 4.Anemia of chronic disease. Continue EDD. 5.Atypical pneumonia, on antibiotics. MARILU/MODL Voice ID: [id number] Report ID: [id number]
[2024-03-06 09:50] LABS: Absolute Basophils 0.1 K/uL (0-0.5); Absolute Lymphocytes (CBC) 0.4 K/uL (0.7-4.9); Absolute Monocytes 1.3 K/uL (0.1-1.3); Absolute Neutrophil 9.7 K/uL (1.8-8.0); Basophils % 0.6 % (0-1.3); Eosinophils % 0.1 % (0-4.4); Hematocrit 27.5 % (36.0-45.0); Hemoglobin 9.3 g/dL (12.0-15.0); Lymphocytes % 3.8 % (15.3-44.8); MCH 31.1 pg (27.0-35.0); MCHC 33.9 g/dL (32.0-36.0); MCV 91.9 fL (80-100); MPV 7.8 fL (7.6-11.3); Monocytes % 11.5 % (3.3-12.3); Platelets 364 thou/uL (152-406); RBC Red Blood Cell Count 2.99 M/uL (3.86-4.86); Red Cell Distribution Width 14.9 % (12.1-15.2)
[2024-03-06 10:04] LABS: Anion Gap 10.5 mEq/L (5.0-15.0); Potassium 3.5 mEq/L (3.5-5.1)
[2024-03-06] MEDS: PNEUMOCOCCAL VACCINE 0.5 ML IMVAC ONE (12:00)
--- NOTE | 2024-03-06 12:47 | P.PN ---
Subjective Date of Service: 03/06/24 Chief Complaint: weakness hypoxemia pneumonia Patient denies any complaints and states she feels much better. Oxygen is currently needing 2 L by nasal cannula. She desaturated to 76% on room air at rest No issues overnight. She is eating well. Physical Examination - Vital Signs Temperature: 97.5 F Blood Pressure: 141/67 Pulse: 65 Respirations: 14 Pulse Ox (%): 95 Assessment And Plan - Plan Physical examination General: Alert and oriented x3, NAD, HEENT: Oxygen by nasal cannula Neck: No elevated JVD Heart: Heart sounds 1 and 2 normal, irregular rhythm, normal rate, no pedal edema Lungs: Bilateral crackles, adequate breath sounds bilaterally, no rhonchi. Abdomen: Soft, nondistended, nontender, normal bowel sounds. Extremities: No tenderness, no deformity Skin: Normal skin turgor, no rash, no nodules or ulcers. Neuro: No focal motor deficit. Normal speech. Psychiatry: Normal mood, no agitation. Plan: Acute respiratory failure with hypoxia Bilateral pneumonia Cultures have yielded no growth to date. Continue IV cefepime and vancomycin. Pulmonary input appreciated Patient started on a trial of steroids given extensive infiltrate Arrange for home oxygen. End-stage renal disease on hemodialysis Pulmonary edema Nephrology is following for routine hemodialysis. History of asthma Bronchodilators as needed. Essential hypertension Continue home medications. Atrial fibrillation Continue home medications. Glaucoma Patient's generalized weakness likely secondary to the pneumonia Continue acetazolamide. Generalized weakness Patient ambulated without assistance but short distances. She will benefit from home health with PT and a walker. Continue PT. DVT prophylaxis: Heparin SQ Advanced directive: Full code.
--- NOTE | 2024-03-06 20:10 | PN ---
Date of Progress Note: 03/06/2024 Chief Complaint: End-stage renal disease, on hemodialysis. History Of Present Illness: The patient is a 74-year-old woman with end-stage renal disease, on hemo dialysis 3 times per week. She has history of hypertension, bronchial asthma, hyperlipidemia, anemia of CKD. She came to the hospital complaining of chest pain, cough with productive sputum, yellowish sputum. She was found to atypical pneumonia and elevated troponin. She was admitted to ICU. She i s undergoing dialysis 3 times per week. She had dialysis done yesterday. Procedure was well tolerat ed. Review of Systems: She denies PND or orthopnea. Denies chest pain, palpitation. Physical Examination: Lungs: Clear to auscultation bilaterally. Heart: S1, S2. Abdomen: Soft. Extremities: No edema. Impression And Plan: 1.End-stage renal disease. The patient will continue dialysis with ultrafiltration. The patient is euvolemic. Continue p.o. fluid restriction, low-sodium diet. 2.Hypertension. Continue current medication. 3.Atypical pneumonia, on antibiotics. 4.Secondary hyperparathyroidism. Monitor calcium and phosphorus level. 5.Anemia. Hemoglobin level will be re-evaluated tomorrow. 6.Hypertensive heart and kidney disease. Continue p.o. fluid restriction. Advance ultrafiltration to control volemia. EB/MODL Voice ID: [id number] Report ID: [id number]
[2024-03-07 06:08] LABS: MCH 31.8 pg (27.0-35.0)
[2024-03-07 06:25] LABS: Nucleated Red Blood Cells % 0.3 % (0-0)
[2024-03-07 06:27] LABS: Hematocrit 23.4 % (36.0-45.0); Hemoglobin 8.2 g/dL (12.0-15.0); MCHC 34.9 g/dL (32.0-36.0); MCV 91.2 fL (80-100); RBC Red Blood Cell Count 2.57 M/uL (3.86-4.86)
[2024-03-07 06:28] LABS: Absolute Lymphocytes (CBC) 0.6 K/uL (0.7-4.9); Absolute Monocytes 0.6 K/uL (0.1-1.3); Anion Gap 8.6 mEq/L (5.0-15.0); Basophils % 0.3 % (0-1.3); Lymphocytes % 5.2 % (15.3-44.8); MPV 7.7 fL (7.6-11.3); Monocytes % 5.8 % (3.3-12.3); Neutrophils % 88.7 % (41.7-73.7); Platelets 350 thou/uL (152-406); Potassium 3.6 mEq/L (3.5-5.1)
--- NOTE | 2024-03-07 07:25 | RAD REPORT ---
Procedure: Chest Single View HISTORY: Cough COMPARISON: March 05, 2024 FINDINGS: Minimal improvement in bilateral alveolar opacities. No significant pleural effusion noted. The heart remains enlarged. Central venous catheter in place. IMPRESSION: Minimal improvement in the bilateral pulmonary opacities which may represent pneumonia or pulmonary e alexandra
[2024-03-07] MEDS: VANCOMYCIN 500 MG in NA CHLORIDE 0.9% 100 ML IV SCH (09:26)
--- NOTE | 2024-03-07 11:00 | EKG ---
Test Date: 2024-03-02 Test Time: 13:39:36 Electroformer: PACO MEASUREMENT RESULTS: Intervals: Rate: 75 [place]: QRSD: 92 QT: 400 QTc: 446 [place]: P: [place]: QRS: 56 T: 24 INTERPRETIVE STATEMENTS: Atrial fibrillation with premature ventricular or aberrantly conducted complexes Minimal voltage criteria for LVH, may be normal variant Abnormal ECG Compared to ECG 12/29/2023 16:15:29 Ventricular premature complex(es) now present Sinus rhythm no longer present Early repolarization no longer present Electronically Signed On 03-07-24 10:53:48 CELERY STRIPPER by Lucio Gallegos
--- NOTE | 2024-03-07 12:21 | P.DS ---
Admission Date: 03/02/24 Discharge Date: 03/07/24 Disposition: [facility] CARE Discharge Condition: FAIR Reason for Admission: weakness hypoxemia pneumonia Brief History of Present Illness: 74-year-old woman with a history of end-stage renal disease on hemodialysis- Tuesdays, and Saturdays, hypertension and asthma was brought to the emergency department due to 2-week history of generalized weakness. Patient reportED shortness of breath of 1 day duration. Her last dialysis was yesterday, patient reports compliance with dialysis. She was concerned her generalized weakness is caused by her new medication-acetazolamide prescribed for glaucoma. Patient was evaluated in the ED, chest x-ray demonstrated pulmonary edema versus pneumonia. Patient oxygen saturation was 82% on room air, up to 95% on 2 L of oxygen by nasal cannula. EKG demonstrated atrial fibrillation. Patient given bronchodilator treatment and admitted for further management. Hospital Course: Patient admitted to the medical floor and following medical problems addressed: Acute respiratory failure with hypoxia Bilateral pneumonia IV cefepime and vancomycin. Cultures yielded no growth to date. Chest x-ray shows extensive infiltrates versus pulm edema. Patient seen and evaluated by pulmonary. Patient started on a trial of steroids given extensive infiltrate Home oxygen arranged. End-stage renal disease on hemodialysis Pulmonary edema Nephrology evaluated patient. Patient underwent routine hemodialysis. History of asthma Patient was treated with bronchodilators. Essential hypertension Continued home medications. Atrial fibrillation Continued home medications. Patient was given Eliquis 5 mg twice a day. Resume Eliquis at 2.5 mg twice daily. Chronic anemia Patient was transfused 1 unit PRBC Posttransfusion hemoglobin has been stable. No evidence of GI bleed. Glaucoma Patient's generalized weakness likely secondary to the pneumonia Continue acetazolamide. Generalized weakness Patient ambulated without assistance but short distances. Patient is discharged with home health for PT . Vital Signs/Physical Exam: Temp Pulse Resp BP Pulse Ox 97.6 F 83 18 175/81 H 93 03/07/24 08:00 03/07/24 08:00 03/07/24 08:00 03/07/24 08:00 03/07/24 08:00 General: Alert, In no apparent distress, Oriented x3 HEENT: Mucous membr. moist/pink Neck: Supple, JVD not distended Respiratory: Crackles/rales (Bilateral) Cardiovascular: No edema, Normal S1 S2, Irregular heart rate/rhythm Gastrointestinal: Normal bowel sounds, Soft and benign, Non-distended, No tenderness Musculoskeletal: No swelling Integumentary: No rashes, No cyanosis Neurological: Normal speech, Normal strength at 5/5 x4 extr Laboratory Data at Discharge: WBC 11.30 thou/uL (4.3-10.9) H 03/07/24 05:56 Hgb 8.2 g/dL (12.0-15.0) L D 03/07/24 05:56 Hct 23.4 % (36.0-45.0) L 03/07/24 05:56 Plt Count 350 thou/uL (152-406) 03/07/24 05:56 PT 13.5 SECONDS (9.4-12.5) H 03/02/24 13:30 INR 1.21 03/02/24 13:30 APTT 43.9 SECONDS (24.3-36.9) H 03/03/24 11:32 Sodium 135 mEq/L (136-145) L 03/07/24 05:56 Potassium 3.6 mEq/L (3.5-5.1) 03/07/24 05:56 BUN 55 mg/dL (7-18) H 03/07/24 05:56 Creatinine 5.80 mg/dL (0.55-1.02) H 03/07/24 05:56 Glucose 148 mg/dL (74-106) H 03/07/24 05:56 Phosphorus 4.1 mg/dL (2.5-4.9) 03/03/24 07:00 Magnesium 2.1 mg/dL (1.6-2.4) 03/03/24 07:00 Total Bilirubin 1.3 mg/dL (0.2-1.0) H 03/02/24 13:30 AST 14 U/L (15-37) L 03/02/24 13:30 ALT < 14 U/L (13-56) 03/02/24 13:30 Alkaline Phosphatase 52 U/L (45-117) 03/02/24 13:30 Home Medications: Ensure High Protein 237 ml PO BID can 01/31/23 Epoetin [Procrit*] 6,000 unit IV EVERY HD vial 01/31/23 Furosemide [Lasix*] 40 mg PO DAILY tab 12/09/23 Medihoney [Medihoney Woundcare Gel*] 1 appl TOP SEECOM #0 tube 01/31/23 carvediloL [Coreg*] 3.125 mg PO BIDWM tab 01/31/23 Amlodipine [Norvasc*] 10 mg PO DAILY 03/02/24 Apixaban [Eliquis] 03/02/24 Latanoprost Ophth [Xalatan 0.005%*] 1 drop LEFT EYE DAILY 03/02/24 Timolol/Dorzolam/Bimatopros/Pf [Timol 0.5%-Dorz 2%-Bimat 0.01%] 1 drop EACH EYE BID 03/02/24 acetaZOLAMIDE [Acetazolamide] 250 mg PO DAILY 03/02/24 levoFLOXacin [Levaquin*] 250 mg PO Q24H #14 tab 03/07/24 metroNIDAZOLE [Flagyl*] 500 mg PO TID #30 tab 03/07/24 New Medications: metroNIDAZOLE [Flagyl*] 500 mg PO TID #30 tab levoFLOXacin [Levaquin*] 250 mg PO Q24H #14 tab Diet: Renal Activity: Fall precautions Followup: OOTOOT [Primary Care Provider] - 1 Week Time spent managing pt's care (in minutes): 38
--- NOTE | 2024-03-07 12:42 | P.PN ---
Subjective Date of Service: 03/07/24 Chief Complaint: Bilateral pneumonia Subjective: Improving (Patient is improving doing well denies any complaint denies any shortness of breath cough congestion or hemoptysis) Review of Systems 10-point ROS is otherwise unremarkable General: Weakness Physical Examination - Vital Signs Temperature: 97.6 F Blood Pressure: 175/81 Pulse: 83 Respirations: 18 Pulse Ox (%): 93 - Physical Exam General: Alert, Oriented x3 Neck: Supple Respiratory: Clear to auscultation bilaterally Cardiovascular: No edema, Regular rate/rhythm Assessment And Plan - Current Problems (Diagnosis) (1) Acute lung injury Current Visit: Yes Status: Acute Plan: Patient is 74 years of age admitted with acute lung injury etiology unknown HIV screen is negative patient's blood pressure is stable slight decline in her he moglobin has been improved for oxygen serology has been ordered stable to be discharged to follow-up with me in 2 weeks continue with prednisone C ANCA P ANCA and anti-GBM have been ordered x-ray findings are out of proportion to her symptoms doubt bleeding has never had any hemoptysis chest pain fever chills or cough
[2024-03-07] MEDS: levoFLOXacin 750 MG TAB PO SCH (13:08)
[2024-03-07] MEDS: metroNIDAZOLE 500 MG TABLET PO SCH (13:47)
--- NOTE | 2024-03-07 15:36 | P.PN ---
Subjective Date of Service: 03/07/24 Chief Complaint: Bilateral pneumonia Patient denies any new complaints. Oxygen is currently needing 2.5 L 3 L by nasal cannula. No issues overnight. Physical Examination - Vital Signs Temperature: 97.6 F Blood Pressure: 175/81 Pulse: 83 Respirations: 18 Pulse Ox (%): 93 - Studies Microbiology Data (last 24 hrs): 03/02/24 14:29 Blood - Blood Aerobic Blood Culture - Final No growth in 5 days. 03/02/24 14:29 Blood - Blood Anaerobic Blood Culture - Final No growth in 5 days. 03/02/24 15:02 Blood - Blood Aerobic Blood Culture - Final No growth in 5 days. 03/02/24 15:02 Blood - Blood Anaerobic Blood Culture - Final No growth in 5 days. Assessment And Plan - Plan Physical examination General: Alert and oriented x3, NAD, HEENT: Oxygen by nasal cannula Neck: No elevated JVD Heart: Heart sounds 1 and 2 normal, irregular rhythm, normal rate. Lungs: Bilateral crackles, adequate breath sounds bilaterally, no rhonchi. Abdomen: Soft, nondistended, nontender, normal bowel sounds. Extremities: No tenderness, no deformity Skin: Normal skin turgor, no rash, no nodules or ulcers. Neuro: No focal motor deficit. Normal speech. Psychiatry: Normal mood, no agitation. Plan: Acute respiratory failure with hypoxia Bilateral pneumonia Cultures have yielded: No growth Continue IV cefepime and vancomycin. Transition to oral Levaquin and Flagyl on discharge. Pulmonary Dr. Morataya is following. Swallow evaluation. Patient is steroids given extensive infiltrate Home oxygen arranged for hypoxia. End-stage renal disease on hemodialysis Pulmonary edema Nephrology is following for routine hemodialysis-Tuesdays, , Thursday. Anemia of chronic kidney disease Hemoglobin dropped to 6.9. Patient was given 1 unit PRBC transfusion. Posttransfusion hemoglobin has been relatively stable. History of asthma Bronchodilators as needed. Essential hypertension Continue home medications. Atrial fibrillation Continue home medications. Resume Eliquis at 2.5 mg twice a day given significant anemia. No evidence of GI bleed. Glaucoma Patient's generalized weakness likely secondary to the pneumonia Continue acetazolamide. Generalized weakness Patient ambulated without assistance but short distances. She will benefit from home health with PT and a walker. Continue PT. Patient slated for home with home health. DVT prophylaxis: Heparin SQ Advanced directive: Full code.
[2024-03-07] MEDS ORDERED: VANCOMYCIN 500 MG in NA CHLORIDE 0.9% 100 ML IVPB SCH (18:00)
[2024-03-07] MEDS ORDERED: levoFLOXacin 750 MG TAB PO SCH (18:00)
[2024-03-07] MEDS: APIXABAN 2.5 MG TABLET PO SCH (21:30)
--- NOTE | 2024-03-07 22:47 | PN ---
Date of Progress Note: 03/07/2024 Chief Complaint: End-stage renal disease, on hemodialysis. Subjective: The patient is a 74-year-old woman with end-stage renal disease, on hemodialysis 3 times per week. She is undergoing dialysis today. The patient was admitted for COPD exacerbation. She c kenneth to the hospital with complaints of shortness of breath and productive cough. The patient has hyp ertensive heart and kidney disease. She is undergoing dialysis to obtain ultrafiltration and to prev ent fluid overload. Review of Systems: Denies chest pain, palpitation. Physical Examination: Lungs: Clear to auscultation bilaterally. Heart: S1, S2. Abdomen: Soft, benign. Extremities: No edema. Impression And Plan: 1.End-stage renal disease. Dialysis today is scheduled with ultrafiltration. Monitor blood pressur e during dialysis and advance ultrafiltration as tolerated. 2.Hypertension. Continue current medication. 3.Atypical pneumonia, on antibiotics. 4.Secondary hyperparathyroidism. Monitor calcium and phosphorus levels. 5.Anemia. Hemoglobin level will be re-evaluated tomorrow. 6.Hypertensive heart and kidney disease. Continue p.o. fluid restriction and continue ultrafiltrati on with dialysis. EB/MODL Voice ID: [id number] Report ID: [id number]
[2024-03-08 06:24] LABS: Absolute Lymphocytes (CBC) 0.3 K/uL (0.7-4.9); Absolute Monocytes 2.3 K/uL (0.1-1.3); Absolute Neutrophil 9.9 K/uL (1.8-8.0); Basophils % 0.1 % (0-1.3); Eosinophils % 0.1 % (0-4.4); Hemoglobin 8.8 g/dL (12.0-15.0); Lymphocytes % 2.7 % (15.3-44.8); MCH 31.2 pg (27.0-35.0); MCHC 33.8 g/dL (32.0-36.0); MCV 92.5 fL (80-100); MPV 7.8 fL (7.6-11.3); Monocytes % 18.5 % (3.3-12.3); Neutrophils % 78.6 % (41.7-73.7); Nucleated RBC Absolute Count 0.1 (0-0); Nucleated Red Blood Cells % 0.5 % (0-0); Platelets 411 thou/uL (152-406); RBC Red Blood Cell Count 2.81 M/uL (3.86-4.86); Red Cell Distribution Width 15.2 % (12.1-15.2)
[2024-03-08 07:21] LABS: Anion Gap 13.9 mEq/L (5.0-15.0); Potassium 3.9 mEq/L (3.5-5.1)
--- NOTE | 2024-03-08 07:42 | RAD REPORT ---
EXAMINATION: ONE VIEW CHEST XR CLINICAL INDICATION: pneumonia TECHNIQUE: Frontal chest projection is submitted. Examination is limited by patient positioning and t echnique. COMPARISON: 03/07/2024 FINDINGS: Moderate bilateral pulmonary opacities are present, unchanged. The heart is moderately enlarged. Righ t-sided venous catheters tip in SVC. Catheter tubing is seen in the upper right arm. IMPRESSION: Stable bilateral pulmonary opacities since comparative study from yesterday.
[2024-03-08] MEDS: ACETAMINOPHEN 325 MG TABLET PO PRN (13:00)
--- NOTE | 2024-03-08 13:24 | P.PN ---
Subjective Date of Service: 03/07/24 Chief Complaint: Bilateral pneumonia Subjective: Improving (Patient is improving she denies any chest pain shortness of breath fever chills or hemoptysis) Review of Systems Unremarkable Physical Examination - Vital Signs Temperature: 97.8 F Blood Pressure: 151/75 Pulse: 63 Respirations: 16 Pulse Ox (%): 96 - Physical Exam General: Alert, Oriented x3 Neck: Supple Cardiovascular: No edema, Regular rate/rhythm - Studies Microbiology Data (last 24 hrs): 03/02/24 14:29 Blood - Blood Aerobic Blood Culture - Final No growth in 5 days. 03/02/24 14:29 Blood - Blood Anaerobic Blood Culture - Final No growth in 5 days. 03/02/24 15:02 Blood - Blood Aerobic Blood Culture - Final No growth in 5 days. 03/02/24 15:02 Blood - Blood Anaerobic Blood Culture - Final No growth in 5 days. Assessment And Plan - Current Problems (Diagnosis) (1) Acute lung injury Current Visit: Yes Status: Acute Plan: Patient admitted with acute lung injury improving with steroids etiology unknown HIV negative serological studies are pending plan to discharge home on low-dose prednisone 10 mg twice a day for at least 10 days follow-up with me in 2 weeks Qualifiers: Encounter type: subsequent encounter Qualified Code(s): S27.309D - Uns pecified injury of lung, unspecified, subsequent encounter
--- NOTE | 2024-03-08 14:29 | PN ---
Date of Progress Note: 03/08/2024 Subjective: The patient was seen on dialysis. The patient was admitted to the hospital with hypogly cemia. The patient is doing well. No nausea. No vomiting. No loss of consciousness. Blood sugar has been controlled. Physical Examination: Vital Signs: Blood pressure 163/73, pulse of 64. Chest: Clear to auscultation. Heart: S1, S2. Systolic murmur. Abdomen: Soft, nontender. Extremities: No edema. Neurologic: Alert. No focality. Laboratory Data: Hemoglobin 8.8. Sodium 136, potassium 3.9, bicarb 24, BUN 73, creatinine 7.2. Nakul cium 8.8. Current Medications: The patient is on include: 1.Levaquin. 2.Metronidazole. 3.Eliquis. 4.Epogen 6000. 5.Tylenol. 6.Zofran. 7.Solu-Medrol. Assessment And Plan: 1.End-stage renal disease. Normal volume. We will continue to dialyze the patient back to her sche duled T/T/S. 2.Secondary hyperparathyroidism, stable. 3.Hypertension, controlled, optimal. Continue current medication. 4.Pneumonia. Continue current antibiotic. Follow up with Primary. 5.Hypoglycemia, resolved. The patient is cleared from the renal standpoint for discharge planning after dialysis. JOSÉ MIGUEL Voice ID: [id number] Report ID: [id number]
[2024-03-08 16:37] VITALS: BP 151/77; TEMP 97.2
[2024-03-08] MEDS: levoFLOXacin 250 MG TAB PO SCH (18:00)
--- NOTE | 2024-03-09 06:39 | P.DS ---
Admission Date: 03/02/24 Discharge Date: 03/08/24 Disposition: [place] HOME/HOME HEALTH CARE Discharge Condition: FAIR Reason for Admission: Bilateral pneumonia Consultations: Pulmonology - Dr. Morataya Nephrology - Dr. Roberts, Dr. Lo-Charles Brief History of Present Illness: 74 yo F, PMH: end-stage renal disease on hemodialysis-Tuesdays, and Saturdays, hypertension and asthma Patient brought to the emergency department due to 2-week history of generalized weakness. Patient reports shortness of breath of 1 day duration. Her last dialysis was yesterday, patient reports compliance with dialysis. She was concerned her generalized weakness is caused by her new medication-acetazolamide prescribed for glaucoma. Patient was evaluated in the ED, chest x-ray demonstrated pulmonary edema versus pneumonia. Patient oxygen saturation was 82% on room air, up to 95% on 2 L of oxygen by nasal cannula. EKG demonstrated atrial fibrillation. Patient is hard stick, multiple attempts to insert a peripheral IV line has been unsuccessful. Patient given bronchodilator treatment and admitted for further management. Hospital Course: Problem List Acute respiratory failure with hypoxia secondary to Bilateral pneumonia End-stage renal disease on hemodialysis History of asthma Essential hypertension Atrial fibrillation Chronic anemia Glaucoma Generalized weakness Hospital Course: Patient admitted to the medical floor and following medical problems addressed: Acute respiratory failure with hypoxia Bilateral pneumonia Pulmonary edema IV cefepime and vancomycin - transitioned to oral levaquin and flagyl on discharge. Cultures yielded no growth to date. Chest x-ray shows extensive infiltrates versus pulm edema. Patient started on a trial of steroids given extensive infiltrate Patient seen and evaluated by home visitor - Dr. Morataya recommended oral prednisone 10 mg BID on discharge Home oxygen arranged. Follow up with Dr. Morataya, Pulmonology in 2 weeks End-stage renal disease on hemodialysis Nephrology evaluated patient. Patient underwent routine hemodialysis. stable History of asthma Patient was treated with bronchodilators. Essential hypertension Continued home medications. Atrial fibrillation Continued home medications. Patient was given Eliquis 5 mg twice a day. Resume Eliquis at 2.5 mg twice daily. Chronic anemia Patient was transfused 1 unit PRBC Posttransfusion hemoglobin has been stable. No evidence of GI bleed. Glaucoma Patient's generalized weakness likely secondary to the pneumonia Continue acetazolamide. Generalized weakness Patient ambulated without assistance but short distances. Physical Exam: GEN: Alert, NAD CV: Regular rate and rhythm, no edema Pulm: Nonlabored respirations on room air, clear bilaterally ABD: soft, nontender, nondistended Integumentary: No rashes Neuro: Normal speech, normal affect Vital Signs/Physical Exam: Temp Pulse Resp BP Pulse Ox 97.2 F 78 16 151/77 H 91 03/08/24 16:00 03/08/24 16:00 03/08/24 16:00 03/08/24 16:00 03/08/24 16:00 Laboratory Data at Discharge: WBC 12.60 thou/uL (4.3-10.9) H 03/08/24 05:49 Hgb 8.8 g/dL (12.0-15.0) L 03/08/24 05:49 Hct 26.0 % (36.0-45.0) L 03/08/24 05:49 Plt Count 411 thou/uL (152-406) H 03/08/24 05:49 PT 13.5 SECONDS (9.4-12.5) H 03/02/24 13:30 INR 1.21 03/02/24 13:30 APTT 43.9 SECONDS (24.3-36.9) H 03/03/24 11:32 Sodium 136 mEq/L (136-145) 03/08/24 05:49 Potassium 3.9 mEq/L (3.5-5.1) 03/08/24 05:49 BUN 73 mg/dL (7-18) H 03/08/24 05:49 Creatinine 7.22 mg/dL (0.55-1.02) H 03/08/24 05:49 Glucose 164 mg/dL (74-106) H 03/08/24 05:49 Phosphorus 4.1 mg/dL (2.5-4.9) 03/03/24 07:00 Magnesium 2.1 mg/dL (1.6-2.4) 03/03/24 07:00 Total Bilirubin 1.3 mg/dL (0.2-1.0) H 03/02/24 13:30 AST 14 U/L (15-37) L 03/02/24 13:30 ALT < 14 U/L (13-56) 03/02/24 13:30 Alkaline Phosphatase 52 U/L (45-117) 03/02/24 13:30 Home Medications: Ensure High Protein 237 ml PO BID can 01/31/23 Epoetin [Procrit*] 6,000 unit IV EVERY HD vial 01/31/23 Furosemide [Lasix*] 40 mg PO DAILY tab 01/31/23 Medihoney [Medihoney Woundcare Gel*] 1 appl TOP SEECOM #0 tube 01/31/23 carvediloL [Coreg*] 3.125 mg PO BIDWM tab 01/31/23 Amlodipine [Norvasc*] 10 mg PO DAILY 03/02/24 Latanoprost Ophth [Xalatan 0.005%*] 1 drop LEFT EYE DAILY 03/02/24 Timolol/Dorzolam/Bimatopros/Pf [Timol 0.5%-Dorz 2%-Bimat 0.01%] 1 drop EACH EYE BID 03/02/24 acetaZOLAMIDE [Acetazolamide] 250 mg PO DAILY 03/02/24 Albuterol Neb [Proventil 0.083% Neb Soln] 2.5 mg NEB [id number] PRN #120 amp 03/07/24 Apixaban [Eliquis] 2.5 mg PO BID #60 tablet 03/07/24 Nebulizer 1 each MC TID #1 ea 03/07/24 levoFLOXacin [Levaquin*] 250 mg PO Q24H #14 tab 03/07/24 metroNIDAZOLE [Flagyl*] 500 mg PO TID #30 tab 03/07/24 predniSONE [Deltasone*] 10 mg PO BID #14 tab 03/07/24 New Medications: Albuterol Neb [Proventil 0.083% Neb Soln] 2.5 mg NEB [id number] PRN #120 amp PRN Reason: Shortness Of Breath predniSONE [Deltasone*] 10 mg PO BID #14 tab Apixaban [Eliquis] 2.5 mg PO BID #60 tablet metroNIDAZOLE [Flagyl*] 500 mg PO TID #30 tab levoFLOXacin [Levaquin*] 250 mg PO Q24H #14 tab Nebulizer 1 each MC TID #1 ea Physician Discharge Instructions: Hospital Course: Patient admitted to the medical floor and following medical problems addressed: Acute respiratory failure with hypoxia Bilateral pneumonia Pulmonary edema IV cefepime and vancomycin - transitioned to oral levaquin and flagyl on discharge. Cultures yielded no growth to date. Chest x-ray shows extensive infiltrates versus pulm edema. Patient started on a trial of steroids given extensive infiltrate Patient seen and evaluated by home visitor - Dr. Morataya recommended oral prednisone 10 mg BID on discharge Home oxygen arranged. Follow up with Dr. Morataya, Pulmonology in 2 weeks End-stage renal disease on hemodialysis Nephrology evaluated patient. Patient underwent routine hemodialysis. stable History of asthma Patient was treated with bronchodilators. Essential hypertension Continued home medications. Atrial fibrillation Continued home medications. Patient was given Eliquis 5 mg twice a day. Resume Eliquis at 2.5 mg twice daily. Chronic anemia Patient was transfused 1 unit PRBC Posttransfusion hemoglobin has been stable. No evidence of GI bleed. Glaucoma Patient's generalized weakness likely secondary to the pneumonia Continue acetazolamide. Generalized weakness Patient ambulated without assistance but short distances. Diet: Renal Activity: Fall precautions Followup: Dallas Morataya MD [ACTIVE - CAN ADMIT] - 1-2 Weeks OOT,OOT [Primary Care Provider] - 1 Week Time spent managing pt's care (in minutes): 45
[2024-03-09 10:21] LABS: P-ANCA Anti-Myeloperoxidase Ab <1.0 AI (<1.0)
--- NOTE | 2024-03-10 12:18 | EKG ---
Test Date: 2024-03-03 Test Time: 05:31:52 Local Hazmat Driver: LUCIA MEASUREMENT RESULTS: Intervals: Rate: 84 [place]: 182 QRSD: 96 QT: 380 QTc: 449 [place]: P: 35 [place]: 182 QRS: 6 T: 117 INTERPRETIVE STATEMENTS: Sinus rhythm with premature atrial complexes with aberrant conduction T wave abnormality, consider lateral ischemia Abnormal ECG Compared to ECG 03/02/2024 13:39:36 Atrial premature complex(es) now present Aberrant conduction of supraventricular beat(s) now present T-wave abnormality now present Possible ischemia now present Atrial fibrillation no longer present Ventricular premature complex(es) no longer present Left ventricular hypertrophy no longer present Electronically Signed On 03-10-24 12:15:41 [employer] by Lucio Gallegos
== END 2024-03-08 18:32 | disposition home or self-care (01) | DRG 193 ==
LOC: ER 12:55 → ERHOLD 17:55 → 2ND 20:10
PROVIDERS: ADMIT Internal Medicine; ATTEND Hospitalist
PROC: 02HV33Z Insertion of Infusion Device into Superior Vena Cava, Percutaneous Approach (ICD-10-PCS; principal; 2024-03-02)
PROC: 5A1D70Z Performance of Urinary Filtration, Intermittent, Less than 6 Hours Per Day (ICD-10-PCS; 2024-03-02)
PROC: 30233N1 Transfusion of Nonautologous Red Blood Cells into Peripheral Vein, Percutaneous Approach (ICD-10-PCS; 2024-03-03)
DX: J18.9 Pneumonia, unspecified organism (principal); J96.01 Acute respiratory failure with hypoxia; N18.6 End stage renal disease; I12.0 Hypertensive chronic kidney disease with stage 5 chronic kidney disease or end stage renal disease; J81.1 Chronic pulmonary edema; N25.81 Secondary hyperparathyroidism of renal origin; J44.1 Chronic obstructive pulmonary disease with (acute) exacerbation; J44.0 Chronic obstructive pulmonary disease with (acute) lower respiratory infection; S27.301A Unspecified injury of lung, unilateral, initial encounter; E11.22 Type 2 diabetes mellitus with diabetic chronic kidney disease; E11.649 Type 2 diabetes mellitus with hypoglycemia without coma; E11.39 Type 2 diabetes mellitus with other diabetic ophthalmic complication; H42 Glaucoma in diseases classified elsewhere; D63.1 Anemia in chronic kidney disease; I48.91 Unspecified atrial fibrillation; E78.5 Hyperlipidemia, unspecified; E66.9 Obesity, unspecified; I27.20 Pulmonary hypertension, unspecified; J45.909 Unspecified asthma, uncomplicated; Z99.2 Dependence on renal dialysis; Z60.2 Problems related to living alone; Z79.899 Other long term (current) drug therapy; Z79.02 Long term (current) use of antithrombotics/antiplatelets; Z68.28 Body mass index [BMI] 28.0-28.9, adult; Z11.52 Encounter for screening for COVID-19; Z79.01 Long term (current) use of anticoagulants; Z79.52 Long term (current) use of systemic steroids
CPT/HCPCS: 36415; 71045; 71250; 80048; 80076; 80202; 81001; 83520; 83605; 83735; 84100; 84443; 84484; 85014; 85018; 85025; 85610; 85730; 86021; 86706; 86850; 86900; 86901; 86920; 87040; 87340; 87389; 87804; 87811; 90935; 92610; 93005; 93306; 94640; 96372; 97116; 97161; 97530; 99285; J0692; J0696; J1644; J2405; J2919; J7040; J7050; J7614; J7644; P9016

== ENCOUNTER 2024-03-11 09:13 | Emergency (ER) | payer OTHER ==
--- NOTE | 2024-03-11 10:49 | ER ---
Nurse's Notes [facility] Name: Amanda Bermudez Age: 74 yrs Sex: Female : 1950 Arrival Date: 03/11/2024 Time: 09:13 Bed 8 Private MD: Diagnosis: End stage renal disease Presentation: 03/11 09:16 Chief complaint: Chief complaint: EMS states: [facility] staff reported "pt was aa5 confused and attempting to get out of chair", EMS reports pt was A\\T\\O x 4 upon scene arrival and FSBG 92. Pt currently at baseline, A\\T\\O x 4. Pt did complete full dialysis today. 09:16 Coronavirus screen: At this time, the client does not indicate any symptoms associated aa5 with coronavirus-19. Ebola Screen: Patient denies travel to an Ebola-affected area in the 21 days before illness onset. Initial Sepsis Screen: Does the patient meet any 2 criteria? No. Patient's initial sepsis screen is negative. Does the patient have a suspected source of infection? No. Patient's initial sepsis screen is negative. Risk Assessment: Do you want to hurt yourself or someone else? Patient reports no desire to harm self or others. 09:16 Method Of Arrival: Ambulatory aa5 09:16 Acuity: DASHA 3 aa5 09:16 Onset of symptoms was March 11, 2024. aa5 Historical: - Allergies: 09:27 No Known Allergies; aa5 - PMHx: 09:16 Dialysis; T; Hypertension; aa5 - PSHx: 09:16 Dialysis fistula- left arm; Dialysis catheter (right chest) (Dialysis fistula- left aa5 arm); - Immunization history:: Adult Immunizations unknown. - Infectious Disease History:: Denies. - Social history:: Smoking status: Patient denies any tobacco usage or history of. - Family history:: not pertinent. - Hospitalizations: : The patient was recently seen at [facility]. Screenin:20 [facility] ED Fall Risk Assessment (Adult) History of falling in the last 3 months, aa5 including since admission No falls in past 3 months (0 pts) Confusion or Disorientation No (0 pts) Intoxicated or Sedated No (0 pts) Impaired Gait No (0 pts) Mobility Assist Device Used No (0 pt) Altered Elimination No (0 pt) Score/Fall Risk Level 0 - 2 = Low Risk Oriented to surroundings, Maintained a safe environment, Educated pt \\T\\ family on fall prevention, incl call for assistance when getting out of bed. Abuse screen: Denies threats or abuse. Nutritional screening: No deficits noted. Tuberculosis screening: No symptoms or risk factors identified. Assessment: 09:16 General: Appears comfortable, Behavior is calm, cooperative. Pain: Denies pain. Neuro: aa5 Level of Consciousness is awake, alert, obeys commands, Oriented to person, place, time, situation, [place] are equal bilaterally Moves all extremities. Speech is normal, Facial symmetry appears normal, Denies any complaints. . Cardiovascular: Heart tones S1 S2 present Rhythm is irregular Dialysis shunt: in the left arm, with palpable thrill, with auscultated bruit, with no erythema, with no edema, no bleeding noted. Respiratory: Airway is patent Respiratory effort is even, unlabored, relaxed, Respiratory pattern is regular, symmetrical. GI: Abdomen is round non-distended. : No signs and/or symptoms were reported regarding the genitourinary system. EENT: No signs and/or symptoms were reported regarding the EENT system. Derm: Skin is dry, Skin is normal, Skin temperature is warm. Musculoskeletal: Range of motion: intact in all extremities. 11:00 Reassessment: Pt sleeping. . aa5 11:10 Reassessment: Awaiting ride home . aa5 12:30 Neuro: Level of Consciousness is awake, alert, obeys commands, Oriented to person, aa5 place, time, situation. Respiratory: Airway is patent Respiratory effort is even, unlabored, Respiratory pattern is regular, symmetrical. Derm: Skin is dry, Skin is normal, Skin temperature is warm. Vital Signs: 09:16 BP 143 / 70; Pulse 88; Resp 16 S; Temp 97.6(TE); Pulse Ox 99% on R/A; aa5 10:00 BP 119 / 68; Pulse 87; Resp 18 S; Pulse Ox 96% on R/A; aa5 11:00 BP 135 / 74; Pulse 79; Resp 16 S; Pulse Ox 96% on R/A; aa5 12:00 BP 132 / 64; Pulse 70; Resp 16 S; Temp 97.5(TE); Pulse Ox 97% on R/A; aa5 ED Course: 09:16 Patient arrived in ED. iw 09:16 Arm band placed on Patient placed in an exam room, on a stretcher. aa5 09:16 Patient has correct armband on for positive identification. Placed in gown. Bed in low aa5 position. Call light in reach. Side rails up X2. Client placed on continuous cardiac and pulse oximetry monitoring. NIBP monitoring applied. gambling monitor on. Pulse ox on. NIBP on. 09:17 Maynor Lucas MD is Attending Physician. rn 09:22 Lian Allison, ERYN is Primary Nurse. aa5 09:25 Triage completed. aa5 09:28 EKG done, by ED staff, reviewed by Maynor Lucas MD. em1 12:32 No provider procedures requiring assistance completed. Patient did not have IV access aa5 during this emergency room visit. Administered Medications: No medications were administered Medication: 11:20 VIS not applicable for this client. aa5 Point of Care Testing: Blood Glucose: 09:21 Blood Glucose: 93 mg/dL; iw Ranges: Outcome: 10:49 Discharge ordered by . rn 12:32 Discharged to home ambulatory, with family, aa5 12:32 Condition: stable 12:32 Discharge instructions given to patient, family, Instructed on discharge instructions, follow up and referral plans. Demonstrated understanding of instructions, follow-up care, 12:33 Patient left the ED. aa5 Signatures: Shanika Claire RN RN Maynor Lucas MD MD rn Martinez, Eric em1 Lian Allison, ERYN RN aa5 Corrections: (The following items were deleted from the chart) 09:25 09:16 Chief complaint: aa5 aa5
--- NOTE | 2024-03-11 10:50 | EDPHYS ---
Physician Documentation [facility] Name: Amanda Bermudez Age: 74 yrs Sex: Female : 1950 Arrival Date: 03/11/2024 Time: 09:13 Bed 8 Private MD: ED Physician Maynor Lucas HPI: 03/11 09:26 This 74 yrs old Black Female presents to ER via Ambulatory with complaints of Confusion.rn 09:26 The patient presents with confusion. Onset: The symptoms/episode began/occurred just rn prior to arrival. Possible causes: dialysis. Associated signs and symptoms: Pertinent positives: confusion, Pertinent negatives: abdominal pain, agitation, ataxia, chest pain. Current symptoms: In the emergency department the patient's symptoms have resolved. The patient has experienced similar episodes in the past. Patient brought in by EMS after completing dialysis and per report was altered. Patient gets like this sometimes after dialysis and resolves. Patient denies any fever or acute problems. No focal pain. No difficulty breathing or chest pain. No abdominal pain or vomiting or diarrhea. No changes in medication. Patient reports completely back to baseline now and denies being altered. States was feeling a little weak after dialysis but now feels completely normal.. Historical: - Allergies: 09:27 No Known Allergies; aa5 - PMHx: 09:16 Dialysis; T; Hypertension; aa5 - PSHx: 09:16 Dialysis fistula- left arm; Dialysis catheter (right chest) (Dialysis fistula- left aa5 arm); - Immunization history:: Adult Immunizations unknown. - Infectious Disease History:: Denies. - Social history:: Smoking status: Patient denies any tobacco usage or history of. - Family history:: not pertinent. - Hospitalizations: : The patient was recently seen at [facility]. ROS: 09:26 Constitutional: Negative for fever, chills, and weight loss, Neck: Negative for injury, rn pain, and swelling, Cardiovascular: Negative for chest pain, palpitations, and edema, Respiratory: Negative for shortness of breath, cough, wheezing, and pleuritic chest pain, Abdomen/GI: Negative for abdominal pain, nausea, vomiting, diarrhea, and constipation, Back: Negative for injury and pain, MS/Extremity: Negative for injury and deformity, Skin: Negative for injury, rash, and discoloration, Neuro: Negative for headache, focal weakness, numbness, tingling, and seizure, Exam: 09:26 Constitutional: This is a well developed, well nourished patient who is awake, alert, rn and in no acute distress. Head/Face: Normocephalic, atraumatic. Cardiovascular: Regular rate and rhythm. No pulse deficits. Respiratory: Speaking full sentences, unlabored. No increased work of breathing, no retractions or nasal flaring. Abdomen/GI: Soft, nontender MS/ Extremity: Pulses equal, no cyanosis. Neuro: Awake and alert, GCS 15, oriented to person, place, time, and situation. Cranial nerves II-XII grossly intact. Motor strength 5/5 in all extremities. Sensory grossly intact. Cerebellar exam normal. 09:53 ECG was reviewed by the Attending Physician. rn Vital Signs: 09:16 BP 143 / 70; Pulse 88; Resp 16 S; Temp 97.6(TE); Pulse Ox 99% on R/A; aa5 10:00 BP 119 / 68; Pulse 87; Resp 18 S; Pulse Ox 96% on R/A; aa5 11:00 BP 135 / 74; Pulse 79; Resp 16 S; Pulse Ox 96% on R/A; aa5 12:00 BP 132 / 64; Pulse 70; Resp 16 S; Temp 97.5(TE); Pulse Ox 97% on R/A; aa5 MDM: 09:17 Medical Screening Exam initiated rn 10:47 Differential Diagnosis: hypoglycemia, volume depletion. Data reviewed: vital signs, rn nurses notes, lab test result(s), EKG, and as a result, I will discharge patient. Counseling: I had a detailed discussion with the patient and/or guardian regarding the historical points, exam findings, and any diagnostic results supporting the discharge/admit diagnosis, lab results, the need for outpatient follow up, to return to the emergency department if symptoms worsen or persist or if there are any questions or concerns that arise at home. Special discussion: I discussed with the patient/guardian in detail that at this point there is no indication for admission to the hospital. It is understood, however, that if the symptoms persist or worsen the patient needs to return immediately for re-evaluation. ED course: No acute findings and evaluation. Normal vital signs. Completely back to normal. Possibly just transient effect of dialysis as this has happened multiple times before. I have seen this patient multiple times after dialysis with altered mental status and this is the best she is ever looked. Patient states she is hungry and wants to go home.. 03/11 09:33 Order name: Glucose, Ancillary Testing; Complete Time: 10:05 EDMS 03/11 09:18 Order name: EKG; Complete Time: 09:18 rn 03/11 09:18 Order name: Cardiac monitoring; Complete Time: :27 rn 03/11 09:18 Order name: O2 Sat Monitoring; Complete Time: : rn 03/11 09:18 Order name: Glucose Level; Complete Time: 09:21 rn 03/11 09:18 Order name: EKG - Nurse/Tech; Complete Time: : rn EC:53 Rate is 84 beats/min. Rhythm is regular. QRS [place] is Normal. CO interval is normal. QRS rn interval is normal. T waves are Inverted in lead V6. No ST changes noted. Clinical impression: NSR w/ Non-specific ST/T Changes. Interpreted by me. Reviewed by me. Administered Medications: No medications were administered Point of Care Testing: Blood Glucose: : Blood Glucose: 93 mg/dL; iw Ranges: Critical Glucose Levels:Adult <50 mg/dl or >400 mg/dl <40 mg/dl or >180 mg/dl Disposition Summary: 03/11/24 10:49 Discharge Ordered Notes: Location: Home rn Problem: new rn Symptoms: have improved rn Condition: Stable rn Diagnosis - End stage renal disease rn Followup: rn - With: Private Physician - When: As needed - Reason: Recheck today's complaints, Re-evaluation by your physician Discharge Instructions: - Discharge Summary Sheet rn - registry rn - End-Stage Kidney Disease rn Forms: - Medication Reconciliation Form rn - Antibiotic cerner analyst - Prescription Opioid Use rn - Patient Portal Instructions rn - Leadership Thank You Letter rn Signatures: Maynor Lucas MD MD rn Calderon, Audri RN RN aa5
[2024-03-11 12:42] VITALS: BP 132/64; TEMP 97.5; O2SAT 97
--- NOTE | 2024-03-17 13:15 | EKG ---
Test Date: 2024-03-11 Test Time: 09:25:09 Forensic Manager: ROGER MEASUREMENT RESULTS: Intervals: Rate: 84 MS: 192 QRSD: 98 QT: 404 QTc: 477 [place]: P: MS: 192 QRS: 6 T: 76 INTERPRETIVE STATEMENTS: Sinus rhythm with premature ventricular complexes or fusion complexes T wave abnormality, consider lateral ischemia Prolonged QT Abnormal ECG Compared to ECG 03/03/2024 05:31:52 Fusion complex(es) now present Ventricular premature complex(es) now present Prolonged QT interval now present Atrial premature complex(es) no longer present Aberrant conduction of supraventricular beat(s) no longer present T-wave abnormality still present Possible ischemia still present Electronically Signed On 03-17-24 13:04:35 CHILD CARE COUNSELOR by Lucio Gallegos
== END 2024-03-11 12:33 | disposition home or self-care (01) ==
LOC: ER 09:13
DX: I12.0 Hypertensive chronic kidney disease with stage 5 chronic kidney disease or end stage renal disease (principal); N18.6 End stage renal disease; Z99.2 Dependence on renal dialysis
CPT/HCPCS: 82947; 93005; 99284